=== PATIENT | female | born 1945 | race Caucasian/White ===

== ENCOUNTER 2016-02-21 16:53 | Inpatient (IN) | payer MEDICARE, OTHER ==
[~2016-02-21] VITALS: Ht 172.7 cm; Wt 74.4 kg
[2016-02-21 17:31] LABS: POTASSIUM ISTAT 5.6 mmol/L (3.5-5.0)
[2016-02-21 17:39] LABS: BASO # 0.2 x10^3/uL (0.0-0.2); BASO % 1 % (0-3); EOS % 3 % (0-3); HEMATOCRIT 25.9 % (36.0-47.0); HEMOGLOBIN 8.5 g/dL (12.0-15.5); LYMPH # 0.8 x10^3/uL (1.0-4.8); LYMPH % 6 % (24-48); MEAN CORPUSCULAR HEMOGLOBIN 30 pg (25-35); MEAN CORPUSCULAR HGB CONC 33 g/dL (31-37); MEAN CORPUSCULAR VOLUME 91 fL (79-100); MONO % 9 % (0-9); NEUT % 80 % (31-73); PLATELET COUNT 321 x10^3/uL (140-400); RED BLOOD COUNT 2.86 x10^6/uL (3.50-5.40); RED CELL DISTRIBUTION WIDTH 15.8 % (11.5-14.5); WHITE BLOOD COUNT 12.2 x10^3/uL (4.0-11.0)
[2016-02-21] MEDS ORDERED: INSULIN REGULAR 100 UNIT/ML 10ML VIAL. IV ONE (17:45)
[2016-02-21] MEDS ORDERED: DEXTROSE 50% 25 GM / 50ML DISP.SYRIN. IV ONE (17:45)
[2016-02-21] MEDS ORDERED: CALCIUM GLUCONATE 1,000 MG/10 ML VIAL IVP ONE (17:45)
[2016-02-21] MEDS ORDERED: SODIUM BICARB ADULT 8.4% 50 MEQ/50 ML DISP.SYRIN. IV ONE (17:45)
[2016-02-21 17:57] LABS: MAGNESIUM 2.6 mg/dL (1.8-2.4); PHOSPHORUS 5.5 mg/dL (2.6-4.7)
[2016-02-21 18:03] LABS: CALCIUM 9.1 mg/dL (8.5-10.1); CREATININE 3.4 mg/dL (0.6-1.0); GFR 13.3; POTASSIUM 4.4 mmol/L (3.5-5.1)
[2016-02-21 18:04] LABS: ALBUMIN 3.6 g/dL (3.4-5.0); ALBUMIN/GLOBULIN RATIO 1.1 (1.0-1.7); TOTAL BILIRUBIN 0.4 mg/dL (0.2-1.0)
--- NOTE | 2016-02-21 18:57 | RAD ---
PROCEDURE CT head without contrast. HISTORY Syncope and weakness. TECHNIQUE Noncontrast CT head was obtained. One or more of the following individualized dose reduction techniques were utilized for this exam: 1. Automated exposure control. 2. Adjustment of the mA and/or kV according to patient's size. 3. Use of iterative reconstruction technique. COMPARISON None provided. FINDINGS There is a small old right cerebellar infarct inferiorly. There is an old left basal ganglia infarct extending into the left frontal white matter. There is prominence of the ventricles and sulci. There is minimal probable small-vessel ischemic disease. There is no intracranial hemorrhage or extra-axial fluid collection. There is no mass effect or midline shift. There is no evidence of an acute infarct. There are vascular calcifications. There is hyperostosis frontalis. Left paranasal sinuses are opacified. Hyperdense material within the left maxillary sinus raises the possibility of inspissated secretions, atypical infection such as fungal sinusitis, or hemosinus. IMPRESSION 1. No acute intracranial findings. 2. 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 3. Brain parenchymal volume loss and minimal probable small-vessel ischemic disease. 4. Left paranasal sinus disease. Electronically signed by: Cory Pelaez MD (Feb 21, 2016 18:56:16)
[2016-02-21 19:04] LABS: INR 4.6 (0.8-1.1)
[2016-02-21] MEDS ORDERED: ALEN70TA5 PO (19:34)
[2016-02-21] MEDS ORDERED: SOTA160T PO (19:34)
[2016-02-21] MEDS ORDERED: LOSA1TAB17 PO (19:34)
[2016-02-21] MEDS ORDERED: DIGO125T PO (19:34)
[2016-02-21] MEDS ORDERED: INSU100V10 SQ (19:34)
[2016-02-21] MEDS ORDERED: OMEG1CAP16 PO (19:34)
[2016-02-21] MEDS ORDERED: FURO-68 PO (19:34)
[2016-02-21] MEDS ORDERED: ALLO300T PO (19:34)
[2016-02-21] MEDS ORDERED: MAGN400C PO (19:34)
[2016-02-21] MEDS ORDERED: ATOR40TA59 PO (19:34)
[2016-02-21] MEDS ORDERED: WARF5TAB PO (19:34)
[2016-02-21] MEDS ORDERED: ASPI-482 PO (19:34)
[2016-02-21 19:43] LABS: OBC FLU VALID
[2016-02-21 20:00] VITALS: BP 140/64
[2016-02-21 21:00] VITALS: BP 149/58
--- NOTE | 2016-02-21 21:25 | EKG ---
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
--- NOTE | 2016-02-21 21:26 | EKG ---
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
[2016-02-21] MEDS ORDERED: DEXTROSE 50% 25 GM / 50ML DISP.SYRIN. IV PRN (21:30)
[2016-02-21 22:00] VITALS: BP 148/57
[2016-02-21] MEDS ORDERED: SOTALOL 80 MG TABLET. PO SCH (22:00)
[2016-02-21 23:00] VITALS: BP 115/48
[2016-02-22] VITALS (26 sets, daily range): BP systolic 92–143; BP diastolic 43–69
[2016-02-22] MEDS ORDERED: ACETAMINOPHEN 325 MG TABLET. PO PRN
[2016-02-22] MEDS ORDERED: DEXTROSE 50% 25 GM / 50ML DISP.SYRIN. IV PRN ×2 (00:30→11:00)
--- NOTE | 2016-02-22 00:31 | ED.ADGEN ---
Past Medical History Past Medical History: CAD, CVA, Diabetes-Type II, Renal Disease, Other Additional Past Medical Histor: ULCER COLITIS, AORTIC VALVE PROLAPSE Past Surgical History: Cholecystectomy, Tonsillectomy, Other Additional Past Surgical Histo: RIGHT BREAST MASTECTOMY,COLON RESECTION,AORTIC VALVE REPLACEMENT Alcohol Use: Occasionally Drug Use: None Adult General Chief Complaint Chief Complaint: SYNCOPE HPI HPI Patient is a 70 year old woman, 3 of CAD, hypertension, CVA, type 2 diabetes mellitus, who presents to the emergency department via EMS with report of a syncopal episode and bradycardia. Patient is awake, alert and oriented upon arrival to the emergency department. Heart rate is in the 30s and 40s, sinus bradycardia on the monitor. Blood pressure is 130s over 70s, oxygen saturation is 97% on room air. Patient states that she was seated in a chair in her living room, when she experienced a syncopal episode. She states he's been feeling unwell for the past several days, suffering from "flulike symptoms". Coughing, occasional nausea. No chest pain or shortness of breath, no vomiting or diarrhea. Denies any weakness emesis or tingling, any injuries. Patient's witnessed the episode, and states that she slumped over in the chair, is unresponsive for several minutes, patient did have incontinence of urine, but no seizure type activity was reported. Patient is compliant with her medications, which include digoxin and solatol, she also takes Coumadin. She did not fall or strike her head or neck. Denies any similar symptoms previously. Her primary care provider is Dr. Milner, her manager exchange is Dr. Butler. Review of Systems Review of Systems Constitutional: Denies fever or chills. [] Generalized malaise. Eyes: Denies change in visual acuity. [] HENT: Denies nasal congestion or sore throat. [] Respiratory: Denies cough or shortness of breath. [] Cardiovascular: Denies chest pain or edema. [] GI: Denies abdominal pain, nausea, vomiting, bloody stools or diarrhea. [] : Denies dysuria. [] Musculoskeletal: Denies back pain or joint pain. [] Integument: Denies rash. [] Neurologic: Denies headache, focal weakness or sensory changes. Syncope. [] Endocrine: Denies polyuria or polydipsia. [] Lymphatic: Denies swollen glands. [] Psychiatric: Denies depression or anxiety. [] Physical Exam Physical Exam Constitutional: Well developed, well nourished, no acute distress, non-toxic appearance. [] HENT: Normocephalic, atraumatic, bilateral external ears normal, oropharynx moist, no oral exudates, nose normal. [] Eyes: PERRLA, EOMI, conjunctiva normal, no discharge. [] Neck: Normal range of motion, no tenderness, supple, no stridor. [] Cardiovascular:Heart rate regular rhythm, no murmur [] Lungs & Thorax: Bilateral breath sounds clear to auscultation [] Abdomen: Bowel sounds normal, soft, no tenderness, no masses, no pulsatile masses. [] Skin: Warm, dry, no erythema, no rash. [] Back: No tenderness, no CVA tenderness. [] Extremities: No tenderness, no cyanosis, no clubbing, ROM intact, no edema. [] Neurologic: Alert and oriented X 3, normal motor function, normal sensory function, no focal deficits noted. [] Psychologic: Affect normal, judgement normal, mood normal. [] Current Patient Data Vital Signs Vital Signs Date Time Temp Pulse Resp B/P Pulse Ox O2 Delivery O2 Flow Rate FiO2 02/21/16 16:53 97.7 44 12 125/59 93 Room Air 97.7 EKG EKG EC: Sinus bradycardia, heart rate 42 beats minute, QTC of 450, QRS of 112 , contour abnormalities noted in the anterior lateral leads, left axis deviation , no ST elevations or depressions. As interpreted by me. [] EC: Sinus bradycardia, heart rate of 44 bpm, left ventricular hypertrophy , with baseline artifact, QTC of 474, NM 194, QRS of 14, no ST elevations, no significant depressions identified. As interpreted by me. Radiology/Procedures Radiology/Procedures Chest x-ray: In view: Cardiomegaly noted, no significant infiltrates or effusions noted, sternotomy wires in place. No pneumothorax, no soft tissue abnormalities identified, as interpreted by me. [] Course & Med Decision Making Course & Med Decision Making Pertinent Labs and Imaging studies reviewed. (See chart for details) Patient with persistent bradycardia, however it is sinus in nature, and patient' s blood pressures remained in the 120s to the 140s over 70s and 80s, she is denying any symptoms at this time in the ED. I-STAT reveals a potassium of 5.6, creatinine of 3.5, creatinine is in line with the patient's baseline. Patient was given calcium gluconate 1 g, along with bicarbonate and insulin, glucose, with concern for possible hyperkalemia contributing to her bradycardia. There was no change in the patient's baseline rhythm, heart rate remains in the 30s to the low 50s. Troponin is normal, CT of the head does not reveal any evidence of acute abdomen abnormalities. Findings as above discussed with Dr. Butler, the patient's primary care provider. The patient denies any possible overdose of her medications, which is consistent with her continued stabilized blood pressure, her digoxin level is 1.3. He recommends continue to monitor the patient closely, will admit to the ICU keep the life pads on as replacement patient's arrival, patient will likely require placement of a pacemaker. Findings as above discussed with Dr. Milner, the patient's primary care provider , patient accepted to her service as a full admission to the ICU with plan as stated above. I did discuss this with patient, she is agreeable with this plan, is resting comfortably at this time, heart rate remains in the 40s to 50s at this point, blood pressure remained stable, patient transferred to the ICU without issue. Dragon Disclaimer Dragon Disclaimer This electronic medical record was generated, in whole or in part, using a voice recognition dictation system. Critical Care Time Critical care time was 20 minutes exclusive of procedures. Departure Impression: Primary Impression: Syncope Additional Impression: Symptomatic bradycardia Disposition: ADMITTED INPATIENT Admitting Physician: Dolores Milner Condition: IMPROVED Problem Qualifiers Primary Impression: Syncope Syncope type: unspecified Qualified Code: R55 - Syncope and collapse BING NELSON DO Feb 22, 2016 00:31
--- NOTE | 2016-02-22 00:41 | ACF ---
Admission Forms Criteria SYNCOPE Clinical Indications for Admission to Inpatient Care ( Place 'X' for any and all applicable criteria): Admission is indicated for syncope and ANY ONE of the following (1)(2)(3)(4)(5) (6)(7) : [ X]I. Inpatient admission required rather than observation care (Also use Syncope: Observation Care Criteria as appropriate) because of ANY ONE of the following: [ X]a) Hemodynamic instability that is severe or persistent [ ]b) Cardiac arrhythmias of immediate concern identified or strongly suspected (eg, needs electrophysiologic study) [ ]c) Acute coronary syndrome identified (Also use Myocardial Infarction or Angina Criteria form ) [ ]d) Structural cardiac disorder (eg, aortic stenosis) suspected as cause that requires immediate correction [ ]e) Respiratory symptoms (eg, dyspnea, tachypnea) that are severe or persistent [ ]f) Neurologic signs or symptoms that are severe or persistent ( eg, stroke, seizures, altered mental status) [ ]g) Severe electrolyte abnormalities requiring inpatient care [ ]h) Supplemental oxygen or respiratory treatment for over 24 hrs that are performable only in acute inpatient setting [ ]i) IV fluid to replace significant ongoing (eg, for over 24 hrs ) losses (>3 L/m2 per day) [ ]j) Continuous intravenous infusion of anticoagulation, platelet inhibitor, vasoactive, or antiarrhythmic medication(15)(16) [ ]k) Pulmonary artery catheter monitoring [ ]l) Temporary pacemaker placement(17) [ ]m) Emergent cardioversion(18) [ X]n) Other conditions, treatment or monitoring requiring inpatient admission [ ]II. Suspicion of imminently dangerous cause (eg, rare causes like pericardial tamponade, pulmonary embolism) [ ]III. Syncope causing severe injury requiring hospitalization Extended stay beyond goal length of stay may be needed for(28) [ ]a) Dangerous arrhythmia(15)(23)(27)(29) [ ]b) Myocardial ischemia [ ]c) Seizure disorder [ ]d) Syncope-related injuries The original [email or web address] content created by [employer] has been revised. The portions of the content which have been revised are identified through the use of italic text or in bold, and [employer] has neither reviewed nor approved the modified material. All other unmodified content is copyright [employer] [facility] [employer]. Please see references footnoted in the original [facility] edition 2016 Admission Criteria Met?: Yes LINDSAY BOWEN Feb 22, 2016 00:41
--- NOTE | 2016-02-22 07:17 | EKG ---
[facility] [address] [place] [address] Test Date: 2016-02-22 Test Time: 07:22:18 Pat Name: GASTON PATTERSON Department: Room: 110 1 Gender: F Damascener: DAVID : 1945 Requested By: BING NELSON Order Number: [id number] Reading MD: Angela Bojorquez Measurements Intervals [place] Rate: 51 P: SD: QRS: 28 QRSD: 114 T: 38 QT: 502 QTc: 465 Interpretive Statements PROBABLE SINUS RHYTHM QRS(T) CONTOUR ABNORMALITY CONSIDER ANTEROLATERAL MYOCARDIAL DAMAGE ABNORMAL ECG RI6.01 No previous ECG available for comparison Electronically Signed On 02-25-2016 8:40:09 SHIPYARD LABORER by Angela Bojorquez
[2016-02-22 07:42] LABS: BASO # 0.1 x10^3/uL (0.0-0.2); BASO % 1 % (0-3); EOS % 3 % (0-3); HEMATOCRIT 23.3 % (36.0-47.0); HEMOGLOBIN 7.6 g/dL (12.0-15.5); LYMPH # 0.7 x10^3/uL (1.0-4.8); LYMPH % 7 % (24-48); MEAN CORPUSCULAR HEMOGLOBIN 30 pg (25-35); MEAN CORPUSCULAR HGB CONC 33 g/dL (31-37); MEAN CORPUSCULAR VOLUME 93 fL (79-100); MONO % 11 % (0-9); NEUT % 78 % (31-73); PLATELET COUNT 272 x10^3/uL (140-400); RED BLOOD COUNT 2.51 x10^6/uL (3.50-5.40); RED CELL DISTRIBUTION WIDTH 16.1 % (11.5-14.5); WHITE BLOOD COUNT 10.2 x10^3/uL (4.0-11.0)
[2016-02-22 07:52] LABS: INR 4.2 (0.8-1.1); PROTHROMBIN TIME PATIENT 38.3 SEC (11.7-14.0)
[2016-02-22] MEDS ORDERED: INSULIN ASPART 300 UNITS/3 ML INSULN.PEN SQ SCH ×2 (08:00)
[2016-02-22 08:09] LABS: ALBUMIN 3.2 g/dL (3.4-5.0); ALBUMIN/GLOBULIN RATIO 1.1 (1.0-1.7); CALCIUM 9.1 mg/dL (8.5-10.1); CREATININE 3.2 mg/dL (0.6-1.0); GFR 14.2; MAGNESIUM 2.7 mg/dL (1.8-2.4); POTASSIUM 3.8 mmol/L (3.5-5.1); TOTAL BILIRUBIN 0.5 mg/dL (0.2-1.0); TOTAL PROTEIN 6.2 g/dL (6.4-8.2)
--- NOTE | 2016-02-22 08:40 | RAD ---
Indication syncopal episode. Protocol study. A single view of the chest was obtained. Note is made of a previous examination 10 years earlier. There is mild cardiac enlargement. Gross congestive heart failure is not seen. There is no consolidated pneumonia. Significant pleural fluid is not present. Postoperative changes are noted. IMPRESSION: Mild cardiac enlargement. No definite acute finding apparent in the chest
[2016-02-22] MEDS ORDERED: ASPIRIN ENTERIC COATED 81 MG TABLET.DR. PO SCH (09:00)
[2016-02-22] MEDS ORDERED: LOSARTAN POTASSIUM 50 MG TABLET. PO SCH (09:00)
[2016-02-22] MEDS ORDERED: HYDROCHLOROTHIAZIDE 25 MG TABLET PO SCH (09:00)
[2016-02-22] MEDS ORDERED: FUROSEMIDE 40 MG TABLET PO SCH (09:00)
[2016-02-22] MEDS: ALLOPURINOL 300 MG TABLET. PO SCH (09:59)
[2016-02-22] MEDS: OSELTAMIVIR 75 MG CAPSULE PO SCH (09:59)
--- NOTE | 2016-02-22 10:24 | PDOC1 ---
History and Physical Date of Admission Date of Admission DATE: 02/21/16 TIME: 17:12 Identification/Chief Complaint Chief Complaint Consult for syncopal episode, bradycardia Source Source: Chart review, Patient History of Present Illness History of Present Illness Patient is a very pleasant 70 year old female who presented after a syncopal episode. She was unresponsive for more than 5 minutes. She denies any chest pain at the time. Past Medical History Cardiovascular: CAD, HTN, Other (AV prolapse) CENTRAL NERVOUS SYSTEM: CVA GI: Inflam bowel disease (Ulcerative colitis) Renal/: Other (renal disease) Endocrine: Diabetes Past Surgical History Past Surgical History aortic valve replacement Past Surgical History: Cholecystectomy, Mastectomy (R breast), Tonsillectomy, Colon Resection Social History Smoke: No ALCOHOL: occassional Current Problem List Problem List Problems Medical Problems: (1) Symptomatic bradycardia Status: Acute (2) Syncope Status: Acute Problems: Current Medications Current Medications Current Medications Calcium Gluconate 1,000 mg 1X ONCE IVP Last administered on 02/21/16 18:08; Start 02/21/16 at 17:45; Stop 02/21/16 at 17:46; Status DC Sodium Bicarbonate 50 meq 1X ONCE IV Last administered on 02/21/16 17:52; Start 02/21/16 at 17:45; Stop 02/21/16 at 17:46; Status DC Dextrose 25 gm 1X ONCE IV Last administered on 02/21/16 18:02; Start 02/21/16 at 17:45; Stop 02/21/16 at 17:46; Status DC Insulin Human Regular (Novolin R Vial) 10 unit 1X ONCE IV Last administered on 02/21/16 18:22; Start 02/21/16 at 17:45; Stop 02/21/16 at 17:46; Status DC Oseltamivir Phosphate (Tamiflu) 75 mg DAILY PO Last administered on 02/22/16 09 :59; Start 02/22/16 at 09:00; Stop 02/26/16 at 09:00 Allopurinol (Zyloprim) 300 mg DAILY PO Last administered on 02/22/16 09:59; Start 02/22/16 at 09:00 Aspirin (Ecotrin) 81 mg DAILY PO Last administered on 02/22/16 09:59; Start 02/22/16 at 09:00 Atorvastatin Calcium (Lipitor) 40 mg QHS PO ; Start 02/22/16 at 21:00 Furosemide (Lasix) 40 mg DAILY PO ; Start 02/22/16 at 09:00 Losartan Potassium (Cozaar) 100 mg DAILY PO Last administered on 02/22/16t 10:02 ; Start 02/22/16 at 09:00 Sotalol HCl (Betapace) 160 mg BID PO ; Start 02/21/16 at 22:00 Insulin Aspart (Novolog) 0-5 UNITS TIDWMEALS SQ ; Start 02/22/16 at 08:00 Dextrose 12.5 gm PRN Q15MIN PRN IV SEE COMMENTS; Start 02/21/16 at 21:30 Hydrochlorothiazide (Hydrodiuril) 25 mg DAILY PO ; Start 02/22/16 at 09:00 Acetaminophen (Tylenol) 650 mg PRN Q4HRS PRN PO FEVER; Start 02/22/16 at 00:00; Stop 02/22/16 at 23:59 Insulin Aspart (Novolog) 0-5 UNITS TIDWMEALS SQ ; Start 02/22/16 at 08:00; Status UNV Dextrose 12.5 gm PRN Q15MIN PRN IV SEE COMMENTS; Start 02/22/16 at 00:30; Status UNV Active Scripts Active Reported Coumadin (Warfarin Sodium) 5 Mg Tablet 1 Tab PO DAILY Sotalol (Sotalol Hcl) 160 Mg Tablet 160 Mg PO BID Novolin R (Insulin Regular, Human) 100 Unit/1 Ml Vial 100 Unit IJ Magnesium (Magnesium Oxide) 400 Mg Capsule 1 Cap PO BID Losartan-Hctz 100-25 Mg Tab (Losartan/Hydrochlorothiazide) 1 Each Tablet 1 Tab PO DAILY Lasix (Furosemide) 40 Mg Tablet 1 Tab PO DAILY Fish Oil 1,000 Mg Softgel ([place]-3 Fatty Acids/Fish Oil) 1 Each Capsule 1 Each PO DAILY Digoxin 125 Mcg Tablet 1 Tab PO DAILY Aspir 81 (Aspirin) 81 Mg Tablet.dr 1 Tab PO DAILY Atorvastatin Calcium 40 Mg Tablet 1 Tab PO QHS Allopurinol 300 Mg Tablet 1 Tab PO DAILY Alendronate Sodium 70 Mg Tablet 1 Tab PO WEEKLY Allergies Allergies: Coded Allergies: No Known Drug Allergies (Unverified , 02/21/16) Vitals Vitals Vital Signs Date Time Temp Pulse Resp B/P Pulse Ox O2 Delivery O2 Flow Rate FiO2 02/22/16 10:02 55 120/61 02/22/16 06:00 18 99 Nasal Cannula 2.0 02/22/16 04:00 98.1 98.1 Labs Labs Laboratory Tests Test 02/21/16 17:21 02/21/16 17:25 02/21/16 17:26 02/21/16 18:26 White Blood Count 12.2x10^3/uL (4.0-11.0) Red Blood Count 2.86x10^6/uL (3.50-5.40) Hemoglobin 8.5g/dL (12.0-15.5) Hematocrit 25.9% (36.0-47.0) Mean Corpuscular Volume 91fL (79-100) Mean Corpuscular Hemoglobin 30pg (25-35) Mean Corpuscular Hemoglobin Concent 33g/dL (31-37) Red Cell Distribution Width 15.8% (11.5-14.5) Platelet Count 321x10^3/uL (140-400) Neutrophils (%) (Auto) 80% (31-73) Lymphocytes (%) (Auto) 6% (24-48) Monocytes (%) (Auto) 9% (0-9) Eosinophils (%) (Auto) 3% (0-3) Basophils (%) (Auto) 1% (0-3) Neutrophils # (Auto) 9.8x10^3uL (1.8-7.7) Lymphocytes # (Auto) 0.8x10^3/uL (1.0-4.8) Monocytes # (Auto) 1.1x10^3/uL (0.0-1.1) Eosinophils # (Auto) 0.4x10^3/uL (0.0-0.7) Basophils # (Auto) 0.2x10^3/uL (0.0-0.2) Sodium Level 136mmol/L (136-145) Potassium Level 4.4mmol/L (3.5-5.1) Chloride Level 99mmol/L (98-107) Carbon Dioxide Level 21mmol/L (21-32) Anion Gap 16 (6-14) 18mmol/L (6-14) Blood Urea Nitrogen 95mg/dL (7-20) Creatinine 3.4mg/dL (0.6-1.0) Estimated GFR (Cockcroft-Gault) 13.3 BUN/Creatinine Ratio 28 (6-20) Glucose Level 145mg/dL (70-99) 133mg/dL (70-99) Calcium Level 9.1mg/dL (8.5-10.1) Phosphorus Level 5.5mg/dL (2.6-4.7) Magnesium Level 2.6mg/dL (1.8-2.4) Total Bilirubin 0.4mg/dL (0.2-1.0) Aspartate Amino Transf (AST/SGOT) 27U/L (15-37) Alanine Aminotransferase (ALT/SGPT) 28U/L (14-59) Alkaline Phosphatase 48U/L (46-116) Bedside Troponin I 0.02ng/ml (<0.08) Troponin I Quantitative < 0.017ng/mL (0.000-0.055) HX-Pli-M-Type Natriuretic Peptide 2230pg/mL (0-124) Total Protein 7.0g/dL (6.4-8.2) Albumin 3.6g/dL (3.4-5.0) Albumin/Globulin Ratio 1.1 (1.0-1.7) Lipase 463U/L (73-393) Thyroid Stimulating Hormone (TSH) 3.160uIU/mL (0.358-3.74) Digoxin Level 1.3ng/mL (0.9-2.0) Digoxin Last Dose Date Unk Digoxin Last Dose Time Unk Bedside Hemoglobin 9.5g/dL (12-15) Bedside Hematocrit 28% (36-40) Bedside Sodium 133mmol/L (135-145) Bedside Potassium 5.6mmol/L (3.5-5.0) Bedside Chloride 100mmol/L (98-110) Bedside Total CO2 22mmol/L (23-32) Bedside Blood Urea Nitrogen 103mg/dL (8-26) Bedside Creatinine 3.5mg/dL (0.5-1.4) Bedside Ionized Calcium (Mary) 1.08mmol/L (1.13-1.32) Prothrombin Time 41.0SEC (11.7-14.0) Prothromb Time International Ratio 4.6 (0.8-1.1) Activated Partial Thromboplast Time 82SEC (24-38) Test 02/21/16 19:18 02/22/16 01:10 02/22/16 07:30 Influenza Type A Antigen Negative (NEGATIVE) Influenza Type B Antigen Positive (NEGATIVE) Troponin I Quantitative 0.025ng/mL (0.000-0.055) 0.030ng/mL (0.000-0.055) White Blood Count 10.2x10^3/uL (4.0-11.0) Red Blood Count 2.51x10^6/uL (3.50-5.40) Hemoglobin 7.6g/dL (12.0-15.5) Hematocrit 23.3% (36.0-47.0) Mean Corpuscular Volume 93fL (79-100) Mean Corpuscular Hemoglobin 30pg (25-35) Mean Corpuscular Hemoglobin Concent 33g/dL (31-37) Red Cell Distribution Width 16.1% (11.5-14.5) Platelet Count 272x10^3/uL (140-400) Neutrophils (%) (Auto) 78% (31-73) Lymphocytes (%) (Auto) 7% (24-48) Monocytes (%) (Auto) 11% (0-9) Eosinophils (%) (Auto) 3% (0-3) Basophils (%) (Auto) 1% (0-3) Neutrophils # (Auto) 7.9x10^3uL (1.8-7.7) Lymphocytes # (Auto) 0.7x10^3/uL (1.0-4.8) Monocytes # (Auto) 1.1x10^3/uL (0.0-1.1) Eosinophils # (Auto) 0.3x10^3/uL (0.0-0.7) Basophils # (Auto) 0.1x10^3/uL (0.0-0.2) Prothrombin Time 38.3SEC (11.7-14.0) Prothromb Time International Ratio 4.2 (0.8-1.1) Sodium Level 138mmol/L (136-145) Potassium Level 3.8mmol/L (3.5-5.1) Chloride Level 102mmol/L (98-107) Carbon Dioxide Level 24mmol/L (21-32) Anion Gap 12 (6-14) Blood Urea Nitrogen 85mg/dL (7-20) Creatinine 3.2mg/dL (0.6-1.0) Estimated GFR (Cockcroft-Gault) 14.2 BUN/Creatinine Ratio 27 (6-20) Glucose Level 120mg/dL (70-99) Calcium Level 9.1mg/dL (8.5-10.1) Magnesium Level 2.7mg/dL (1.8-2.4) Total Bilirubin 0.5mg/dL (0.2-1.0) Aspartate Amino Transf (AST/SGOT) 18U/L (15-37) Alanine Aminotransferase (ALT/SGPT) 22U/L (14-59) Alkaline Phosphatase 45U/L (46-116) Total Protein 6.2g/dL (6.4-8.2) Albumin 3.2g/dL (3.4-5.0) Albumin/Globulin Ratio 1.1 (1.0-1.7) Laboratory Tests Test 02/21/16 17:21 02/21/16 17:25 02/21/16 17:26 02/21/16 18:26 White Blood Count 12.2x10^3/uL (4.0-11.0) Red Blood Count 2.86x10^6/uL (3.50-5.40) Hemoglobin 8.5g/dL (12.0-15.5) Hematocrit 25.9% (36.0-47.0) Mean Corpuscular Volume 91fL (79-100) Mean Corpuscular Hemoglobin 30pg (25-35) Mean Corpuscular Hemoglobin Concent 33g/dL (31-37) Red Cell Distribution Width 15.8% (11.5-14.5) Platelet Count 321x10^3/uL (140-400) Neutrophils (%) (Auto) 80% (31-73) Lymphocytes (%) (Auto) 6% (24-48) Monocytes (%) (Auto) 9% (0-9) Eosinophils (%) (Auto) 3% (0-3) Basophils (%) (Auto) 1% (0-3) Neutrophils # (Auto) 9.8x10^3uL (1.8-7.7) Lymphocytes # (Auto) 0.8x10^3/uL (1.0-4.8) Monocytes # (Auto) 1.1x10^3/uL (0.0-1.1) Eosinophils # (Auto) 0.4x10^3/uL (0.0-0.7) Basophils # (Auto) 0.2x10^3/uL (0.0-0.2) Sodium Level 136mmol/L (136-145) Potassium Level 4.4mmol/L (3.5-5.1) Chloride Level 99mmol/L (98-107) Carbon Dioxide Level 21mmol/L (21-32) Anion Gap 16 (6-14) 18mmol/L (6-14) Blood Urea Nitrogen 95mg/dL (7-20) Creatinine 3.4mg/dL (0.6-1.0) Estimated GFR (Cockcroft-Gault) 13.3 BUN/Creatinine Ratio 28 (6-20) Glucose Level 145mg/dL (70-99) 133mg/dL (70-99) Calcium Level 9.1mg/dL (8.5-10.1) Phosphorus Level 5.5mg/dL (2.6-4.7) Magnesium Level 2.6mg/dL (1.8-2.4) Total Bilirubin 0.4mg/dL (0.2-1.0) Aspartate Amino Transf (AST/SGOT) 27U/L (15-37) Alanine Aminotransferase (ALT/SGPT) 28U/L (14-59) Alkaline Phosphatase 48U/L (46-116) Bedside Troponin I 0.02ng/ml (<0.08) Troponin I Quantitative < 0.017ng/mL (0.000-0.055) LH-Qzq-N-Type Natriuretic Peptide 2230pg/mL (0-124) Total Protein 7.0g/dL (6.4-8.2) Albumin 3.6g/dL (3.4-5.0) Albumin/Globulin Ratio 1.1 (1.0-1.7) Lipase 463U/L (73-393) Thyroid Stimulating Hormone (TSH) 3.160uIU/mL (0.358-3.74) Digoxin Level 1.3ng/mL (0.9-2.0) Digoxin Last Dose Date Unk Digoxin Last Dose Time Unk Bedside Hemoglobin 9.5g/dL (12-15) Bedside Hematocrit 28% (36-40) Bedside Sodium 133mmol/L (135-145) Bedside Potassium 5.6mmol/L (3.5-5.0) Bedside Chloride 100mmol/L (98-110) Bedside Total CO2 22mmol/L (23-32) Bedside Blood Urea Nitrogen 103mg/dL (8-26) Bedside Creatinine 3.5mg/dL (0.5-1.4) Bedside Ionized Calcium (Mary) 1.08mmol/L (1.13-1.32) Prothrombin Time 41.0SEC (11.7-14.0) Prothromb Time International Ratio 4.6 (0.8-1.1) Activated Partial Thromboplast Time 82SEC (24-38) Test 02/21/16 19:18 02/22/16 01:10 02/22/16 07:30 Influenza Type A Antigen Negative (NEGATIVE) Influenza Type B Antigen Positive (NEGATIVE) Troponin I Quantitative 0.025ng/mL (0.000-0.055) 0.030ng/mL (0.000-0.055) White Blood Count 10.2x10^3/uL (4.0-11.0) Red Blood Count 2.51x10^6/uL (3.50-5.40) Hemoglobin 7.6g/dL (12.0-15.5) Hematocrit 23.3% (36.0-47.0) Mean Corpuscular Volume 93fL (79-100) Mean Corpuscular Hemoglobin 30pg (25-35) Mean Corpuscular Hemoglobin Concent 33g/dL (31-37) Red Cell Distribution Width 16.1% (11.5-14.5) Platelet Count 272x10^3/uL (140-400) Neutrophils (%) (Auto) 78% (31-73) Lymphocytes (%) (Auto) 7% (24-48) Monocytes (%) (Auto) 11% (0-9) Eosinophils (%) (Auto) 3% (0-3) Basophils (%) (Auto) 1% (0-3) Neutrophils # (Auto) 7.9x10^3uL (1.8-7.7) Lymphocytes # (Auto) 0.7x10^3/uL (1.0-4.8) Monocytes # (Auto) 1.1x10^3/uL (0.0-1.1) Eosinophils # (Auto) 0.3x10^3/uL (0.0-0.7) Basophils # (Auto) 0.1x10^3/uL (0.0-0.2) Prothrombin Time 38.3SEC (11.7-14.0) Prothromb Time International Ratio 4.2 (0.8-1.1) Sodium Level 138mmol/L (136-145) Potassium Level 3.8mmol/L (3.5-5.1) Chloride Level 102mmol/L (98-107) Carbon Dioxide Level 24mmol/L (21-32) Anion Gap 12 (6-14) Blood Urea Nitrogen 85mg/dL (7-20) Creatinine 3.2mg/dL (0.6-1.0) Estimated GFR (Cockcroft-Gault) 14.2 BUN/Creatinine Ratio 27 (6-20) Glucose Level 120mg/dL (70-99) Calcium Level 9.1mg/dL (8.5-10.1) Magnesium Level 2.7mg/dL (1.8-2.4) Total Bilirubin 0.5mg/dL (0.2-1.0) Aspartate Amino Transf (AST/SGOT) 18U/L (15-37) Alanine Aminotransferase (ALT/SGPT) 22U/L (14-59) Alkaline Phosphatase 45U/L (46-116) Total Protein 6.2g/dL (6.4-8.2) Albumin 3.2g/dL (3.4-5.0) Albumin/Globulin Ratio 1.1 (1.0-1.7) VTE Prophylaxis Ordered VTE Prophylaxis Devices: No VTE Pharmacological Prophylaxi: Yes Assessment/Plan Assessment/Plan 1. Sinus bradycardia -Holding sotalol -Insert pacemaker 2. Acute kidney injury - 3. Influenza B positive -Continue Tamiflu ELIZA COON MD Feb 22, 2016 10:24
[2016-02-22] MEDS ORDERED: LOSA100T6 PO (11:40)
[2016-02-22] MEDS ORDERED: MAGNESIUM SULFATE 2GM 50 ML IV PRN (12:45)
--- NOTE | 2016-02-22 12:47 | PDOC2 ---
GI CONSULT Reason For Consult: Anemia HPI: HPI: 70 y/o female admitted to ICU following syncopal episode. She also is bradycardic and positive for influenza B. GI consult is requested for anemia. Labs include Hgb 7.6 (from 8.5), INR 4.2 (from 4.6), BUN 85, Cr 3.2, BNP >2200, lipase 463, and elevated potassium and magnesium. Note order for guaiac stools. PMH significant for aortic valve replacements on Warfarin ( currently held). She denies h/o anemia; no previous labs available for review. She denies hematemesis, hematochezia, or melena. She did have a significant nosebleed ("with clots") 1-2 weeks ago. She has very occasional reflux after overeating which is not concerning and untreated. She has constipation sometimes when she does not take magnesium (per Dr. Alcazar). She denies n/v, abdominal pain, diarrhea, change in appetite, weight loss, and NSAID use. Her chart lists a history of ulcerative colitis which she denies. She has had some type of bowel resection for reasons that are unclear. Per office records, EGD and colonoscopy performed by Dr. Haile in 2003 revealed H. pylori gastritis and hemorrhoids. She's not sure re: H. pylori treatment and does not believe she has had repeat endoscopies since that time. PMH: PMH: CVA, CAD, DM, CKD, osteoporosis, gout, sinusitis, seizure disorder, breast cancer s/p chemo and partial right mastectomy, aortic valve replacement x 2 on Warfarin, bowel resection (?SBO), cholecystectomy, tonsillectomy FH: Family History: No pertinent hx (denies GI cancers) Social History: Smoke: No ALCOHOL: occassional Drugs: None ROS: GEN: Denies fevers, chills, sweats HEENT: Denies blurred vision, sore throat CV: Denies chest pain RESP: +cough GI: Per HPI : Denies hematuria, dysuria ENDO: Denies weight changes NEURO: +syncope MSK: +leg swelling SKIN: Denies jaundice, pruritus VItals: Vitals: Vital Signs Date Time Temp Pulse Resp B/P Pulse Ox O2 Delivery O2 Flow Rate FiO2 02/22/16 10:02 55 120/61 02/22/16 06:00 18 99 Nasal Cannula 2.0 02/22/16 04:00 98.1 98.1 Labs: Labs: Laboratory Tests Test 02/21/16 17:21 02/21/16 17:25 02/21/16 17:26 02/21/16 18:26 White Blood Count 12.2x10^3/uL (4.0-11.0) Red Blood Count 2.86x10^6/uL (3.50-5.40) Hemoglobin 8.5g/dL (12.0-15.5) Hematocrit 25.9% (36.0-47.0) Mean Corpuscular Volume 91fL (79-100) Mean Corpuscular Hemoglobin 30pg (25-35) Mean Corpuscular Hemoglobin Concent 33g/dL (31-37) Red Cell Distribution Width 15.8% (11.5-14.5) Platelet Count 321x10^3/uL (140-400) Neutrophils (%) (Auto) 80% (31-73) Lymphocytes (%) (Auto) 6% (24-48) Monocytes (%) (Auto) 9% (0-9) Eosinophils (%) (Auto) 3% (0-3) Basophils (%) (Auto) 1% (0-3) Neutrophils # (Auto) 9.8x10^3uL (1.8-7.7) Lymphocytes # (Auto) 0.8x10^3/uL (1.0-4.8) Monocytes # (Auto) 1.1x10^3/uL (0.0-1.1) Eosinophils # (Auto) 0.4x10^3/uL (0.0-0.7) Basophils # (Auto) 0.2x10^3/uL (0.0-0.2) Sodium Level 136mmol/L (136-145) Potassium Level 4.4mmol/L (3.5-5.1) Chloride Level 99mmol/L (98-107) Carbon Dioxide Level 21mmol/L (21-32) Anion Gap 16 (6-14) 18mmol/L (6-14) Blood Urea Nitrogen 95mg/dL (7-20) Creatinine 3.4mg/dL (0.6-1.0) Estimated GFR (Cockcroft-Gault) 13.3 BUN/Creatinine Ratio 28 (6-20) Glucose Level 145mg/dL (70-99) 133mg/dL (70-99) Calcium Level 9.1mg/dL (8.5-10.1) Phosphorus Level 5.5mg/dL (2.6-4.7) Magnesium Level 2.6mg/dL (1.8-2.4) Total Bilirubin 0.4mg/dL (0.2-1.0) Aspartate Amino Transf (AST/SGOT) 27U/L (15-37) Alanine Aminotransferase (ALT/SGPT) 28U/L (14-59) Alkaline Phosphatase 48U/L (46-116) Bedside Troponin I 0.02ng/ml (<0.08) Troponin I Quantitative < 0.017ng/mL (0.000-0.055) VA-Sgs-S-Type Natriuretic Peptide 2230pg/mL (0-124) Total Protein 7.0g/dL (6.4-8.2) Albumin 3.6g/dL (3.4-5.0) Albumin/Globulin Ratio 1.1 (1.0-1.7) Lipase 463U/L (73-393) Thyroid Stimulating Hormone (TSH) 3.160uIU/mL (0.358-3.74) Digoxin Level 1.3ng/mL (0.9-2.0) Digoxin Last Dose Date Unk Digoxin Last Dose Time Unk Bedside Hemoglobin 9.5g/dL (12-15) Bedside Hematocrit 28% (36-40) Bedside Sodium 133mmol/L (135-145) Bedside Potassium 5.6mmol/L (3.5-5.0) Bedside Chloride 100mmol/L (98-110) Bedside Total CO2 22mmol/L (23-32) Bedside Blood Urea Nitrogen 103mg/dL (8-26) Bedside Creatinine 3.5mg/dL (0.5-1.4) Bedside Ionized Calcium (Mary) 1.08mmol/L (1.13-1.32) Prothrombin Time 41.0SEC (11.7-14.0) Prothromb Time International Ratio 4.6 (0.8-1.1) Activated Partial Thromboplast Time 82SEC (24-38) Test 02/21/16 19:18 02/22/16 01:10 02/22/16 07:30 Influenza Type A Antigen Negative (NEGATIVE) Influenza Type B Antigen Positive (NEGATIVE) Troponin I Quantitative 0.025ng/mL (0.000-0.055) 0.030ng/mL (0.000-0.055) White Blood Count 10.2x10^3/uL (4.0-11.0) Red Blood Count 2.51x10^6/uL (3.50-5.40) Hemoglobin 7.6g/dL (12.0-15.5) Hematocrit 23.3% (36.0-47.0) Mean Corpuscular Volume 93fL (79-100) Mean Corpuscular Hemoglobin 30pg (25-35) Mean Corpuscular Hemoglobin Concent 33g/dL (31-37) Red Cell Distribution Width 16.1% (11.5-14.5) Platelet Count 272x10^3/uL (140-400) Neutrophils (%) (Auto) 78% (31-73) Lymphocytes (%) (Auto) 7% (24-48) Monocytes (%) (Auto) 11% (0-9) Eosinophils (%) (Auto) 3% (0-3) Basophils (%) (Auto) 1% (0-3) Neutrophils # (Auto) 7.9x10^3uL (1.8-7.7) Lymphocytes # (Auto) 0.7x10^3/uL (1.0-4.8) Monocytes # (Auto) 1.1x10^3/uL (0.0-1.1) Eosinophils # (Auto) 0.3x10^3/uL (0.0-0.7) Basophils # (Auto) 0.1x10^3/uL (0.0-0.2) Prothrombin Time 38.3SEC (11.7-14.0) Prothromb Time International Ratio 4.2 (0.8-1.1) Sodium Level 138mmol/L (136-145) Potassium Level 3.8mmol/L (3.5-5.1) Chloride Level 102mmol/L (98-107) Carbon Dioxide Level 24mmol/L (21-32) Anion Gap 12 (6-14) Blood Urea Nitrogen 85mg/dL (7-20) Creatinine 3.2mg/dL (0.6-1.0) Estimated GFR (Cockcroft-Gault) 14.2 BUN/Creatinine Ratio 27 (6-20) Glucose Level 120mg/dL (70-99) Calcium Level 9.1mg/dL (8.5-10.1) Magnesium Level 2.7mg/dL (1.8-2.4) Total Bilirubin 0.5mg/dL (0.2-1.0) Aspartate Amino Transf (AST/SGOT) 18U/L (15-37) Alanine Aminotransferase (ALT/SGPT) 22U/L (14-59) Alkaline Phosphatase 45U/L (46-116) Total Protein 6.2g/dL (6.4-8.2) Albumin 3.2g/dL (3.4-5.0) Albumin/Globulin Ratio 1.1 (1.0-1.7) Allergies: Coded Allergies: No Known Drug Allergies (Unverified , 02/21/16) Medications: Current Medications Medications (Trade) Dose Ordered Sig/Semaj Route PRN Reason Start Time Stop Time Status Last Admin Dose Admin Calcium Gluconate 1,000 mg 1X ONCE IVP 02/21/16 17:45 02/21/16 17:46 DC 02/21/16 18:08 Sodium Bicarbonate 50 meq 1X ONCE IV 02/21/16 17:45 02/21/16 17:46 DC 02/21/16 17:52 Dextrose 25 gm 1X ONCE IV 02/21/16 17:45 02/21/16 17:46 DC 02/21/16 18:02 Insulin Human Regular (Novolin R Vial) 10 unit 1X ONCE IV 02/21/16 17:45 02/21/16 17:46 DC 02/21/16 18:22 Oseltamivir Phosphate (Tamiflu) 75 mg DAILY PO 02/22/16 09:00 02/26/16 09:00 02/22/16 09:59 Allopurinol (Zyloprim) 300 mg DAILY PO 02/22/16 09:00 02/22/16 09:59 Aspirin (Ecotrin) 81 mg DAILY PO 02/22/16 09:00 02/22/16 11:35 DC 02/22/16 09:59 Losartan Potassium (Cozaar) 100 mg DAILY PO 02/22/16 09:00 02/22/16 10:02 Imaging: Imaging: Head CT 1/5/17 IMPRESSION 1. No acute intracranial findings. 2. 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 3. Brain parenchymal volume loss and minimal probable small-vessel ischemic disease. 4. Left paranasal sinus disease. CXR 02/21/16 IMPRESSION: Mild cardiac enlargement. No definite acute finding apparent in the chest PE: GEN: NAD, sitting in chair, present HEENT: Atraumatic, PERRL LUNGS: CTAB +murm HEART: bradycardic ABD: NABS, S/ND/NT EXTREMITY: BLE edema SKIN: No rashes, no jaundice NEURO/PSYCH: A & O 3 A/P: A/P: Anemia -Hgb 7.6 (from 8.5), guaiac stools ordered, denies obvious GI bleeding, did have epistaxis H/o aortic valve replacement on Warfarin, coagulopathy CKD H/o H. pylori infection -EGD biopsies positive in 2003 CRC screen -last colonoscopy 2003 -chart lists h/o ulcerative colitis which I believe is incorrect Bradycardia -per cardiology Influenza B -on Tamiflu -- Will review w/ Dr. Nicole. Will start empiric PPI and check additional labs. AMINATA HORTON Feb 22, 2016 12:47
--- NOTE | 2016-02-22 13:01 | PDOC2 ---
CONSULT Date of Consult Date of Consult DATE: 02/22/16 TIME: 13:00 Reason for Consult Reason for Consult: CKD IV Referring Physician Referring Physician: Dr Butler Identification/Chief Complaint Chief Complaint syncope Problems: Source Source: Chart review, Patient History of Present Illness Reason for Visit: as dictated Past Medical History Cardiovascular: CAD, HTN, Other (AV prolapse) CENTRAL NERVOUS SYSTEM: CVA GI: Inflam bowel disease (Ulcerative colitis) Renal/: Other (renal disease) Endocrine: Diabetes Past Surgical History Past Surgical History: Cholecystectomy, Mastectomy (R breast), Tonsillectomy, Colon Resection Family History Family History: Other (-ve for catina kidney dz) Social History No ALCOHOL: occassional Drugs: None Current Problem List Problem List Problems Medical Problems: (1) Symptomatic bradycardia Status: Acute (2) Syncope Status: Acute Current Medications Current Medications Current Medications Calcium Gluconate 1,000 mg 1X ONCE IVP Last administered on 02/21/16 18:08; Start 02/21/16 at 17:45; Stop 02/21/16 at 17:46; Status DC Sodium Bicarbonate 50 meq 1X ONCE IV Last administered on 02/21/16 17:52; Start 02/21/16 at 17:45; Stop 02/21/16 at 17:46; Status DC Dextrose 25 gm 1X ONCE IV Last administered on 02/21/16 18:02; Start 02/21/16 at 17:45; Stop 02/21/16 at 17:46; Status DC Insulin Human Regular (Novolin R Vial) 10 unit 1X ONCE IV Last administered on 02/21/16 18:22; Start 02/21/16 at 17:45; Stop 02/21/16 at 17:46; Status DC Oseltamivir Phosphate (Tamiflu) 75 mg DAILY PO Last administered on 02/22/16 09 :59; Start 02/22/16 at 09:00; Stop 02/26/16 at 09:00 Allopurinol (Zyloprim) 300 mg DAILY PO Last administered on 02/22/16 09:59; Start 02/22/16 at 09:00 Aspirin (Ecotrin) 81 mg DAILY PO Last administered on 02/22/16 09:59; Start 02/22/16 at 09:00; Stop 02/22/16 at 11:35; Status DC Atorvastatin Calcium (Lipitor) 40 mg QHS PO ; Start 02/22/16 at 21:00; Stop at 21:00; Status DC Furosemide (Lasix) 40 mg DAILY PO ; Start 02/22/16 at 09:00; Stop 02/22/16 at 11: 35; Status DC Losartan Potassium (Cozaar) 100 mg DAILY PO Last administered on 02/22/16t 10:02 ; Start 02/22/16 at 09:00 Sotalol HCl (Betapace) 160 mg BID PO ; Start 02/21/16 at 22:00; Stop 02/22/16 at 11:35; Status DC Insulin Aspart (Novolog) 0-5 UNITS TIDWMEALS SQ ; Start 02/22/16 at 08:00; Stop 02/22/16 at 11:03; Status DC Dextrose 12.5 gm PRN Q15MIN PRN IV SEE COMMENTS; Start 02/21/16 at 21:30 Hydrochlorothiazide (Hydrodiuril) 25 mg DAILY PO ; Start 02/22/16 at 09:00; Stop 02/22/16 at 11:35; Status DC Acetaminophen (Tylenol) 650 mg PRN Q4HRS PRN PO FEVER; Start 02/22/16 at 00:00; Stop 02/22/16 at 23:59 Insulin Aspart (Novolog) 0-5 UNITS TIDWMEALS SQ ; Start 02/22/16 at 08:00; Status UNV Dextrose 12.5 gm PRN Q15MIN PRN IV SEE COMMENTS; Start 02/22/16 at 00:30; Status UNV Insulin Aspart (Novolog) 0-7 UNITS TIDWMEALS SQ ; Start 02/22/16 at 12:00 Dextrose 12.5 gm PRN Q15MIN PRN IV SEE COMMENTS; Start 02/22/16 at 11:00; Status UNV Pantoprazole Sodium 40 mg 40 mg DAILYAC PO ; Start 02/22/16 at 13:30 Sodium Chloride (Iv Sodium Chloride 0.45%) 1,000 ml @ 80 mls/hr [id number] IV ; Start 02/22/16 at 13:30 Active Scripts Active Reported Losartan Potassium 100 Mg Tablet 100 Mg PO DAILY Coumadin (Warfarin Sodium) 5 Mg Tablet 1 Tab PO DAILY Novolin R (Insulin Regular, Human) 100 Unit/1 Ml Vial 100 Unit IJ Magnesium (Magnesium Oxide) 400 Mg Capsule 1 Cap PO BID Fish Oil 1,000 Mg Softgel (Primghar-3 Fatty Acids/Fish Oil) 1 Each Capsule 1 Each PO DAILY Allopurinol 300 Mg Tablet 1 Tab PO DAILY Alendronate Sodium 70 Mg Tablet 1 Tab PO WEEKLY Allergies Allergies: Coded Allergies: No Known Drug Allergies (Unverified , 02/21/16) ROS Review of System GEN: no Fevers no Chills EYES: no Visual Complaints ENT: no EN Drainage no Hearing deficiets CVS: no Orthopnea no CP + Syncope RESP: no SOB no ABRAMS GI: no Nausea no Vomiting : no Dysuria no Urgency HEME: no easy bruising no Palp Ly Nodes NEURO no Focal Weakness no Sz + Syncope PSYCH: no Suicidal Ideation no Depression SKIN: no Rashes ENDO: no Polyuria or Polydipsia no Hot/Cold Intolerance MU SK: no Arthraigia n Myalgia Physical Exam Physical Exam General Appearance: Awake Alert Oriented x 3 In no Distress Eyes: VIsion Unchanged Conjunctiva Normal EN: No EN Drainage Mucous Memb. moist Neck: no JVD no JVP Supple no Thyromegaly CVS: S1 S2 Soft Murmur No Gallop No Rub no Edema Resp: no Rales no Rhonchi no Acc. Muscle use GI: BAS +ve NO Bruit Non Tender Non Distended : no CVA tenderness; no Suprapubic Tenderness SKIN: no Rashes Breast Exam deferred Mu.Sk: Adequate ROM no Muscle Atrophy Heme: Unable to palpate Obvious LAD no Splenomegaly NEURO: Good Strength and Tone Cranial Nerves II - XII grossly intact Psych: not Depressed no Active hallucination Vital Signs Vital Signs Date Time Temp Pulse Resp B/P Pulse Ox O2 Delivery O2 Flow Rate FiO2 02/22/16 10:02 55 120/61 02/22/16 06:00 18 99 Nasal Cannula 2.0 02/22/16 04:00 98.1 98.1 Assessment & Plan CKD IV/ V: Current FLuid and E-lyte status does not necessitate emergent need for Dialysis. Will re-evaluate for Dialysis in am Anemia: may need Epogen if Fe studies are OK. Transfuse as needed. - GI evaluating too ^K on ly on POC - was WNL on actual lab check. HTN: Current BP meds reviewed. See orders for changes. syncope - defer to Dr Butler - doubt renal etio per se Discussed Plan of Care and prognosis etc. at length with pt Labs Labs Laboratory Tests Test 02/21/16 17:21 02/21/16 17:25 02/21/16 17:26 02/21/16 18:26 White Blood Count 12.2x10^3/uL (4.0-11.0) Red Blood Count 2.86x10^6/uL (3.50-5.40) Hemoglobin 8.5g/dL (12.0-15.5) Hematocrit 25.9% (36.0-47.0) Mean Corpuscular Volume 91fL (79-100) Mean Corpuscular Hemoglobin 30pg (25-35) Mean Corpuscular Hemoglobin Concent 33g/dL (31-37) Red Cell Distribution Width 15.8% (11.5-14.5) Platelet Count 321x10^3/uL (140-400) Neutrophils (%) (Auto) 80% (31-73) Lymphocytes (%) (Auto) 6% (24-48) Monocytes (%) (Auto) 9% (0-9) Eosinophils (%) (Auto) 3% (0-3) Basophils (%) (Auto) 1% (0-3) Neutrophils # (Auto) 9.8x10^3uL (1.8-7.7) Lymphocytes # (Auto) 0.8x10^3/uL (1.0-4.8) Monocytes # (Auto) 1.1x10^3/uL (0.0-1.1) Eosinophils # (Auto) 0.4x10^3/uL (0.0-0.7) Basophils # (Auto) 0.2x10^3/uL (0.0-0.2) Sodium Level 136mmol/L (136-145) Potassium Level 4.4mmol/L (3.5-5.1) Chloride Level 99mmol/L (98-107) Carbon Dioxide Level 21mmol/L (21-32) Anion Gap 16 (6-14) 18mmol/L (6-14) Blood Urea Nitrogen 95mg/dL (7-20) Creatinine 3.4mg/dL (0.6-1.0) Estimated GFR (Cockcroft-Gault) 13.3 BUN/Creatinine Ratio 28 (6-20) Glucose Level 145mg/dL (70-99) 133mg/dL (70-99) Calcium Level 9.1mg/dL (8.5-10.1) Phosphorus Level 5.5mg/dL (2.6-4.7) Magnesium Level 2.6mg/dL (1.8-2.4) Total Bilirubin 0.4mg/dL (0.2-1.0) Aspartate Amino Transf (AST/SGOT) 27U/L (15-37) Alanine Aminotransferase (ALT/SGPT) 28U/L (14-59) Alkaline Phosphatase 48U/L (46-116) Bedside Troponin I 0.02ng/ml (<0.08) Troponin I Quantitative < 0.017ng/mL (0.000-0.055) JG-Vww-O-Type Natriuretic Peptide 2230pg/mL (0-124) Total Protein 7.0g/dL (6.4-8.2) Albumin 3.6g/dL (3.4-5.0) Albumin/Globulin Ratio 1.1 (1.0-1.7) Lipase 463U/L (73-393) Thyroid Stimulating Hormone (TSH) 3.160uIU/mL (0.358-3.74) Digoxin Level 1.3ng/mL (0.9-2.0) Digoxin Last Dose Date Unk Digoxin Last Dose Time Unk Bedside Hemoglobin 9.5g/dL (12-15) Bedside Hematocrit 28% (36-40) Bedside Sodium 133mmol/L (135-145) Bedside Potassium 5.6mmol/L (3.5-5.0) Bedside Chloride 100mmol/L (98-110) Bedside Total CO2 22mmol/L (23-32) Bedside Blood Urea Nitrogen 103mg/dL (8-26) Bedside Creatinine 3.5mg/dL (0.5-1.4) Bedside Ionized Calcium (Mary) 1.08mmol/L (1.13-1.32) Prothrombin Time 41.0SEC (11.7-14.0) Prothromb Time International Ratio 4.6 (0.8-1.1) Activated Partial Thromboplast Time 82SEC (24-38) Test 02/21/16 19:18 02/22/16 01:10 02/22/16 07:30 Influenza Type A Antigen Negative (NEGATIVE) Influenza Type B Antigen Positive (NEGATIVE) Troponin I Quantitative 0.025ng/mL (0.000-0.055) 0.030ng/mL (0.000-0.055) White Blood Count 10.2x10^3/uL (4.0-11.0) Red Blood Count 2.51x10^6/uL (3.50-5.40) Hemoglobin 7.6g/dL (12.0-15.5) Hematocrit 23.3% (36.0-47.0) Mean Corpuscular Volume 93fL (79-100) Mean Corpuscular Hemoglobin 30pg (25-35) Mean Corpuscular Hemoglobin Concent 33g/dL (31-37) Red Cell Distribution Width 16.1% (11.5-14.5) Platelet Count 272x10^3/uL (140-400) Neutrophils (%) (Auto) 78% (31-73) Lymphocytes (%) (Auto) 7% (24-48) Monocytes (%) (Auto) 11% (0-9) Eosinophils (%) (Auto) 3% (0-3) Basophils (%) (Auto) 1% (0-3) Neutrophils # (Auto) 7.9x10^3uL (1.8-7.7) Lymphocytes # (Auto) 0.7x10^3/uL (1.0-4.8) Monocytes # (Auto) 1.1x10^3/uL (0.0-1.1) Eosinophils # (Auto) 0.3x10^3/uL (0.0-0.7) Basophils # (Auto) 0.1x10^3/uL (0.0-0.2) Prothrombin Time 38.3SEC (11.7-14.0) Prothromb Time International Ratio 4.2 (0.8-1.1) Sodium Level 138mmol/L (136-145) Potassium Level 3.8mmol/L (3.5-5.1) Chloride Level 102mmol/L (98-107) Carbon Dioxide Level 24mmol/L (21-32) Anion Gap 12 (6-14) Blood Urea Nitrogen 85mg/dL (7-20) Creatinine 3.2mg/dL (0.6-1.0) Estimated GFR (Cockcroft-Gault) 14.2 BUN/Creatinine Ratio 27 (6-20) Glucose Level 120mg/dL (70-99) Calcium Level 9.1mg/dL (8.5-10.1) Magnesium Level 2.7mg/dL (1.8-2.4) Total Bilirubin 0.5mg/dL (0.2-1.0) Aspartate Amino Transf (AST/SGOT) 18U/L (15-37) Alanine Aminotransferase (ALT/SGPT) 22U/L (14-59) Alkaline Phosphatase 45U/L (46-116) Total Protein 6.2g/dL (6.4-8.2) Albumin 3.2g/dL (3.4-5.0) Albumin/Globulin Ratio 1.1 (1.0-1.7) Laboratory Tests Test 02/21/16 17:21 02/21/16 17:25 02/21/16 17:26 02/21/16 18:26 White Blood Count 12.2x10^3/uL (4.0-11.0) Red Blood Count 2.86x10^6/uL (3.50-5.40) Hemoglobin 8.5g/dL (12.0-15.5) Hematocrit 25.9% (36.0-47.0) Mean Corpuscular Volume 91fL (79-100) Mean Corpuscular Hemoglobin 30pg (25-35) Mean Corpuscular Hemoglobin Concent 33g/dL (31-37) Red Cell Distribution Width 15.8% (11.5-14.5) Platelet Count 321x10^3/uL (140-400) Neutrophils (%) (Auto) 80% (31-73) Lymphocytes (%) (Auto) 6% (24-48) Monocytes (%) (Auto) 9% (0-9) Eosinophils (%) (Auto) 3% (0-3) Basophils (%) (Auto) 1% (0-3) Neutrophils # (Auto) 9.8x10^3uL (1.8-7.7) Lymphocytes # (Auto) 0.8x10^3/uL (1.0-4.8) Monocytes # (Auto) 1.1x10^3/uL (0.0-1.1) Eosinophils # (Auto) 0.4x10^3/uL (0.0-0.7) Basophils # (Auto) 0.2x10^3/uL (0.0-0.2) Sodium Level 136mmol/L (136-145) Potassium Level 4.4mmol/L (3.5-5.1) Chloride Level 99mmol/L (98-107) Carbon Dioxide Level 21mmol/L (21-32) Anion Gap 16 (6-14) 18mmol/L (6-14) Blood Urea Nitrogen 95mg/dL (7-20) Creatinine 3.4mg/dL (0.6-1.0) Estimated GFR (Cockcroft-Gault) 13.3 BUN/Creatinine Ratio 28 (6-20) Glucose Level 145mg/dL (70-99) 133mg/dL (70-99) Calcium Level 9.1mg/dL (8.5-10.1) Phosphorus Level 5.5mg/dL (2.6-4.7) Magnesium Level 2.6mg/dL (1.8-2.4) Total Bilirubin 0.4mg/dL (0.2-1.0) Aspartate Amino Transf (AST/SGOT) 27U/L (15-37) Alanine Aminotransferase (ALT/SGPT) 28U/L (14-59) Alkaline Phosphatase 48U/L (46-116) Bedside Troponin I 0.02ng/ml (<0.08) Troponin I Quantitative < 0.017ng/mL (0.000-0.055) DR-Dnz-F-Type Natriuretic Peptide 2230pg/mL (0-124) Total Protein 7.0g/dL (6.4-8.2) Albumin 3.6g/dL (3.4-5.0) Albumin/Globulin Ratio 1.1 (1.0-1.7) Lipase 463U/L (73-393) Thyroid Stimulating Hormone (TSH) 3.160uIU/mL (0.358-3.74) Digoxin Level 1.3ng/mL (0.9-2.0) Digoxin Last Dose Date Unk Digoxin Last Dose Time Unk Bedside Hemoglobin 9.5g/dL (12-15) Bedside Hematocrit 28% (36-40) Bedside Sodium 133mmol/L (135-145) Bedside Potassium 5.6mmol/L (3.5-5.0) Bedside Chloride 100mmol/L (98-110) Bedside Total CO2 22mmol/L (23-32) Bedside Blood Urea Nitrogen 103mg/dL (8-26) Bedside Creatinine 3.5mg/dL (0.5-1.4) Bedside Ionized Calcium (Mary) 1.08mmol/L (1.13-1.32) Prothrombin Time 41.0SEC (11.7-14.0) Prothromb Time International Ratio 4.6 (0.8-1.1) Activated Partial Thromboplast Time 82SEC (24-38) Test 02/21/16 19:18 02/22/16 01:10 02/22/16 07:30 Influenza Type A Antigen Negative (NEGATIVE) Influenza Type B Antigen Positive (NEGATIVE) Troponin I Quantitative 0.025ng/mL (0.000-0.055) 0.030ng/mL (0.000-0.055) White Blood Count 10.2x10^3/uL (4.0-11.0) Red Blood Count 2.51x10^6/uL (3.50-5.40) Hemoglobin 7.6g/dL (12.0-15.5) Hematocrit 23.3% (36.0-47.0) Mean Corpuscular Volume 93fL (79-100) Mean Corpuscular Hemoglobin 30pg (25-35) Mean Corpuscular Hemoglobin Concent 33g/dL (31-37) Red Cell Distribution Width 16.1% (11.5-14.5) Platelet Count 272x10^3/uL (140-400) Neutrophils (%) (Auto) 78% (31-73) Lymphocytes (%) (Auto) 7% (24-48) Monocytes (%) (Auto) 11% (0-9) Eosinophils (%) (Auto) 3% (0-3) Basophils (%) (Auto) 1% (0-3) Neutrophils # (Auto) 7.9x10^3uL (1.8-7.7) Lymphocytes # (Auto) 0.7x10^3/uL (1.0-4.8) Monocytes # (Auto) 1.1x10^3/uL (0.0-1.1) Eosinophils # (Auto) 0.3x10^3/uL (0.0-0.7) Basophils # (Auto) 0.1x10^3/uL (0.0-0.2) Prothrombin Time 38.3SEC (11.7-14.0) Prothromb Time International Ratio 4.2 (0.8-1.1) Sodium Level 138mmol/L (136-145) Potassium Level 3.8mmol/L (3.5-5.1) Chloride Level 102mmol/L (98-107) Carbon Dioxide Level 24mmol/L (21-32) Anion Gap 12 (6-14) Blood Urea Nitrogen 85mg/dL (7-20) Creatinine 3.2mg/dL (0.6-1.0) Estimated GFR (Cockcroft-Gault) 14.2 BUN/Creatinine Ratio 27 (6-20) Glucose Level 120mg/dL (70-99) Calcium Level 9.1mg/dL (8.5-10.1) Magnesium Level 2.7mg/dL (1.8-2.4) Total Bilirubin 0.5mg/dL (0.2-1.0) Aspartate Amino Transf (AST/SGOT) 18U/L (15-37) Alanine Aminotransferase (ALT/SGPT) 22U/L (14-59) Alkaline Phosphatase 45U/L (46-116) Total Protein 6.2g/dL (6.4-8.2) Albumin 3.2g/dL (3.4-5.0) Albumin/Globulin Ratio 1.1 (1.0-1.7) MALA ESCOBAR MD Feb 22, 2016 13:01
[2016-02-22 13:14] LABS: % SAT IRON 11 % (15-34); IRON,SERUM 32 ug/dL (50-170)
[2016-02-22] MEDS: INSULIN ASPART 300 UNITS/3 ML INSULN.PEN SQ SCH ×2 (13:15→18:05)
--- NOTE | 2016-02-22 14:10 | PDOC2 ---
CONSULT Date of Consult Date of Consult DATE: 02/22/16 TIME: 14:10 Reason for Consult Reason for Consult: Syncopal episode, bradycardia Referring Physician Referring Physician: Dr. Dolores Milner Identification/Chief Complaint Chief Complaint Syncopal episode History of Present Illness Reason for Visit: Patient is a very pleasant 70 year old female who presented after a syncopal episode. She was unresponsive for more than 5 minutes. She denies any chest pain or dyspnea at the time. Did not fall. Admits to weakness in her legs at the time. She has been trying to increase her fluid intake while in the hospital. Past Medical History Cardiovascular: CAD, HTN, Other (AV prolapse) CENTRAL NERVOUS SYSTEM: CVA GI: Inflam bowel disease (Ulcerative colitis) Renal/: Other (renal disease) Endocrine: Diabetes Past Surgical History Past Surgical History: Cholecystectomy, Mastectomy (R breast), Tonsillectomy, Colon Resection Family History Family History: Other (-ve for knonw kidney dz) Social History No ALCOHOL: occassional Drugs: None Current Problem List Problem List Problems Medical Problems: (1) Symptomatic bradycardia Status: Acute (2) Syncope Status: Acute Current Medications Current Medications Current Medications Calcium Gluconate 1,000 mg 1X ONCE IVP Last administered on 02/21/16 18:08; Start 02/21/16 at 17:45; Stop 02/21/16 at 17:46; Status DC Sodium Bicarbonate 50 meq 1X ONCE IV Last administered on 02/21/16 17:52; Start 02/21/16 at 17:45; Stop 02/21/16 at 17:46; Status DC Dextrose 25 gm 1X ONCE IV Last administered on 02/21/16 18:02; Start 02/21/16 at 17:45; Stop 02/21/16 at 17:46; Status DC Insulin Human Regular (Novolin R Vial) 10 unit 1X ONCE IV Last administered on 02/21/16 18:22; Start 02/21/16 at 17:45; Stop 02/21/16 at 17:46; Status DC Oseltamivir Phosphate (Tamiflu) 75 mg DAILY PO Last administered on 02/22/16 09 :59; Start 02/22/16 at 09:00; Stop 02/26/16 at 09:00 Allopurinol (Zyloprim) 300 mg DAILY PO Last administered on 02/22/16 09:59; Start 02/22/16 at 09:00 Aspirin (Ecotrin) 81 mg DAILY PO Last administered on 02/22/16 09:59; Start 02/22/16 at 09:00; Stop 02/22/16 at 11:35; Status DC Atorvastatin Calcium (Lipitor) 40 mg QHS PO ; Start 02/22/16 at 21:00; Stop at 21:00; Status DC Furosemide (Lasix) 40 mg DAILY PO ; Start 02/22/16 at 09:00; Stop 02/22/16 at 11: 35; Status DC Losartan Potassium (Cozaar) 100 mg DAILY PO Last administered on 02/22/16 10:02 ; Start 02/22/16 at 09:00 Sotalol HCl (Betapace) 160 mg BID PO ; Start 02/21/16 at 22:00; Stop 02/22/16 at 11:35; Status DC Insulin Aspart (Novolog) 0-5 UNITS TIDWMEALS SQ ; Start 02/22/16 at 08:00; Stop 02/22/16 at 11:03; Status DC Dextrose 12.5 gm PRN Q15MIN PRN IV SEE COMMENTS; Start 02/21/16 at 21:30 Hydrochlorothiazide (Hydrodiuril) 25 mg DAILY PO ; Start 02/22/16 at 09:00; Stop 02/22/16 at 11:35; Status DC Acetaminophen (Tylenol) 650 mg PRN Q4HRS PRN PO FEVER; Start 02/22/16 at 00:00; Stop 02/22/16 at 23:59 Insulin Aspart (Novolog) 0-5 UNITS TIDWMEALS SQ ; Start 02/22/16 at 08:00; Status UNV Dextrose 12.5 gm PRN Q15MIN PRN IV SEE COMMENTS; Start 02/22/16 at 00:30; Status UNV Insulin Aspart (Novolog) 0-7 UNITS TIDWMEALS SQ Last administered on 02/22/16 13:15; Start 02/22/16 at 12:00 Dextrose 12.5 gm PRN Q15MIN PRN IV SEE COMMENTS; Start 02/22/16 at 11:00; Status UNV Pantoprazole Sodium 40 mg 40 mg DAILYAC PO ; Start 02/22/16 at 13:30 Sodium Chloride 1,000 ml @ 80 mls/hr [id number] IV ; Start 02/22/16 at 13:30 Magnesium Sulfate/ Dextrose (Magnesium Sulfate PREMIX 2GM) 50 ml @ 25 mls/hr PRN DAILY PRN IV for Mag < 1.7 on am labs; Start 02/22/16 at 12:45 Active Scripts Active Reported Losartan Potassium 100 Mg Tablet 100 Mg PO DAILY Coumadin (Warfarin Sodium) 5 Mg Tablet 1 Tab PO DAILY Novolin R (Insulin Regular, Human) 100 Unit/1 Ml Vial 100 Unit IJ Magnesium (Magnesium Oxide) 400 Mg Capsule 1 Cap PO BID Fish Oil 1,000 Mg Softgel ([place]-3 Fatty Acids/Fish Oil) 1 Each Capsule 1 Each PO DAILY Allopurinol 300 Mg Tablet 1 Tab PO DAILY Alendronate Sodium 70 Mg Tablet 1 Tab PO WEEKLY Allergies Allergies: Coded Allergies: No Known Drug Allergies (Unverified , 02/21/16) Physical Exam General: Alert, Oriented X3, No acute distress HEENT: Atraumatic Lungs: Clear to auscultation, Normal air movement Heart: Normal S1, Normal S2, Other (Bradycardic, rate of 50) Abdomen: Soft Extremities: No clubbing, No cyanosis, No edema, Normal pulses Skin: No rashes, No significant lesion Vitals VITALS Vital Signs Date Time Temp Pulse Resp B/P Pulse Ox O2 Delivery O2 Flow Rate FiO2 02/22/16 12:00 Nasal Cannula 2.0 02/22/16 10:02 55 120/61 02/22/16 06:00 18 99 02/22/16 04:00 98.1 98.1 Labs Labs Laboratory Tests Test 02/21/16 17:21 02/21/16 17:25 02/21/16 17:26 02/21/16 18:26 White Blood Count 12.2x10^3/uL (4.0-11.0) Red Blood Count 2.86x10^6/uL (3.50-5.40) Hemoglobin 8.5g/dL (12.0-15.5) Hematocrit 25.9% (36.0-47.0) Mean Corpuscular Volume 91fL (79-100) Mean Corpuscular Hemoglobin 30pg (25-35) Mean Corpuscular Hemoglobin Concent 33g/dL (31-37) Red Cell Distribution Width 15.8% (11.5-14.5) Platelet Count 321x10^3/uL (140-400) Neutrophils (%) (Auto) 80% (31-73) Lymphocytes (%) (Auto) 6% (24-48) Monocytes (%) (Auto) 9% (0-9) Eosinophils (%) (Auto) 3% (0-3) Basophils (%) (Auto) 1% (0-3) Neutrophils # (Auto) 9.8x10^3uL (1.8-7.7) Lymphocytes # (Auto) 0.8x10^3/uL (1.0-4.8) Monocytes # (Auto) 1.1x10^3/uL (0.0-1.1) Eosinophils # (Auto) 0.4x10^3/uL (0.0-0.7) Basophils # (Auto) 0.2x10^3/uL (0.0-0.2) Sodium Level 136mmol/L (136-145) Potassium Level 4.4mmol/L (3.5-5.1) Chloride Level 99mmol/L (98-107) Carbon Dioxide Level 21mmol/L (21-32) Anion Gap 16 (6-14) 18mmol/L (6-14) Blood Urea Nitrogen 95mg/dL (7-20) Creatinine 3.4mg/dL (0.6-1.0) Estimated GFR (Cockcroft-Gault) 13.3 BUN/Creatinine Ratio 28 (6-20) Glucose Level 145mg/dL (70-99) 133mg/dL (70-99) Calcium Level 9.1mg/dL (8.5-10.1) Phosphorus Level 5.5mg/dL (2.6-4.7) Magnesium Level 2.6mg/dL (1.8-2.4) Total Bilirubin 0.4mg/dL (0.2-1.0) Aspartate Amino Transf (AST/SGOT) 27U/L (15-37) Alanine Aminotransferase (ALT/SGPT) 28U/L (14-59) Alkaline Phosphatase 48U/L (46-116) Bedside Troponin I 0.02ng/ml (<0.08) Troponin I Quantitative < 0.017ng/mL (0.000-0.055) VE-Zet-U-Type Natriuretic Peptide 2230pg/mL (0-124) Total Protein 7.0g/dL (6.4-8.2) Albumin 3.6g/dL (3.4-5.0) Albumin/Globulin Ratio 1.1 (1.0-1.7) Lipase 463U/L (73-393) Thyroid Stimulating Hormone (TSH) 3.160uIU/mL (0.358-3.74) Digoxin Level 1.3ng/mL (0.9-2.0) Digoxin Last Dose Date Unk Digoxin Last Dose Time Unk Bedside Hemoglobin 9.5g/dL (12-15) Bedside Hematocrit 28% (36-40) Bedside Sodium 133mmol/L (135-145) Bedside Potassium 5.6mmol/L (3.5-5.0) Bedside Chloride 100mmol/L (98-110) Bedside Total CO2 22mmol/L (23-32) Bedside Blood Urea Nitrogen 103mg/dL (8-26) Bedside Creatinine 3.5mg/dL (0.5-1.4) Bedside Ionized Calcium (Mary) 1.08mmol/L (1.13-1.32) Prothrombin Time 41.0SEC (11.7-14.0) Prothromb Time International Ratio 4.6 (0.8-1.1) Activated Partial Thromboplast Time 82SEC (24-38) Test 02/21/16 19:18 02/22/16 01:10 02/22/16 07:30 02/22/16 13:11 Influenza Type A Antigen Negative (NEGATIVE) Influenza Type B Antigen Positive (NEGATIVE) Troponin I Quantitative 0.025ng/mL (0.000-0.055) 0.030ng/mL (0.000-0.055) White Blood Count 10.2x10^3/uL (4.0-11.0) Red Blood Count 2.51x10^6/uL (3.50-5.40) Hemoglobin 7.6g/dL (12.0-15.5) Hematocrit 23.3% (36.0-47.0) Mean Corpuscular Volume 93fL (79-100) Mean Corpuscular Hemoglobin 30pg (25-35) Mean Corpuscular Hemoglobin Concent 33g/dL (31-37) Red Cell Distribution Width 16.1% (11.5-14.5) Platelet Count 272x10^3/uL (140-400) Neutrophils (%) (Auto) 78% (31-73) Lymphocytes (%) (Auto) 7% (24-48) Monocytes (%) (Auto) 11% (0-9) Eosinophils (%) (Auto) 3% (0-3) Basophils (%) (Auto) 1% (0-3) Neutrophils # (Auto) 7.9x10^3uL (1.8-7.7) Lymphocytes # (Auto) 0.7x10^3/uL (1.0-4.8) Monocytes # (Auto) 1.1x10^3/uL (0.0-1.1) Eosinophils # (Auto) 0.3x10^3/uL (0.0-0.7) Basophils # (Auto) 0.1x10^3/uL (0.0-0.2) Reticulocyte Count (auto) 1.9% (0.5-2.5) Prothrombin Time 38.3SEC (11.7-14.0) Prothromb Time International Ratio 4.2 (0.8-1.1) Sodium Level 138mmol/L (136-145) Potassium Level 3.8mmol/L (3.5-5.1) Chloride Level 102mmol/L (98-107) Carbon Dioxide Level 24mmol/L (21-32) Anion Gap 12 (6-14) Blood Urea Nitrogen 85mg/dL (7-20) Creatinine 3.2mg/dL (0.6-1.0) Estimated GFR (Cockcroft-Gault) 14.2 BUN/Creatinine Ratio 27 (6-20) Glucose Level 120mg/dL (70-99) Calcium Level 9.1mg/dL (8.5-10.1) Magnesium Level 2.7mg/dL (1.8-2.4) Iron Level 32ug/dL (50-170) Total Iron Binding Capacity 279ug/dL (250-450) Iron Saturation 11% (15-34) Total Bilirubin 0.5mg/dL (0.2-1.0) Aspartate Amino Transf (AST/SGOT) 18U/L (15-37) Alanine Aminotransferase (ALT/SGPT) 22U/L (14-59) Alkaline Phosphatase 45U/L (46-116) Total Protein 6.2g/dL (6.4-8.2) Albumin 3.2g/dL (3.4-5.0) Albumin/Globulin Ratio 1.1 (1.0-1.7) Glucose (Fingerstick) 170mg/dL (70-99) Laboratory Tests Test 02/21/16 17:21 02/21/16 17:25 02/21/16 17:26 02/21/16 18:26 White Blood Count 12.2x10^3/uL (4.0-11.0) Red Blood Count 2.86x10^6/uL (3.50-5.40) Hemoglobin 8.5g/dL (12.0-15.5) Hematocrit 25.9% (36.0-47.0) Mean Corpuscular Volume 91fL (79-100) Mean Corpuscular Hemoglobin 30pg (25-35) Mean Corpuscular Hemoglobin Concent 33g/dL (31-37) Red Cell Distribution Width 15.8% (11.5-14.5) Platelet Count 321x10^3/uL (140-400) Neutrophils (%) (Auto) 80% (31-73) Lymphocytes (%) (Auto) 6% (24-48) Monocytes (%) (Auto) 9% (0-9) Eosinophils (%) (Auto) 3% (0-3) Basophils (%) (Auto) 1% (0-3) Neutrophils # (Auto) 9.8x10^3uL (1.8-7.7) Lymphocytes # (Auto) 0.8x10^3/uL (1.0-4.8) Monocytes # (Auto) 1.1x10^3/uL (0.0-1.1) Eosinophils # (Auto) 0.4x10^3/uL (0.0-0.7) Basophils # (Auto) 0.2x10^3/uL (0.0-0.2) Sodium Level 136mmol/L (136-145) Potassium Level 4.4mmol/L (3.5-5.1) Chloride Level 99mmol/L (98-107) Carbon Dioxide Level 21mmol/L (21-32) Anion Gap 16 (6-14) 18mmol/L (6-14) Blood Urea Nitrogen 95mg/dL (7-20) Creatinine 3.4mg/dL (0.6-1.0) Estimated GFR (Cockcroft-Gault) 13.3 BUN/Creatinine Ratio 28 (6-20) Glucose Level 145mg/dL (70-99) 133mg/dL (70-99) Calcium Level 9.1mg/dL (8.5-10.1) Phosphorus Level 5.5mg/dL (2.6-4.7) Magnesium Level 2.6mg/dL (1.8-2.4) Total Bilirubin 0.4mg/dL (0.2-1.0) Aspartate Amino Transf (AST/SGOT) 27U/L (15-37) Alanine Aminotransferase (ALT/SGPT) 28U/L (14-59) Alkaline Phosphatase 48U/L (46-116) Bedside Troponin I 0.02ng/ml (<0.08) Troponin I Quantitative < 0.017ng/mL (0.000-0.055) QQ-Yic-H-Type Natriuretic Peptide 2230pg/mL (0-124) Total Protein 7.0g/dL (6.4-8.2) Albumin 3.6g/dL (3.4-5.0) Albumin/Globulin Ratio 1.1 (1.0-1.7) Lipase 463U/L (73-393) Thyroid Stimulating Hormone (TSH) 3.160uIU/mL (0.358-3.74) Digoxin Level 1.3ng/mL (0.9-2.0) Digoxin Last Dose Date Unk Digoxin Last Dose Time Unk Bedside Hemoglobin 9.5g/dL (12-15) Bedside Hematocrit 28% (36-40) Bedside Sodium 133mmol/L (135-145) Bedside Potassium 5.6mmol/L (3.5-5.0) Bedside Chloride 100mmol/L (98-110) Bedside Total CO2 22mmol/L (23-32) Bedside Blood Urea Nitrogen 103mg/dL (8-26) Bedside Creatinine 3.5mg/dL (0.5-1.4) Bedside Ionized Calcium (Mary) 1.08mmol/L (1.13-1.32) Prothrombin Time 41.0SEC (11.7-14.0) Prothromb Time International Ratio 4.6 (0.8-1.1) Activated Partial Thromboplast Time 82SEC (24-38) Test 02/21/16 19:18 02/22/16 01:10 02/22/16 07:30 02/22/16 13:11 Influenza Type A Antigen Negative (NEGATIVE) Influenza Type B Antigen Positive (NEGATIVE) Troponin I Quantitative 0.025ng/mL (0.000-0.055) 0.030ng/mL (0.000-0.055) White Blood Count 10.2x10^3/uL (4.0-11.0) Red Blood Count 2.51x10^6/uL (3.50-5.40) Hemoglobin 7.6g/dL (12.0-15.5) Hematocrit 23.3% (36.0-47.0) Mean Corpuscular Volume 93fL (79-100) Mean Corpuscular Hemoglobin 30pg (25-35) Mean Corpuscular Hemoglobin Concent 33g/dL (31-37) Red Cell Distribution Width 16.1% (11.5-14.5) Platelet Count 272x10^3/uL (140-400) Neutrophils (%) (Auto) 78% (31-73) Lymphocytes (%) (Auto) 7% (24-48) Monocytes (%) (Auto) 11% (0-9) Eosinophils (%) (Auto) 3% (0-3) Basophils (%) (Auto) 1% (0-3) Neutrophils # (Auto) 7.9x10^3uL (1.8-7.7) Lymphocytes # (Auto) 0.7x10^3/uL (1.0-4.8) Monocytes # (Auto) 1.1x10^3/uL (0.0-1.1) Eosinophils # (Auto) 0.3x10^3/uL (0.0-0.7) Basophils # (Auto) 0.1x10^3/uL (0.0-0.2) Reticulocyte Count (auto) 1.9% (0.5-2.5) Prothrombin Time 38.3SEC (11.7-14.0) Prothromb Time International Ratio 4.2 (0.8-1.1) Sodium Level 138mmol/L (136-145) Potassium Level 3.8mmol/L (3.5-5.1) Chloride Level 102mmol/L (98-107) Carbon Dioxide Level 24mmol/L (21-32) Anion Gap 12 (6-14) Blood Urea Nitrogen 85mg/dL (7-20) Creatinine 3.2mg/dL (0.6-1.0) Estimated GFR (Cockcroft-Gault) 14.2 BUN/Creatinine Ratio 27 (6-20) Glucose Level 120mg/dL (70-99) Calcium Level 9.1mg/dL (8.5-10.1) Magnesium Level 2.7mg/dL (1.8-2.4) Iron Level 32ug/dL (50-170) Total Iron Binding Capacity 279ug/dL (250-450) Iron Saturation 11% (15-34) Total Bilirubin 0.5mg/dL (0.2-1.0) Aspartate Amino Transf (AST/SGOT) 18U/L (15-37) Alanine Aminotransferase (ALT/SGPT) 22U/L (14-59) Alkaline Phosphatase 45U/L (46-116) Total Protein 6.2g/dL (6.4-8.2) Albumin 3.2g/dL (3.4-5.0) Albumin/Globulin Ratio 1.1 (1.0-1.7) Glucose (Fingerstick) 170mg/dL (70-99) Assessment/Plan Assessment/Plan 1. Sinus bradycardia, syncope -d/c sotalol and digoxin -hold ASA -consider pacemaker if still bradycardic after JEFERSON resolves 2. s/p AV replacement -echo today -hold warfarin today as INR was 4.2 -INR in am 3. Acute on chronic kidney injury -start IVF: 1/2 NS @ 80cc/hr -continue allopurinol 300 -Nephrology consulted to evaluate need for dialysis 4. Influenza B positive -continue Tamiflu Dispo: transfer to CVICU Thank you for allowing me to participate in the care of this patient. ELIZA COON MD Feb 22, 2016 14:10
[2016-02-22] MEDS: PANTOPRAZOLE 40 MG TABLET. PO SCH (14:26)
[2016-02-22] MEDS: IV 1/2 NORMAL SALINE 1,000 ML IV SCH (14:27)
--- NOTE | 2016-02-22 14:55 | CARD ---
APPROVED REPORT EXAM: Two-dimensional and M-mode echocardiogram with Doppler and color Doppler. Other Information Quality : Good INDICATION Arrhythmia Mitral Valve Disease Syncope Congestive Heart Failure Surgery/Intervention Status/Post Mitral Valve Replacement: Mechanical 2D DIMENSIONS RVDd2.6 (2.9-3.5cm)Left Atrium(2D)4.2 (1.6-4.0cm) IVSd1.5 (0.7-1.1cm)Aortic Root(2D)3.0 (2.0-3.7cm) LVDd5.2 (3.9-5.9cm)LVOT Diameter2.1 (1.8-2.4cm) PWd1.2 (0.7-1.1cm)LVDs3.6 (2.5-4.0cm) FS (%) 25.0 %SV74.2 ml LVEF(%)50.0 (>50%) Aortic Valve AoV Peak Robert.244.6cm/sAoV VTI52.8cm AO Peak GR.23.9mmHgLVOT VTI 19.26cm AO Mean GR.12mmHgAVA (VTI)1.30cm2 AI P 1/2 [id number] Mitral Valve MV E Fbhtycjd598.9cm/sMV E Peak Gr.53mmHg MV DECEL [id number] E Mean Gr.13mmHg TDI Medial E' P. V3.99cm/sE/Medial E'51.4 Tricuspid Valve TR P. [id number]/sRAP [id number] TR Peak Gr.[id number] LEFT VENTRICLE The left ventricle is normal size. There is mild to moderate concentric left ventricular hypertrophy. The Ejection Fraction is 50%. RIGHT VENTRICLE The right ventricle is normal size. The right ventricular systolic function is normal. ATRIA The left atrium is mildly dilated. The right atrium size is normal. The interatrial septum is intact with no evidence for an atrial septal defect or patent foramen ovale as noted on 2-D or Doppler imagi ng. AORTIC VALVE The aortic valve is calcified and displays decreased opening. Doppler and Color Flow revealed mild to moderate aortic regurgitation. Calculated aortic valve area is 1.3 cm2 with maximum pressure gradien t of 24 mmHg and mean pressure gradient of 12 mmHg. Doppler and color-flow analysis revealed mild aor tic stenosis. MITRAL VALVE There is no mitral valve stenosis. Doppler and Color Flow revealed no mitral valve regurgitation note d. There is a bi-leaflet ([employer]) mechanical prosthesis of the mitral valve. Prosthetic mitral valv e appears well seated. TRICUSPID VALVE The tricuspid valve is normal in structure Doppler and Color Flow revealed mild to moderate tricuspid regurgitation. There is severe pulmonary hypertension. The PA pressure was estimated at 65 mmHg. The re is no tricuspid valve stenosis. PULMONIC VALVE The pulmonary valve is normal in structure Doppler and Color Flow revealed trace pulmonic valvular re gurgitation. There is no pulmonic valvular stenosis. GREAT VESSELS The aortic root is normal in size. The ascending aorta is normal in size. The IVC is dilated and anthony apses <50% with inspiration. PERICARDIAL EFFUSION There is no evidence of significant pericardial effusion. Critical Notification Critical Value: No <Conclusion> The Ejection Fraction is 50%. There is mild to moderate concentric left ventricular hypertrophy. The left atrium is mildly dilated. The right atrium size is normal. Calculated aortic valve area is 1.3 cm2 with maximum pressure gradient of 24 mmHg and mean pressure g radient of 12 mmHg. Doppler and color-flow analysis revealed mild aortic stenosis. Doppler and Color Flow revealed mild to moderate aortic regurgitation. There is a bi-leaflet ([employer]) mechanical prosthesis of the mitral valve. Prosthetic mitral valve appears well seated. Doppler and Color Flow revealed mild to moderate tricuspid regurgitation. There is severe pulmonary hypertension. The PA pressure was estimated at 65 mmHg. Doppler and Color Flow revealed trace pulmonic valvular regurgitation. There is no evidence of significant pericardial effusion.
[2016-02-22] MEDS ORDERED: SOTALOL 80 MG TABLET. PO ONE (15:00)
[2016-02-22] MEDS ORDERED: INSU300I SQ (16:23)
--- NOTE | 2016-02-22 17:53 | PDOC ---
OBJECTIVE Vital Signs Vital Signs Date Time Temp Pulse Resp B/P Pulse Ox O2 Delivery O2 Flow Rate FiO2 02/22/16 17:51 97.4 52 18 135/61 97.4 02/22/16 17:36 97.3 53 20 116/50 97.3 02/22/16 15:13 53 120/50 02/22/16 14:00 54 22 118/58 Room Air 02/22/16 13:00 56 20 136/69 Room Air 02/22/16 12:00 Nasal Cannula 2.0 02/22/16 12:00 98.1 52 20 119/64 Nasal Cannula 2.0 98.1 02/22/16 11:00 54 24 126/58 Nasal Cannula 2.0 02/22/16 10:02 55 120/61 02/22/16 10:00 54 22 120/61 Nasal Cannula 2.0 02/22/16 09:00 52 20 124/66 Nasal Cannula 2.0 02/22/16 08:00 97.9 52 20 113/53 Nasal Cannula 2.0 97.9 02/22/16 08:00 Nasal Cannula 2.0 02/22/16 07:00 52 15 105/49 Nasal Cannula 2.0 02/22/16 06:00 56 18 116/56 99 Nasal Cannula 2.0 02/22/16 05:00 53 13 92/43 98 Nasal Cannula 2.0 02/22/16 04:00 Nasal Cannula 2.0 02/22/16 04:00 98.1 54 16 111/62 96 Nasal Cannula 2.0 98.1 02/22/16 03:00 52 24 116/55 97 Nasal Cannula 2.0 02/22/16 02:00 54 18 114/47 97 Nasal Cannula 2.0 02/22/16 01:00 54 16 115/49 99 Nasal Cannula 2.0 02/22/16 00:00 97.8 54 13 102/56 99 Nasal Cannula 2.0 97.8 02/21/16 23:59 Nasal Cannula 2.0 02/21/16 23:00 54 20 115/48 98 Nasal Cannula 2.0 02/21/16 22:00 50 20 148/57 93 Room Air 02/21/16 22:00 54 128/60 02/21/16 21:00 52 20 149/58 90 Room Air 02/21/16 20:00 97.4 48 17 140/64 93 Room Air 97.4 02/21/16 20:00 Nasal Cannula 2.0 02/21/16 19:00 48 27 138/60 94 Nasal Cannula 2 02/21/16 18:30 46 25 129/56 92 Nasal Cannula 2 02/21/16 18:15 44 141/63 93 Nasal Cannula 2 02/21/16 18:00 44 21 138/59 93 Nasal Cannula 2 I & O Intake and Output 02/22/16 07:00 Intake Total 350 ml Balance 350 ml Intake Oral 350 ml # Voids 5 ASSESSMENT/PLAN Assessment/Plan [id number] H&P dictated Problems: COMMENT Lab Laboratory Tests Test 02/21/16 18:26 02/21/16 19:18 02/22/16 01:10 02/22/16 07:30 Prothrombin Time 41.0SEC (11.7-14.0) 38.3SEC (11.7-14.0) Prothromb Time International Ratio 4.6 (0.8-1.1) 4.2 (0.8-1.1) Activated Partial Thromboplast Time 82SEC (24-38) Influenza Type A Antigen Negative (NEGATIVE) Influenza Type B Antigen Positive (NEGATIVE) Troponin I Quantitative 0.025ng/mL (0.000-0.055) 0.030ng/mL (0.000-0.055) White Blood Count 10.2x10^3/uL (4.0-11.0) Red Blood Count 2.51x10^6/uL (3.50-5.40) Hemoglobin 7.6g/dL (12.0-15.5) Hematocrit 23.3% (36.0-47.0) Mean Corpuscular Volume 93fL (79-100) Mean Corpuscular Hemoglobin 30pg (25-35) Mean Corpuscular Hemoglobin Concent 33g/dL (31-37) Red Cell Distribution Width 16.1% (11.5-14.5) Platelet Count 272x10^3/uL (140-400) Neutrophils (%) (Auto) 78% (31-73) Lymphocytes (%) (Auto) 7% (24-48) Monocytes (%) (Auto) 11% (0-9) Eosinophils (%) (Auto) 3% (0-3) Basophils (%) (Auto) 1% (0-3) Neutrophils # (Auto) 7.9x10^3uL (1.8-7.7) Lymphocytes # (Auto) 0.7x10^3/uL (1.0-4.8) Monocytes # (Auto) 1.1x10^3/uL (0.0-1.1) Eosinophils # (Auto) 0.3x10^3/uL (0.0-0.7) Basophils # (Auto) 0.1x10^3/uL (0.0-0.2) Reticulocyte Count (auto) 1.9% (0.5-2.5) Sodium Level 138mmol/L (136-145) Potassium Level 3.8mmol/L (3.5-5.1) Chloride Level 102mmol/L (98-107) Carbon Dioxide Level 24mmol/L (21-32) Anion Gap 12 (6-14) Blood Urea Nitrogen 85mg/dL (7-20) Creatinine 3.2mg/dL (0.6-1.0) Estimated GFR (Cockcroft-Gault) 14.2 BUN/Creatinine Ratio 27 (6-20) Glucose Level 120mg/dL (70-99) Calcium Level 9.1mg/dL (8.5-10.1) Magnesium Level 2.7mg/dL (1.8-2.4) Iron Level 32ug/dL (50-170) Total Iron Binding Capacity 279ug/dL (250-450) Iron Saturation 11% (15-34) Ferritin 102ng/mL (8-252) Total Bilirubin 0.5mg/dL (0.2-1.0) Aspartate Amino Transf (AST/SGOT) 18U/L (15-37) Alanine Aminotransferase (ALT/SGPT) 22U/L (14-59) Alkaline Phosphatase 45U/L (46-116) Total Protein 6.2g/dL (6.4-8.2) Albumin 3.2g/dL (3.4-5.0) Albumin/Globulin Ratio 1.1 (1.0-1.7) Test 02/22/16 13:11 Glucose (Fingerstick) 170mg/dL (70-99) AJ JOHN MD Feb 22, 2016 17:53
--- NOTE | 2016-02-22 19:23 | PREOP HP ---
DATE OF SERVICE: 02/22/2016 HISTORY OF PRESENT ILLNESS: The patient is a 70-year-old lady who presented to the Emergency Room after having a syncopal episode at home, she was found by her while she slumped over on the chair and became partially nonresponsive. The ambulance was called, but she was found to be with a heart rate in the 30s. She apparently was given atropine and on her arrival to the Emergency Room, her heart rate was in the 50s, but she was alert and oriented, in no acute distress and feels normal. She stated that she had felt warm during the day and slightly tired and some cough, but she did not feel extremely ill in [place] and this happened later on. She denies chest pain, denies feeling shortness of breath, denies swelling in the lower extremities. She does report having dark tarry stool for the last 3 days, but she did not think much of it as she has been eating crab legs, which she normally does not eat and thought maybe it is caused because of that. She does report having some nosebleed a couple weeks ago. She does have symptoms of indigestion and reflux on and off. She does have some constipation on and off as well. She denies abdominal pain, diarrhea, or weight loss. PAST MEDICAL HISTORY: Significant for coronary artery disease, aortic valve replacement in 1983 and in 1993. She does have history of gastroesophageal reflux disease, history of colitis, ulcerative and history of bowel resection. She does have history of breast cancer and right mastectomy, musculoskeletal osteoarthritis and history of gout. She does have diabetes mellitus type 2 and on insulin. 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 She also has a history of cholecystectomy. She is on chronic anticoagulation due to the valve placement. FAMILY HISTORY: Positive for hyperlipidemia and hypertension. SOCIAL HISTORY: She does not smoke. She drinks alcohol occasionally. Does not use drugs. REVIEW OF SYSTEMS: CONSTITUTIONAL: Denies fever or chills. She does have general malaise. EYES: Denies changes in her vision. HEENT: Denies nasal congestion or sore throat. She does have mild cough, but no shortness of breath. CARDIOVASCULAR: Denies chest pain. GASTROINTESTINAL: Denies abdominal pain, nausea or vomiting. She does have dark stools the last 3 days. Denies diarrhea. GENITOURINARY: Denies dysuria. MUSCULOSKELETAL: Denies acute pain, but does have a chronic back pain and some arthralgias. DERMATOLOGY: Denies rash. NEUROLOGY: Denies headache or focal weakness. She did have an episode of syncope upon her admission as mentioned above. PHYSICAL EXAMINATION: GENERAL: She is well-developed, well-nourished, in no acute distress, cooperative. HEENT: Her tympanic membranes are clear. Her mucous membranes are slightly dry. Her eyes with normal conjunctivae and no discharge. NECK: Supple, with no JVD or bruits, no stridor. HEART: Mildly bradycardic, regular rate and rhythm. LUNGS: Fairly clear to auscultation. ABDOMEN: Soft, nontender, no organomegaly, no masses, no bruits, no ascites. EXTREMITIES: No edema, clubbing or cyanosis. NEUROLOGIC: No focal deficit. PSYCHOLOGICAL: Her affect is normal. Judgment is normal and her mood is normal. IMPRESSION: 1. Syncopal episode with significant bradycardia. The patient is admitted. We will hold her beta lyndsey, ask Cardiology to see her. She might need a pacemaker placement. 2. Anemia, acute. Her hemoglobin usually around 10. The hemoglobin in the Emergency Room was much lower, rule out peptic ulcer disease. She does have some dark stools lately. 3. History of aortic valve replacement. Her INR was prolonged at 4.2, we will hold her Coumadin and consult Cardiology as above. 4. Augrk-xo-lbdltok kidney disease. She is being hydrated very carefully and will continue to monitor. We will ask Renal to see her. 5. Influenza B positive, we will treat with Tamiflu. 6. History of hypertension. 7. Diabetes mellitus type 2. Continue insulin. 8. Previous history of breast cancer. 9. Osteoarthritis. 10. Gastroesophageal reflux disease. AJ JOHN MD DR: YOUNG/chelsea JOB#: [id number] / [id number]
[2016-02-22] MEDS: INSULIN DETEMIR 300 UNITS/3 ML INSULN.PEN. SQ SCH (20:49)
[2016-02-22] MEDS ORDERED: ATORVASTATIN CALCIUM 40 MG TABLET. PO SCH (21:00)
--- NOTE | 2016-02-22 22:21 | CONS ---
DATE OF CONSULTATION: PRIMARY PHYSICIAN: Dr. Milner. REASON FOR CONSULTATION: Chronic renal insufficiency. HISTORY OF PRESENT ILLNESS: The patient is a 70-year-old female followed by Dr. Alcazar for her CKD needs. She claims her creatinine runs in the mid 3's most of the time. She is known to have diabetic hypertensive nephrosclerosis by her reports, but is not very keen on elective initiation of dialysis per se. She presented to the ER with syncopal episode and bradycardia. Over the past several days she has not been feeling well, has had flu-like symptoms. No nausea, vomiting per se. No diarrhea that she is aware of. She apparently was noted to be slumped in her chair and was unresponsive for several minutes, was noted by her . There was some questionable incontinence of urine, but no seizure-like activity. She was noted to be bradycardic with heart rates in the 30s and 40s. She is noted to be on digoxin and sotalol. On presentation, her potassium was 4.4 by labs, however was 5.6 by point of care monitor. It is back down to 3.8 today. Phosphorus was noted to be elevated at 5.5 yesterday. Repeat labs are pending at this time. Creatinine is at 3.2 and stable. She is asymptomatic. For rest of the details see electronic records. MALA ESCOBAR MD DR: GUZMAN/chelsea JOB#: [id number] / [id number]
[2016-02-23] VITALS (21 sets, daily range): BP systolic 115–156; BP diastolic 51–70
[2016-02-23] MEDS: IV 1/2 NORMAL SALINE 1,000 ML IV SCH (03:39)
[2016-02-23 05:42] LABS: HEMATOCRIT 27.2 % (36.0-47.0); HEMOGLOBIN 8.9 g/dL (12.0-15.5); RED CELL DISTRIBUTION WIDTH 15.6 % (11.5-14.5); WHITE BLOOD COUNT 10.3 x10^3/uL (4.0-11.0)
[2016-02-23 05:53] LABS: INR 3.3 (0.8-1.1); PROTHROMBIN TIME PATIENT 31.8 SEC (11.7-14.0)
[2016-02-23 06:15] LABS: FOLIC ACID 19.1 ng/mL (>3.0)
[2016-02-23] MEDS: INSULIN ASPART 300 UNITS/3 ML INSULN.PEN SQ SCH ×3 (08:00→16:53)
[2016-02-23] MEDS: OMEGA-3 FATTY ACIDS/FISH OIL 1,000 MG CAPSULE. PO SCH (08:18)
[2016-02-23] MEDS: OSELTAMIVIR 75 MG CAPSULE PO SCH (08:19)
[2016-02-23] MEDS: PANTOPRAZOLE 40 MG TABLET. PO SCH (08:19)
[2016-02-23] MEDS: LOSARTAN POTASSIUM 50 MG TABLET. PO SCH (08:19)
[2016-02-23] MEDS: ALLOPURINOL 300 MG TABLET. PO SCH (08:20)
--- NOTE | 2016-02-23 09:02 | PDOC ---
G I PROGRESS NOTE Subjective No GI complaints. Physical Exam Abdomen soft, not distended nor tender. Review of Relevant I have reviewed the following items corinne (where applicable) has been applied. Labs Laboratory Tests Test 02/21/16 17:21 02/21/16 17:25 02/21/16 17:26 02/21/16 18:26 White Blood Count 12.2x10^3/uL (4.0-11.0) Red Blood Count 2.86x10^6/uL (3.50-5.40) Hemoglobin 8.5g/dL (12.0-15.5) Hematocrit 25.9% (36.0-47.0) Mean Corpuscular Volume 91fL (79-100) Mean Corpuscular Hemoglobin 30pg (25-35) Mean Corpuscular Hemoglobin Concent 33g/dL (31-37) Red Cell Distribution Width 15.8% (11.5-14.5) Platelet Count 321x10^3/uL (140-400) Neutrophils (%) (Auto) 80% (31-73) Lymphocytes (%) (Auto) 6% (24-48) Monocytes (%) (Auto) 9% (0-9) Eosinophils (%) (Auto) 3% (0-3) Basophils (%) (Auto) 1% (0-3) Neutrophils # (Auto) 9.8x10^3uL (1.8-7.7) Lymphocytes # (Auto) 0.8x10^3/uL (1.0-4.8) Monocytes # (Auto) 1.1x10^3/uL (0.0-1.1) Eosinophils # (Auto) 0.4x10^3/uL (0.0-0.7) Basophils # (Auto) 0.2x10^3/uL (0.0-0.2) Sodium Level 136mmol/L (136-145) Potassium Level 4.4mmol/L (3.5-5.1) Chloride Level 99mmol/L (98-107) Carbon Dioxide Level 21mmol/L (21-32) Anion Gap 16 (6-14) 18mmol/L (6-14) Blood Urea Nitrogen 95mg/dL (7-20) Creatinine 3.4mg/dL (0.6-1.0) Estimated GFR (Cockcroft-Gault) 13.3 BUN/Creatinine Ratio 28 (6-20) Glucose Level 145mg/dL (70-99) 133mg/dL (70-99) Calcium Level 9.1mg/dL (8.5-10.1) Phosphorus Level 5.5mg/dL (2.6-4.7) Magnesium Level 2.6mg/dL (1.8-2.4) Total Bilirubin 0.4mg/dL (0.2-1.0) Aspartate Amino Transf (AST/SGOT) 27U/L (15-37) Alanine Aminotransferase (ALT/SGPT) 28U/L (14-59) Alkaline Phosphatase 48U/L (46-116) Bedside Troponin I 0.02ng/ml (<0.08) Troponin I Quantitative < 0.017ng/mL (0.000-0.055) CQ-Rpg-Y-Type Natriuretic Peptide 2230pg/mL (0-124) Total Protein 7.0g/dL (6.4-8.2) Albumin 3.6g/dL (3.4-5.0) Albumin/Globulin Ratio 1.1 (1.0-1.7) Lipase 463U/L (73-393) Thyroid Stimulating Hormone (TSH) 3.160uIU/mL (0.358-3.74) Digoxin Level 1.3ng/mL (0.9-2.0) Digoxin Last Dose Date Unk Digoxin Last Dose Time Unk Bedside Hemoglobin 9.5g/dL (12-15) Bedside Hematocrit 28% (36-40) Bedside Sodium 133mmol/L (135-145) Bedside Potassium 5.6mmol/L (3.5-5.0) Bedside Chloride 100mmol/L (98-110) Bedside Total CO2 22mmol/L (23-32) Bedside Blood Urea Nitrogen 103mg/dL (8-26) Bedside Creatinine 3.5mg/dL (0.5-1.4) Bedside Ionized Calcium (Mary) 1.08mmol/L (1.13-1.32) Prothrombin Time 41.0SEC (11.7-14.0) Prothromb Time International Ratio 4.6 (0.8-1.1) Activated Partial Thromboplast Time 82SEC (24-38) Test 02/21/16 19:18 02/21/16 19:30 02/22/16 01:10 02/22/16 07:30 Influenza Type A Antigen Negative (NEGATIVE) Influenza Type B Antigen Positive (NEGATIVE) Nasal Screen MRSA (PCR) Negative (Negative) Troponin I Quantitative 0.025ng/mL (0.000-0.055) 0.030ng/mL (0.000-0.055) White Blood Count 10.2x10^3/uL (4.0-11.0) Red Blood Count 2.51x10^6/uL (3.50-5.40) Hemoglobin 7.6g/dL (12.0-15.5) Hematocrit 23.3% (36.0-47.0) Mean Corpuscular Volume 93fL (79-100) Mean Corpuscular Hemoglobin 30pg (25-35) Mean Corpuscular Hemoglobin Concent 33g/dL (31-37) Red Cell Distribution Width 16.1% (11.5-14.5) Platelet Count 272x10^3/uL (140-400) Neutrophils (%) (Auto) 78% (31-73) Lymphocytes (%) (Auto) 7% (24-48) Monocytes (%) (Auto) 11% (0-9) Eosinophils (%) (Auto) 3% (0-3) Basophils (%) (Auto) 1% (0-3) Neutrophils # (Auto) 7.9x10^3uL (1.8-7.7) Lymphocytes # (Auto) 0.7x10^3/uL (1.0-4.8) Monocytes # (Auto) 1.1x10^3/uL (0.0-1.1) Eosinophils # (Auto) 0.3x10^3/uL (0.0-0.7) Basophils # (Auto) 0.1x10^3/uL (0.0-0.2) Reticulocyte Count (auto) 1.9% (0.5-2.5) Prothrombin Time 38.3SEC (11.7-14.0) Prothromb Time International Ratio 4.2 (0.8-1.1) Sodium Level 138mmol/L (136-145) Potassium Level 3.8mmol/L (3.5-5.1) Chloride Level 102mmol/L (98-107) Carbon Dioxide Level 24mmol/L (21-32) Anion Gap 12 (6-14) Blood Urea Nitrogen 85mg/dL (7-20) Creatinine 3.2mg/dL (0.6-1.0) Estimated GFR (Cockcroft-Gault) 14.2 BUN/Creatinine Ratio 27 (6-20) Glucose Level 120mg/dL (70-99) Calcium Level 9.1mg/dL (8.5-10.1) Magnesium Level 2.7mg/dL (1.8-2.4) Iron Level 32ug/dL (50-170) Total Iron Binding Capacity 279ug/dL (250-450) Iron Saturation 11% (15-34) Ferritin 102ng/mL (8-252) Total Bilirubin 0.5mg/dL (0.2-1.0) Aspartate Amino Transf (AST/SGOT) 18U/L (15-37) Alanine Aminotransferase (ALT/SGPT) 22U/L (14-59) Alkaline Phosphatase 45U/L (46-116) Total Protein 6.2g/dL (6.4-8.2) Albumin 3.2g/dL (3.4-5.0) Albumin/Globulin Ratio 1.1 (1.0-1.7) Vitamin B12 Level 567pg/mL (211-946) Folic Acid (LAB) 19.1ng/mL (>3.0) Test 02/22/16 13:11 02/22/16 18:00 02/22/16 20:47 02/23/16 04:00 Glucose (Fingerstick) 170mg/dL (70-99) 160mg/dL (70-99) 184mg/dL (70-99) White Blood Count 10.3x10^3/uL (4.0-11.0) Red Blood Count 3.00x10^6/uL (3.50-5.40) Hemoglobin 8.9g/dL (12.0-15.5) Hematocrit 27.2% (36.0-47.0) Mean Corpuscular Volume 91fL (79-100) Mean Corpuscular Hemoglobin 30pg (25-35) Mean Corpuscular Hemoglobin Concent 33g/dL (31-37) Red Cell Distribution Width 15.6% (11.5-14.5) Platelet Count 264x10^3/uL (140-400) Prothrombin Time 31.8SEC (11.7-14.0) Prothromb Time International Ratio 3.3 (0.8-1.1) Sodium Level 134mmol/L (136-145) Potassium Level 3.5mmol/L (3.5-5.1) Chloride Level 100mmol/L (98-107) Carbon Dioxide Level 24mmol/L (21-32) Anion Gap 10 (6-14) Blood Urea Nitrogen 78mg/dL (7-20) Creatinine 3.0mg/dL (0.6-1.0) Estimated GFR (Cockcroft-Gault) 15.3 Glucose Level 118mg/dL (70-99) Calcium Level 8.6mg/dL (8.5-10.1) Magnesium Level 2.5mg/dL (1.8-2.4) Laboratory Tests Test 02/22/16 13:11 02/22/16 18:00 02/22/16 20:47 02/23/16 04:00 Glucose (Fingerstick) 170mg/dL (70-99) 160mg/dL (70-99) 184mg/dL (70-99) White Blood Count 10.3x10^3/uL (4.0-11.0) Red Blood Count 3.00x10^6/uL (3.50-5.40) Hemoglobin 8.9g/dL (12.0-15.5) Hematocrit 27.2% (36.0-47.0) Mean Corpuscular Volume 91fL (79-100) Mean Corpuscular Hemoglobin 30pg (25-35) Mean Corpuscular Hemoglobin Concent 33g/dL (31-37) Red Cell Distribution Width 15.6% (11.5-14.5) Platelet Count 264x10^3/uL (140-400) Prothrombin Time 31.8SEC (11.7-14.0) Prothromb Time International Ratio 3.3 (0.8-1.1) Sodium Level 134mmol/L (136-145) Potassium Level 3.5mmol/L (3.5-5.1) Chloride Level 100mmol/L (98-107) Carbon Dioxide Level 24mmol/L (21-32) Anion Gap 10 (6-14) Blood Urea Nitrogen 78mg/dL (7-20) Creatinine 3.0mg/dL (0.6-1.0) Estimated GFR (Cockcroft-Gault) 15.3 Glucose Level 118mg/dL (70-99) Calcium Level 8.6mg/dL (8.5-10.1) Magnesium Level 2.5mg/dL (1.8-2.4) Iron studies c/w iron deficiency. Medications Current Medications Calcium Gluconate 1,000 mg 1X ONCE IVP Last administered on 02/21/16 18:08; Start 02/21/16 at 17:45; Stop 02/21/16 at 17:46; Status DC Sodium Bicarbonate 50 meq 1X ONCE IV Last administered on 02/21/16 17:52; Start 02/21/16 at 17:45; Stop 02/21/16 at 17:46; Status DC Dextrose 25 gm 1X ONCE IV Last administered on 02/21/16 18:02; Start 02/21/16 at 17:45; Stop 02/21/16 at 17:46; Status DC Insulin Human Regular (Novolin R Vial) 10 unit 1X ONCE IV Last administered on 02/21/16 18:22; Start 02/21/16 at 17:45; Stop 02/21/16 at 17:46; Status DC Oseltamivir Phosphate (Tamiflu) 75 mg DAILY PO Last administered on 02/23/16 08 :19; Start 02/22/16 at 09:00; Stop 02/26/16 at 09:00 Allopurinol (Zyloprim) 300 mg DAILY PO Last administered on 02/23/16 08:20; Start 02/22/16 at 09:00 Aspirin (Ecotrin) 81 mg DAILY PO Last administered on 02/22/16 09:59; Start 02/22/16 at 09:00; Stop 02/22/16 at 11:35; Status DC Atorvastatin Calcium (Lipitor) 40 mg QHS PO ; Start 02/22/16 at 21:00; Stop at 21:00; Status DC Furosemide (Lasix) 40 mg DAILY PO ; Start 02/22/16 at 09:00; Stop 02/22/16 at 11: 35; Status DC Losartan Potassium (Cozaar) 100 mg DAILY PO Last administered on 02/22/16 10:02 ; Start 02/22/16 at 09:00; Stop 02/22/16 at 18:33; Status DC Sotalol HCl (Betapace) 160 mg BID PO ; Start 02/21/16 at 22:00; Stop 02/22/16 at 11:35; Status DC Insulin Aspart (Novolog) 0-5 UNITS TIDWMEALS SQ ; Start 02/22/16 at 08:00; Stop 02/22/16 at 11:03; Status DC Dextrose 12.5 gm PRN Q15MIN PRN IV SEE COMMENTS; Start 02/21/16 at 21:30 Hydrochlorothiazide (Hydrodiuril) 25 mg DAILY PO ; Start 02/22/16 at 09:00; Stop 02/22/16 at 11:35; Status DC Acetaminophen (Tylenol) 650 mg PRN Q4HRS PRN PO FEVER; Start 02/22/16 at 00:00; Stop 02/22/16 at 23:59; Status DC Insulin Aspart (Novolog) 0-5 UNITS TIDWMEALS SQ ; Start 02/22/16 at 08:00; Status UNV Dextrose 12.5 gm PRN Q15MIN PRN IV SEE COMMENTS; Start 02/22/16 at 00:30; Status UNV Insulin Aspart (Novolog) 0-7 UNITS TIDWMEALS SQ Last administered on 02/22/16 18:05; Start 02/22/16 at 12:00 Dextrose 12.5 gm PRN Q15MIN PRN IV SEE COMMENTS; Start 02/22/16 at 11:00; Status UNV Pantoprazole Sodium 40 mg 40 mg DAILYAC PO Last administered on 02/23/16 08:19 ; Start 02/22/16 at 13:30 Sodium Chloride 1,000 ml @ 80 mls/hr [id number] IV Last administered on 02/23/16 03:39; Start 02/22/16 at 13:30 Magnesium Sulfate/ Dextrose (Magnesium Sulfate PREMIX 2GM) 50 ml @ 25 mls/hr PRN DAILY PRN IV for Mag < 1.7 on am labs; Start 02/22/16 at 12:45 Sotalol HCl (Betapace) 40 mg 1X ONCE PO Last administered on 02/22/16 15:13; Start 02/22/16 at 15:00; Stop 02/22/16 at 15:01; Status DC Losartan Potassium (Cozaar) 100 mg DAILY PO Last administered on 02/23/16 08:19 ; Start 02/23/16 at 09:00 Fish Oil (Fish Oil) 1,000 mg DAILY PO Last administered on 02/23/16 08:18; Start 02/23/16 at 09:00 Insulin Detemir (Levemir) 25 units QHS SQ Last administered on 02/22/16 20:49; Start 02/22/16 at 21:00 Active Scripts Active Reported Tg Hortaostdain (Insulin Glargine,Hum.rec.anlog) 300 Unit/1 Ml Insuln.pen 25 Unit SQ QHS Losartan Potassium 100 Mg Tablet 100 Mg PO DAILY Coumadin (Warfarin Sodium) 5 Mg Tablet 1 Tab PO DAILY Novolin R (Insulin Regular, Human) 100 Unit/1 Ml Vial 10 Unit SQ BIDAC Magnesium (Magnesium Oxide) 400 Mg Capsule 1 Cap PO BID Fish Oil 1,000 Mg Softgel (Okay-3 Fatty Acids/Fish Oil) 1 Each Capsule 1 Each PO DAILY Allopurinol 300 Mg Tablet 1 Tab PO DAILY Alendronate Sodium 70 Mg Tablet 1 Tab PO WEEKLY Vitals/I & O Vital Sign - Last 24 Hours 02/22/16 02/22/16 02/22/16 02/22/16 09:00 10:00 10:02 11:00 Pulse 52 54 55 54 Resp 20 22 24 B/P 124/66 120/61 120/61 126/58 Pulse Ox 98 98 99 O2 Delivery Nasal Cannula Nasal Cannula Nasal Cannula O2 Flow Rate 2.0 2.0 2.0 02/22/16 02/22/16 02/22/16 02/22/16 12:00 12:00 13:00 14:00 Temp 98.1 98.1 Pulse 52 56 54 Resp 20 20 22 B/P 119/64 136/69 118/58 Pulse Ox 99 98 O2 Delivery Nasal Cannula Nasal Cannula Room Air Room Air O2 Flow Rate 2.0 2.0 98.0 02/22/16 02/22/16 02/22/16 02/22/16 15:00 15:13 16:00 16:00 Temp 97.3 97.3 Pulse 54 53 56 Resp 28 28 B/P 120/50 120/50 125/52 Pulse Ox 98 98 O2 Delivery Room Air Room Air Nasal Cannula O2 Flow Rate 2.0 02/22/16 02/22/16 02/22/16 02/22/16 17:00 17:36 17:51 18:00 Temp 97.3 97.4 97.3 97.4 Pulse 46 53 52 54 Resp 24 20 18 26 B/P 113/60 116/50 135/61 135/61 Pulse Ox 94 O2 Delivery Room Air Room Air 02/22/16 02/22/16 02/22/16 02/22/16 19:00 19:00 19:55 20:00 Temp 97.3 97.4 97.3 97.4 Pulse 54 54 54 Resp 20 22 26 B/P 124/57 124/57 140/63 Pulse Ox 99 94 O2 Delivery Room Air Room Air Room Air 02/22/16 02/22/16 02/22/16 02/22/16 21:00 22:00 23:00 23:59 Pulse 54 53 54 Resp 30 21 14 B/P 139/58 143/63 131/58 Pulse Ox 96 91 98 O2 Delivery Room Air Room Air Nasal Cannula Nasal Cannula O2 Flow Rate 2.0 2.0 02/23/16 02/23/16 02/23/16 02/23/16 00:00 01:00 02:00 03:00 Temp 97.4 97.4 Pulse 53 53 57 53 Resp 27 14 24 16 B/P 133/58 118/51 117/56 123/65 Pulse Ox 95 97 97 97 O2 Delivery Nasal Cannula Nasal Cannula Nasal Cannula Nasal Cannula O2 Flow Rate 2.0 2.0 2.0 2.0 02/23/16 02/23/16 02/23/16 02/23/16 04:00 04:00 05:00 06:00 Temp 97.4 97.4 Pulse 56 53 54 Resp 17 15 19 B/P 134/56 115/54 127/59 Pulse Ox 92 96 96 O2 Delivery Nasal Cannula Nasal Cannula Nasal Cannula Nasal Cannula O2 Flow Rate 2.0 2.0 2.0 2.0 02/23/16 02/23/16 08:19 08:47 Pulse 55 B/P 136/60 O2 Delivery Room Air Intake and Output 02/22/16 02/22/16 02/23/16 15:00 23:00 07:00 Intake Total 700 ml 1550 ml 1114 ml Output Total 550 ml 1150 ml 1150 ml Balance 150 ml 400 ml -36 ml Problem List Problems Medical Problems: (1) Symptomatic bradycardia Status: Acute (2) Syncope Status: Acute Assessment MARILYN; this would imply chronic occult blood loss. Plan of Care: Continue current Tx, Mgmt Plan of Care Note Once cardiac issues addressed, could consider repeating scopes; would be OK to defer to outpatient setting. BRODY BURNETT MD Feb 23, 2016 09:02
[2016-02-23 09:20] LABS: ALBUMIN 3.1 g/dL (3.4-5.0); CALCIUM 8.8 mg/dL (8.5-10.1); GFR 15.3; PHOSPHORUS 4.2 mg/dL (2.6-4.7); POTASSIUM 3.5 mmol/L (3.5-5.1)
--- NOTE | 2016-02-23 13:30 | PDOC ---
SUBJECTIVE Subjective feels better, some ABRAMS moving in room, HR in 50's OBJECTIVE Vital Signs Vital Signs Date Time Temp Pulse Resp B/P Pulse Ox O2 Delivery O2 Flow Rate FiO2 02/23/16 12:00 97.4 56 24 136/62 95 Room Air 97.4 02/23/16 11:00 56 16 141/62 94 Room Air 02/23/16 10:00 57 23 141/67 96 Room Air 02/23/16 09:00 56 26 140/59 98 Room Air 02/23/16 08:47 Room Air 02/23/16 08:19 55 136/60 02/23/16 08:00 97.4 54 22 136/60 97 Room Air 97.4 02/23/16 07:00 54 20 128/59 95 Room Air 02/23/16 06:00 54 19 127/59 96 Nasal Cannula 2.0 02/23/16 05:00 53 15 115/54 96 Nasal Cannula 2.0 02/23/16 04:00 Nasal Cannula 2.0 02/23/16 04:00 97.4 56 17 134/56 92 Nasal Cannula 2.0 97.4 02/23/16 03:00 53 16 123/65 97 Nasal Cannula 2.0 02/23/16 02:00 57 24 117/56 97 Nasal Cannula 2.0 02/23/16 01:00 53 14 118/51 97 Nasal Cannula 2.0 02/23/16 00:00 97.4 53 27 133/58 95 Nasal Cannula 2.0 97.4 02/22/16 23:59 Nasal Cannula 2.0 02/22/16 23:00 54 14 131/58 98 Nasal Cannula 2.0 02/22/16 22:00 53 21 143/63 91 Room Air 02/22/16 21:00 54 30 139/58 96 Room Air 02/22/16 20:00 97.4 54 26 140/63 94 Room Air 97.4 02/22/16 19:55 Room Air 02/22/16 19:00 54 22 124/57 99 Room Air 02/22/16 19:00 97.3 54 20 124/57 97.3 02/22/16 18:00 54 26 135/61 Room Air 02/22/16 17:51 97.4 52 18 135/61 97.4 02/22/16 17:36 97.3 53 20 116/50 97.3 02/22/16 17:00 46 24 113/60 94 Room Air 02/22/16 16:00 Nasal Cannula 2.0 02/22/16 16:00 97.3 56 28 125/52 98 Room Air 97.3 02/22/16 15:13 53 120/50 02/22/16 15:00 54 28 120/50 98 Room Air 02/22/16 14:00 54 22 118/58 98 Room Air I & O Intake and Output 02/23/16 07:00 Intake Total 3364 ml Output Total 2850 ml Balance 514 ml Intake Oral 1700 ml IV Total 1014 ml Blood Product 350 ml Blood Product IV Normal Saline Flush 300 ml Output Urine Total 2850 ml PHYSICAL EXAM Physical Exam lungs clear heart RR mild kamryn abd soft no pain ext no edema ASSESSMENT/PLAN Assessment/Plan 1. Syncopal episode with significant bradycardia. now in 50's continue to monitor 2. Anemia, acute seem to be due to chronic blood loss agree with plan for EGD when C.V stable 3. History of aortic valve replacement. resume coumadin soon 4. Oibbx-vo-pcczoil kidney disease. will stop IVF now due to ABRAMS 5. Influenza B positive, continue Tamiflu. 6. History of hypertension. 7. Diabetes mellitus type 2. Continue insulin. 8. Previous history of breast cancer. 9. Osteoarthritis. 10. Gastroesophageal reflux disease. Problems: COMMENT Lab Laboratory Tests Test 02/22/16 18:00 02/22/16 20:47 02/23/16 04:00 02/23/16 11:48 Glucose (Fingerstick) 160mg/dL (70-99) 184mg/dL (70-99) 177mg/dL (70-99) White Blood Count 10.3x10^3/uL (4.0-11.0) Red Blood Count 3.00x10^6/uL (3.50-5.40) Hemoglobin 8.9g/dL (12.0-15.5) Hematocrit 27.2% (36.0-47.0) Mean Corpuscular Volume 91fL (79-100) Mean Corpuscular Hemoglobin 30pg (25-35) Mean Corpuscular Hemoglobin Concent 33g/dL (31-37) Red Cell Distribution Width 15.6% (11.5-14.5) Platelet Count 264x10^3/uL (140-400) Prothrombin Time 31.8SEC (11.7-14.0) Prothromb Time International Ratio 3.3 (0.8-1.1) Sodium Level 134mmol/L (136-145) Potassium Level 3.5mmol/L (3.5-5.1) Chloride Level 100mmol/L (98-107) Carbon Dioxide Level 24mmol/L (21-32) Anion Gap 10 (6-14) Blood Urea Nitrogen 78mg/dL (7-20) Creatinine 3.0mg/dL (0.6-1.0) Estimated GFR (Cockcroft-Gault) 15.3 Glucose Level 118mg/dL (70-99) Calcium Level 8.8mg/dL (8.5-10.1) Phosphorus Level 4.2mg/dL (2.6-4.7) Magnesium Level 2.5mg/dL (1.8-2.4) Albumin 3.1g/dL (3.4-5.0) AJ JOHN MD Feb 23, 2016 13:30
[2016-02-23] MEDS ORDERED: ZOLPIDEM 5 MG TABLET. PO PRN (14:00)
--- NOTE | 2016-02-23 14:06 | PDOC ---
PROGRESS NOTES Subjective Subjective SEEN IN FOLLOW UP OF CKD4 DUE TO DM. HERE WITH INFLUENZA Objective Objective Vital Signs Date Time Temp Pulse Resp B/P Pulse Ox O2 Delivery O2 Flow Rate FiO2 02/23/16 12:00 Room Air 02/23/16 12:00 97.4 56 24 136/62 95 97.4 02/23/16 06:00 2.0 Intake and Output 02/23/16 07:00 Intake Total 3364 ml Output Total 2850 ml Balance 514 ml Intake Oral 1700 ml IV Total 1014 ml Blood Product 350 ml Blood Product IV Normal Saline Flush 300 ml Output Urine Total 2850 ml Physical Exam Abdomen: Normal bowel sounds, Soft, No tenderness, No hepatosplenomegaly, No masses Heart: Regular rate, Normal S1, Normal S2, No murmurs, Gallops Extremities: No clubbing, No cyanosis, No edema, Normal pulses, No tenderness/ swelling General: Alert, Oriented X3, Cooperative, No acute distress Lungs: Clear to auscultation, Normal air movement Psych/Mental Status: Mental status NL, Mood NL Diagnosis RENAL FAILURE: Chronic (CKD stage IV) Assessment Assessment Problems Medical Problems: (1) Symptomatic bradycardia Status: Acute (2) Syncope Status: Acute Plan Plan of Care CONT SUPPORTIVE CARE OF INFLUENZA. RENAL FUNCTION STABLE Comment Review of Relevant I have reviewed the following items corinne (where applicable) has been applied. Labs Laboratory Tests Test 02/21/16 17:21 02/21/16 17:25 02/21/16 17:26 02/21/16 18:26 White Blood Count 12.2x10^3/uL (4.0-11.0) Red Blood Count 2.86x10^6/uL (3.50-5.40) Hemoglobin 8.5g/dL (12.0-15.5) Hematocrit 25.9% (36.0-47.0) Mean Corpuscular Volume 91fL (79-100) Mean Corpuscular Hemoglobin 30pg (25-35) Mean Corpuscular Hemoglobin Concent 33g/dL (31-37) Red Cell Distribution Width 15.8% (11.5-14.5) Platelet Count 321x10^3/uL (140-400) Neutrophils (%) (Auto) 80% (31-73) Lymphocytes (%) (Auto) 6% (24-48) Monocytes (%) (Auto) 9% (0-9) Eosinophils (%) (Auto) 3% (0-3) Basophils (%) (Auto) 1% (0-3) Neutrophils # (Auto) 9.8x10^3uL (1.8-7.7) Lymphocytes # (Auto) 0.8x10^3/uL (1.0-4.8) Monocytes # (Auto) 1.1x10^3/uL (0.0-1.1) Eosinophils # (Auto) 0.4x10^3/uL (0.0-0.7) Basophils # (Auto) 0.2x10^3/uL (0.0-0.2) Sodium Level 136mmol/L (136-145) Potassium Level 4.4mmol/L (3.5-5.1) Chloride Level 99mmol/L (98-107) Carbon Dioxide Level 21mmol/L (21-32) Anion Gap 16 (6-14) 18mmol/L (6-14) Blood Urea Nitrogen 95mg/dL (7-20) Creatinine 3.4mg/dL (0.6-1.0) Estimated GFR (Cockcroft-Gault) 13.3 BUN/Creatinine Ratio 28 (6-20) Glucose Level 145mg/dL (70-99) 133mg/dL (70-99) Calcium Level 9.1mg/dL (8.5-10.1) Phosphorus Level 5.5mg/dL (2.6-4.7) Magnesium Level 2.6mg/dL (1.8-2.4) Total Bilirubin 0.4mg/dL (0.2-1.0) Aspartate Amino Transf (AST/SGOT) 27U/L (15-37) Alanine Aminotransferase (ALT/SGPT) 28U/L (14-59) Alkaline Phosphatase 48U/L (46-116) Bedside Troponin I 0.02ng/ml (<0.08) Troponin I Quantitative < 0.017ng/mL (0.000-0.055) YN-Hai-I-Type Natriuretic Peptide 2230pg/mL (0-124) Total Protein 7.0g/dL (6.4-8.2) Albumin 3.6g/dL (3.4-5.0) Albumin/Globulin Ratio 1.1 (1.0-1.7) Lipase 463U/L (73-393) Thyroid Stimulating Hormone (TSH) 3.160uIU/mL (0.358-3.74) Digoxin Level 1.3ng/mL (0.9-2.0) Digoxin Last Dose Date Unk Digoxin Last Dose Time Unk Bedside Hemoglobin 9.5g/dL (12-15) Bedside Hematocrit 28% (36-40) Bedside Sodium 133mmol/L (135-145) Bedside Potassium 5.6mmol/L (3.5-5.0) Bedside Chloride 100mmol/L (98-110) Bedside Total CO2 22mmol/L (23-32) Bedside Blood Urea Nitrogen 103mg/dL (8-26) Bedside Creatinine 3.5mg/dL (0.5-1.4) Bedside Ionized Calcium (Mary) 1.08mmol/L (1.13-1.32) Prothrombin Time 41.0SEC (11.7-14.0) Prothromb Time International Ratio 4.6 (0.8-1.1) Activated Partial Thromboplast Time 82SEC (24-38) Test 02/21/16 19:18 02/21/16 19:30 02/22/16 01:10 02/22/16 07:30 Influenza Type A Antigen Negative (NEGATIVE) Influenza Type B Antigen Positive (NEGATIVE) Nasal Screen MRSA (PCR) Negative (Negative) Troponin I Quantitative 0.025ng/mL (0.000-0.055) 0.030ng/mL (0.000-0.055) White Blood Count 10.2x10^3/uL (4.0-11.0) Red Blood Count 2.51x10^6/uL (3.50-5.40) Hemoglobin 7.6g/dL (12.0-15.5) Hematocrit 23.3% (36.0-47.0) Mean Corpuscular Volume 93fL (79-100) Mean Corpuscular Hemoglobin 30pg (25-35) Mean Corpuscular Hemoglobin Concent 33g/dL (31-37) Red Cell Distribution Width 16.1% (11.5-14.5) Platelet Count 272x10^3/uL (140-400) Neutrophils (%) (Auto) 78% (31-73) Lymphocytes (%) (Auto) 7% (24-48) Monocytes (%) (Auto) 11% (0-9) Eosinophils (%) (Auto) 3% (0-3) Basophils (%) (Auto) 1% (0-3) Neutrophils # (Auto) 7.9x10^3uL (1.8-7.7) Lymphocytes # (Auto) 0.7x10^3/uL (1.0-4.8) Monocytes # (Auto) 1.1x10^3/uL (0.0-1.1) Eosinophils # (Auto) 0.3x10^3/uL (0.0-0.7) Basophils # (Auto) 0.1x10^3/uL (0.0-0.2) Reticulocyte Count (auto) 1.9% (0.5-2.5) Prothrombin Time 38.3SEC (11.7-14.0) Prothromb Time International Ratio 4.2 (0.8-1.1) Sodium Level 138mmol/L (136-145) Potassium Level 3.8mmol/L (3.5-5.1) Chloride Level 102mmol/L (98-107) Carbon Dioxide Level 24mmol/L (21-32) Anion Gap 12 (6-14) Blood Urea Nitrogen 85mg/dL (7-20) Creatinine 3.2mg/dL (0.6-1.0) Estimated GFR (Cockcroft-Gault) 14.2 BUN/Creatinine Ratio 27 (6-20) Glucose Level 120mg/dL (70-99) Calcium Level 9.1mg/dL (8.5-10.1) Magnesium Level 2.7mg/dL (1.8-2.4) Iron Level 32ug/dL (50-170) Total Iron Binding Capacity 279ug/dL (250-450) Iron Saturation 11% (15-34) Ferritin 102ng/mL (8-252) Total Bilirubin 0.5mg/dL (0.2-1.0) Aspartate Amino Transf (AST/SGOT) 18U/L (15-37) Alanine Aminotransferase (ALT/SGPT) 22U/L (14-59) Alkaline Phosphatase 45U/L (46-116) Total Protein 6.2g/dL (6.4-8.2) Albumin 3.2g/dL (3.4-5.0) Albumin/Globulin Ratio 1.1 (1.0-1.7) Vitamin B12 Level 567pg/mL (211-946) Folic Acid (LAB) 19.1ng/mL (>3.0) Test 02/22/16 13:11 02/22/16 18:00 02/22/16 20:47 02/23/16 04:00 Glucose (Fingerstick) 170mg/dL (70-99) 160mg/dL (70-99) 184mg/dL (70-99) White Blood Count 10.3x10^3/uL (4.0-11.0) Red Blood Count 3.00x10^6/uL (3.50-5.40) Hemoglobin 8.9g/dL (12.0-15.5) Hematocrit 27.2% (36.0-47.0) Mean Corpuscular Volume 91fL (79-100) Mean Corpuscular Hemoglobin 30pg (25-35) Mean Corpuscular Hemoglobin Concent 33g/dL (31-37) Red Cell Distribution Width 15.6% (11.5-14.5) Platelet Count 264x10^3/uL (140-400) Prothrombin Time 31.8SEC (11.7-14.0) Prothromb Time International Ratio 3.3 (0.8-1.1) Sodium Level 134mmol/L (136-145) Potassium Level 3.5mmol/L (3.5-5.1) Chloride Level 100mmol/L (98-107) Carbon Dioxide Level 24mmol/L (21-32) Anion Gap 10 (6-14) Blood Urea Nitrogen 78mg/dL (7-20) Creatinine 3.0mg/dL (0.6-1.0) Estimated GFR (Cockcroft-Gault) 15.3 Glucose Level 118mg/dL (70-99) Calcium Level 8.8mg/dL (8.5-10.1) Phosphorus Level 4.2mg/dL (2.6-4.7) Magnesium Level 2.5mg/dL (1.8-2.4) Albumin 3.1g/dL (3.4-5.0) Test 02/23/16 11:48 Glucose (Fingerstick) 177mg/dL (70-99) Laboratory Tests Test 02/22/16 18:00 02/22/16 20:47 02/23/16 04:00 02/23/16 11:48 Glucose (Fingerstick) 160mg/dL (70-99) 184mg/dL (70-99) 177mg/dL (70-99) White Blood Count 10.3x10^3/uL (4.0-11.0) Red Blood Count 3.00x10^6/uL (3.50-5.40) Hemoglobin 8.9g/dL (12.0-15.5) Hematocrit 27.2% (36.0-47.0) Mean Corpuscular Volume 91fL (79-100) Mean Corpuscular Hemoglobin 30pg (25-35) Mean Corpuscular Hemoglobin Concent 33g/dL (31-37) Red Cell Distribution Width 15.6% (11.5-14.5) Platelet Count 264x10^3/uL (140-400) Prothrombin Time 31.8SEC (11.7-14.0) Prothromb Time International Ratio 3.3 (0.8-1.1) Sodium Level 134mmol/L (136-145) Potassium Level 3.5mmol/L (3.5-5.1) Chloride Level 100mmol/L (98-107) Carbon Dioxide Level 24mmol/L (21-32) Anion Gap 10 (6-14) Blood Urea Nitrogen 78mg/dL (7-20) Creatinine 3.0mg/dL (0.6-1.0) Estimated GFR (Cockcroft-Gault) 15.3 Glucose Level 118mg/dL (70-99) Calcium Level 8.8mg/dL (8.5-10.1) Phosphorus Level 4.2mg/dL (2.6-4.7) Magnesium Level 2.5mg/dL (1.8-2.4) Albumin 3.1g/dL (3.4-5.0) Medications Current Medications Calcium Gluconate 1,000 mg 1X ONCE IVP Last administered on 02/21/16t 18:08; Start 02/21/16 at 17:45; Stop 02/21/16 at 17:46; Status DC Sodium Bicarbonate 50 meq 1X ONCE IV Last administered on 02/21/16 17:52; Start 02/21/16 at 17:45; Stop 02/21/16 at 17:46; Status DC Dextrose 25 gm 1X ONCE IV Last administered on 02/21/16 18:02; Start 02/21/16 at 17:45; Stop 02/21/16 at 17:46; Status DC Insulin Human Regular (Novolin R Vial) 10 unit 1X ONCE IV Last administered on 02/21/16 18:22; Start 02/21/16 at 17:45; Stop 02/21/16 at 17:46; Status DC Oseltamivir Phosphate (Tamiflu) 75 mg DAILY PO Last administered on 02/23/16 08 :19; Start 02/22/16 at 09:00; Stop 02/26/16 at 09:00 Allopurinol (Zyloprim) 300 mg DAILY PO Last administered on 02/23/16 08:20; Start 02/22/16 at 09:00 Aspirin (Ecotrin) 81 mg DAILY PO Last administered on 02/22/16 09:59; Start 02/22/16 at 09:00; Stop 02/22/16 at 11:35; Status DC Atorvastatin Calcium (Lipitor) 40 mg QHS PO ; Start 02/22/16 at 21:00; Stop at 21:00; Status DC Furosemide (Lasix) 40 mg DAILY PO ; Start 02/22/16 at 09:00; Stop 02/22/16 at 11: 35; Status DC Losartan Potassium (Cozaar) 100 mg DAILY PO Last administered on 02/22/16 10:02 ; Start 02/22/16 at 09:00; Stop 02/22/16 at 18:33; Status DC Sotalol HCl (Betapace) 160 mg BID PO ; Start 02/21/16 at 22:00; Stop 02/22/16 at 11:35; Status DC Insulin Aspart (Novolog) 0-5 UNITS TIDWMEALS SQ ; Start 02/22/16 at 08:00; Stop 02/22/16 at 11:03; Status DC Dextrose 12.5 gm PRN Q15MIN PRN IV SEE COMMENTS; Start 02/21/16 at 21:30 Hydrochlorothiazide (Hydrodiuril) 25 mg DAILY PO ; Start 02/22/16 at 09:00; Stop 02/22/16 at 11:35; Status DC Acetaminophen (Tylenol) 650 mg PRN Q4HRS PRN PO FEVER; Start 02/22/16 at 00:00; Stop 02/22/16 at 23:59; Status DC Insulin Aspart (Novolog) 0-5 UNITS TIDWMEALS SQ ; Start 02/22/16 at 08:00; Status UNV Dextrose 12.5 gm PRN Q15MIN PRN IV SEE COMMENTS; Start 02/22/16 at 00:30; Status UNV Insulin Aspart (Novolog) 0-7 UNITS TIDWMEALS SQ Last administered on 02/23/16 11:51; Start 02/22/16 at 12:00 Dextrose 12.5 gm PRN Q15MIN PRN IV SEE COMMENTS; Start 02/22/16 at 11:00; Status UNV Pantoprazole Sodium 40 mg 40 mg DAILYAC PO Last administered on 02/23/16 08:19 ; Start 02/22/16 at 13:30 Sodium Chloride 1,000 ml @ 80 mls/hr [id number] IV Last administered on 02/23/16 03:39; Start 02/22/16 at 13:30; Stop 02/23/16 at 13:35; Status DC Magnesium Sulfate/ Dextrose (Magnesium Sulfate PREMIX 2GM) 50 ml @ 25 mls/hr PRN DAILY PRN IV for Mag < 1.7 on am labs; Start 02/22/16 at 12:45 Sotalol HCl (Betapace) 40 mg 1X ONCE PO Last administered on 02/22/16 15:13; Start 02/22/16 at 15:00; Stop 02/22/16 at 15:01; Status DC Losartan Potassium (Cozaar) 100 mg DAILY PO Last administered on 02/23/16 08:19 ; Start 02/23/16 at 09:00 Fish Oil (Fish Oil) 1,000 mg DAILY PO Last administered on 02/23/16 08:18; Start 02/23/16 at 09:00 Insulin Detemir (Levemir) 25 units QHS SQ Last administered on 02/22/16 20:49; Start 02/22/16 at 21:00 Zolpidem Tartrate (Ambien) 5 mg PRN QHS PRN PO INSOMNIA, MAY REPEAT IN 1HR; Start 02/23/16 at 14:00 Promethazine HCl/ Codeine (Phenergan With Codeine) 5 ml PRN Q6HRS PRN PO COUGH ; Start 02/23/16 at 14:00 Active Scripts Active Reported Tg Hortaostar (Insulin Glargine,Hum.rec.anlog) 300 Unit/1 Ml Insuln.pen 25 Unit SQ QHS Losartan Potassium 100 Mg Tablet 100 Mg PO DAILY Coumadin (Warfarin Sodium) 5 Mg Tablet 1 Tab PO DAILY Novolin R (Insulin Regular, Human) 100 Unit/1 Ml Vial 10 Unit SQ BIDAC Magnesium (Magnesium Oxide) 400 Mg Capsule 1 Cap PO BID Fish Oil 1,000 Mg Softgel ([place]-3 Fatty Acids/Fish Oil) 1 Each Capsule 1 Each PO DAILY Allopurinol 300 Mg Tablet 1 Tab PO DAILY Alendronate Sodium 70 Mg Tablet 1 Tab PO WEEKLY Vitals/I & O Vital Sign - Last 24 Hours 02/22/16 02/22/16 02/22/16 02/22/16 15:00 15:13 16:00 16:00 Temp 97.3 97.3 Pulse 54 53 56 Resp 28 28 B/P 120/50 120/50 125/52 Pulse Ox 98 98 O2 Delivery Room Air Room Air Nasal Cannula O2 Flow Rate 2.0 02/22/16 02/22/16 02/22/16 02/22/16 17:00 17:36 17:51 18:00 Temp 97.3 97.4 97.3 97.4 Pulse 46 53 52 54 Resp 24 20 18 26 B/P 113/60 116/50 135/61 135/61 Pulse Ox 94 O2 Delivery Room Air Room Air 02/22/16 02/22/16 02/22/16 02/22/16 19:00 19:00 19:55 20:00 Temp 97.3 97.4 97.3 97.4 Pulse 54 54 54 Resp 20 22 26 B/P 124/57 124/57 140/63 Pulse Ox 99 94 O2 Delivery Room Air Room Air Room Air 02/22/16 02/22/16 02/22/16 02/22/16 21:00 22:00 23:00 23:59 Pulse 54 53 54 Resp 30 21 14 B/P 139/58 143/63 131/58 Pulse Ox 96 91 98 O2 Delivery Room Air Room Air Nasal Cannula Nasal Cannula O2 Flow Rate 2.0 2.0 02/23/16 02/23/16 02/23/16 02/23/16 00:00 01:00 02:00 03:00 Temp 97.4 97.4 Pulse 53 53 57 53 Resp 27 14 24 16 B/P 133/58 118/51 117/56 123/65 Pulse Ox 95 97 97 97 O2 Delivery Nasal Cannula Nasal Cannula Nasal Cannula Nasal Cannula O2 Flow Rate 2.0 2.0 2.0 2.0 02/23/16 02/23/16 02/23/16 02/23/16 04:00 04:00 05:00 06:00 Temp 97.4 97.4 Pulse 56 53 54 Resp 17 15 19 B/P 134/56 115/54 127/59 Pulse Ox 92 96 96 O2 Delivery Nasal Cannula Nasal Cannula Nasal Cannula Nasal Cannula O2 Flow Rate 2.0 2.0 2.0 2.0 02/23/16 02/23/16 02/23/16 02/23/16 07:00 08:00 08:19 08:47 Temp 97.4 97.4 Pulse 54 54 55 Resp 20 22 B/P 128/59 136/60 136/60 Pulse Ox 95 97 O2 Delivery Room Air Room Air Room Air 02/23/16 02/23/16 02/23/16 02/23/16 09:00 10:00 11:00 12:00 Temp 97.4 97.4 Pulse 56 57 56 56 Resp 26 23 16 24 B/P 140/59 141/67 141/62 136/62 Pulse Ox 98 96 94 95 O2 Delivery Room Air Room Air Room Air Room Air 02/23/16 12:00 O2 Delivery Room Air Intake and Output 02/22/16 02/22/16 02/23/16 15:00 23:00 07:00 Intake Total 700 ml 1550 ml 1114 ml Output Total 550 ml 1150 ml 1150 ml Balance 150 ml 400 ml -36 ml BRODY DUPREE MD Feb 23, 2016 14:06
--- NOTE | 2016-02-23 16:04 | PDOC ---
PROGRESS NOTES Subjective Subjective Patient feels very weak and fatigued. Has a cough. No palpitations, no episode of syncope since admission. She continues to be in sinus bradycardia with a rate in the 40s and 50s. Objective Objective Vital Signs Date Time Temp Pulse Resp B/P Pulse Ox O2 Delivery O2 Flow Rate FiO2 02/23/16 14:00 60 25 148/67 93 Room Air 02/23/16 12:00 97.4 97.4 02/23/16 06:00 2.0 Intake and Output 02/23/16 07:00 Intake Total 3364 ml Output Total 2850 ml Balance 514 ml Intake Oral 1700 ml IV Total 1014 ml Blood Product 350 ml Blood Product IV Normal Saline Flush 300 ml Output Urine Total 2850 ml Physical Exam Physical Exam No significant changes in cardiac exam Assessment Assessment Would continue to monitor the patient. Hold the warfarin until tomorrow. The patient's problems may be secondary to the renal situation. Due to the renal failure we are going to resume the sotalol but on the give it as a 40 mg a day, not twice a day but using a lower dose and every 24 hours. Problems Medical Problems: (1) Symptomatic bradycardia Status: Acute (2) Syncope Status: Acute Comment Review of Relevant I have reviewed the following items corinne (where applicable) has been applied. Labs Laboratory Tests Test 02/21/16 17:21 02/21/16 17:25 02/21/16 17:26 02/21/16 18:26 White Blood Count 12.2x10^3/uL (4.0-11.0) Red Blood Count 2.86x10^6/uL (3.50-5.40) Hemoglobin 8.5g/dL (12.0-15.5) Hematocrit 25.9% (36.0-47.0) Mean Corpuscular Volume 91fL (79-100) Mean Corpuscular Hemoglobin 30pg (25-35) Mean Corpuscular Hemoglobin Concent 33g/dL (31-37) Red Cell Distribution Width 15.8% (11.5-14.5) Platelet Count 321x10^3/uL (140-400) Neutrophils (%) (Auto) 80% (31-73) Lymphocytes (%) (Auto) 6% (24-48) Monocytes (%) (Auto) 9% (0-9) Eosinophils (%) (Auto) 3% (0-3) Basophils (%) (Auto) 1% (0-3) Neutrophils # (Auto) 9.8x10^3uL (1.8-7.7) Lymphocytes # (Auto) 0.8x10^3/uL (1.0-4.8) Monocytes # (Auto) 1.1x10^3/uL (0.0-1.1) Eosinophils # (Auto) 0.4x10^3/uL (0.0-0.7) Basophils # (Auto) 0.2x10^3/uL (0.0-0.2) Sodium Level 136mmol/L (136-145) Potassium Level 4.4mmol/L (3.5-5.1) Chloride Level 99mmol/L (98-107) Carbon Dioxide Level 21mmol/L (21-32) Anion Gap 16 (6-14) 18mmol/L (6-14) Blood Urea Nitrogen 95mg/dL (7-20) Creatinine 3.4mg/dL (0.6-1.0) Estimated GFR (Cockcroft-Gault) 13.3 BUN/Creatinine Ratio 28 (6-20) Glucose Level 145mg/dL (70-99) 133mg/dL (70-99) Calcium Level 9.1mg/dL (8.5-10.1) Phosphorus Level 5.5mg/dL (2.6-4.7) Magnesium Level 2.6mg/dL (1.8-2.4) Total Bilirubin 0.4mg/dL (0.2-1.0) Aspartate Amino Transf (AST/SGOT) 27U/L (15-37) Alanine Aminotransferase (ALT/SGPT) 28U/L (14-59) Alkaline Phosphatase 48U/L (46-116) Bedside Troponin I 0.02ng/ml (<0.08) Troponin I Quantitative < 0.017ng/mL (0.000-0.055) HS-Aeg-K-Type Natriuretic Peptide 2230pg/mL (0-124) Total Protein 7.0g/dL (6.4-8.2) Albumin 3.6g/dL (3.4-5.0) Albumin/Globulin Ratio 1.1 (1.0-1.7) Lipase 463U/L (73-393) Thyroid Stimulating Hormone (TSH) 3.160uIU/mL (0.358-3.74) Digoxin Level 1.3ng/mL (0.9-2.0) Digoxin Last Dose Date Unk Digoxin Last Dose Time Unk Bedside Hemoglobin 9.5g/dL (12-15) Bedside Hematocrit 28% (36-40) Bedside Sodium 133mmol/L (135-145) Bedside Potassium 5.6mmol/L (3.5-5.0) Bedside Chloride 100mmol/L (98-110) Bedside Total CO2 22mmol/L (23-32) Bedside Blood Urea Nitrogen 103mg/dL (8-26) Bedside Creatinine 3.5mg/dL (0.5-1.4) Bedside Ionized Calcium (Mary) 1.08mmol/L (1.13-1.32) Prothrombin Time 41.0SEC (11.7-14.0) Prothromb Time International Ratio 4.6 (0.8-1.1) Activated Partial Thromboplast Time 82SEC (24-38) Test 02/21/16 19:18 02/21/16 19:30 02/22/16 01:10 02/22/16 07:30 Influenza Type A Antigen Negative (NEGATIVE) Influenza Type B Antigen Positive (NEGATIVE) Nasal Screen MRSA (PCR) Negative (Negative) Troponin I Quantitative 0.025ng/mL (0.000-0.055) 0.030ng/mL (0.000-0.055) White Blood Count 10.2x10^3/uL (4.0-11.0) Red Blood Count 2.51x10^6/uL (3.50-5.40) Hemoglobin 7.6g/dL (12.0-15.5) Hematocrit 23.3% (36.0-47.0) Mean Corpuscular Volume 93fL (79-100) Mean Corpuscular Hemoglobin 30pg (25-35) Mean Corpuscular Hemoglobin Concent 33g/dL (31-37) Red Cell Distribution Width 16.1% (11.5-14.5) Platelet Count 272x10^3/uL (140-400) Neutrophils (%) (Auto) 78% (31-73) Lymphocytes (%) (Auto) 7% (24-48) Monocytes (%) (Auto) 11% (0-9) Eosinophils (%) (Auto) 3% (0-3) Basophils (%) (Auto) 1% (0-3) Neutrophils # (Auto) 7.9x10^3uL (1.8-7.7) Lymphocytes # (Auto) 0.7x10^3/uL (1.0-4.8) Monocytes # (Auto) 1.1x10^3/uL (0.0-1.1) Eosinophils # (Auto) 0.3x10^3/uL (0.0-0.7) Basophils # (Auto) 0.1x10^3/uL (0.0-0.2) Reticulocyte Count (auto) 1.9% (0.5-2.5) Prothrombin Time 38.3SEC (11.7-14.0) Prothromb Time International Ratio 4.2 (0.8-1.1) Sodium Level 138mmol/L (136-145) Potassium Level 3.8mmol/L (3.5-5.1) Chloride Level 102mmol/L (98-107) Carbon Dioxide Level 24mmol/L (21-32) Anion Gap 12 (6-14) Blood Urea Nitrogen 85mg/dL (7-20) Creatinine 3.2mg/dL (0.6-1.0) Estimated GFR (Cockcroft-Gault) 14.2 BUN/Creatinine Ratio 27 (6-20) Glucose Level 120mg/dL (70-99) Calcium Level 9.1mg/dL (8.5-10.1) Magnesium Level 2.7mg/dL (1.8-2.4) Iron Level 32ug/dL (50-170) Total Iron Binding Capacity 279ug/dL (250-450) Iron Saturation 11% (15-34) Ferritin 102ng/mL (8-252) Total Bilirubin 0.5mg/dL (0.2-1.0) Aspartate Amino Transf (AST/SGOT) 18U/L (15-37) Alanine Aminotransferase (ALT/SGPT) 22U/L (14-59) Alkaline Phosphatase 45U/L (46-116) Total Protein 6.2g/dL (6.4-8.2) Albumin 3.2g/dL (3.4-5.0) Albumin/Globulin Ratio 1.1 (1.0-1.7) Vitamin B12 Level 567pg/mL (211-946) Folic Acid (LAB) 19.1ng/mL (>3.0) Test 02/22/16 13:11 02/22/16 18:00 02/22/16 20:47 02/23/16 04:00 Glucose (Fingerstick) 170mg/dL (70-99) 160mg/dL (70-99) 184mg/dL (70-99) White Blood Count 10.3x10^3/uL (4.0-11.0) Red Blood Count 3.00x10^6/uL (3.50-5.40) Hemoglobin 8.9g/dL (12.0-15.5) Hematocrit 27.2% (36.0-47.0) Mean Corpuscular Volume 91fL (79-100) Mean Corpuscular Hemoglobin 30pg (25-35) Mean Corpuscular Hemoglobin Concent 33g/dL (31-37) Red Cell Distribution Width 15.6% (11.5-14.5) Platelet Count 264x10^3/uL (140-400) Prothrombin Time 31.8SEC (11.7-14.0) Prothromb Time International Ratio 3.3 (0.8-1.1) Sodium Level 134mmol/L (136-145) Potassium Level 3.5mmol/L (3.5-5.1) Chloride Level 100mmol/L (98-107) Carbon Dioxide Level 24mmol/L (21-32) Anion Gap 10 (6-14) Blood Urea Nitrogen 78mg/dL (7-20) Creatinine 3.0mg/dL (0.6-1.0) Estimated GFR (Cockcroft-Gault) 15.3 Glucose Level 118mg/dL (70-99) Calcium Level 8.8mg/dL (8.5-10.1) Phosphorus Level 4.2mg/dL (2.6-4.7) Magnesium Level 2.5mg/dL (1.8-2.4) Albumin 3.1g/dL (3.4-5.0) Test 02/23/16 11:48 Glucose (Fingerstick) 177mg/dL (70-99) Laboratory Tests Test 02/22/16 18:00 02/22/16 20:47 02/23/16 04:00 02/23/16 11:48 Glucose (Fingerstick) 160mg/dL (70-99) 184mg/dL (70-99) 177mg/dL (70-99) White Blood Count 10.3x10^3/uL (4.0-11.0) Red Blood Count 3.00x10^6/uL (3.50-5.40) Hemoglobin 8.9g/dL (12.0-15.5) Hematocrit 27.2% (36.0-47.0) Mean Corpuscular Volume 91fL (79-100) Mean Corpuscular Hemoglobin 30pg (25-35) Mean Corpuscular Hemoglobin Concent 33g/dL (31-37) Red Cell Distribution Width 15.6% (11.5-14.5) Platelet Count 264x10^3/uL (140-400) Prothrombin Time 31.8SEC (11.7-14.0) Prothromb Time International Ratio 3.3 (0.8-1.1) Sodium Level 134mmol/L (136-145) Potassium Level 3.5mmol/L (3.5-5.1) Chloride Level 100mmol/L (98-107) Carbon Dioxide Level 24mmol/L (21-32) Anion Gap 10 (6-14) Blood Urea Nitrogen 78mg/dL (7-20) Creatinine 3.0mg/dL (0.6-1.0) Estimated GFR (Cockcroft-Gault) 15.3 Glucose Level 118mg/dL (70-99) Calcium Level 8.8mg/dL (8.5-10.1) Phosphorus Level 4.2mg/dL (2.6-4.7) Magnesium Level 2.5mg/dL (1.8-2.4) Albumin 3.1g/dL (3.4-5.0) Medications Current Medications Calcium Gluconate 1,000 mg 1X ONCE IVP Last administered on 02/21/16 18:08; Start 02/21/16 at 17:45; Stop 02/21/16 at 17:46; Status DC Sodium Bicarbonate 50 meq 1X ONCE IV Last administered on 02/21/16 17:52; Start 02/21/16 at 17:45; Stop 02/21/16 at 17:46; Status DC Dextrose 25 gm 1X ONCE IV Last administered on 02/21/16 18:02; Start 02/21/16 at 17:45; Stop 02/21/16 at 17:46; Status DC Insulin Human Regular (Novolin R Vial) 10 unit 1X ONCE IV Last administered on 02/21/16 18:22; Start 02/21/16 at 17:45; Stop 02/21/16 at 17:46; Status DC Oseltamivir Phosphate (Tamiflu) 75 mg DAILY PO Last administered on 02/23/16 08 :19; Start 02/22/16 at 09:00; Stop 02/26/16 at 09:00 Allopurinol (Zyloprim) 300 mg DAILY PO Last administered on 02/23/16 08:20; Start 02/22/16 at 09:00 Aspirin (Ecotrin) 81 mg DAILY PO Last administered on 02/22/16 09:59; Start 02/22/16 at 09:00; Stop 02/22/16 at 11:35; Status DC Atorvastatin Calcium (Lipitor) 40 mg QHS PO ; Start 02/22/16 at 21:00; Stop at 21:00; Status DC Furosemide (Lasix) 40 mg DAILY PO ; Start 02/22/16 at 09:00; Stop 02/22/16 at 11: 35; Status DC Losartan Potassium (Cozaar) 100 mg DAILY PO Last administered on 02/22/16 10:02 ; Start 02/22/16 at 09:00; Stop 02/22/16 at 18:33; Status DC Sotalol HCl (Betapace) 160 mg BID PO ; Start 02/21/16 at 22:00; Stop 02/22/16 at 11:35; Status DC Insulin Aspart (Novolog) 0-5 UNITS TIDWMEALS SQ ; Start 02/22/16 at 08:00; Stop 02/22/16 at 11:03; Status DC Dextrose 12.5 gm PRN Q15MIN PRN IV SEE COMMENTS; Start 02/21/16 at 21:30 Hydrochlorothiazide (Hydrodiuril) 25 mg DAILY PO ; Start 02/22/16 at 09:00; Stop 02/22/16 at 11:35; Status DC Acetaminophen (Tylenol) 650 mg PRN Q4HRS PRN PO FEVER; Start 02/22/16 at 00:00; Stop 02/22/16 at 23:59; Status DC Insulin Aspart (Novolog) 0-5 UNITS TIDWMEALS SQ ; Start 02/22/16 at 08:00; Status UNV Dextrose 12.5 gm PRN Q15MIN PRN IV SEE COMMENTS; Start 02/22/16 at 00:30; Status UNV Insulin Aspart (Novolog) 0-7 UNITS TIDWMEALS SQ Last administered on 02/23/16 11:51; Start 02/22/16 at 12:00 Dextrose 12.5 gm PRN Q15MIN PRN IV SEE COMMENTS; Start 02/22/16 at 11:00; Status UNV Pantoprazole Sodium 40 mg 40 mg DAILYAC PO Last administered on 02/23/16 08:19 ; Start 02/22/16 at 13:30 Sodium Chloride 1,000 ml @ 80 mls/hr [id number] IV Last administered on 02/23/16 03:39; Start 02/22/16 at 13:30; Stop 02/23/16 at 13:35; Status DC Magnesium Sulfate/ Dextrose (Magnesium Sulfate PREMIX 2GM) 50 ml @ 25 mls/hr PRN DAILY PRN IV for Mag < 1.7 on am labs; Start 02/22/16 at 12:45 Sotalol HCl (Betapace) 40 mg 1X ONCE PO Last administered on 02/22/16 15:13; Start 02/22/16 at 15:00; Stop 02/22/16 at 15:01; Status DC Losartan Potassium (Cozaar) 100 mg DAILY PO Last administered on 02/23/16 08:19 ; Start 02/23/16 at 09:00 Fish Oil (Fish Oil) 1,000 mg DAILY PO Last administered on 02/23/16 08:18; Start 02/23/16 at 09:00 Insulin Detemir (Levemir) 25 units QHS SQ Last administered on 02/22/16 20:49; Start 02/22/16 at 21:00 Zolpidem Tartrate (Ambien) 5 mg PRN QHS PRN PO INSOMNIA, MAY REPEAT IN 1HR; Start 02/23/16 at 14:00 Promethazine HCl/ Codeine (Phenergan With Codeine) 5 ml PRN Q6HRS PRN PO COUGH ; Start 02/23/16 at 14:00 Sotalol HCl (Betapace) 40 mg DAILY PO ; Start 02/24/16 at 09:00 Active Scripts Active Reported Tg Hortaostar (Insulin Glargine,Hum.rec.anlog) 300 Unit/1 Ml Insuln.pen 25 Unit SQ QHS Losartan Potassium 100 Mg Tablet 100 Mg PO DAILY Coumadin (Warfarin Sodium) 5 Mg Tablet 1 Tab PO DAILY Novolin R (Insulin Regular, Human) 100 Unit/1 Ml Vial 10 Unit SQ BIDAC Magnesium (Magnesium Oxide) 400 Mg Capsule 1 Cap PO BID Fish Oil 1,000 Mg Softgel ([place]-3 Fatty Acids/Fish Oil) 1 Each Capsule 1 Each PO DAILY Allopurinol 300 Mg Tablet 1 Tab PO DAILY Alendronate Sodium 70 Mg Tablet 1 Tab PO WEEKLY Vitals/I & O Vital Sign - Last 24 Hours 02/22/16 02/22/16 02/22/16 02/22/16 17:00 17:36 17:51 18:00 Temp 97.3 97.4 97.3 97.4 Pulse 46 53 52 54 Resp 24 20 18 26 B/P 113/60 116/50 135/61 135/61 Pulse Ox 94 O2 Delivery Room Air Room Air 02/22/16 02/22/16 02/22/16 02/22/16 19:00 19:00 19:55 20:00 Temp 97.3 97.4 97.3 97.4 Pulse 54 54 54 Resp 20 22 26 B/P 124/57 124/57 140/63 Pulse Ox 99 94 O2 Delivery Room Air Room Air Room Air 02/22/16 02/22/16 02/22/16 02/22/16 21:00 22:00 23:00 23:59 Pulse 54 53 54 Resp 30 21 14 B/P 139/58 143/63 131/58 Pulse Ox 96 91 98 O2 Delivery Room Air Room Air Nasal Cannula Nasal Cannula O2 Flow Rate 2.0 2.0 02/23/16 02/23/16 02/23/16 02/23/16 00:00 01:00 02:00 03:00 Temp 97.4 97.4 Pulse 53 53 57 53 Resp 27 14 24 16 B/P 133/58 118/51 117/56 123/65 Pulse Ox 95 97 97 97 O2 Delivery Nasal Cannula Nasal Cannula Nasal Cannula Nasal Cannula O2 Flow Rate 2.0 2.0 2.0 2.0 02/23/16 02/23/16 02/23/16 02/23/16 04:00 04:00 05:00 06:00 Temp 97.4 97.4 Pulse 56 53 54 Resp 17 15 19 B/P 134/56 115/54 127/59 Pulse Ox 92 96 96 O2 Delivery Nasal Cannula Nasal Cannula Nasal Cannula Nasal Cannula O2 Flow Rate 2.0 2.0 2.0 2.0 02/23/16 02/23/16 02/23/16 02/23/16 07:00 08:00 08:19 08:47 Temp 97.4 97.4 Pulse 54 54 55 Resp 20 22 B/P 128/59 136/60 136/60 Pulse Ox 95 97 O2 Delivery Room Air Room Air Room Air 02/23/16 02/23/16 02/23/16 02/23/16 09:00 10:00 11:00 12:00 Temp 97.4 97.4 Pulse 56 57 56 56 Resp 26 23 16 24 B/P 140/59 141/67 141/62 136/62 Pulse Ox 98 96 94 95 O2 Delivery Room Air Room Air Room Air Room Air 02/23/16 02/23/16 02/23/16 12:00 13:00 14:00 Pulse 58 60 Resp 26 25 B/P 151/70 148/67 Pulse Ox 93 93 O2 Delivery Room Air Room Air Room Air Intake and Output 02/22/16 02/22/16 02/23/16 15:00 23:00 07:00 Intake Total 700 ml 1550 ml 1114 ml Output Total 550 ml 1150 ml 1150 ml Balance 150 ml 400 ml -36 ml ELIZA COON MD Feb 23, 2016 16:04
[2016-02-23] MEDS: INSULIN DETEMIR 300 UNITS/3 ML INSULN.PEN. SQ SCH (21:12)
[2016-02-23] MEDS: PROMETH/CODEINE 6.25/10MG 5 ML SYRUP. PO PRN (22:21)
[2016-02-24 03:00] VITALS: BP 160/66
[2016-02-24 06:42] LABS: HEMATOCRIT 27.8 % (36.0-47.0); HEMOGLOBIN 9.3 g/dL (12.0-15.5); RED BLOOD COUNT 3.13 x10^6/uL (3.50-5.40); RED CELL DISTRIBUTION WIDTH 16.1 % (11.5-14.5); WHITE BLOOD COUNT 12.7 x10^3/uL (4.0-11.0)
[2016-02-24 06:54] LABS: INR 2.3 (0.8-1.1); PROTHROMBIN TIME PATIENT 24.3 SEC (11.7-14.0)
[2016-02-24 07:00] VITALS: BP 153/60
[2016-02-24 07:03] LABS: ALBUMIN 3.1 g/dL (3.4-5.0); CALCIUM 9.5 mg/dL (8.5-10.1); CREATININE 2.5 mg/dL (0.6-1.0); GFR 18.9; MAGNESIUM 2.5 mg/dL (1.8-2.4); PHOSPHORUS 3.9 mg/dL (2.6-4.7); POTASSIUM 3.7 mmol/L (3.5-5.1)
[2016-02-24] MEDS: INSULIN ASPART 300 UNITS/3 ML INSULN.PEN SQ SCH ×3 (08:00→17:00)
[2016-02-24] MEDS: OSELTAMIVIR 75 MG CAPSULE PO SCH (09:00)
--- NOTE | 2016-02-24 09:32 | PDOC ---
G I PROGRESS NOTE Subjective No GI complaints. Ate well yesterday. Physical Exam Lungs clear. RRR Abdomen soft, not distended nor tender. Review of Relevant I have reviewed the following items corinne (where applicable) has been applied. Labs Laboratory Tests Test 02/22/16 13:11 02/22/16 18:00 02/22/16 20:47 02/23/16 04:00 Glucose (Fingerstick) 170mg/dL (70-99) 160mg/dL (70-99) 184mg/dL (70-99) White Blood Count 10.3x10^3/uL (4.0-11.0) Red Blood Count 3.00x10^6/uL (3.50-5.40) Hemoglobin 8.9g/dL (12.0-15.5) Hematocrit 27.2% (36.0-47.0) Mean Corpuscular Volume 91fL (79-100) Mean Corpuscular Hemoglobin 30pg (25-35) Mean Corpuscular Hemoglobin Concent 33g/dL (31-37) Red Cell Distribution Width 15.6% (11.5-14.5) Platelet Count 264x10^3/uL (140-400) Prothrombin Time 31.8SEC (11.7-14.0) Prothromb Time International Ratio 3.3 (0.8-1.1) Sodium Level 134mmol/L (136-145) Potassium Level 3.5mmol/L (3.5-5.1) Chloride Level 100mmol/L (98-107) Carbon Dioxide Level 24mmol/L (21-32) Anion Gap 10 (6-14) Blood Urea Nitrogen 78mg/dL (7-20) Creatinine 3.0mg/dL (0.6-1.0) Estimated GFR (Cockcroft-Gault) 15.3 Glucose Level 118mg/dL (70-99) Calcium Level 8.8mg/dL (8.5-10.1) Phosphorus Level 4.2mg/dL (2.6-4.7) Magnesium Level 2.5mg/dL (1.8-2.4) Albumin 3.1g/dL (3.4-5.0) Test 02/23/16 11:48 02/23/16 16:49 02/23/16 20:52 02/24/16 05:00 Glucose (Fingerstick) 177mg/dL (70-99) 148mg/dL (70-99) 151mg/dL (70-99) White Blood Count 12.7x10^3/uL (4.0-11.0) Red Blood Count 3.13x10^6/uL (3.50-5.40) Hemoglobin 9.3g/dL (12.0-15.5) Hematocrit 27.8% (36.0-47.0) Mean Corpuscular Volume 89fL (79-100) Mean Corpuscular Hemoglobin 30pg (25-35) Mean Corpuscular Hemoglobin Concent 33g/dL (31-37) Red Cell Distribution Width 16.1% (11.5-14.5) Platelet Count 279x10^3/uL (140-400) Prothrombin Time 24.3SEC (11.7-14.0) Prothromb Time International Ratio 2.3 (0.8-1.1) Sodium Level 137mmol/L (136-145) Potassium Level 3.7mmol/L (3.5-5.1) Chloride Level 101mmol/L (98-107) Carbon Dioxide Level 25mmol/L (21-32) Anion Gap 11 (6-14) Blood Urea Nitrogen 63mg/dL (7-20) Creatinine 2.5mg/dL (0.6-1.0) Estimated GFR (Cockcroft-Gault) 18.9 Glucose Level 98mg/dL (70-99) Calcium Level 9.5mg/dL (8.5-10.1) Phosphorus Level 3.9mg/dL (2.6-4.7) Magnesium Level 2.5mg/dL (1.8-2.4) Albumin 3.1g/dL (3.4-5.0) Test 02/24/16 08:08 Glucose (Fingerstick) 97mg/dL (70-99) Laboratory Tests Test 02/23/16 11:48 02/23/16 16:49 02/23/16 20:52 02/24/16 05:00 Glucose (Fingerstick) 177mg/dL (70-99) 148mg/dL (70-99) 151mg/dL (70-99) White Blood Count 12.7x10^3/uL (4.0-11.0) Red Blood Count 3.13x10^6/uL (3.50-5.40) Hemoglobin 9.3g/dL (12.0-15.5) Hematocrit 27.8% (36.0-47.0) Mean Corpuscular Volume 89fL (79-100) Mean Corpuscular Hemoglobin 30pg (25-35) Mean Corpuscular Hemoglobin Concent 33g/dL (31-37) Red Cell Distribution Width 16.1% (11.5-14.5) Platelet Count 279x10^3/uL (140-400) Prothrombin Time 24.3SEC (11.7-14.0) Prothromb Time International Ratio 2.3 (0.8-1.1) Sodium Level 137mmol/L (136-145) Potassium Level 3.7mmol/L (3.5-5.1) Chloride Level 101mmol/L (98-107) Carbon Dioxide Level 25mmol/L (21-32) Anion Gap 11 (6-14) Blood Urea Nitrogen 63mg/dL (7-20) Creatinine 2.5mg/dL (0.6-1.0) Estimated GFR (Cockcroft-Gault) 18.9 Glucose Level 98mg/dL (70-99) Calcium Level 9.5mg/dL (8.5-10.1) Phosphorus Level 3.9mg/dL (2.6-4.7) Magnesium Level 2.5mg/dL (1.8-2.4) Albumin 3.1g/dL (3.4-5.0) Test 02/24/16 08:08 Glucose (Fingerstick) 97mg/dL (70-99) Medications Current Medications Calcium Gluconate 1,000 mg 1X ONCE IVP Last administered on 02/21/16 18:08; Start 02/21/16 at 17:45; Stop 02/21/16 at 17:46; Status DC Sodium Bicarbonate 50 meq 1X ONCE IV Last administered on 02/21/16 17:52; Start 02/21/16 at 17:45; Stop 02/21/16 at 17:46; Status DC Dextrose 25 gm 1X ONCE IV Last administered on 02/21/16 18:02; Start 02/21/16 at 17:45; Stop 02/21/16 at 17:46; Status DC Insulin Human Regular (Novolin R Vial) 10 unit 1X ONCE IV Last administered on 02/21/16 18:22; Start 02/21/16 at 17:45; Stop 02/21/16 at 17:46; Status DC Oseltamivir Phosphate (Tamiflu) 75 mg DAILY PO Last administered on 02/23/16 08 :19; Start 02/22/16 at 09:00; Stop 02/26/16 at 09:00 Allopurinol (Zyloprim) 300 mg DAILY PO Last administered on 02/23/16 08:20; Start 02/22/16 at 09:00 Aspirin (Ecotrin) 81 mg DAILY PO Last administered on 02/22/16 09:59; Start 02/22/16 at 09:00; Stop 02/22/16 at 11:35; Status DC Atorvastatin Calcium (Lipitor) 40 mg QHS PO ; Start 02/22/16 at 21:00; Stop at 21:00; Status DC Furosemide (Lasix) 40 mg DAILY PO ; Start 02/22/16 at 09:00; Stop 02/22/16 at 11: 35; Status DC Losartan Potassium (Cozaar) 100 mg DAILY PO Last administered on 02/22/16 10:02 ; Start 02/22/16 at 09:00; Stop 02/22/16 at 18:33; Status DC Sotalol HCl (Betapace) 160 mg BID PO ; Start 02/21/16 at 22:00; Stop 02/22/16 at 11:35; Status DC Insulin Aspart (Novolog) 0-5 UNITS TIDWMEALS SQ ; Start 02/22/16 at 08:00; Stop 02/22/16 at 11:03; Status DC Dextrose 12.5 gm PRN Q15MIN PRN IV SEE COMMENTS; Start 02/21/16 at 21:30 Hydrochlorothiazide (Hydrodiuril) 25 mg DAILY PO ; Start 02/22/16 at 09:00; Stop 02/22/16 at 11:35; Status DC Acetaminophen (Tylenol) 650 mg PRN Q4HRS PRN PO FEVER; Start 02/22/16 at 00:00; Stop 02/22/16 at 23:59; Status DC Insulin Aspart (Novolog) 0-5 UNITS TIDWMEALS SQ ; Start 02/22/16 at 08:00; Status UNV Dextrose 12.5 gm PRN Q15MIN PRN IV SEE COMMENTS; Start 02/22/16 at 00:30; Status UNV Insulin Aspart (Novolog) 0-7 UNITS TIDWMEALS SQ Last administered on 02/23/16 11:51; Start 02/22/16 at 12:00 Dextrose 12.5 gm PRN Q15MIN PRN IV SEE COMMENTS; Start 02/22/16 at 11:00; Status UNV Pantoprazole Sodium 40 mg 40 mg DAILYAC PO Last administered on 02/23/16 08:19 ; Start 02/22/16 at 13:30 Sodium Chloride 1,000 ml @ 80 mls/hr [id number] IV Last administered on 02/23/16 03:39; Start 02/22/16 at 13:30; Stop 02/23/16 at 13:35; Status DC Magnesium Sulfate/ Dextrose (Magnesium Sulfate PREMIX 2GM) 50 ml @ 25 mls/hr PRN DAILY PRN IV for Mag < 1.7 on am labs; Start 02/22/16 at 12:45 Sotalol HCl (Betapace) 40 mg 1X ONCE PO Last administered on 02/22/16 15:13; Start 02/22/16 at 15:00; Stop 02/22/16 at 15:01; Status DC Losartan Potassium (Cozaar) 100 mg DAILY PO Last administered on 02/23/16 08:19 ; Start 02/23/16 at 09:00 Fish Oil (Fish Oil) 1,000 mg DAILY PO Last administered on 02/23/16 08:18; Start 02/23/16 at 09:00 Insulin Detemir (Levemir) 25 units QHS SQ Last administered on 02/23/16 21:12; Start 02/22/16 at 21:00 Zolpidem Tartrate (Ambien) 5 mg PRN QHS PRN PO INSOMNIA, MAY REPEAT IN 1HR Last administered on 02/23/16 21:30; Start 02/23/16 at 14:00 Promethazine HCl/ Codeine (Phenergan With Codeine) 5 ml PRN Q6HRS PRN PO COUGH Last administered on 1/7/17at 22:21; Start 02/23/16 at 14:00 Sotalol HCl (Betapace) 40 mg DAILY PO ; Start 02/24/16 at 09:00 Active Scripts Active Reported Tg Hortamiya (Insulin Glargine,Hum.rec.anlog) 300 Unit/1 Ml Insuln.pen 25 Unit SQ QHS Losartan Potassium 100 Mg Tablet 100 Mg PO DAILY Coumadin (Warfarin Sodium) 5 Mg Tablet 1 Tab PO DAILY Novolin R (Insulin Regular, Human) 100 Unit/1 Ml Vial 10 Unit SQ BIDAC Magnesium (Magnesium Oxide) 400 Mg Capsule 1 Cap PO BID Fish Oil 1,000 Mg Softgel (Karthaus-3 Fatty Acids/Fish Oil) 1 Each Capsule 1 Each PO DAILY Allopurinol 300 Mg Tablet 1 Tab PO DAILY Alendronate Sodium 70 Mg Tablet 1 Tab PO WEEKLY Vitals/I & O Vital Sign - Last 24 Hours 02/23/16 02/23/16 02/23/16 02/23/16 10:00 11:00 12:00 12:00 Temp 97.4 97.4 Pulse 57 56 56 Resp 23 16 24 B/P 141/67 141/62 136/62 Pulse Ox 96 94 95 O2 Delivery Room Air Room Air Room Air Room Air 02/23/16 02/23/16 02/23/16 02/23/16 13:00 14:00 15:00 16:00 Pulse 58 60 59 Resp 26 25 24 B/P 151/70 148/67 147/67 Pulse Ox 93 93 93 O2 Delivery Room Air Room Air Room Air Room Air 02/23/16 02/23/16 02/23/16 02/23/16 16:00 17:01 18:00 20:00 Temp 97.3 97.4 97.3 97.4 Pulse 58 64 61 61 Resp 23 26 25 18 B/P 152/65 156/64 145/67 Pulse Ox 92 93 93 96 O2 Delivery Room Air Room Air Room Air Room Air 02/23/16 02/23/16 02/23/16 02/24/16 20:38 20:45 23:00 03:00 Temp 97.8 97.7 98.0 97.8 97.7 98.0 Pulse 62 64 70 Resp 22 24 22 B/P 148/68 136/64 160/66 Pulse Ox 94 94 90 O2 Delivery Room Air Room Air Room Air Room Air 02/24/16 07:00 Pulse 68 Resp 24 B/P 153/60 Pulse Ox 91 O2 Delivery Nasal Cannula O2 Flow Rate 2.0 Intake and Output 02/23/16 02/23/16 02/24/16 15:00 23:00 07:00 Intake Total 720 ml 150 ml 100 ml Output Total 1350 ml 300 ml 1050 ml Balance -630 ml -150 ml -950 ml Problem List Problems Medical Problems: (1) Symptomatic bradycardia Status: Acute (2) Syncope Status: Acute Assessment MARILYN Cardiac issues seems to be improving. Plan of Care: Continue current Tx, Mgmt Plan of Care Note Endoscopic evaluation of MARILYN at some point; outpatient w/u OK. BRODY BURNETT MD Feb 24, 2016 09:32
[2016-02-24] MEDS: LOSARTAN POTASSIUM 50 MG TABLET. PO SCH (10:21)
[2016-02-24] MEDS: PANTOPRAZOLE 40 MG TABLET. PO SCH (10:21)
[2016-02-24] MEDS: ALLOPURINOL 300 MG TABLET. PO SCH (10:22)
[2016-02-24] MEDS: SOTALOL 80 MG TABLET. PO SCH (10:22)
[2016-02-24] MEDS: OMEGA-3 FATTY ACIDS/FISH OIL 1,000 MG CAPSULE. PO SCH (10:22)
[2016-02-24 11:00] VITALS: BP 158/69
--- NOTE | 2016-02-24 13:43 | PDOC ---
SUBJECTIVE Subjective c/o SOB, otherwise feeling ok OBJECTIVE Vital Signs Vital Signs Date Time Temp Pulse Resp B/P Pulse Ox O2 Delivery O2 Flow Rate FiO2 02/24/16 11:00 97.7 66 16 158/69 90 Nasal Cannula 3.5 97.7 02/24/16 10:22 68 153/60 02/24/16 10:21 68 153/60 02/24/16 07:00 68 24 153/60 91 Nasal Cannula 2.0 02/24/16 03:00 98.0 70 22 160/66 90 Room Air 98.0 02/23/16 23:00 97.7 64 24 136/64 94 Room Air 97.7 02/23/16 20:45 Room Air 02/23/16 20:38 97.8 62 22 148/68 94 Room Air 97.8 02/23/16 20:00 97.4 61 18 145/67 96 Room Air 97.4 02/23/16 18:00 61 25 93 Room Air 02/23/16 17:01 64 26 156/64 93 Room Air 02/23/16 16:00 97.3 58 23 152/65 92 Room Air 97.3 02/23/16 16:00 Room Air 02/23/16 15:00 59 24 147/67 93 Room Air 02/23/16 14:00 60 25 148/67 93 Room Air I & O Intake and Output 02/24/16 07:00 Intake Total 970 ml Output Total 2700 ml Balance -1730 ml Intake Oral 970 ml Output Urine Total 2700 ml PHYSICAL EXAM Physical Exam lungs with few basilar rales heart RRR rate better abd soft ext no edema ASSESSMENT/PLAN Assessment/Plan 1. Syncopal episode with significant bradycardia. agree with decrease Sotalol dose , HR better 2. Anemia, acute seem to be due to chronic blood loss agree with plan for EGD / colono when C.V stable 3. History of aortic valve replacement. resume coumadin 4. Cdqpm-qp-xqfdila kidney disease. 5. Influenza B positive, continue Tamiflu. 6. History of hypertension. 7. Diabetes mellitus type 2. Continue insulin. 8. Previous history of breast cancer. 9. Osteoarthritis. 10. Gastroesophageal reflux disease. seems to be fluid overloaded after transfusion will give Lasix and check CXR , continue to monitor Problems: COMMENT Lab Laboratory Tests Test 02/23/16 16:49 02/23/16 20:52 02/24/16 05:00 02/24/16 08:08 Glucose (Fingerstick) 148mg/dL (70-99) 151mg/dL (70-99) 97mg/dL (70-99) White Blood Count 12.7x10^3/uL (4.0-11.0) Red Blood Count 3.13x10^6/uL (3.50-5.40) Hemoglobin 9.3g/dL (12.0-15.5) Hematocrit 27.8% (36.0-47.0) Mean Corpuscular Volume 89fL (79-100) Mean Corpuscular Hemoglobin 30pg (25-35) Mean Corpuscular Hemoglobin Concent 33g/dL (31-37) Red Cell Distribution Width 16.1% (11.5-14.5) Platelet Count 279x10^3/uL (140-400) Prothrombin Time 24.3SEC (11.7-14.0) Prothromb Time International Ratio 2.3 (0.8-1.1) Sodium Level 137mmol/L (136-145) Potassium Level 3.7mmol/L (3.5-5.1) Chloride Level 101mmol/L (98-107) Carbon Dioxide Level 25mmol/L (21-32) Anion Gap 11 (6-14) Blood Urea Nitrogen 63mg/dL (7-20) Creatinine 2.5mg/dL (0.6-1.0) Estimated GFR (Cockcroft-Gault) 18.9 Glucose Level 98mg/dL (70-99) Calcium Level 9.5mg/dL (8.5-10.1) Phosphorus Level 3.9mg/dL (2.6-4.7) Magnesium Level 2.5mg/dL (1.8-2.4) Albumin 3.1g/dL (3.4-5.0) Test 02/24/16 11:40 Glucose (Fingerstick) 166mg/dL (70-99) AJ JOHN MD Feb 24, 2016 13:43
[2016-02-24] MEDS ORDERED: FUROSEMIDE 40 MG/4 ML VIAL IVP ONE (13:45)
--- NOTE | 2016-02-24 14:36 | RAD ---
PA and lateral chest. History: Short of breath PA and lateral views were taken of the chest. There are small to moderate bilateral pleural effusions. Heart is upper normal in size with evidence of prior bypass. There bilateral infiltrates mostly in the lung bases. There is mild vascular congestion. Impression: 1. Mild vascular congestion with bilateral effusions. 2. Infiltrates noted in the lung bases.
[2016-02-24 15:00] VITALS: BP 156/69
[2016-02-24] MEDS ORDERED: WARFARIN 5 MG TABLET. PO SCH (16:00)
--- NOTE | 2016-02-24 16:26 | PDOC ---
PROGRESS NOTES Subjective Subjective Patient is feeling a little better today. Less dyspnea. No further episodes of syncope. She has not had a bowel movement. Objective Objective Vital Signs Date Time Temp Pulse Resp B/P Pulse Ox O2 Delivery O2 Flow Rate FiO2 02/24/16 11:00 97.7 66 16 158/69 90 Nasal Cannula 3.5 97.7 Intake and Output 02/24/16 07:00 Intake Total 970 ml Output Total 2700 ml Balance -1730 ml Intake Oral 970 ml Output Urine Total 2700 ml Physical Exam Physical Exam No significant changes in cardiac exam Assessment Assessment At this time from a cardiac standpoint the patient appears to be doing better. I would like to resume the warfarin since the INR is coming down into the twos but I also have the concern of where she may have been bleeding and would like to go ahead and get her scoped at this time before she goes home so that I would only give her 2.5 mg warfarin today and hopefully have them get her EGD and colonoscopy done soon. In addition to this the patient needs PT and OT because she is getting weaker just laying there. Problems Medical Problems: (1) Symptomatic bradycardia Status: Acute (2) Syncope Status: Acute Comment Review of Relevant I have reviewed the following items corinne (where applicable) has been applied. Labs Laboratory Tests Test 02/22/16 18:00 02/22/16 20:47 02/23/16 04:00 02/23/16 11:48 Glucose (Fingerstick) 160mg/dL (70-99) 184mg/dL (70-99) 177mg/dL (70-99) White Blood Count 10.3x10^3/uL (4.0-11.0) Red Blood Count 3.00x10^6/uL (3.50-5.40) Hemoglobin 8.9g/dL (12.0-15.5) Hematocrit 27.2% (36.0-47.0) Mean Corpuscular Volume 91fL (79-100) Mean Corpuscular Hemoglobin 30pg (25-35) Mean Corpuscular Hemoglobin Concent 33g/dL (31-37) Red Cell Distribution Width 15.6% (11.5-14.5) Platelet Count 264x10^3/uL (140-400) Prothrombin Time 31.8SEC (11.7-14.0) Prothromb Time International Ratio 3.3 (0.8-1.1) Sodium Level 134mmol/L (136-145) Potassium Level 3.5mmol/L (3.5-5.1) Chloride Level 100mmol/L (98-107) Carbon Dioxide Level 24mmol/L (21-32) Anion Gap 10 (6-14) Blood Urea Nitrogen 78mg/dL (7-20) Creatinine 3.0mg/dL (0.6-1.0) Estimated GFR (Cockcroft-Gault) 15.3 Glucose Level 118mg/dL (70-99) Calcium Level 8.8mg/dL (8.5-10.1) Phosphorus Level 4.2mg/dL (2.6-4.7) Magnesium Level 2.5mg/dL (1.8-2.4) Albumin 3.1g/dL (3.4-5.0) Test 02/23/16 16:49 02/23/16 20:52 02/24/16 05:00 02/24/16 08:08 Glucose (Fingerstick) 148mg/dL (70-99) 151mg/dL (70-99) 97mg/dL (70-99) White Blood Count 12.7x10^3/uL (4.0-11.0) Red Blood Count 3.13x10^6/uL (3.50-5.40) Hemoglobin 9.3g/dL (12.0-15.5) Hematocrit 27.8% (36.0-47.0) Mean Corpuscular Volume 89fL (79-100) Mean Corpuscular Hemoglobin 30pg (25-35) Mean Corpuscular Hemoglobin Concent 33g/dL (31-37) Red Cell Distribution Width 16.1% (11.5-14.5) Platelet Count 279x10^3/uL (140-400) Prothrombin Time 24.3SEC (11.7-14.0) Prothromb Time International Ratio 2.3 (0.8-1.1) Sodium Level 137mmol/L (136-145) Potassium Level 3.7mmol/L (3.5-5.1) Chloride Level 101mmol/L (98-107) Carbon Dioxide Level 25mmol/L (21-32) Anion Gap 11 (6-14) Blood Urea Nitrogen 63mg/dL (7-20) Creatinine 2.5mg/dL (0.6-1.0) Estimated GFR (Cockcroft-Gault) 18.9 Glucose Level 98mg/dL (70-99) Calcium Level 9.5mg/dL (8.5-10.1) Phosphorus Level 3.9mg/dL (2.6-4.7) Magnesium Level 2.5mg/dL (1.8-2.4) Albumin 3.1g/dL (3.4-5.0) Test 02/24/16 11:40 Glucose (Fingerstick) 166mg/dL (70-99) Laboratory Tests Test 02/23/16 16:49 02/23/16 20:52 02/24/16 05:00 02/24/16 08:08 Glucose (Fingerstick) 148mg/dL (70-99) 151mg/dL (70-99) 97mg/dL (70-99) White Blood Count 12.7x10^3/uL (4.0-11.0) Red Blood Count 3.13x10^6/uL (3.50-5.40) Hemoglobin 9.3g/dL (12.0-15.5) Hematocrit 27.8% (36.0-47.0) Mean Corpuscular Volume 89fL (79-100) Mean Corpuscular Hemoglobin 30pg (25-35) Mean Corpuscular Hemoglobin Concent 33g/dL (31-37) Red Cell Distribution Width 16.1% (11.5-14.5) Platelet Count 279x10^3/uL (140-400) Prothrombin Time 24.3SEC (11.7-14.0) Prothromb Time International Ratio 2.3 (0.8-1.1) Sodium Level 137mmol/L (136-145) Potassium Level 3.7mmol/L (3.5-5.1) Chloride Level 101mmol/L (98-107) Carbon Dioxide Level 25mmol/L (21-32) Anion Gap 11 (6-14) Blood Urea Nitrogen 63mg/dL (7-20) Creatinine 2.5mg/dL (0.6-1.0) Estimated GFR (Cockcroft-Gault) 18.9 Glucose Level 98mg/dL (70-99) Calcium Level 9.5mg/dL (8.5-10.1) Phosphorus Level 3.9mg/dL (2.6-4.7) Magnesium Level 2.5mg/dL (1.8-2.4) Albumin 3.1g/dL (3.4-5.0) Test 02/24/16 11:40 Glucose (Fingerstick) 166mg/dL (70-99) Medications Current Medications Calcium Gluconate 1,000 mg 1X ONCE IVP Last administered on 02/21/16 18:08; Start 02/21/16 at 17:45; Stop 02/21/16 at 17:46; Status DC Sodium Bicarbonate 50 meq 1X ONCE IV Last administered on 02/21/16 17:52; Start 02/21/16 at 17:45; Stop 02/21/16 at 17:46; Status DC Dextrose 25 gm 1X ONCE IV Last administered on 02/21/16 18:02; Start 02/21/16 at 17:45; Stop 02/21/16 at 17:46; Status DC Insulin Human Regular (Novolin R Vial) 10 unit 1X ONCE IV Last administered on 02/21/16 18:22; Start 02/21/16 at 17:45; Stop 02/21/16 at 17:46; Status DC Oseltamivir Phosphate (Tamiflu) 75 mg DAILY PO Last administered on 02/24/16 09 :00; Start 02/22/16 at 09:00; Stop 02/26/16 at 09:00 Allopurinol (Zyloprim) 300 mg DAILY PO Last administered on 02/24/16 10:22; Start 02/22/16 at 09:00 Aspirin (Ecotrin) 81 mg DAILY PO Last administered on 02/22/16 09:59; Start 02/22/16 at 09:00; Stop 02/22/16 at 11:35; Status DC Atorvastatin Calcium (Lipitor) 40 mg QHS PO ; Start 02/22/16 at 21:00; Stop at 21:00; Status DC Furosemide (Lasix) 40 mg DAILY PO ; Start 02/22/16 at 09:00; Stop 02/22/16 at 11: 35; Status DC Losartan Potassium (Cozaar) 100 mg DAILY PO Last administered on 02/22/16 10:02 ; Start 02/22/16 at 09:00; Stop 02/22/16 at 18:33; Status DC Sotalol HCl (Betapace) 160 mg BID PO ; Start 02/21/16 at 22:00; Stop 02/22/16 at 11:35; Status DC Insulin Aspart (Novolog) 0-5 UNITS TIDWMEALS SQ ; Start 02/22/16 at 08:00; Stop 02/22/16 at 11:03; Status DC Dextrose 12.5 gm PRN Q15MIN PRN IV SEE COMMENTS; Start 02/21/16 at 21:30 Hydrochlorothiazide (Hydrodiuril) 25 mg DAILY PO ; Start 02/22/16 at 09:00; Stop 02/22/16 at 11:35; Status DC Acetaminophen (Tylenol) 650 mg PRN Q4HRS PRN PO FEVER; Start 02/22/16 at 00:00; Stop 02/22/16 at 23:59; Status DC Insulin Aspart (Novolog) 0-5 UNITS TIDWMEALS SQ ; Start 02/22/16 at 08:00; Status UNV Dextrose 12.5 gm PRN Q15MIN PRN IV SEE COMMENTS; Start 02/22/16 at 00:30; Status UNV Insulin Aspart (Novolog) 0-7 UNITS TIDWMEALS SQ Last administered on 02/23/16 11:51; Start 02/22/16 at 12:00 Dextrose 12.5 gm PRN Q15MIN PRN IV SEE COMMENTS; Start 02/22/16 at 11:00; Status UNV Pantoprazole Sodium 40 mg 40 mg DAILYAC PO Last administered on 02/24/16 10:21 ; Start 02/22/16 at 13:30 Sodium Chloride 1,000 ml @ 80 mls/hr [id number] IV Last administered on 02/23/16 03:39; Start 02/22/16 at 13:30; Stop 02/23/16 at 13:35; Status DC Magnesium Sulfate/ Dextrose (Magnesium Sulfate PREMIX 2GM) 50 ml @ 25 mls/hr PRN DAILY PRN IV for Mag < 1.7 on am labs; Start 02/22/16 at 12:45 Sotalol HCl (Betapace) 40 mg 1X ONCE PO Last administered on 02/22/16 15:13; Start 02/22/16 at 15:00; Stop 02/22/16 at 15:01; Status DC Losartan Potassium (Cozaar) 100 mg DAILY PO Last administered on 02/24/16 10:21 ; Start 02/23/16 at 09:00 Fish Oil (Fish Oil) 1,000 mg DAILY PO Last administered on 02/24/16 10:22; Start 02/23/16 at 09:00 Insulin Detemir (Levemir) 25 units QHS SQ Last administered on 02/23/16 21:12; Start 02/22/16 at 21:00 Zolpidem Tartrate (Ambien) 5 mg PRN QHS PRN PO INSOMNIA, MAY REPEAT IN 1HR Last administered on 02/23/16 21:30; Start 02/23/16 at 14:00 Promethazine HCl/ Codeine (Phenergan With Codeine) 5 ml PRN Q6HRS PRN PO COUGH Last administered on 02/23/16 22:21; Start 02/23/16 at 14:00 Sotalol HCl (Betapace) 40 mg DAILY PO Last administered on 02/24/16 10:22; Start 02/24/16 at 09:00 Furosemide (Lasix) 40 mg 1X ONCE IVP ; Start 02/24/16 at 13:45; Stop 02/24/16 at 13:46; Status DC Warfarin Sodium (Coumadin) 5 mg DAILY16 PO ; Start 02/24/16 at 16:00 Warfarin Sodium (Coumadin Per Physician) 1 each PRN DAILY PRN MC SEE COMMENTS; Start 02/24/16 at 13:45 Active Scripts Active Reported Tg Hortaostar (Insulin Glargine,Hum.rec.anlog) 300 Unit/1 Ml Insuln.pen 25 Unit SQ QHS Losartan Potassium 100 Mg Tablet 100 Mg PO DAILY Coumadin (Warfarin Sodium) 5 Mg Tablet 1 Tab PO DAILY Novolin R (Insulin Regular, Human) 100 Unit/1 Ml Vial 10 Unit SQ BIDAC Magnesium (Magnesium Oxide) 400 Mg Capsule 1 Cap PO BID Fish Oil 1,000 Mg Softgel ([place]-3 Fatty Acids/Fish Oil) 1 Each Capsule 1 Each PO DAILY Allopurinol 300 Mg Tablet 1 Tab PO DAILY Alendronate Sodium 70 Mg Tablet 1 Tab PO WEEKLY Vitals/I & O Vital Sign - Last 24 Hours 02/23/16 02/23/16 02/23/16 02/23/16 17:01 18:00 20:00 20:38 Temp 97.4 97.8 97.4 97.8 Pulse 64 61 61 62 Resp 26 25 18 22 B/P 156/64 145/67 148/68 Pulse Ox 93 93 96 94 O2 Delivery Room Air Room Air Room Air Room Air 02/23/16 02/23/16 02/24/16 02/24/16 20:45 23:00 03:00 07:00 Temp 97.7 98.0 97.7 98.0 Pulse 64 70 68 Resp 24 22 24 B/P 136/64 160/66 153/60 Pulse Ox 94 90 91 O2 Delivery Room Air Room Air Room Air Nasal Cannula O2 Flow Rate 2.0 02/24/16 02/24/16 02/24/16 02/24/16 08:00 10:21 10:22 11:00 Temp 97.7 97.7 Pulse 68 68 66 Resp 16 B/P 153/60 153/60 158/69 Pulse Ox 90 O2 Delivery Nasal Cannula Nasal Cannula O2 Flow Rate 3.0 3.5 Intake and Output 02/23/16 02/23/16 02/24/16 15:00 23:00 07:00 Intake Total 720 ml 150 ml 100 ml Output Total 1350 ml 300 ml 1050 ml Balance -630 ml -150 ml -950 ml ELIZA COON MD Feb 24, 2016 16:25
[2016-02-24] MEDS ORDERED: WARFARIN 2.5 MG TABLET. PO ONE (17:00)
[2016-02-24 19:30] VITALS: BP 164/65
[2016-02-24] MEDS: INSULIN DETEMIR 300 UNITS/3 ML INSULN.PEN. SQ SCH (21:12)
[2016-02-24 23:40] VITALS: BP 136/55
[2016-02-25 03:20] VITALS: BP 160/68
[2016-02-25 04:53] LABS: HEMATOCRIT 26.9 % (36.0-47.0); HEMOGLOBIN 8.7 g/dL (12.0-15.5); RED BLOOD COUNT 2.98 x10^6/uL (3.50-5.40); RED CELL DISTRIBUTION WIDTH 16.4 % (11.5-14.5); WHITE BLOOD COUNT 13.5 x10^3/uL (4.0-11.0)
[2016-02-25 05:00] LABS: INR 2.2 (0.8-1.1); PROTHROMBIN TIME PATIENT 23.4 SEC (11.7-14.0)
[2016-02-25 05:24] LABS: ALBUMIN 2.9 g/dL (3.4-5.0); CALCIUM 9.6 mg/dL (8.5-10.1); CREATININE 2.4 mg/dL (0.6-1.0); GFR 19.8; PHOSPHORUS 3.5 mg/dL (2.6-4.7); POTASSIUM 3.4 mmol/L (3.5-5.1)
[2016-02-25 07:15] VITALS: BP 142/61
[2016-02-25] MEDS: INSULIN ASPART 300 UNITS/3 ML INSULN.PEN SQ SCH ×3 (08:00→17:00)
[2016-02-25] MEDS: PANTOPRAZOLE 40 MG TABLET. PO SCH (08:34)
[2016-02-25] MEDS: ALLOPURINOL 300 MG TABLET. PO SCH (08:35)
[2016-02-25] MEDS: OMEGA-3 FATTY ACIDS/FISH OIL 1,000 MG CAPSULE. PO SCH (08:36)
[2016-02-25] MEDS: LOSARTAN POTASSIUM 50 MG TABLET. PO SCH (08:36)
[2016-02-25] MEDS: SOTALOL 80 MG TABLET. PO SCH (08:36)
[2016-02-25] MEDS: OSELTAMIVIR 75 MG CAPSULE PO SCH (08:36)
[2016-02-25 10:24] VITALS: BP 141/64
--- NOTE | 2016-02-25 10:50 | PDOC ---
Renal-Progress Notes Subjective Notes Notes FEELS BETTER AFTER BM History of Present Illness Hx of present illness STABLE Vitals Vitals Vital Signs Date Time Temp Pulse Resp B/P Pulse Ox O2 Delivery O2 Flow Rate FiO2 02/25/16 10:24 97.3 66 19 141/64 96 Nasal Cannula 3.0 97.3 Weight Weight [ ] I.O. Intake and Output Intake and Output 02/25/16 07:00 Intake Total 400 ml Output Total 750 ml Balance -350 ml Intake Oral 400 ml Output Urine Total 750 ml # Voids 4 Labs Labs Laboratory Tests Test 02/24/16 11:40 02/24/16 17:20 02/24/16 20:22 02/25/16 04:35 Glucose (Fingerstick) 166mg/dL (70-99) 181mg/dL (70-99) 192mg/dL (70-99) White Blood Count 13.5x10^3/uL (4.0-11.0) Red Blood Count 2.98x10^6/uL (3.50-5.40) Hemoglobin 8.7g/dL (12.0-15.5) Hematocrit 26.9% (36.0-47.0) Mean Corpuscular Volume 90fL (79-100) Mean Corpuscular Hemoglobin 29pg (25-35) Mean Corpuscular Hemoglobin Concent 33g/dL (31-37) Red Cell Distribution Width 16.4% (11.5-14.5) Platelet Count 274x10^3/uL (140-400) Prothrombin Time 23.4SEC (11.7-14.0) Prothromb Time International Ratio 2.2 (0.8-1.1) Sodium Level 137mmol/L (136-145) Potassium Level 3.4mmol/L (3.5-5.1) Chloride Level 101mmol/L (98-107) Carbon Dioxide Level 26mmol/L (21-32) Anion Gap 10 (6-14) Blood Urea Nitrogen 57mg/dL (7-20) Creatinine 2.4mg/dL (0.6-1.0) Estimated GFR (Cockcroft-Gault) 19.8 Glucose Level 118mg/dL (70-99) Calcium Level 9.6mg/dL (8.5-10.1) Phosphorus Level 3.5mg/dL (2.6-4.7) Magnesium Level 2.0mg/dL (1.8-2.4) Albumin 2.9g/dL (3.4-5.0) Test 02/25/16 07:17 Glucose (Fingerstick) 100mg/dL (70-99) Review of Systems Constitutional: yes: alert, oriented Pulmonary: Yes no symptom reported Gastrointestional: Yes: constipation Musculoskeletal: Yes: muscle stiffness Skin: Yes no symptom reported Physical Exam General Appearance: no apparent distress Skin: warm Respiratory: bilateral CTA Heart: S1S2, RRR Abdomen: soft, bowel sounds present Genitourinary: bladder flat Extremities: pulses present, atrophy Neurology: alert Assessment Assessment IMP CKD STAGE 4 - STABLE AND CR AT BASELINE MILD HYPOKALEMIA BRADYCARDIA-BETTER PLAN CONT WITH SUPPORTIVE CARE ENC PO INTAKE K SHOULD IMPROVE WITH PO INTAKE LABS IN AM CHELLE ISSA MD Feb 25, 2016 10:50
--- NOTE | 2016-02-25 13:53 | PDOC ---
PROGRESS NOTES Subjective Subjective No further episodes of syncope or bradycardia. Had a BM without gross blood. Objective Objective Vital Signs Date Time Temp Pulse Resp B/P Pulse Ox O2 Delivery O2 Flow Rate FiO2 02/25/16 10:24 97.3 66 19 141/64 96 Nasal Cannula 3.0 97.3 Intake and Output 02/25/16 07:00 Intake Total 400 ml Output Total 750 ml Balance -350 ml Intake Oral 400 ml Output Urine Total 750 ml # Voids 4 Physical Exam Physical Exam No changes in cardiac exam. Assessment Assessment Problems Medical Problems: (1) Symptomatic bradycardia Status: Acute (2) Syncope Status: Acute Plan Plan of Care Recommended ambulating to monitor for further episodes of syncope and bradycardia. Will give 2.5mg Warfarin today. I would prefer she has an EGD and colonoscopy while inpatient to identify the source of bleed and also to be able to address the anticoagulation on this patient with a mechanical valve. Comment Review of Relevant I have reviewed the following items corinne (where applicable) has been applied. Labs Laboratory Tests Test 02/23/16 16:49 02/23/16 20:52 02/24/16 05:00 02/24/16 08:08 Glucose (Fingerstick) 148mg/dL (70-99) 151mg/dL (70-99) 97mg/dL (70-99) White Blood Count 12.7x10^3/uL (4.0-11.0) Red Blood Count 3.13x10^6/uL (3.50-5.40) Hemoglobin 9.3g/dL (12.0-15.5) Hematocrit 27.8% (36.0-47.0) Mean Corpuscular Volume 89fL (79-100) Mean Corpuscular Hemoglobin 30pg (25-35) Mean Corpuscular Hemoglobin Concent 33g/dL (31-37) Red Cell Distribution Width 16.1% (11.5-14.5) Platelet Count 279x10^3/uL (140-400) Prothrombin Time 24.3SEC (11.7-14.0) Prothromb Time International Ratio 2.3 (0.8-1.1) Sodium Level 137mmol/L (136-145) Potassium Level 3.7mmol/L (3.5-5.1) Chloride Level 101mmol/L (98-107) Carbon Dioxide Level 25mmol/L (21-32) Anion Gap 11 (6-14) Blood Urea Nitrogen 63mg/dL (7-20) Creatinine 2.5mg/dL (0.6-1.0) Estimated GFR (Cockcroft-Gault) 18.9 Glucose Level 98mg/dL (70-99) Calcium Level 9.5mg/dL (8.5-10.1) Phosphorus Level 3.9mg/dL (2.6-4.7) Magnesium Level 2.5mg/dL (1.8-2.4) Albumin 3.1g/dL (3.4-5.0) Test 02/24/16 11:40 02/24/16 17:20 02/24/16 20:22 02/25/16 04:35 Glucose (Fingerstick) 166mg/dL (70-99) 181mg/dL (70-99) 192mg/dL (70-99) White Blood Count 13.5x10^3/uL (4.0-11.0) Red Blood Count 2.98x10^6/uL (3.50-5.40) Hemoglobin 8.7g/dL (12.0-15.5) Hematocrit 26.9% (36.0-47.0) Mean Corpuscular Volume 90fL (79-100) Mean Corpuscular Hemoglobin 29pg (25-35) Mean Corpuscular Hemoglobin Concent 33g/dL (31-37) Red Cell Distribution Width 16.4% (11.5-14.5) Platelet Count 274x10^3/uL (140-400) Prothrombin Time 23.4SEC (11.7-14.0) Prothromb Time International Ratio 2.2 (0.8-1.1) Sodium Level 137mmol/L (136-145) Potassium Level 3.4mmol/L (3.5-5.1) Chloride Level 101mmol/L (98-107) Carbon Dioxide Level 26mmol/L (21-32) Anion Gap 10 (6-14) Blood Urea Nitrogen 57mg/dL (7-20) Creatinine 2.4mg/dL (0.6-1.0) Estimated GFR (Cockcroft-Gault) 19.8 Glucose Level 118mg/dL (70-99) Calcium Level 9.6mg/dL (8.5-10.1) Phosphorus Level 3.5mg/dL (2.6-4.7) Magnesium Level 2.0mg/dL (1.8-2.4) Albumin 2.9g/dL (3.4-5.0) Test 02/25/16 07:17 02/25/16 12:18 Glucose (Fingerstick) 100mg/dL (70-99) 158mg/dL (70-99) Laboratory Tests Test 02/24/16 17:20 02/24/16 20:22 02/25/16 04:35 02/25/16 07:17 Glucose (Fingerstick) 181mg/dL (70-99) 192mg/dL (70-99) 100mg/dL (70-99) White Blood Count 13.5x10^3/uL (4.0-11.0) Red Blood Count 2.98x10^6/uL (3.50-5.40) Hemoglobin 8.7g/dL (12.0-15.5) Hematocrit 26.9% (36.0-47.0) Mean Corpuscular Volume 90fL (79-100) Mean Corpuscular Hemoglobin 29pg (25-35) Mean Corpuscular Hemoglobin Concent 33g/dL (31-37) Red Cell Distribution Width 16.4% (11.5-14.5) Platelet Count 274x10^3/uL (140-400) Prothrombin Time 23.4SEC (11.7-14.0) Prothromb Time International Ratio 2.2 (0.8-1.1) Sodium Level 137mmol/L (136-145) Potassium Level 3.4mmol/L (3.5-5.1) Chloride Level 101mmol/L (98-107) Carbon Dioxide Level 26mmol/L (21-32) Anion Gap 10 (6-14) Blood Urea Nitrogen 57mg/dL (7-20) Creatinine 2.4mg/dL (0.6-1.0) Estimated GFR (Cockcroft-Gault) 19.8 Glucose Level 118mg/dL (70-99) Calcium Level 9.6mg/dL (8.5-10.1) Phosphorus Level 3.5mg/dL (2.6-4.7) Magnesium Level 2.0mg/dL (1.8-2.4) Albumin 2.9g/dL (3.4-5.0) Test 02/25/16 12:18 Glucose (Fingerstick) 158mg/dL (70-99) Medications Current Medications Calcium Gluconate 1,000 mg 1X ONCE IVP Last administered on 02/21/16 18:08; Start 02/21/16 at 17:45; Stop 02/21/16 at 17:46; Status DC Sodium Bicarbonate 50 meq 1X ONCE IV Last administered on 02/21/16 17:52; Start 02/21/16 at 17:45; Stop 02/21/16 at 17:46; Status DC Dextrose 25 gm 1X ONCE IV Last administered on 02/21/16 18:02; Start 02/21/16 at 17:45; Stop 02/21/16 at 17:46; Status DC Insulin Human Regular (Novolin R Vial) 10 unit 1X ONCE IV Last administered on 02/21/16 18:22; Start 02/21/16 at 17:45; Stop 02/21/16 at 17:46; Status DC Oseltamivir Phosphate (Tamiflu) 75 mg DAILY PO Last administered on 02/25/16 08 :36; Start 02/22/16 at 09:00; Stop 02/26/16 at 09:00 Allopurinol (Zyloprim) 300 mg DAILY PO Last administered on 02/25/16 08:35; Start 02/22/16 at 09:00 Aspirin (Ecotrin) 81 mg DAILY PO Last administered on 02/22/16 09:59; Start 02/22/16 at 09:00; Stop 02/22/16 at 11:35; Status DC Atorvastatin Calcium (Lipitor) 40 mg QHS PO ; Start 02/22/16 at 21:00; Stop at 21:00; Status DC Furosemide (Lasix) 40 mg DAILY PO ; Start 02/22/16 at 09:00; Stop 02/22/16 at 11: 35; Status DC Losartan Potassium (Cozaar) 100 mg DAILY PO Last administered on 02/22/16 10:02 ; Start 02/22/16 at 09:00; Stop 02/22/16 at 18:33; Status DC Sotalol HCl (Betapace) 160 mg BID PO ; Start 02/21/16 at 22:00; Stop 02/22/16 at 11:35; Status DC Insulin Aspart (Novolog) 0-5 UNITS TIDWMEALS SQ ; Start 02/22/16 at 08:00; Stop 02/22/16 at 11:03; Status DC Dextrose 12.5 gm PRN Q15MIN PRN IV SEE COMMENTS; Start 02/21/16 at 21:30 Hydrochlorothiazide (Hydrodiuril) 25 mg DAILY PO ; Start 02/22/16 at 09:00; Stop 02/22/16 at 11:35; Status DC Acetaminophen (Tylenol) 650 mg PRN Q4HRS PRN PO FEVER; Start 02/22/16 at 00:00; Stop 02/22/16 at 23:59; Status DC Insulin Aspart (Novolog) 0-5 UNITS TIDWMEALS SQ ; Start 02/22/16 at 08:00; Status UNV Dextrose 12.5 gm PRN Q15MIN PRN IV SEE COMMENTS; Start 02/22/16 at 00:30; Status UNV Insulin Aspart (Novolog) 0-7 UNITS TIDWMEALS SQ Last administered on 02/25/16 12:27; Start 02/22/16 at 12:00 Dextrose 12.5 gm PRN Q15MIN PRN IV SEE COMMENTS; Start 02/22/16 at 11:00; Status UNV Pantoprazole Sodium 40 mg 40 mg DAILYAC PO Last administered on 02/25/16 08:34 ; Start 02/22/16 at 13:30 Sodium Chloride 1,000 ml @ 80 mls/hr [id number] IV Last administered on 02/23/16 03:39; Start 02/22/16 at 13:30; Stop 02/23/16 at 13:35; Status DC Magnesium Sulfate/ Dextrose (Magnesium Sulfate PREMIX 2GM) 50 ml @ 25 mls/hr PRN DAILY PRN IV for Mag < 1.7 on am labs; Start 02/22/16 at 12:45 Sotalol HCl (Betapace) 40 mg 1X ONCE PO Last administered on 02/22/16 15:13; Start 02/22/16 at 15:00; Stop 02/22/16 at 15:01; Status DC Losartan Potassium (Cozaar) 100 mg DAILY PO Last administered on 02/25/16 08:36 ; Start 02/23/16 at 09:00 Fish Oil (Fish Oil) 1,000 mg DAILY PO Last administered on 02/25/16 08:36; Start 02/23/16 at 09:00 Insulin Detemir (Levemir) 25 units QHS SQ Last administered on 02/24/16 21:12; Start 02/22/16 at 21:00 Zolpidem Tartrate (Ambien) 5 mg PRN QHS PRN PO INSOMNIA, MAY REPEAT IN 1HR Last administered on 02/23/16 21:30; Start 02/23/16 at 14:00 Promethazine HCl/ Codeine (Phenergan With Codeine) 5 ml PRN Q6HRS PRN PO COUGH Last administered on 02/23/16 22:21; Start 02/23/16 at 14:00 Sotalol HCl (Betapace) 40 mg DAILY PO Last administered on 02/25/16 08:36; Start 02/24/16 at 09:00 Furosemide (Lasix) 40 mg 1X ONCE IVP Last administered on 02/24/16 17:57; Start 02/24/16 at 13:45; Stop 02/24/16 at 13:46; Status DC Warfarin Sodium (Coumadin) 5 mg DAILY16 PO ; Start 02/24/16 at 16:00 Warfarin Sodium (Coumadin Per Physician) 1 each PRN DAILY PRN MC SEE COMMENTS; Start 02/24/16 at 13:45 Warfarin Sodium (Coumadin) 2.5 mg 1X ONCE PO Last administered on 02/24/16 17: 58; Start 02/24/16 at 17:00; Stop 02/24/16 at 17:01; Status DC Active Scripts Active Reported Tg Solostar (Insulin Glargine,Hum.rec.anlog) 300 Unit/1 Ml Insuln.pen 25 Unit SQ QHS Losartan Potassium 100 Mg Tablet 100 Mg PO DAILY Coumadin (Warfarin Sodium) 5 Mg Tablet 1 Tab PO DAILY Novolin R (Insulin Regular, Human) 100 Unit/1 Ml Vial 10 Unit SQ BIDAC Magnesium (Magnesium Oxide) 400 Mg Capsule 1 Cap PO BID Fish Oil 1,000 Mg Softgel ([place]-3 Fatty Acids/Fish Oil) 1 Each Capsule 1 Each PO DAILY Allopurinol 300 Mg Tablet 1 Tab PO DAILY Alendronate Sodium 70 Mg Tablet 1 Tab PO WEEKLY Vitals/I & O Vital Sign - Last 24 Hours 02/24/16 02/24/16 02/24/16 02/24/16 15:00 19:30 20:00 23:40 Temp 97.9 97.6 99.2 97.9 97.6 99.2 Pulse 66 69 69 Resp 20 18 B/P 156/69 164/65 136/55 Pulse Ox 92 91 93 O2 Delivery Nasal Cannula Room Air Nasal Cannula Nasal Cannula O2 Flow Rate 3.0 3.0 3.0 02/25/16 02/25/16 02/25/16 02/25/16 03:20 07:15 08:00 08:36 Temp 98.0 97.9 98.0 97.9 Pulse 75 66 66 Resp 18 B/P 160/68 142/61 142/61 Pulse Ox 87 95 O2 Delivery Nasal Cannula Nasal Cannula Nasal Cannula O2 Flow Rate 3.0 3.0 3.0 02/25/16 02/25/16 08:36 10:24 Temp 97.3 97.3 Pulse 66 66 Resp 19 B/P 142/61 141/64 Pulse Ox 96 O2 Delivery Nasal Cannula O2 Flow Rate 3.0 Intake and Output 02/24/16 02/24/16 02/25/16 15:00 23:00 07:00 Intake Total 400 ml Output Total 750 ml Balance -350 ml ELIZA COON MD Feb 25, 2016 13:53
--- NOTE | 2016-02-25 15:00 | PDOC ---
G I PROGRESS NOTE Subjective Awoke from nap. No GI complaints. Objective Dr. Butler indicates better to do 'scopes as inpatient due to cardiac issues , valve, anticoags. Physical Exam Lungs clear. RRR Abdomen soft, not tender nor distended. Review of Relevant I have reviewed the following items corinne (where applicable) has been applied. Labs Laboratory Tests Test 02/23/16 16:49 02/23/16 20:52 02/24/16 05:00 02/24/16 08:08 Glucose (Fingerstick) 148mg/dL (70-99) 151mg/dL (70-99) 97mg/dL (70-99) White Blood Count 12.7x10^3/uL (4.0-11.0) Red Blood Count 3.13x10^6/uL (3.50-5.40) Hemoglobin 9.3g/dL (12.0-15.5) Hematocrit 27.8% (36.0-47.0) Mean Corpuscular Volume 89fL (79-100) Mean Corpuscular Hemoglobin 30pg (25-35) Mean Corpuscular Hemoglobin Concent 33g/dL (31-37) Red Cell Distribution Width 16.1% (11.5-14.5) Platelet Count 279x10^3/uL (140-400) Prothrombin Time 24.3SEC (11.7-14.0) Prothromb Time International Ratio 2.3 (0.8-1.1) Sodium Level 137mmol/L (136-145) Potassium Level 3.7mmol/L (3.5-5.1) Chloride Level 101mmol/L (98-107) Carbon Dioxide Level 25mmol/L (21-32) Anion Gap 11 (6-14) Blood Urea Nitrogen 63mg/dL (7-20) Creatinine 2.5mg/dL (0.6-1.0) Estimated GFR (Cockcroft-Gault) 18.9 Glucose Level 98mg/dL (70-99) Calcium Level 9.5mg/dL (8.5-10.1) Phosphorus Level 3.9mg/dL (2.6-4.7) Magnesium Level 2.5mg/dL (1.8-2.4) Albumin 3.1g/dL (3.4-5.0) Test 02/24/16 11:40 02/24/16 17:20 02/24/16 20:22 02/25/16 04:35 Glucose (Fingerstick) 166mg/dL (70-99) 181mg/dL (70-99) 192mg/dL (70-99) White Blood Count 13.5x10^3/uL (4.0-11.0) Red Blood Count 2.98x10^6/uL (3.50-5.40) Hemoglobin 8.7g/dL (12.0-15.5) Hematocrit 26.9% (36.0-47.0) Mean Corpuscular Volume 90fL (79-100) Mean Corpuscular Hemoglobin 29pg (25-35) Mean Corpuscular Hemoglobin Concent 33g/dL (31-37) Red Cell Distribution Width 16.4% (11.5-14.5) Platelet Count 274x10^3/uL (140-400) Prothrombin Time 23.4SEC (11.7-14.0) Prothromb Time International Ratio 2.2 (0.8-1.1) Sodium Level 137mmol/L (136-145) Potassium Level 3.4mmol/L (3.5-5.1) Chloride Level 101mmol/L (98-107) Carbon Dioxide Level 26mmol/L (21-32) Anion Gap 10 (6-14) Blood Urea Nitrogen 57mg/dL (7-20) Creatinine 2.4mg/dL (0.6-1.0) Estimated GFR (Cockcroft-Gault) 19.8 Glucose Level 118mg/dL (70-99) Calcium Level 9.6mg/dL (8.5-10.1) Phosphorus Level 3.5mg/dL (2.6-4.7) Magnesium Level 2.0mg/dL (1.8-2.4) Albumin 2.9g/dL (3.4-5.0) Test 02/25/16 07:17 02/25/16 12:18 Glucose (Fingerstick) 100mg/dL (70-99) 158mg/dL (70-99) Laboratory Tests Test 02/24/16 17:20 02/24/16 20:22 02/25/16 04:35 02/25/16 07:17 Glucose (Fingerstick) 181mg/dL (70-99) 192mg/dL (70-99) 100mg/dL (70-99) White Blood Count 13.5x10^3/uL (4.0-11.0) Red Blood Count 2.98x10^6/uL (3.50-5.40) Hemoglobin 8.7g/dL (12.0-15.5) Hematocrit 26.9% (36.0-47.0) Mean Corpuscular Volume 90fL (79-100) Mean Corpuscular Hemoglobin 29pg (25-35) Mean Corpuscular Hemoglobin Concent 33g/dL (31-37) Red Cell Distribution Width 16.4% (11.5-14.5) Platelet Count 274x10^3/uL (140-400) Prothrombin Time 23.4SEC (11.7-14.0) Prothromb Time International Ratio 2.2 (0.8-1.1) Sodium Level 137mmol/L (136-145) Potassium Level 3.4mmol/L (3.5-5.1) Chloride Level 101mmol/L (98-107) Carbon Dioxide Level 26mmol/L (21-32) Anion Gap 10 (6-14) Blood Urea Nitrogen 57mg/dL (7-20) Creatinine 2.4mg/dL (0.6-1.0) Estimated GFR (Cockcroft-Gault) 19.8 Glucose Level 118mg/dL (70-99) Calcium Level 9.6mg/dL (8.5-10.1) Phosphorus Level 3.5mg/dL (2.6-4.7) Magnesium Level 2.0mg/dL (1.8-2.4) Albumin 2.9g/dL (3.4-5.0) Test 02/25/16 12:18 Glucose (Fingerstick) 158mg/dL (70-99) Medications Current Medications Calcium Gluconate 1,000 mg 1X ONCE IVP Last administered on 02/21/16 18:08; Start 02/21/16 at 17:45; Stop 02/21/16 at 17:46; Status DC Sodium Bicarbonate 50 meq 1X ONCE IV Last administered on 02/21/16 17:52; Start 02/21/16 at 17:45; Stop 02/21/16 at 17:46; Status DC Dextrose 25 gm 1X ONCE IV Last administered on 02/21/16 18:02; Start 02/21/16 at 17:45; Stop 02/21/16 at 17:46; Status DC Insulin Human Regular (Novolin R Vial) 10 unit 1X ONCE IV Last administered on 02/21/16 18:22; Start 02/21/16 at 17:45; Stop 02/21/16 at 17:46; Status DC Oseltamivir Phosphate (Tamiflu) 75 mg DAILY PO Last administered on 02/25/16 08 :36; Start 02/22/16 at 09:00; Stop 02/26/16 at 09:00 Allopurinol (Zyloprim) 300 mg DAILY PO Last administered on 02/25/16 08:35; Start 02/22/16 at 09:00 Aspirin (Ecotrin) 81 mg DAILY PO Last administered on 02/22/16 09:59; Start 02/22/16 at 09:00; Stop 02/22/16 at 11:35; Status DC Atorvastatin Calcium (Lipitor) 40 mg QHS PO ; Start 02/22/16 at 21:00; Stop at 21:00; Status DC Furosemide (Lasix) 40 mg DAILY PO ; Start 02/22/16 at 09:00; Stop 02/22/16 at 11: 35; Status DC Losartan Potassium (Cozaar) 100 mg DAILY PO Last administered on 02/22/16 10:02 ; Start 02/22/16 at 09:00; Stop 02/22/16 at 18:33; Status DC Sotalol HCl (Betapace) 160 mg BID PO ; Start 02/21/16 at 22:00; Stop 02/22/16 at 11:35; Status DC Insulin Aspart (Novolog) 0-5 UNITS TIDWMEALS SQ ; Start 02/22/16 at 08:00; Stop 02/22/16 at 11:03; Status DC Dextrose 12.5 gm PRN Q15MIN PRN IV SEE COMMENTS; Start 02/21/16 at 21:30 Hydrochlorothiazide (Hydrodiuril) 25 mg DAILY PO ; Start 02/22/16 at 09:00; Stop 02/22/16 at 11:35; Status DC Acetaminophen (Tylenol) 650 mg PRN Q4HRS PRN PO FEVER; Start 02/22/16 at 00:00; Stop 02/22/16 at 23:59; Status DC Insulin Aspart (Novolog) 0-5 UNITS TIDWMEALS SQ ; Start 02/22/16 at 08:00; Status UNV Dextrose 12.5 gm PRN Q15MIN PRN IV SEE COMMENTS; Start 02/22/16 at 00:30; Status UNV Insulin Aspart (Novolog) 0-7 UNITS TIDWMEALS SQ Last administered on 02/25/16 12:27; Start 02/22/16 at 12:00 Dextrose 12.5 gm PRN Q15MIN PRN IV SEE COMMENTS; Start 02/22/16 at 11:00; Status UNV Pantoprazole Sodium 40 mg 40 mg DAILYAC PO Last administered on 02/25/16 08:34 ; Start 02/22/16 at 13:30 Sodium Chloride 1,000 ml @ 80 mls/hr [id number] IV Last administered on 02/23/16 03:39; Start 02/22/16 at 13:30; Stop 02/23/16 at 13:35; Status DC Magnesium Sulfate/ Dextrose (Magnesium Sulfate PREMIX 2GM) 50 ml @ 25 mls/hr PRN DAILY PRN IV for Mag < 1.7 on am labs; Start 02/22/16 at 12:45 Sotalol HCl (Betapace) 40 mg 1X ONCE PO Last administered on 02/22/16 15:13; Start 02/22/16 at 15:00; Stop 02/22/16 at 15:01; Status DC Losartan Potassium (Cozaar) 100 mg DAILY PO Last administered on 02/25/16 08:36 ; Start 02/23/16 at 09:00 Fish Oil (Fish Oil) 1,000 mg DAILY PO Last administered on 02/25/16 08:36; Start 02/23/16 at 09:00 Insulin Detemir (Levemir) 25 units QHS SQ Last administered on 02/24/16 21:12; Start 02/22/16 at 21:00 Zolpidem Tartrate (Ambien) 5 mg PRN QHS PRN PO INSOMNIA, MAY REPEAT IN 1HR Last administered on 02/23/16 21:30; Start 02/23/16 at 14:00 Promethazine HCl/ Codeine (Phenergan With Codeine) 5 ml PRN Q6HRS PRN PO COUGH Last administered on 02/23/16 22:21; Start 02/23/16 at 14:00 Sotalol HCl (Betapace) 40 mg DAILY PO Last administered on 02/25/16 08:36; Start 02/24/16 at 09:00 Furosemide (Lasix) 40 mg 1X ONCE IVP Last administered on 02/24/16 17:57; Start 02/24/16 at 13:45; Stop 02/24/16 at 13:46; Status DC Warfarin Sodium (Coumadin) 5 mg DAILY16 PO ; Start 02/24/16 at 16:00 Warfarin Sodium (Coumadin Per Physician) 1 each PRN DAILY PRN MC SEE COMMENTS; Start 02/24/16 at 13:45 Warfarin Sodium (Coumadin) 2.5 mg 1X ONCE PO Last administered on 02/24/16 17: 58; Start 02/24/16 at 17:00; Stop 02/24/16 at 17:01; Status DC Active Scripts Active Reported Tg Hortaostar (Insulin Glargine,Hum.rec.anlog) 300 Unit/1 Ml Insuln.pen 25 Unit SQ QHS Losartan Potassium 100 Mg Tablet 100 Mg PO DAILY Coumadin (Warfarin Sodium) 5 Mg Tablet 1 Tab PO DAILY Novolin R (Insulin Regular, Human) 100 Unit/1 Ml Vial 10 Unit SQ BIDAC Magnesium (Magnesium Oxide) 400 Mg Capsule 1 Cap PO BID Fish Oil 1,000 Mg Softgel ([place]-3 Fatty Acids/Fish Oil) 1 Each Capsule 1 Each PO DAILY Allopurinol 300 Mg Tablet 1 Tab PO DAILY Alendronate Sodium 70 Mg Tablet 1 Tab PO WEEKLY Vitals/I & O Vital Sign - Last 24 Hours 02/24/16 02/24/16 02/24/16 02/24/16 15:00 19:30 20:00 23:40 Temp 97.9 97.6 99.2 97.9 97.6 99.2 Pulse 66 69 69 Resp 20 20 18 B/P 156/69 164/65 136/55 Pulse Ox 92 91 93 O2 Delivery Nasal Cannula Room Air Nasal Cannula Nasal Cannula O2 Flow Rate 3.0 3.0 3.0 02/25/16 02/25/16 02/25/16 1/9/17 03:20 07:15 08:00 08:36 Temp 98.0 97.9 98.0 97.9 Pulse 75 66 66 Resp 20 18 B/P 160/68 142/61 142/61 Pulse Ox 87 95 O2 Delivery Nasal Cannula Nasal Cannula Nasal Cannula O2 Flow Rate 3.0 3.0 3.0 02/25/16 02/25/16 08:36 10:24 Temp 97.3 97.3 Pulse 66 66 Resp 19 B/P 142/61 141/64 Pulse Ox 96 O2 Delivery Nasal Cannula O2 Flow Rate 3.0 Intake and Output 02/24/16 02/24/16 02/25/16 15:00 23:00 07:00 Intake Total 400 ml Output Total 750 ml Balance -350 ml Problem List Problems Medical Problems: (1) Symptomatic bradycardia Status: Acute (2) Syncope Status: Acute Assessment MARILYN Multiple cardiac issues Plan of Care: Continue current Tx, Mgmt Plan of Care Note Will schedule procedures for afternoon after prep Thursday. Will d/c warfarin; defer management of Lovenox "bridge" to you. BRODY BURNETT MD Feb 25, 2016 15:00
[2016-02-25 15:02] VITALS: BP 150/64
--- NOTE | 2016-02-25 16:14 | PDOC ---
SUBJECTIVE Subjective she is ambulating in floor feels better , less SOB OBJECTIVE Objective good urine out put Vital Signs Vital Signs Date Time Temp Pulse Resp B/P Pulse Ox O2 Delivery O2 Flow Rate FiO2 02/25/16 15:02 97.9 67 18 150/64 92 Nasal Cannula 97.9 02/25/16 10:24 97.3 66 19 141/64 96 Nasal Cannula 3.0 97.3 02/25/16 08:36 66 142/61 02/25/16 08:36 66 142/61 02/25/16 08:00 Nasal Cannula 3.0 02/25/16 07:15 97.9 66 18 142/61 95 Nasal Cannula 3.0 97.9 02/25/16 03:20 98.0 75 20 160/68 87 Nasal Cannula 3.0 98.0 02/24/16 23:40 99.2 69 18 136/55 93 Nasal Cannula 3.0 99.2 02/24/16 20:00 Nasal Cannula 3.0 02/24/16 19:30 97.6 69 20 164/65 91 Room Air 3.0 97.6 I & O Intake and Output 02/25/16 07:00 Intake Total 400 ml Output Total 750 ml Balance -350 ml Intake Oral 400 ml Output Urine Total 750 ml # Voids 4 PHYSICAL EXAM Physical Exam lungs sound clearer heart RRR abd soft ASSESSMENT/PLAN Assessment/Plan 1. Syncopal episode with significant bradycardia. agree with decrease Sotalol dose , HR better 2. Anemia, acute seem to be due to chronic blood loss agree with plan for EGD / colono plans for 3. History of aortic valve replacement. resume coumadin lower dose 4. [id number] kidney disease. improved 5. Influenza B positive, continue Tamiflu. 6. History of hypertension. 7. Diabetes mellitus type 2. Continue insulin. 8. Previous history of breast cancer. 9. Osteoarthritis. 10. Gastroesophageal reflux disease. 11- acute on chronic CHF on CXR improved after extra dose lasix IV yesterday. continue to monitor monitor HB plans for colono/ EGD Problems: COMMENT Lab Laboratory Tests Test 02/24/16 17:20 02/24/16 20:22 02/25/16 04:35 02/25/16 07:17 Glucose (Fingerstick) 181mg/dL (70-99) 192mg/dL (70-99) 100mg/dL (70-99) White Blood Count 13.5x10^3/uL (4.0-11.0) Red Blood Count 2.98x10^6/uL (3.50-5.40) Hemoglobin 8.7g/dL (12.0-15.5) Hematocrit 26.9% (36.0-47.0) Mean Corpuscular Volume 90fL (79-100) Mean Corpuscular Hemoglobin 29pg (25-35) Mean Corpuscular Hemoglobin Concent 33g/dL (31-37) Red Cell Distribution Width 16.4% (11.5-14.5) Platelet Count 274x10^3/uL (140-400) Prothrombin Time 23.4SEC (11.7-14.0) Prothromb Time International Ratio 2.2 (0.8-1.1) Sodium Level 137mmol/L (136-145) Potassium Level 3.4mmol/L (3.5-5.1) Chloride Level 101mmol/L (98-107) Carbon Dioxide Level 26mmol/L (21-32) Anion Gap 10 (6-14) Blood Urea Nitrogen 57mg/dL (7-20) Creatinine 2.4mg/dL (0.6-1.0) Estimated GFR (Cockcroft-Gault) 19.8 Glucose Level 118mg/dL (70-99) Calcium Level 9.6mg/dL (8.5-10.1) Phosphorus Level 3.5mg/dL (2.6-4.7) Magnesium Level 2.0mg/dL (1.8-2.4) Albumin 2.9g/dL (3.4-5.0) Test 02/25/16 12:18 Glucose (Fingerstick) 158mg/dL (70-99) AJ JOHN MD Feb 25, 2016 16:14
[2016-02-25 19:35] VITALS: BP 144/60
[2016-02-25] MEDS: INSULIN DETEMIR 300 UNITS/3 ML INSULN.PEN. SQ SCH (21:04)
[2016-02-25 22:40] VITALS: BP 169/69
[2016-02-26 03:25] VITALS: BP 144/96
[2016-02-26 04:47] LABS: HEMATOCRIT 26.4 % (36.0-47.0); HEMOGLOBIN 8.7 g/dL (12.0-15.5); INR 1.8 (0.8-1.1); PROTHROMBIN TIME PATIENT 19.6 SEC (11.7-14.0); RED BLOOD COUNT 2.88 x10^6/uL (3.50-5.40); RED CELL DISTRIBUTION WIDTH 16.2 % (11.5-14.5); WHITE BLOOD COUNT 8.7 x10^3/uL (4.0-11.0)
[2016-02-26 04:57] LABS: CALCIUM 9.1 mg/dL (8.5-10.1); CREATININE 2.3 mg/dL (0.6-1.0); GFR 20.8; POTASSIUM 3.6 mmol/L (3.5-5.1)
[2016-02-26 05:54] LABS: ALBUMIN 2.7 g/dL (3.4-5.0); CALCIUM 9.4 mg/dL (8.5-10.1); POTASSIUM 3.6 mmol/L (3.5-5.1)
[2016-02-26 06:00] LABS: CREATININE 2.4 mg/dL (0.6-1.0); GFR 19.8
[2016-02-26 07:25] VITALS: BP 156/72
[2016-02-26] MEDS: INSULIN ASPART 300 UNITS/3 ML INSULN.PEN SQ SCH ×3 (07:36→17:00)
[2016-02-26] MEDS: ALLOPURINOL 300 MG TABLET. PO SCH (08:39)
[2016-02-26] MEDS: OSELTAMIVIR 75 MG CAPSULE PO SCH (08:39)
[2016-02-26] MEDS: PANTOPRAZOLE 40 MG TABLET. PO SCH (08:39)
[2016-02-26] MEDS: OMEGA-3 FATTY ACIDS/FISH OIL 1,000 MG CAPSULE. PO SCH (08:39)
[2016-02-26] MEDS: SOTALOL 80 MG TABLET. PO SCH (08:39)
[2016-02-26] MEDS: LOSARTAN POTASSIUM 50 MG TABLET. PO SCH (08:40)
--- NOTE | 2016-02-26 09:06 | PDOC ---
SUBJECTIVE Subjective She is feeling much better and has been now walking on the floor, her shortness of breath has improved OBJECTIVE Objective Blood pressure slightly elevated otherwise her vital stable Vital Signs Vital Signs Date Time Temp Pulse Resp B/P Pulse Ox O2 Delivery O2 Flow Rate FiO2 02/26/16 08:40 68 156/72 02/26/16 08:39 68 156/72 02/26/16 07:37 Nasal Cannula 2.0 02/26/16 07:25 97.8 68 21 156/72 95 Nasal Cannula 97.8 02/26/16 03:25 98.0 69 20 144/96 92 Nasal Cannula 2.0 98.0 02/25/16 22:40 98.1 76 20 169/69 92 Nasal Cannula 2.0 98.1 02/25/16 20:00 Nasal Cannula 3.0 02/25/16 19:35 97.4 68 18 144/60 96 Nasal Cannula 2.0 97.4 02/25/16 15:02 97.9 67 18 150/64 92 Nasal Cannula 97.9 02/25/16 10:24 97.3 66 19 141/64 96 Nasal Cannula 3.0 97.3 I & O Intake and Output 02/26/16 07:00 Intake Total 1940 ml Output Total 2250 ml Balance -310 ml Intake Oral 1940 ml Output Urine Total 2250 ml # Voids 1 # Bowel Movements 1 PHYSICAL EXAM Physical Exam Not much change in her exam ASSESSMENT/PLAN Assessment/Plan 1. Syncopal episode with significant bradycardia. agree with decrease Sotalol dose , HR better does not seem to need to have the pacemaker at present time 2. Anemia, acute seem to be due to chronic blood loss agree with plan for EGD / colono plans for 3. History of aortic valve replacement. Coumadin is on hold off in anticipation of her procedure might need bridging 4. Ulyse-cu-nimboum kidney disease. improved 5. Influenza B positive, continue Tamiflu. 6. History of hypertension. 7. Diabetes mellitus type 2. Continue insulin. 8. Previous history of breast cancer. 9. Osteoarthritis. 10. Gastroesophageal reflux disease. 11- acute on chronic CHF on CXR improved monitor HB plans for colono/ EGD Problems: COMMENT Lab Laboratory Tests Test 02/25/16 12:18 02/25/16 17:24 02/25/16 20:50 02/26/16 03:55 Glucose (Fingerstick) 158mg/dL (70-99) 116mg/dL (70-99) 149mg/dL (70-99) White Blood Count 8.7x10^3/uL (4.0-11.0) Red Blood Count 2.88x10^6/uL (3.50-5.40) Hemoglobin 8.7g/dL (12.0-15.5) Hematocrit 26.4% (36.0-47.0) Mean Corpuscular Volume 92fL (79-100) Mean Corpuscular Hemoglobin 30pg (25-35) Mean Corpuscular Hemoglobin Concent 33g/dL (31-37) Red Cell Distribution Width 16.2% (11.5-14.5) Platelet Count 247x10^3/uL (140-400) Prothrombin Time 19.6SEC (11.7-14.0) Prothromb Time International Ratio 1.8 (0.8-1.1) Sodium Level 141mmol/L (136-145) Potassium Level 3.6mmol/L (3.5-5.1) Chloride Level 104mmol/L (98-107) Carbon Dioxide Level 25mmol/L (21-32) Anion Gap 12 (6-14) Blood Urea Nitrogen 60mg/dL (7-20) Creatinine 2.3mg/dL (0.6-1.0) Estimated GFR (Cockcroft-Gault) 20.8 Glucose Level 101mg/dL (70-99) Calcium Level 9.1mg/dL (8.5-10.1) Phosphorus Level 4.0mg/dL (2.6-4.7) Magnesium Level 2.1mg/dL (1.8-2.4) Albumin 2.7g/dL (3.4-5.0) Test 02/26/16 07:27 Glucose (Fingerstick) 87mg/dL (70-99) AJ JOHN MD Feb 26, 2016 09:06
--- NOTE | 2016-02-26 09:16 | PDOC ---
Subjective: Subjective: No GI complaints. BM yesterday. No bleeding. Objective: Vital Signs: Vital Signs Date Time Temp Pulse Resp B/P Pulse Ox O2 Delivery O2 Flow Rate FiO2 02/26/16 08:40 68 156/72 02/26/16 07:37 Nasal Cannula 2.0 02/26/16 07:25 97.8 21 95 97.8 Labs: Laboratory Tests Test 02/25/16 12:18 02/25/16 17:24 02/25/16 20:50 02/26/16 03:55 Glucose (Fingerstick) 158mg/dL 116mg/dL 149mg/dL White Blood Count 8.7x10^3/uL Red Blood Count 2.88x10^6/uL Hemoglobin 8.7g/dL Hematocrit 26.4% Mean Corpuscular Volume 92fL Mean Corpuscular Hemoglobin 30pg Mean Corpuscular Hemoglobin Concent 33g/dL Red Cell Distribution Width 16.2% Platelet Count 247x10^3/uL Prothrombin Time 19.6SEC Prothromb Time International Ratio 1.8 Sodium Level 141mmol/L Potassium Level 3.6mmol/L Chloride Level 104mmol/L Carbon Dioxide Level 25mmol/L Anion Gap 12 Blood Urea Nitrogen 60mg/dL Creatinine 2.3mg/dL Estimated GFR (Cockcroft-Gault) 20.8 Glucose Level 101mg/dL Calcium Level 9.1mg/dL Phosphorus Level 4.0mg/dL Magnesium Level 2.1mg/dL Albumin 2.7g/dL Test 02/26/16 07:27 Glucose (Fingerstick) 87mg/dL PE: GEN: NAD, up to chair LUNGS: CTAB, nasal cannula HEART:+murm ABD: NABS, S/ND/NT NEURO/PSYCH: A & O 3 A/P: MARILYN -no obvious bleeding, Hgb stable -last EGD and colonoscopy in 2003 (biopsies + for H. pylori) H/o aortic valve replacement on Warfarin - held 02/26/16 -INR 1.8 Bradycardia - improved CKD - stable Influenza B -had Tamiflu -- Planning for EGD and colonoscopy (off Warfarin) on 02/28/16. AMINATA HORTON Feb 26, 2016 09:15
[2016-02-26 10:13] VITALS: BP 140/63
--- NOTE | 2016-02-26 11:01 | PDOC ---
PROGRESS NOTES Subjective Subjective No further episodes of syncope. Patient feels better today. Objective Objective Vital Signs Date Time Temp Pulse Resp B/P Pulse Ox O2 Delivery O2 Flow Rate FiO2 02/26/16 10:13 97.2 67 19 140/63 95 Nasal Cannula 97.2 02/26/16 07:37 2.0 Intake and Output 02/26/16 07:00 Intake Total 1940 ml Output Total 2250 ml Balance -310 ml Intake Oral 1940 ml Output Urine Total 2250 ml # Voids 1 # Bowel Movements 1 Physical Exam Physical Exam No significant changes in cardiac exam. Assessment Assessment Problems Medical Problems: (1) Symptomatic bradycardia Status: Acute (2) Syncope Status: Acute Plan Plan of Care Stable from a cardiac standpoint. Agree with current plan of EGD/colonoscopy on 02/28/16. I will hold the warfarin today and tomorrow and start the patient on Lovenox to bridge her until the time of the scoping Comment Review of Relevant I have reviewed the following items corinne (where applicable) has been applied. Labs Laboratory Tests Test 02/24/16 11:40 02/24/16 17:20 02/24/16 20:22 02/25/16 04:35 Glucose (Fingerstick) 166mg/dL (70-99) 181mg/dL (70-99) 192mg/dL (70-99) White Blood Count 13.5x10^3/uL (4.0-11.0) Red Blood Count 2.98x10^6/uL (3.50-5.40) Hemoglobin 8.7g/dL (12.0-15.5) Hematocrit 26.9% (36.0-47.0) Mean Corpuscular Volume 90fL (79-100) Mean Corpuscular Hemoglobin 29pg (25-35) Mean Corpuscular Hemoglobin Concent 33g/dL (31-37) Red Cell Distribution Width 16.4% (11.5-14.5) Platelet Count 274x10^3/uL (140-400) Prothrombin Time 23.4SEC (11.7-14.0) Prothromb Time International Ratio 2.2 (0.8-1.1) Sodium Level 137mmol/L (136-145) Potassium Level 3.4mmol/L (3.5-5.1) Chloride Level 101mmol/L (98-107) Carbon Dioxide Level 26mmol/L (21-32) Anion Gap 10 (6-14) Blood Urea Nitrogen 57mg/dL (7-20) Creatinine 2.4mg/dL (0.6-1.0) Estimated GFR (Cockcroft-Gault) 19.8 Glucose Level 118mg/dL (70-99) Calcium Level 9.6mg/dL (8.5-10.1) Phosphorus Level 3.5mg/dL (2.6-4.7) Magnesium Level 2.0mg/dL (1.8-2.4) Albumin 2.9g/dL (3.4-5.0) Test 02/25/16 07:17 02/25/16 12:18 02/25/16 17:24 02/25/16 20:50 Glucose (Fingerstick) 100mg/dL (70-99) 158mg/dL (70-99) 116mg/dL (70-99) 149mg/dL (70-99) Test 02/26/16 03:55 02/26/16 07:27 White Blood Count 8.7x10^3/uL (4.0-11.0) Red Blood Count 2.88x10^6/uL (3.50-5.40) Hemoglobin 8.7g/dL (12.0-15.5) Hematocrit 26.4% (36.0-47.0) Mean Corpuscular Volume 92fL (79-100) Mean Corpuscular Hemoglobin 30pg (25-35) Mean Corpuscular Hemoglobin Concent 33g/dL (31-37) Red Cell Distribution Width 16.2% (11.5-14.5) Platelet Count 247x10^3/uL (140-400) Prothrombin Time 19.6SEC (11.7-14.0) Prothromb Time International Ratio 1.8 (0.8-1.1) Sodium Level 141mmol/L (136-145) Potassium Level 3.6mmol/L (3.5-5.1) Chloride Level 104mmol/L (98-107) Carbon Dioxide Level 25mmol/L (21-32) Anion Gap 12 (6-14) Blood Urea Nitrogen 60mg/dL (7-20) Creatinine 2.3mg/dL (0.6-1.0) Estimated GFR (Cockcroft-Gault) 20.8 Glucose Level 101mg/dL (70-99) Calcium Level 9.1mg/dL (8.5-10.1) Phosphorus Level 4.0mg/dL (2.6-4.7) Magnesium Level 2.1mg/dL (1.8-2.4) Albumin 2.7g/dL (3.4-5.0) Glucose (Fingerstick) 87mg/dL (70-99) Laboratory Tests Test 02/25/16 12:18 02/25/16 17:24 02/25/16 20:50 02/26/16 03:55 Glucose (Fingerstick) 158mg/dL (70-99) 116mg/dL (70-99) 149mg/dL (70-99) White Blood Count 8.7x10^3/uL (4.0-11.0) Red Blood Count 2.88x10^6/uL (3.50-5.40) Hemoglobin 8.7g/dL (12.0-15.5) Hematocrit 26.4% (36.0-47.0) Mean Corpuscular Volume 92fL (79-100) Mean Corpuscular Hemoglobin 30pg (25-35) Mean Corpuscular Hemoglobin Concent 33g/dL (31-37) Red Cell Distribution Width 16.2% (11.5-14.5) Platelet Count 247x10^3/uL (140-400) Prothrombin Time 19.6SEC (11.7-14.0) Prothromb Time International Ratio 1.8 (0.8-1.1) Sodium Level 141mmol/L (136-145) Potassium Level 3.6mmol/L (3.5-5.1) Chloride Level 104mmol/L (98-107) Carbon Dioxide Level 25mmol/L (21-32) Anion Gap 12 (6-14) Blood Urea Nitrogen 60mg/dL (7-20) Creatinine 2.3mg/dL (0.6-1.0) Estimated GFR (Cockcroft-Gault) 20.8 Glucose Level 101mg/dL (70-99) Calcium Level 9.1mg/dL (8.5-10.1) Phosphorus Level 4.0mg/dL (2.6-4.7) Magnesium Level 2.1mg/dL (1.8-2.4) Albumin 2.7g/dL (3.4-5.0) Test 02/26/16 07:27 Glucose (Fingerstick) 87mg/dL (70-99) Medications Current Medications Calcium Gluconate 1,000 mg 1X ONCE IVP Last administered on 02/21/16 18:08; Start 02/21/16 at 17:45; Stop 02/21/16 at 17:46; Status DC Sodium Bicarbonate 50 meq 1X ONCE IV Last administered on 02/21/16 17:52; Start 02/21/16 at 17:45; Stop 02/21/16 at 17:46; Status DC Dextrose 25 gm 1X ONCE IV Last administered on 02/21/16 18:02; Start 02/21/16 at 17:45; Stop 02/21/16 at 17:46; Status DC Insulin Human Regular (Novolin R Vial) 10 unit 1X ONCE IV Last administered on 02/21/16 18:22; Start 02/21/16 at 17:45; Stop 02/21/16 at 17:46; Status DC Oseltamivir Phosphate (Tamiflu) 75 mg DAILY PO Last administered on 02/26/16 08:39; Start 02/22/16 at 09:00; Stop 02/26/16 at 09:00; Status DC Allopurinol (Zyloprim) 300 mg DAILY PO Last administered on 02/26/16 08:39; Start 02/22/16 at 09:00 Aspirin (Ecotrin) 81 mg DAILY PO Last administered on 02/22/16 09:59; Start 02/22/16 at 09:00; Stop 02/22/16 at 11:35; Status DC Atorvastatin Calcium (Lipitor) 40 mg QHS PO ; Start 02/22/16 at 21:00; Stop at 21:00; Status DC Furosemide (Lasix) 40 mg DAILY PO ; Start 02/22/16 at 09:00; Stop 02/22/16 at 11: 35; Status DC Losartan Potassium (Cozaar) 100 mg DAILY PO Last administered on 02/22/16 10:02 ; Start 02/22/16 at 09:00; Stop 02/22/16 at 18:33; Status DC Sotalol HCl (Betapace) 160 mg BID PO ; Start 02/21/16 at 22:00; Stop 02/22/16 at 11:35; Status DC Insulin Aspart (Novolog) 0-5 UNITS TIDWMEALS SQ ; Start 02/22/16 at 08:00; Stop 02/22/16 at 11:03; Status DC Dextrose 12.5 gm PRN Q15MIN PRN IV SEE COMMENTS; Start 02/21/16 at 21:30 Hydrochlorothiazide (Hydrodiuril) 25 mg DAILY PO ; Start 02/22/16 at 09:00; Stop 02/22/16 at 11:35; Status DC Acetaminophen (Tylenol) 650 mg PRN Q4HRS PRN PO FEVER; Start 02/22/16 at 00:00; Stop 02/22/16 at 23:59; Status DC Insulin Aspart (Novolog) 0-5 UNITS TIDWMEALS SQ ; Start 02/22/16 at 08:00; Status UNV Dextrose 12.5 gm PRN Q15MIN PRN IV SEE COMMENTS; Start 02/22/16 at 00:30; Status UNV Insulin Aspart (Novolog) 0-7 UNITS TIDWMEALS SQ Last administered on 02/25/16 12:27; Start 02/22/16 at 12:00 Dextrose 12.5 gm PRN Q15MIN PRN IV SEE COMMENTS; Start 02/22/16 at 11:00; Status UNV Pantoprazole Sodium 40 mg 40 mg DAILYAC PO Last administered on 02/26/16 08:39 ; Start 02/22/16 at 13:30 Sodium Chloride 1,000 ml @ 80 mls/hr [id number] IV Last administered on 02/23/16 03:39; Start 02/22/16 at 13:30; Stop 02/23/16 at 13:35; Status DC Magnesium Sulfate/ Dextrose (Magnesium Sulfate PREMIX 2GM) 50 ml @ 25 mls/hr PRN DAILY PRN IV for Mag < 1.7 on am labs; Start 02/22/16 at 12:45 Sotalol HCl (Betapace) 40 mg 1X ONCE PO Last administered on 02/22/16 15:13; Start 02/22/16 at 15:00; Stop 02/22/16 at 15:01; Status DC Losartan Potassium (Cozaar) 100 mg DAILY PO Last administered on 02/26/16 08: 40; Start 02/23/16 at 09:00 Fish Oil (Fish Oil) 1,000 mg DAILY PO Last administered on 02/26/16 08:39; Start 02/23/16 at 09:00 Insulin Detemir (Levemir) 25 units QHS SQ Last administered on 02/25/16 21:04; Start 02/22/16 at 21:00 Zolpidem Tartrate (Ambien) 5 mg PRN QHS PRN PO INSOMNIA, MAY REPEAT IN 1HR Last administered on 02/23/16 21:30; Start 02/23/16 at 14:00 Promethazine HCl/ Codeine (Phenergan With Codeine) 5 ml PRN Q6HRS PRN PO COUGH Last administered on 02/23/16 22:21; Start 02/23/16 at 14:00 Sotalol HCl (Betapace) 40 mg DAILY PO Last administered on 02/26/16 08:39; Start 02/24/16 at 09:00 Furosemide (Lasix) 40 mg 1X ONCE IVP Last administered on 02/24/16 17:57; Start 02/24/16 at 13:45; Stop 02/24/16 at 13:46; Status DC Warfarin Sodium (Coumadin) 5 mg DAILY16 PO ; Start 02/24/16 at 16:00; Stop at 15:09; Status DC Warfarin Sodium (Coumadin Per Physician) 1 each PRN DAILY PRN MC SEE COMMENTS; Start 02/24/16 at 13:45; Stop 02/25/16 at 15:09; Status DC Warfarin Sodium (Coumadin) 2.5 mg 1X ONCE PO Last administered on 02/24/16 17: 58; Start 02/24/16 at 17:00; Stop 02/24/16 at 17:01; Status DC Active Scripts Active Reported Tg Hortaostar (Insulin Glargine,Hum.rec.anlog) 300 Unit/1 Ml Insuln.pen 25 Unit SQ QHS Losartan Potassium 100 Mg Tablet 100 Mg PO DAILY Coumadin (Warfarin Sodium) 5 Mg Tablet 1 Tab PO DAILY Novolin R (Insulin Regular, Human) 100 Unit/1 Ml Vial 10 Unit SQ BIDAC Magnesium (Magnesium Oxide) 400 Mg Capsule 1 Cap PO BID Fish Oil 1,000 Mg Softgel (Eckert-3 Fatty Acids/Fish Oil) 1 Each Capsule 1 Each PO DAILY Allopurinol 300 Mg Tablet 1 Tab PO DAILY Alendronate Sodium 70 Mg Tablet 1 Tab PO WEEKLY Vitals/I & O Vital Sign - Last 24 Hours 02/25/16 02/25/16 02/25/16 02/25/16 15:02 19:35 20:00 22:40 Temp 97.9 97.4 98.1 97.9 97.4 98.1 Pulse 67 68 76 Resp 18 18 20 B/P 150/64 144/60 169/69 Pulse Ox 92 96 92 O2 Delivery Nasal Cannula Nasal Cannula Nasal Cannula Nasal Cannula O2 Flow Rate 2.0 3.0 2.0 02/26/16 02/26/16 02/26/16 02/26/16 03:25 07:25 07:37 08:39 Temp 98.0 97.8 98.0 97.8 Pulse 69 68 68 Resp 20 21 B/P 144/96 156/72 156/72 Pulse Ox 92 95 O2 Delivery Nasal Cannula Nasal Cannula Nasal Cannula O2 Flow Rate 2.0 2.0 02/26/16 02/26/16 08:40 10:13 Temp 97.2 97.2 Pulse 68 67 Resp 19 B/P 156/72 140/63 Pulse Ox 95 O2 Delivery Nasal Cannula Intake and Output 02/25/16 02/25/16 02/26/16 15:00 23:00 07:00 Intake Total 360 ml 1000 ml 580 ml Output Total 750 ml 600 ml 900 ml Balance -390 ml 400 ml -320 ml ELIZA COON MD Feb 26, 2016 11:01
--- NOTE | 2016-02-26 11:10 | PDOC ---
Renal-Progress Notes Subjective Notes Notes NONE History of Present Illness Hx of present illness STABLE Vitals Vitals Vital Signs Date Time Temp Pulse Resp B/P Pulse Ox O2 Delivery O2 Flow Rate FiO2 02/26/16 10:13 97.2 67 19 140/63 95 Nasal Cannula 97.2 02/26/16 07:37 2.0 Weight Weight [ ] I.O. Intake and Output Intake and Output 02/26/16 07:00 Intake Total 1940 ml Output Total 2250 ml Balance -310 ml Intake Oral 1940 ml Output Urine Total 2250 ml # Voids 1 # Bowel Movements 1 Labs Labs Laboratory Tests Test 02/25/16 12:18 02/25/16 17:24 02/25/16 20:50 02/26/16 03:55 Glucose (Fingerstick) 158mg/dL (70-99) 116mg/dL (70-99) 149mg/dL (70-99) White Blood Count 8.7x10^3/uL (4.0-11.0) Red Blood Count 2.88x10^6/uL (3.50-5.40) Hemoglobin 8.7g/dL (12.0-15.5) Hematocrit 26.4% (36.0-47.0) Mean Corpuscular Volume 92fL (79-100) Mean Corpuscular Hemoglobin 30pg (25-35) Mean Corpuscular Hemoglobin Concent 33g/dL (31-37) Red Cell Distribution Width 16.2% (11.5-14.5) Platelet Count 247x10^3/uL (140-400) Prothrombin Time 19.6SEC (11.7-14.0) Prothromb Time International Ratio 1.8 (0.8-1.1) Sodium Level 141mmol/L (136-145) Potassium Level 3.6mmol/L (3.5-5.1) Chloride Level 104mmol/L (98-107) Carbon Dioxide Level 25mmol/L (21-32) Anion Gap 12 (6-14) Blood Urea Nitrogen 60mg/dL (7-20) Creatinine 2.3mg/dL (0.6-1.0) Estimated GFR (Cockcroft-Gault) 20.8 Glucose Level 101mg/dL (70-99) Calcium Level 9.1mg/dL (8.5-10.1) Phosphorus Level 4.0mg/dL (2.6-4.7) Magnesium Level 2.1mg/dL (1.8-2.4) Albumin 2.7g/dL (3.4-5.0) Test 02/26/16 07:27 Glucose (Fingerstick) 87mg/dL (70-99) Review of Systems Constitutional: yes: alert, oriented Pulmonary: Yes no symptom reported Gastrointestional: Yes: constipation Musculoskeletal: Yes: muscle stiffness Skin: Yes no symptom reported Physical Exam General Appearance: no apparent distress Skin: warm Respiratory: bilateral CTA Heart: S1S2, RRR Abdomen: soft, bowel sounds present Genitourinary: bladder flat Extremities: pulses present, atrophy Neurology: alert Assessment Assessment IMP CKD STAGE 4 - STABLE AND CR AT BASELINE-ABOUT 2.3 MILD HYPOKALEMIA-RESOLVED BRADYCARDIA-BETTER PLAN CONT WITH SUPPORTIVE CARE ENC PO INTAKE WILL FOLLOW NEEDED CHELLE ISSA MD Feb 26, 2016 11:10
[2016-02-26] MEDS: ACYCLOVIR 5% TOPICAL OINT 5GM TUBE. TP SCH ×3 (14:00→21:53)
[2016-02-26 14:36] VITALS: BP 142/55
[2016-02-26 19:40] VITALS: BP 142/64
[2016-02-26] MEDS: ENOXAPARIN ** NOTE DOSE ** SYRINGE SQ SCH (21:00)
[2016-02-26] MEDS: INSULIN DETEMIR 300 UNITS/3 ML INSULN.PEN. SQ SCH (21:06)
[2016-02-26 23:31] VITALS: BP 144/74
[2016-02-27 03:30] VITALS: BP 113/65
[2016-02-27] MEDS: ACYCLOVIR 5% TOPICAL OINT 5GM TUBE. TP SCH ×5 (06:00→21:28)
[2016-02-27 07:31] VITALS: BP 134/65
[2016-02-27] MEDS: INSULIN ASPART 300 UNITS/3 ML INSULN.PEN SQ SCH ×3 (07:58→17:35)
[2016-02-27] MEDS ORDERED: MAGNESIUM CITRATE 296 ML SOLUTION. PO ONE (08:45)
[2016-02-27] MEDS: PANTOPRAZOLE 40 MG TABLET. PO SCH (09:17)
[2016-02-27] MEDS: SOTALOL 80 MG TABLET. PO SCH ×2 (09:17→21:27)
[2016-02-27] MEDS: LOSARTAN POTASSIUM 50 MG TABLET. PO SCH (09:18)
[2016-02-27] MEDS: ALLOPURINOL 300 MG TABLET. PO SCH (09:18)
[2016-02-27] MEDS: OMEGA-3 FATTY ACIDS/FISH OIL 1,000 MG CAPSULE. PO SCH (09:18)
[2016-02-27 09:31] LABS: CALCIUM 9.9 mg/dL (8.5-10.1); CREATININE 2.4 mg/dL (0.6-1.0); GFR 19.8; MAGNESIUM 1.9 mg/dL (1.8-2.4); POTASSIUM 3.8 mmol/L (3.5-5.1)
[2016-02-27 09:35] LABS: ALBUMIN 3.1 g/dL (3.4-5.0); CALCIUM 9.4 mg/dL (8.5-10.1); CREATININE 2.5 mg/dL (0.6-1.0); GFR 18.9; PHOSPHORUS 4.2 mg/dL (2.6-4.7)
--- NOTE | 2016-02-27 10:06 | PDOC ---
G I PROGRESS NOTE Subjective Seen ambulating in vu. No GI complaints. Objective Prep in progress. Physical Exam No PE. Review of Relevant I have reviewed the following items corinne (where applicable) has been applied. Labs Laboratory Tests Test 02/25/16 12:18 02/25/16 17:24 02/25/16 20:50 02/26/16 03:55 Glucose (Fingerstick) 158mg/dL (70-99) 116mg/dL (70-99) 149mg/dL (70-99) White Blood Count 8.7x10^3/uL (4.0-11.0) Red Blood Count 2.88x10^6/uL (3.50-5.40) Hemoglobin 8.7g/dL (12.0-15.5) Hematocrit 26.4% (36.0-47.0) Mean Corpuscular Volume 92fL (79-100) Mean Corpuscular Hemoglobin 30pg (25-35) Mean Corpuscular Hemoglobin Concent 33g/dL (31-37) Red Cell Distribution Width 16.2% (11.5-14.5) Platelet Count 247x10^3/uL (140-400) Prothrombin Time 19.6SEC (11.7-14.0) Prothromb Time International Ratio 1.8 (0.8-1.1) Sodium Level 141mmol/L (136-145) Potassium Level 3.6mmol/L (3.5-5.1) Chloride Level 104mmol/L (98-107) Carbon Dioxide Level 25mmol/L (21-32) Anion Gap 12 (6-14) Blood Urea Nitrogen 60mg/dL (7-20) Creatinine 2.3mg/dL (0.6-1.0) Estimated GFR (Cockcroft-Gault) 20.8 Glucose Level 101mg/dL (70-99) Calcium Level 9.1mg/dL (8.5-10.1) Phosphorus Level 4.0mg/dL (2.6-4.7) Magnesium Level 2.1mg/dL (1.8-2.4) Albumin 2.7g/dL (3.4-5.0) Test 02/26/16 07:27 02/26/16 13:03 02/26/16 17:21 02/26/16 20:47 Glucose (Fingerstick) 87mg/dL (70-99) 161mg/dL (70-99) 104mg/dL (70-99) 172mg/dL (70-99) Test 02/27/16 07:33 02/27/16 08:44 Glucose (Fingerstick) 74mg/dL (70-99) Sodium Level 140mmol/L (136-145) Potassium Level 3.8mmol/L (3.5-5.1) Chloride Level 105mmol/L (98-107) Carbon Dioxide Level 24mmol/L (21-32) Anion Gap 11 (6-14) Blood Urea Nitrogen 56mg/dL (7-20) Creatinine 2.4mg/dL (0.6-1.0) Estimated GFR (Cockcroft-Gault) 19.8 Glucose Level 79mg/dL (70-99) Calcium Level 9.9mg/dL (8.5-10.1) Phosphorus Level 4.2mg/dL (2.6-4.7) Magnesium Level 1.9mg/dL (1.8-2.4) Albumin 3.1g/dL (3.4-5.0) Laboratory Tests Test 02/26/16 13:03 02/26/16 17:21 02/26/16 20:47 02/27/16 07:33 Glucose (Fingerstick) 161mg/dL (70-99) 104mg/dL (70-99) 172mg/dL (70-99) 74mg/dL (70-99) Test 02/27/16 08:44 Sodium Level 140mmol/L (136-145) Potassium Level 3.8mmol/L (3.5-5.1) Chloride Level 105mmol/L (98-107) Carbon Dioxide Level 24mmol/L (21-32) Anion Gap 11 (6-14) Blood Urea Nitrogen 56mg/dL (7-20) Creatinine 2.4mg/dL (0.6-1.0) Estimated GFR (Cockcroft-Gault) 19.8 Glucose Level 79mg/dL (70-99) Calcium Level 9.9mg/dL (8.5-10.1) Phosphorus Level 4.2mg/dL (2.6-4.7) Magnesium Level 1.9mg/dL (1.8-2.4) Albumin 3.1g/dL (3.4-5.0) Medications Current Medications Calcium Gluconate 1,000 mg 1X ONCE IVP Last administered on 02/21/16 18:08; Start 02/21/16 at 17:45; Stop 02/21/16 at 17:46; Status DC Sodium Bicarbonate 50 meq 1X ONCE IV Last administered on 02/21/16 17:52; Start 02/21/16 at 17:45; Stop 02/21/16 at 17:46; Status DC Dextrose 25 gm 1X ONCE IV Last administered on 02/21/16 18:02; Start 02/21/16 at 17:45; Stop 02/21/16 at 17:46; Status DC Insulin Human Regular (Novolin R Vial) 10 unit 1X ONCE IV Last administered on 02/21/16 18:22; Start 02/21/16 at 17:45; Stop 02/21/16 at 17:46; Status DC Oseltamivir Phosphate (Tamiflu) 75 mg DAILY PO Last administered on 02/26/16 08:39; Start 02/22/16 at 09:00; Stop 02/26/16 at 09:00; Status DC Allopurinol (Zyloprim) 300 mg DAILY PO Last administered on 02/27/16 09:18; Start 02/22/16 at 09:00 Aspirin (Ecotrin) 81 mg DAILY PO Last administered on 02/22/16 09:59; Start 02/22/16 at 09:00; Stop 02/22/16 at 11:35; Status DC Atorvastatin Calcium (Lipitor) 40 mg QHS PO ; Start 02/22/16 at 21:00; Stop at 21:00; Status DC Furosemide (Lasix) 40 mg DAILY PO ; Start 02/22/16 at 09:00; Stop 02/22/16 at 11: 35; Status DC Losartan Potassium (Cozaar) 100 mg DAILY PO Last administered on 02/22/16 10:02 ; Start 02/22/16 at 09:00; Stop 02/22/16 at 18:33; Status DC Sotalol HCl (Betapace) 160 mg BID PO ; Start 02/21/16 at 22:00; Stop 02/22/16 at 11:35; Status DC Insulin Aspart (Novolog) 0-5 UNITS TIDWMEALS SQ ; Start 02/22/16 at 08:00; Stop 02/22/16 at 11:03; Status DC Dextrose 12.5 gm PRN Q15MIN PRN IV SEE COMMENTS; Start 02/21/16 at 21:30 Hydrochlorothiazide (Hydrodiuril) 25 mg DAILY PO ; Start 02/22/16 at 09:00; Stop 02/22/16 at 11:35; Status DC Acetaminophen (Tylenol) 650 mg PRN Q4HRS PRN PO FEVER; Start 02/22/16 at 00:00; Stop 02/22/16 at 23:59; Status DC Insulin Aspart (Novolog) 0-5 UNITS TIDWMEALS SQ ; Start 02/22/16 at 08:00; Status UNV Dextrose 12.5 gm PRN Q15MIN PRN IV SEE COMMENTS; Start 02/22/16 at 00:30; Status UNV Insulin Aspart (Novolog) 0-7 UNITS TIDWMEALS SQ Last administered on 02/26/16 12:00; Start 02/22/16 at 12:00 Dextrose 12.5 gm PRN Q15MIN PRN IV SEE COMMENTS; Start 02/22/16 at 11:00; Status UNV Pantoprazole Sodium 40 mg 40 mg DAILYAC PO Last administered on 02/27/16 09:17 ; Start 02/22/16 at 13:30 Sodium Chloride 1,000 ml @ 80 mls/hr [id number] IV Last administered on 02/23/16 03:39; Start 02/22/16 at 13:30; Stop 02/23/16 at 13:35; Status DC Magnesium Sulfate/ Dextrose (Magnesium Sulfate PREMIX 2GM) 50 ml @ 25 mls/hr PRN DAILY PRN IV for Mag < 1.7 on am labs; Start 02/22/16 at 12:45 Sotalol HCl (Betapace) 40 mg 1X ONCE PO Last administered on 02/22/16 15:13; Start 02/22/16 at 15:00; Stop 02/22/16 at 15:01; Status DC Losartan Potassium (Cozaar) 100 mg DAILY PO Last administered on 02/27/16 09: 18; Start 02/23/16 at 09:00 Fish Oil (Fish Oil) 1,000 mg DAILY PO Last administered on 02/27/16 09:18; Start 02/23/16 at 09:00 Insulin Detemir (Levemir) 25 units QHS SQ Last administered on 02/26/16 21:06 ; Start 02/22/16 at 21:00 Zolpidem Tartrate (Ambien) 5 mg PRN QHS PRN PO INSOMNIA, MAY REPEAT IN 1HR Last administered on 02/23/16 21:30; Start 02/23/16 at 14:00 Promethazine HCl/ Codeine (Phenergan With Codeine) 5 ml PRN Q6HRS PRN PO COUGH Last administered on 02/23/16 22:21; Start 02/23/16 at 14:00 Sotalol HCl (Betapace) 40 mg DAILY PO Last administered on 02/27/16 09:17; Start 02/24/16 at 09:00 Furosemide (Lasix) 40 mg 1X ONCE IVP Last administered on 02/24/16 17:57; Start 02/24/16 at 13:45; Stop 02/24/16 at 13:46; Status DC Warfarin Sodium (Coumadin) 5 mg DAILY16 PO ; Start 02/24/16 at 16:00; Stop at 15:09; Status DC Warfarin Sodium (Coumadin Per Physician) 1 each PRN DAILY PRN MC SEE COMMENTS; Start 02/24/16 at 13:45; Stop 02/25/16 at 15:09; Status DC Warfarin Sodium (Coumadin) 2.5 mg 1X ONCE PO Last administered on 02/24/16 17: 58; Start 02/24/16 at 17:00; Stop 02/24/16 at 17:01; Status DC Acyclovir (Zovirax) 1 denton 5XDAY TP Last administered on 02/27/16 09:20; Start 02/26/16 at 14:00 Enoxaparin Sodium (Lovenox 80mg Syringe) 80 mg Q24H SQ Last administered on 21:00; Start 02/26/16 at 19:00 Magnesium Citrate (Citroma) 296 ml 1X ONCE PO Last administered on 02/27/16 09:16; Start 02/27/16 at 08:45; Stop 02/27/16 at 08:57; Status DC Metoclopramide HCl (Reglan) 10 mg 1X ONCE PO ; Start 02/27/16 at 14:30; Stop at 14:31 Metoclopramide HCl (Reglan) 10 mg 1X ONCE PO ; Start 02/27/16 at 17:00; Stop at 17:01 Polyethylene Glycol (miraLAX Powder BULK BOTTLE) 238 gm 1X ONCE PO ; Start 01/02 at 15:00; Stop 02/27/16 at 15:01 Bisacodyl (Dulcolax Tab) 10 mg PRN DAILY PRN PO CONSTIPATION; Start 02/27/16 at 15:30 Active Scripts Active Reported Tg Hortaostar (Insulin Glargine,Hum.rec.anlog) 300 Unit/1 Ml Insuln.pen 25 Unit SQ QHS Losartan Potassium 100 Mg Tablet 100 Mg PO DAILY Coumadin (Warfarin Sodium) 5 Mg Tablet 1 Tab PO DAILY Novolin R (Insulin Regular, Human) 100 Unit/1 Ml Vial 10 Unit SQ BIDAC Magnesium (Magnesium Oxide) 400 Mg Capsule 1 Cap PO BID Fish Oil 1,000 Mg Softgel ([place]-3 Fatty Acids/Fish Oil) 1 Each Capsule 1 Each PO DAILY Allopurinol 300 Mg Tablet 1 Tab PO DAILY Alendronate Sodium 70 Mg Tablet 1 Tab PO WEEKLY Vitals/I & O Vital Sign - Last 24 Hours 02/26/16 02/26/16 02/26/16 02/26/16 10:13 14:36 19:40 19:48 Temp 97.2 97.4 97.7 97.2 97.4 97.7 Pulse 67 68 77 Resp 19 19 16 B/P 140/63 142/55 142/64 Pulse Ox 95 96 98 O2 Delivery Nasal Cannula Nasal Cannula Room Air Nasal Cannula O2 Flow Rate 3.0 3.0 02/26/16 02/27/16 02/27/16 02/27/16 23:31 03:30 07:31 07:37 Temp 97.8 98.0 98.0 97.8 98.0 98.0 Pulse 88 73 63 Resp 16 18 19 B/P 144/74 113/65 134/65 Pulse Ox 97 97 95 O2 Delivery Room Air Room Air Nasal Cannula Nasal Cannula O2 Flow Rate 3.0 2.0 02/27/16 02/27/16 09:17 09:18 Pulse 63 63 B/P 134/65 134/65 Intake and Output 02/26/16 02/26/16 02/27/16 15:00 23:00 07:00 Intake Total 180 ml 120 ml 300 ml Output Total 1400 ml 700 ml Balance -1220 ml 120 ml -400 ml Problem List Problems Medical Problems: (1) Symptomatic bradycardia Status: Acute (2) Syncope Status: Acute Assessment MARILYN Plan of Care: Continue current Tx, Mgmt Plan of Care Note Prep today/'scopes tomorrow. BRODY BURNETT MD Feb 27, 2016 10:06
--- NOTE | 2016-02-27 10:09 | PDOC ---
Renal-Progress Notes Subjective Notes Notes NONE, FEELING WELL History of Present Illness Hx of present illness STABLE Vitals Vitals Vital Signs Date Time Temp Pulse Resp B/P Pulse Ox O2 Delivery O2 Flow Rate FiO2 02/27/16 09:18 63 134/65 02/27/16 07:37 Nasal Cannula 2.0 02/27/16 07:31 98.0 19 95 98.0 Weight Weight [ ] I.O. Intake and Output Intake and Output 02/27/16 07:00 Intake Total 600 ml Output Total 2100 ml Balance -1500 ml Intake Oral 600 ml Output Urine Total 2100 ml Labs Labs Laboratory Tests Test 02/26/16 13:03 02/26/16 17:21 02/26/16 20:47 02/27/16 07:33 Glucose (Fingerstick) 161mg/dL (70-99) 104mg/dL (70-99) 172mg/dL (70-99) 74mg/dL (70-99) Test 02/27/16 08:44 Sodium Level 140mmol/L (136-145) Potassium Level 3.8mmol/L (3.5-5.1) Chloride Level 105mmol/L (98-107) Carbon Dioxide Level 24mmol/L (21-32) Anion Gap 11 (6-14) Blood Urea Nitrogen 56mg/dL (7-20) Creatinine 2.4mg/dL (0.6-1.0) Estimated GFR (Cockcroft-Gault) 19.8 Glucose Level 79mg/dL (70-99) Calcium Level 9.9mg/dL (8.5-10.1) Phosphorus Level 4.2mg/dL (2.6-4.7) Magnesium Level 1.9mg/dL (1.8-2.4) Albumin 3.1g/dL (3.4-5.0) Review of Systems Constitutional: yes: alert, oriented Pulmonary: Yes no symptom reported Gastrointestional: Yes: constipation Musculoskeletal: Yes: muscle stiffness Skin: Yes no symptom reported Physical Exam General Appearance: no apparent distress Skin: warm Respiratory: bilateral CTA Heart: S1S2, RRR Abdomen: soft, bowel sounds present Genitourinary: bladder flat Extremities: pulses present, atrophy Neurology: alert Assessment Assessment IMP CKD STAGE 4 - STABLE AND CR AT BASELINE-ABOUT 2.3 MILD HYPOKALEMIA-RESOLVED BRADYCARDIA-BETTER ANEMIA PLAN CONT WITH SUPPORTIVE CARE ENC PO INTAKE GI ENDOSCOPY PENDING WILL FOLLOW NEEDED CHELLE ISSA MD Feb 27, 2016 10:09
--- NOTE | 2016-02-27 10:26 | PDOC ---
SUBJECTIVE Subjective She is feeling better we'll be starting her prepp today for a colonoscopy OBJECTIVE Vital Signs Vital Signs Date Time Temp Pulse Resp B/P Pulse Ox O2 Delivery O2 Flow Rate FiO2 02/27/16 09:18 63 134/65 02/27/16 09:17 63 134/65 02/27/16 07:37 Nasal Cannula 2.0 02/27/16 07:31 98.0 63 19 134/65 95 Nasal Cannula 3.0 98.0 02/27/16 03:30 98.0 73 18 113/65 97 Room Air 98.0 02/26/16 23:31 97.8 88 16 144/74 97 Room Air 97.8 02/26/16 19:48 Nasal Cannula 3.0 02/26/16 19:40 97.7 77 16 142/64 98 Room Air 97.7 02/26/16 14:36 97.4 68 19 142/55 96 Nasal Cannula 3.0 97.4 I & O Intake and Output 02/27/16 07:00 Intake Total 600 ml Output Total 2100 ml Balance -1500 ml Intake Oral 600 ml Output Urine Total 2100 ml PHYSICAL EXAM Physical Exam No further change and her exam ASSESSMENT/PLAN Assessment/Plan 1. Syncopal episode with significant bradycardia which has resolved, subtotal increase to twice a day today 2. Anemia, acute seem to be due to chronic blood loss agree with plan for EGD / colono plans for tomorrow 3. History of aortic valve replacement. Coumadin is on hold off in anticipation of her procedure will be bridged with Lovenox as per Dr. Serrano 4. Axhsg-yp-civdhhl kidney disease. improved 5. Influenza B positive, improved. 6. History of hypertension. 7. Diabetes mellitus type 2. Continue insulin. 8. Previous history of breast cancer. 9. Osteoarthritis. 10. Gastroesophageal reflux disease. 11- acute on chronic CHF on CXR improved for colono/ EGD Problems: COMMENT Lab Laboratory Tests Test 02/26/16 13:03 02/26/16 17:21 02/26/16 20:47 02/27/16 07:33 Glucose (Fingerstick) 161mg/dL (70-99) 104mg/dL (70-99) 172mg/dL (70-99) 74mg/dL (70-99) Test 02/27/16 08:44 Sodium Level 140mmol/L (136-145) Potassium Level 3.8mmol/L (3.5-5.1) Chloride Level 105mmol/L (98-107) Carbon Dioxide Level 24mmol/L (21-32) Anion Gap 11 (6-14) Blood Urea Nitrogen 56mg/dL (7-20) Creatinine 2.4mg/dL (0.6-1.0) Estimated GFR (Cockcroft-Gault) 19.8 Glucose Level 79mg/dL (70-99) Calcium Level 9.9mg/dL (8.5-10.1) Phosphorus Level 4.2mg/dL (2.6-4.7) Magnesium Level 1.9mg/dL (1.8-2.4) Albumin 3.1g/dL (3.4-5.0) AJ JOHN MD Feb 27, 2016 10:26
[2016-02-27 10:48] VITALS: BP 148/71
--- NOTE | 2016-02-27 10:49 | PDOC ---
PROGRESS NOTES Subjective Subjective No episodes of syncope. Had one episode of Afib yesterday. Now in NSR. Patient feels better today. Objective Objective Vital Signs Date Time Temp Pulse Resp B/P Pulse Ox O2 Delivery O2 Flow Rate FiO2 02/27/16 09:18 63 134/65 02/27/16 07:37 Nasal Cannula 2.0 02/27/16 07:31 98.0 19 95 98.0 Intake and Output 02/27/16 07:00 Intake Total 600 ml Output Total 2100 ml Balance -1500 ml Intake Oral 600 ml Output Urine Total 2100 ml Physical Exam Physical Exam No significant changes in cardiac exam. Assessment Assessment Problems Medical Problems: (1) Symptomatic bradycardia Status: Acute (2) Syncope Status: Acute Plan Plan of Care Increase sotalol to 40mg twice daily. Agree with current plan of EGD/ colonoscopy on 02/28/16. I will hold today's warfarin and start the patient on Lovenox to bridge her until the time of the scoping. Comment Review of Relevant I have reviewed the following items corinne (where applicable) has been applied. Labs Laboratory Tests Test 02/25/16 12:18 02/25/16 17:24 02/25/16 20:50 02/26/16 03:55 Glucose (Fingerstick) 158mg/dL (70-99) 116mg/dL (70-99) 149mg/dL (70-99) White Blood Count 8.7x10^3/uL (4.0-11.0) Red Blood Count 2.88x10^6/uL (3.50-5.40) Hemoglobin 8.7g/dL (12.0-15.5) Hematocrit 26.4% (36.0-47.0) Mean Corpuscular Volume 92fL (79-100) Mean Corpuscular Hemoglobin 30pg (25-35) Mean Corpuscular Hemoglobin Concent 33g/dL (31-37) Red Cell Distribution Width 16.2% (11.5-14.5) Platelet Count 247x10^3/uL (140-400) Prothrombin Time 19.6SEC (11.7-14.0) Prothromb Time International Ratio 1.8 (0.8-1.1) Sodium Level 141mmol/L (136-145) Potassium Level 3.6mmol/L (3.5-5.1) Chloride Level 104mmol/L (98-107) Carbon Dioxide Level 25mmol/L (21-32) Anion Gap 12 (6-14) Blood Urea Nitrogen 60mg/dL (7-20) Creatinine 2.3mg/dL (0.6-1.0) Estimated GFR (Cockcroft-Gault) 20.8 Glucose Level 101mg/dL (70-99) Calcium Level 9.1mg/dL (8.5-10.1) Phosphorus Level 4.0mg/dL (2.6-4.7) Magnesium Level 2.1mg/dL (1.8-2.4) Albumin 2.7g/dL (3.4-5.0) Test 02/26/16 07:27 02/26/16 13:03 02/26/16 17:21 02/26/16 20:47 Glucose (Fingerstick) 87mg/dL (70-99) 161mg/dL (70-99) 104mg/dL (70-99) 172mg/dL (70-99) Test 02/27/16 07:33 02/27/16 08:44 Glucose (Fingerstick) 74mg/dL (70-99) Sodium Level 140mmol/L (136-145) Potassium Level 3.8mmol/L (3.5-5.1) Chloride Level 105mmol/L (98-107) Carbon Dioxide Level 24mmol/L (21-32) Anion Gap 11 (6-14) Blood Urea Nitrogen 56mg/dL (7-20) Creatinine 2.4mg/dL (0.6-1.0) Estimated GFR (Cockcroft-Gault) 19.8 Glucose Level 79mg/dL (70-99) Calcium Level 9.9mg/dL (8.5-10.1) Phosphorus Level 4.2mg/dL (2.6-4.7) Magnesium Level 1.9mg/dL (1.8-2.4) Albumin 3.1g/dL (3.4-5.0) Laboratory Tests Test 02/26/16 13:03 02/26/16 17:21 02/26/16 20:47 02/27/16 07:33 Glucose (Fingerstick) 161mg/dL (70-99) 104mg/dL (70-99) 172mg/dL (70-99) 74mg/dL (70-99) Test 02/27/16 08:44 Sodium Level 140mmol/L (136-145) Potassium Level 3.8mmol/L (3.5-5.1) Chloride Level 105mmol/L (98-107) Carbon Dioxide Level 24mmol/L (21-32) Anion Gap 11 (6-14) Blood Urea Nitrogen 56mg/dL (7-20) Creatinine 2.4mg/dL (0.6-1.0) Estimated GFR (Cockcroft-Gault) 19.8 Glucose Level 79mg/dL (70-99) Calcium Level 9.9mg/dL (8.5-10.1) Phosphorus Level 4.2mg/dL (2.6-4.7) Magnesium Level 1.9mg/dL (1.8-2.4) Albumin 3.1g/dL (3.4-5.0) Medications Current Medications Calcium Gluconate 1,000 mg 1X ONCE IVP Last administered on 02/21/16 18:08; Start 02/21/16 at 17:45; Stop 02/21/16 at 17:46; Status DC Sodium Bicarbonate 50 meq 1X ONCE IV Last administered on 02/21/16 17:52; Start 02/21/16 at 17:45; Stop 02/21/16 at 17:46; Status DC Dextrose 25 gm 1X ONCE IV Last administered on 02/21/16 18:02; Start 02/21/16 at 17:45; Stop 02/21/16 at 17:46; Status DC Insulin Human Regular (Novolin R Vial) 10 unit 1X ONCE IV Last administered on 02/21/16 18:22; Start 02/21/16 at 17:45; Stop 02/21/16 at 17:46; Status DC Oseltamivir Phosphate (Tamiflu) 75 mg DAILY PO Last administered on 02/26/16 08:39; Start 02/22/16 at 09:00; Stop 02/26/16 at 09:00; Status DC Allopurinol (Zyloprim) 300 mg DAILY PO Last administered on 02/27/16 09:18; Start 02/22/16 at 09:00 Aspirin (Ecotrin) 81 mg DAILY PO Last administered on 02/22/16 09:59; Start 02/22/16 at 09:00; Stop 02/22/16 at 11:35; Status DC Atorvastatin Calcium (Lipitor) 40 mg QHS PO ; Start 02/22/16 at 21:00; Stop at 21:00; Status DC Furosemide (Lasix) 40 mg DAILY PO ; Start 02/22/16 at 09:00; Stop 02/22/16 at 11: 35; Status DC Losartan Potassium (Cozaar) 100 mg DAILY PO Last administered on 02/22/16 10:02 ; Start 02/22/16 at 09:00; Stop 02/22/16 at 18:33; Status DC Sotalol HCl (Betapace) 160 mg BID PO ; Start 02/21/16 at 22:00; Stop 02/22/16 at 11:35; Status DC Insulin Aspart (Novolog) 0-5 UNITS TIDWMEALS SQ ; Start 02/22/16 at 08:00; Stop 02/22/16 at 11:03; Status DC Dextrose 12.5 gm PRN Q15MIN PRN IV SEE COMMENTS; Start 02/21/16 at 21:30 Hydrochlorothiazide (Hydrodiuril) 25 mg DAILY PO ; Start 02/22/16 at 09:00; Stop 02/22/16 at 11:35; Status DC Acetaminophen (Tylenol) 650 mg PRN Q4HRS PRN PO FEVER; Start 02/22/16 at 00:00; Stop 02/22/16 at 23:59; Status DC Insulin Aspart (Novolog) 0-5 UNITS TIDWMEALS SQ ; Start 02/22/16 at 08:00; Status UNV Dextrose 12.5 gm PRN Q15MIN PRN IV SEE COMMENTS; Start 02/22/16 at 00:30; Status UNV Insulin Aspart (Novolog) 0-7 UNITS TIDWMEALS SQ Last administered on 02/26/16 12:00; Start 02/22/16 at 12:00 Dextrose 12.5 gm PRN Q15MIN PRN IV SEE COMMENTS; Start 02/22/16 at 11:00; Status UNV Pantoprazole Sodium 40 mg 40 mg DAILYAC PO Last administered on 02/27/16 09:17 ; Start 02/22/16 at 13:30 Sodium Chloride 1,000 ml @ 80 mls/hr [id number] IV Last administered on 02/23/16 03:39; Start 02/22/16 at 13:30; Stop 02/23/16 at 13:35; Status DC Magnesium Sulfate/ Dextrose (Magnesium Sulfate PREMIX 2GM) 50 ml @ 25 mls/hr PRN DAILY PRN IV for Mag < 1.7 on am labs; Start 02/22/16 at 12:45 Sotalol HCl (Betapace) 40 mg 1X ONCE PO Last administered on 02/22/16 15:13; Start 02/22/16 at 15:00; Stop 02/22/16 at 15:01; Status DC Losartan Potassium (Cozaar) 100 mg DAILY PO Last administered on 02/27/16 09: 18; Start 02/23/16 at 09:00 Fish Oil (Fish Oil) 1,000 mg DAILY PO Last administered on 02/27/16 09:18; Start 02/23/16 at 09:00 Insulin Detemir (Levemir) 25 units QHS SQ Last administered on 02/26/16 21:06 ; Start 02/22/16 at 21:00 Zolpidem Tartrate (Ambien) 5 mg PRN QHS PRN PO INSOMNIA, MAY REPEAT IN 1HR Last administered on 02/23/16 21:30; Start 02/23/16 at 14:00 Promethazine HCl/ Codeine (Phenergan With Codeine) 5 ml PRN Q6HRS PRN PO COUGH Last administered on 02/23/16 22:21; Start 02/23/16 at 14:00 Sotalol HCl (Betapace) 40 mg DAILY PO Last administered on 02/27/16 09:17; Start 02/24/16 at 09:00 Furosemide (Lasix) 40 mg 1X ONCE IVP Last administered on 02/24/16 17:57; Start 02/24/16 at 13:45; Stop 02/24/16 at 13:46; Status DC Warfarin Sodium (Coumadin) 5 mg DAILY16 PO ; Start 02/24/16 at 16:00; Stop at 15:09; Status DC Warfarin Sodium (Coumadin Per Physician) 1 each PRN DAILY PRN MC SEE COMMENTS; Start 02/24/16 at 13:45; Stop 02/25/16 at 15:09; Status DC Warfarin Sodium (Coumadin) 2.5 mg 1X ONCE PO Last administered on 02/24/16 17: 58; Start 02/24/16 at 17:00; Stop 02/24/16 at 17:01; Status DC Acyclovir (Zovirax) 1 denton 5XDAY TP Last administered on 02/27/16 09:20; Start 02/26/16 at 14:00 Enoxaparin Sodium (Lovenox 80mg Syringe) 80 mg Q24H SQ Last administered on 21:00; Start 02/26/16 at 19:00 Magnesium Citrate (Citroma) 296 ml 1X ONCE PO Last administered on 02/27/16 09:16; Start 02/27/16 at 08:45; Stop 02/27/16 at 08:57; Status DC Metoclopramide HCl (Reglan) 10 mg 1X ONCE PO ; Start 02/27/16 at 14:30; Stop at 14:31 Metoclopramide HCl (Reglan) 10 mg 1X ONCE PO ; Start 02/27/16 at 17:00; Stop at 17:01 Polyethylene Glycol (miraLAX Powder BULK BOTTLE) 238 gm 1X ONCE PO ; Start 01/02 at 15:00; Stop 02/27/16 at 15:01 Bisacodyl (Dulcolax Tab) 10 mg PRN DAILY PRN PO CONSTIPATION; Start 02/27/16 at 15:30 Active Scripts Active Reported Tg Watts (Insulin Glargine,Hum.rec.anlog) 300 Unit/1 Ml Insuln.pen 25 Unit SQ QHS Losartan Potassium 100 Mg Tablet 100 Mg PO DAILY Coumadin (Warfarin Sodium) 5 Mg Tablet 1 Tab PO DAILY Novolin R (Insulin Regular, Human) 100 Unit/1 Ml Vial 10 Unit SQ BIDAC Magnesium (Magnesium Oxide) 400 Mg Capsule 1 Cap PO BID Fish Oil 1,000 Mg Softgel ([place]-3 Fatty Acids/Fish Oil) 1 Each Capsule 1 Each PO DAILY Allopurinol 300 Mg Tablet 1 Tab PO DAILY Alendronate Sodium 70 Mg Tablet 1 Tab PO WEEKLY Vitals/I & O Vital Sign - Last 24 Hours 02/26/16 02/26/16 02/26/1617 14:36 19:40 19:48 23:31 Temp 97.4 97.7 97.8 97.4 97.7 97.8 Pulse 68 77 88 Resp 19 16 16 B/P 142/55 142/64 144/74 Pulse Ox 96 98 97 O2 Delivery Nasal Cannula Room Air Nasal Cannula Room Air O2 Flow Rate 3.0 3.0 02/27/16 02/27/16 02/27/16 02/27/16 03:30 07:31 07:37 09:17 Temp 98.0 98.0 98.0 98.0 Pulse 73 63 63 Resp 19 B/P 113/65 134/65 134/65 Pulse Ox 97 95 O2 Delivery Room Air Nasal Cannula Nasal Cannula O2 Flow Rate 3.0 2.0 02/27/16 09:18 Pulse 63 B/P 134/65 Intake and Output 02/26/16 02/26/16 02/27/16 15:00 23:00 07:00 Intake Total 180 ml 120 ml 300 ml Output Total 1400 ml 700 ml Balance -1220 ml 120 ml -400 ml ELIZA COON MD Feb 27, 2016 10:49
[2016-02-27] MEDS ORDERED: METOCLOPRAMIDE 10 MG TABLET PO ONE ×2 (14:30→17:00)
[2016-02-27 14:42] VITALS: BP 144/71
[2016-02-27] MEDS ORDERED: POLYETHYLENE GLYCOL 3350 238 GM POWDER PO ONE (15:00)
[2016-02-27] MEDS ORDERED: BISACODYL 5 MG TABLET.DR. PO PRN (15:30)
[2016-02-27] MEDS ORDERED: BISACODYL 5 MG TABLET.DR. PO ONE (15:30)
[2016-02-27] MEDS ORDERED: IV RINGERS,LACTATED 1000ML 1,000 ML IV SCH (16:52)
[2016-02-27 19:05] VITALS: BP 149/89
[2016-02-27] MEDS: ENOXAPARIN ** NOTE DOSE ** SYRINGE SQ SCH (21:27)
[2016-02-27] MEDS: INSULIN DETEMIR 300 UNITS/3 ML INSULN.PEN. SQ SCH (21:29)
[2016-02-27] MEDS: PROMETH/CODEINE 6.25/10MG 5 ML SYRUP. PO PRN (21:35)
[2016-02-27 23:10] VITALS: BP 155/72
[2016-02-28 05:02] LABS: HEMATOCRIT 26.7 % (36.0-47.0); HEMOGLOBIN 8.6 g/dL (12.0-15.5); RED BLOOD COUNT 2.94 x10^6/uL (3.50-5.40); RED CELL DISTRIBUTION WIDTH 15.6 % (11.5-14.5); WHITE BLOOD COUNT 8.6 x10^3/uL (4.0-11.0)
[2016-02-28 05:11] LABS: INR 1.5 (0.8-1.1); PROTHROMBIN TIME PATIENT 17.3 SEC (11.7-14.0)
[2016-02-28 05:36] LABS: ALBUMIN 2.7 g/dL (3.4-5.0); CALCIUM 9.7 mg/dL (8.5-10.1); GFR 24.5; PHOSPHORUS 4.2 mg/dL (2.6-4.7); POTASSIUM 3.7 mmol/L (3.5-5.1)
[2016-02-28] MEDS: ACYCLOVIR 5% TOPICAL OINT 5GM TUBE. TP SCH ×5 (06:00→21:50)
[2016-02-28] MEDS: ALLOPURINOL 300 MG TABLET. PO SCH (07:45)
[2016-02-28] MEDS: OMEGA-3 FATTY ACIDS/FISH OIL 1,000 MG CAPSULE. PO SCH (07:45)
[2016-02-28] MEDS: PANTOPRAZOLE 40 MG TABLET. PO SCH (07:46)
[2016-02-28] MEDS: LOSARTAN POTASSIUM 50 MG TABLET. PO SCH (07:46)
[2016-02-28] MEDS: INSULIN ASPART 300 UNITS/3 ML INSULN.PEN SQ SCH ×3 (07:46→17:00)
[2016-02-28] MEDS: SOTALOL 80 MG TABLET. PO SCH ×2 (07:46→21:50)
[2016-02-28 07:56] VITALS: BP 140/74
--- NOTE | 2016-02-28 09:26 | PDOC ---
SUBJECTIVE Subjective Patient is a stable she had her prep for colonoscopy and EGD OBJECTIVE Objective Vital signs stable Vital Signs Vital Signs Date Time Temp Pulse Resp B/P Pulse Ox O2 Delivery O2 Flow Rate FiO2 02/28/16 08:00 Nasal Cannula 3.0 02/28/16 07:56 97.6 69 19 140/74 96 Room Air 97.6 02/28/16 07:46 85 155/72 02/28/16 07:46 85 155/72 02/27/16 23:10 97.8 85 18 155/72 97 Room Air 97.8 02/27/16 21:27 91 149/89 02/27/16 21:20 Nasal Cannula 3.0 02/27/16 19:05 97.6 91 18 149/89 96 Room Air 97.6 02/27/16 14:42 97.2 65 20 144/71 Room Air 97.2 02/27/16 10:48 97.6 66 18 148/71 Room Air 97.6 I & O Intake and Output 02/28/16 07:00 Intake Total 2173 ml Output Total 2950 ml Balance -777 ml Intake Oral 2173 ml Output Urine Total 2950 ml # Bowel Movements 1 PHYSICAL EXAM Physical Exam Lungs clear\ Heart regular rate and rhythm Abdomen soft and nontender Extremities no edema ASSESSMENT/PLAN Assessment/Plan 1. Syncopal episode with significant bradycardia which has resolved, sotalol increase to twice a day yesterday 2. Anemia, acute seem to be due to chronic blood loss agree with plan for EGD / colono today 3. History of aortic valve replacement. She is being bridged on Lovenox and will resume warfarin today 4. Cugut-ks-ffjvboi kidney disease. improved 5. Influenza B positive, improved. 6. History of hypertension. 7. Diabetes mellitus type 2. Continue insulin. 8. Previous history of breast cancer. 9. Osteoarthritis. 10. Gastroesophageal reflux disease. 11- acute on chronic CHF on CXR improved Problems: COMMENT Lab Laboratory Tests Test 02/27/16 12:35 02/27/16 17:07 02/27/16 20:38 02/28/16 04:35 Glucose (Fingerstick) 140mg/dL (70-99) 217mg/dL (70-99) 140mg/dL (70-99) White Blood Count 8.6x10^3/uL (4.0-11.0) Red Blood Count 2.94x10^6/uL (3.50-5.40) Hemoglobin 8.6g/dL (12.0-15.5) Hematocrit 26.7% (36.0-47.0) Mean Corpuscular Volume 91fL (79-100) Mean Corpuscular Hemoglobin 29pg (25-35) Mean Corpuscular Hemoglobin Concent 32g/dL (31-37) Red Cell Distribution Width 15.6% (11.5-14.5) Platelet Count 274x10^3/uL (140-400) Prothrombin Time 17.3SEC (11.7-14.0) Prothromb Time International Ratio 1.5 (0.8-1.1) Sodium Level 144mmol/L (136-145) Potassium Level 3.7mmol/L (3.5-5.1) Chloride Level 108mmol/L (98-107) Carbon Dioxide Level 25mmol/L (21-32) Anion Gap 11 (6-14) Blood Urea Nitrogen 44mg/dL (7-20) Creatinine 2.0mg/dL (0.6-1.0) Estimated GFR (Cockcroft-Gault) 24.5 Glucose Level 76mg/dL (70-99) Calcium Level 9.7mg/dL (8.5-10.1) Phosphorus Level 4.2mg/dL (2.6-4.7) Albumin 2.7g/dL (3.4-5.0) Test 02/28/16 07:39 Glucose (Fingerstick) 77mg/dL (70-99) AJ JOHN MD Feb 28, 2016 09:26
--- NOTE | 2016-02-28 11:20 | PDOC ---
Renal-Progress Notes Subjective Notes Notes NONE History of Present Illness Hx of present illness STABLE Vitals Vitals Vital Signs Date Time Temp Pulse Resp B/P Pulse Ox O2 Delivery O2 Flow Rate FiO2 02/28/16 08:00 Nasal Cannula 3.0 02/28/16 07:56 97.6 69 19 140/74 96 97.6 Weight Weight [ ] I.O. Intake and Output Intake and Output 02/28/16 07:00 Intake Total 2173 ml Output Total 2950 ml Balance -777 ml Intake Oral 2173 ml Output Urine Total 2950 ml # Bowel Movements 1 Labs Labs Laboratory Tests Test 02/27/16 12:35 02/27/16 17:07 02/27/16 20:38 02/28/16 04:35 Glucose (Fingerstick) 140mg/dL (70-99) 217mg/dL (70-99) 140mg/dL (70-99) White Blood Count 8.6x10^3/uL (4.0-11.0) Red Blood Count 2.94x10^6/uL (3.50-5.40) Hemoglobin 8.6g/dL (12.0-15.5) Hematocrit 26.7% (36.0-47.0) Mean Corpuscular Volume 91fL (79-100) Mean Corpuscular Hemoglobin 29pg (25-35) Mean Corpuscular Hemoglobin Concent 32g/dL (31-37) Red Cell Distribution Width 15.6% (11.5-14.5) Platelet Count 274x10^3/uL (140-400) Prothrombin Time 17.3SEC (11.7-14.0) Prothromb Time International Ratio 1.5 (0.8-1.1) Sodium Level 144mmol/L (136-145) Potassium Level 3.7mmol/L (3.5-5.1) Chloride Level 108mmol/L (98-107) Carbon Dioxide Level 25mmol/L (21-32) Anion Gap 11 (6-14) Blood Urea Nitrogen 44mg/dL (7-20) Creatinine 2.0mg/dL (0.6-1.0) Estimated GFR (Cockcroft-Gault) 24.5 Glucose Level 76mg/dL (70-99) Calcium Level 9.7mg/dL (8.5-10.1) Phosphorus Level 4.2mg/dL (2.6-4.7) Albumin 2.7g/dL (3.4-5.0) Test 02/28/16 07:39 Glucose (Fingerstick) 77mg/dL (70-99) Review of Systems Constitutional: yes: alert, oriented Pulmonary: Yes no symptom reported Gastrointestional: Yes: constipation Musculoskeletal: Yes: muscle stiffness Skin: Yes no symptom reported Physical Exam General Appearance: no apparent distress Skin: warm Respiratory: bilateral CTA Heart: S1S2, RRR Abdomen: soft, bowel sounds present Genitourinary: bladder flat Extremities: pulses present, atrophy Neurology: alert Assessment Assessment IMP CKD STAGE 4 - STABLE AND CR AT BASELINE-ABOUT 2.0 MILD HYPOKALEMIA-RESOLVED BRADYCARDIA-BETTER ANEMIA PLAN CONT WITH SUPPORTIVE CARE GI ENDOSCOPY TODAY WILL FOLLOW NEEDED UPDATED CHELLE LAW MD Feb 28, 2016 11:20
[2016-02-28 11:52] VITALS: BP 159/61
--- NOTE | 2016-02-28 12:38 | PDOC ---
PROGRESS NOTES Subjective Subjective Pt A&Ox3, cooperative with bedside. States that she feels well. Denies any acute complaints. Denies chest pain. Endorses SOB with activity, but states she feels that it is improving. Objective Objective Vital Signs Date Time Temp Pulse Resp B/P Pulse Ox O2 Delivery O2 Flow Rate FiO2 02/28/16 11:52 97.6 67 20 159/61 100 Nasal Cannula 3.0 97.6 Intake and Output 02/28/16 07:00 Intake Total 2173 ml Output Total 2950 ml Balance -777 ml Intake Oral 2173 ml Output Urine Total 2950 ml # Bowel Movements 1 Physical Exam Abdomen: Normal bowel sounds, Soft, No tenderness, No hepatosplenomegaly, No masses Heart: Regular rate, Normal S1, Normal S2, No murmurs, Gallops General: Alert, Oriented X3, Cooperative, No acute distress Lungs: Clear to auscultation, Normal air movement Neck: Supple, No JVD, No thyromegaly Assessment Assessment Problems Medical Problems: (1) Symptomatic bradycardia Status: Acute (2) Syncope Status: Acute Plan Plan of Care Continue with current treatment plan Comment Review of Relevant I have reviewed the following items corinne (where applicable) has been applied. Labs Laboratory Tests Test 02/26/16 13:03 02/26/16 17:21 02/26/16 20:47 02/27/16 07:33 Glucose (Fingerstick) 161mg/dL (70-99) 104mg/dL (70-99) 172mg/dL (70-99) 74mg/dL (70-99) Test 02/27/16 08:44 02/27/16 12:35 02/27/16 17:07 02/27/16 20:38 Sodium Level 140mmol/L (136-145) Potassium Level 3.8mmol/L (3.5-5.1) Chloride Level 105mmol/L (98-107) Carbon Dioxide Level 24mmol/L (21-32) Anion Gap 11 (6-14) Blood Urea Nitrogen 56mg/dL (7-20) Creatinine 2.4mg/dL (0.6-1.0) Estimated GFR (Cockcroft-Gault) 19.8 Glucose Level 79mg/dL (70-99) Calcium Level 9.9mg/dL (8.5-10.1) Phosphorus Level 4.2mg/dL (2.6-4.7) Magnesium Level 1.9mg/dL (1.8-2.4) Albumin 3.1g/dL (3.4-5.0) Glucose (Fingerstick) 140mg/dL (70-99) 217mg/dL (70-99) 140mg/dL (70-99) Test 02/28/16 04:35 02/28/16 07:39 02/28/16 11:31 White Blood Count 8.6x10^3/uL (4.0-11.0) Red Blood Count 2.94x10^6/uL (3.50-5.40) Hemoglobin 8.6g/dL (12.0-15.5) Hematocrit 26.7% (36.0-47.0) Mean Corpuscular Volume 91fL (79-100) Mean Corpuscular Hemoglobin 29pg (25-35) Mean Corpuscular Hemoglobin Concent 32g/dL (31-37) Red Cell Distribution Width 15.6% (11.5-14.5) Platelet Count 274x10^3/uL (140-400) Prothrombin Time 17.3SEC (11.7-14.0) Prothromb Time International Ratio 1.5 (0.8-1.1) Sodium Level 144mmol/L (136-145) Potassium Level 3.7mmol/L (3.5-5.1) Chloride Level 108mmol/L (98-107) Carbon Dioxide Level 25mmol/L (21-32) Anion Gap 11 (6-14) Blood Urea Nitrogen 44mg/dL (7-20) Creatinine 2.0mg/dL (0.6-1.0) Estimated GFR (Cockcroft-Gault) 24.5 Glucose Level 76mg/dL (70-99) Calcium Level 9.7mg/dL (8.5-10.1) Phosphorus Level 4.2mg/dL (2.6-4.7) Albumin 2.7g/dL (3.4-5.0) Glucose (Fingerstick) 77mg/dL (70-99) 125mg/dL (70-99) Laboratory Tests Test 02/27/16 17:07 02/27/16 20:38 02/28/16 04:35 02/28/16 07:39 Glucose (Fingerstick) 217mg/dL (70-99) 140mg/dL (70-99) 77mg/dL (70-99) White Blood Count 8.6x10^3/uL (4.0-11.0) Red Blood Count 2.94x10^6/uL (3.50-5.40) Hemoglobin 8.6g/dL (12.0-15.5) Hematocrit 26.7% (36.0-47.0) Mean Corpuscular Volume 91fL (79-100) Mean Corpuscular Hemoglobin 29pg (25-35) Mean Corpuscular Hemoglobin Concent 32g/dL (31-37) Red Cell Distribution Width 15.6% (11.5-14.5) Platelet Count 274x10^3/uL (140-400) Prothrombin Time 17.3SEC (11.7-14.0) Prothromb Time International Ratio 1.5 (0.8-1.1) Sodium Level 144mmol/L (136-145) Potassium Level 3.7mmol/L (3.5-5.1) Chloride Level 108mmol/L (98-107) Carbon Dioxide Level 25mmol/L (21-32) Anion Gap 11 (6-14) Blood Urea Nitrogen 44mg/dL (7-20) Creatinine 2.0mg/dL (0.6-1.0) Estimated GFR (Cockcroft-Gault) 24.5 Glucose Level 76mg/dL (70-99) Calcium Level 9.7mg/dL (8.5-10.1) Phosphorus Level 4.2mg/dL (2.6-4.7) Albumin 2.7g/dL (3.4-5.0) Test 02/28/16 11:31 Glucose (Fingerstick) 125mg/dL (70-99) Medications Current Medications Calcium Gluconate 1,000 mg 1X ONCE IVP Last administered on 02/21/16 18:08; Start 02/21/16 at 17:45; Stop 02/21/16 at 17:46; Status DC Sodium Bicarbonate 50 meq 1X ONCE IV Last administered on 02/21/16 17:52; Start 02/21/16 at 17:45; Stop 02/21/16 at 17:46; Status DC Dextrose 25 gm 1X ONCE IV Last administered on 02/21/16 18:02; Start 02/21/16 at 17:45; Stop 02/21/16 at 17:46; Status DC Insulin Human Regular (Novolin R Vial) 10 unit 1X ONCE IV Last administered on 02/21/16 18:22; Start 02/21/16 at 17:45; Stop 02/21/16 at 17:46; Status DC Oseltamivir Phosphate (Tamiflu) 75 mg DAILY PO Last administered on 02/26/16 08:39; Start 02/22/16 at 09:00; Stop 02/26/16 at 09:00; Status DC Allopurinol (Zyloprim) 300 mg DAILY PO Last administered on 02/28/16 07:45; Start 02/22/16 at 09:00 Aspirin (Ecotrin) 81 mg DAILY PO Last administered on 02/22/16 09:59; Start 02/22/16 at 09:00; Stop 02/22/16 at 11:35; Status DC Atorvastatin Calcium (Lipitor) 40 mg QHS PO ; Start 02/22/16 at 21:00; Stop at 21:00; Status DC Furosemide (Lasix) 40 mg DAILY PO ; Start 02/22/16 at 09:00; Stop 02/22/16 at 11: 35; Status DC Losartan Potassium (Cozaar) 100 mg DAILY PO Last administered on 02/22/16 10:02 ; Start 02/22/16 at 09:00; Stop 02/22/16 at 18:33; Status DC Sotalol HCl (Betapace) 160 mg BID PO ; Start 02/21/16 at 22:00; Stop 02/22/16 at 11:35; Status DC Insulin Aspart (Novolog) 0-5 UNITS TIDWMEALS SQ ; Start 02/22/16 at 08:00; Stop 02/22/16 at 11:03; Status DC Dextrose 12.5 gm PRN Q15MIN PRN IV SEE COMMENTS; Start 02/21/16 at 21:30 Hydrochlorothiazide (Hydrodiuril) 25 mg DAILY PO ; Start 02/22/16 at 09:00; Stop 02/22/16 at 11:35; Status DC Acetaminophen (Tylenol) 650 mg PRN Q4HRS PRN PO FEVER; Start 02/22/16 at 00:00; Stop 02/22/16 at 23:59; Status DC Insulin Aspart (Novolog) 0-5 UNITS TIDWMEALS SQ ; Start 02/22/16 at 08:00; Status UNV Dextrose 12.5 gm PRN Q15MIN PRN IV SEE COMMENTS; Start 02/22/16 at 00:30; Status UNV Insulin Aspart (Novolog) 0-7 UNITS TIDWMEALS SQ Last administered on 02/27/16 17:35; Start 02/22/16 at 12:00 Dextrose 12.5 gm PRN Q15MIN PRN IV SEE COMMENTS; Start 02/22/16 at 11:00; Status UNV Pantoprazole Sodium 40 mg 40 mg DAILYAC PO Last administered on 02/28/16 07:46 ; Start 02/22/16 at 13:30 Sodium Chloride 1,000 ml @ 80 mls/hr [id number] IV Last administered on 02/23/16 03:39; Start 02/22/16 at 13:30; Stop 02/23/16 at 13:35; Status DC Magnesium Sulfate/ Dextrose (Magnesium Sulfate PREMIX 2GM) 50 ml @ 25 mls/hr PRN DAILY PRN IV for Mag < 1.7 on am labs; Start 02/22/16 at 12:45 Sotalol HCl (Betapace) 40 mg 1X ONCE PO Last administered on 02/22/16 15:13; Start 02/22/16 at 15:00; Stop 02/22/16 at 15:01; Status DC Losartan Potassium (Cozaar) 100 mg DAILY PO Last administered on 02/28/16 07: 46; Start 02/23/16 at 09:00 Fish Oil (Fish Oil) 1,000 mg DAILY PO Last administered on 02/28/16 07:45; Start 02/23/16 at 09:00 Insulin Detemir (Levemir) 25 units QHS SQ Last administered on 02/27/16 21:29 ; Start 02/22/16 at 21:00 Zolpidem Tartrate (Ambien) 5 mg PRN QHS PRN PO INSOMNIA, MAY REPEAT IN 1HR Last administered on 02/23/16 21:30; Start 02/23/16 at 14:00 Promethazine HCl/ Codeine (Phenergan With Codeine) 5 ml PRN Q6HRS PRN PO COUGH Last administered on 02/27/16 21:35; Start 02/23/16 at 14:00 Sotalol HCl (Betapace) 40 mg DAILY PO Last administered on 02/27/16 09:17; Start 02/24/16 at 09:00; Stop 02/27/16 at 11:57; Status DC Furosemide (Lasix) 40 mg 1X ONCE IVP Last administered on 02/24/16 17:57; Start 02/24/16 at 13:45; Stop 02/24/16 at 13:46; Status DC Warfarin Sodium (Coumadin) 5 mg DAILY16 PO ; Start 02/24/16 at 16:00; Stop at 15:09; Status DC Warfarin Sodium (Coumadin Per Physician) 1 each PRN DAILY PRN MC SEE COMMENTS; Start 02/24/16 at 13:45; Stop 02/25/16 at 15:09; Status DC Warfarin Sodium (Coumadin) 2.5 mg 1X ONCE PO Last administered on 02/24/16 17: 58; Start 02/24/16 at 17:00; Stop 02/24/16 at 17:01; Status DC Acyclovir (Zovirax) 1 [place]on 5XDAY TP Last administered on 02/28/16 07:47; Start 02/26/16 at 14:00 Enoxaparin Sodium (Lovenox 80mg Syringe) 80 mg Q24H SQ Last administered on 21:27; Start 02/26/16 at 19:00 Magnesium Citrate (Citroma) 296 ml 1X ONCE PO Last administered on 02/27/16 09:16; Start 02/27/16 at 08:45; Stop 02/27/16 at 08:57; Status DC Metoclopramide HCl (Reglan) 10 mg 1X ONCE PO Last administered on 02/27/16 15 :00; Start 02/27/16 at 14:30; Stop 02/27/16 at 14:31; Status DC Metoclopramide HCl (Reglan) 10 mg 1X ONCE PO Last administered on 02/27/16 17 :31; Start 02/27/16 at 17:00; Stop 02/27/16 at 17:01; Status DC Polyethylene Glycol (miraLAX Powder BULK BOTTLE) 238 gm 1X ONCE PO Last administered on 02/27/16t 15:01; Start 02/27/16 at 15:00; Stop 02/27/16 at 15:01 ; Status DC Bisacodyl (Dulcolax Tab) 10 mg PRN DAILY PRN PO CONSTIPATION; Start 02/27/16 at 15:30; Stop 02/27/16 at 15:30; Status DC Sotalol HCl (Betapace) 40 mg BID PO Last administered on 02/28/16t 07:46; Start 02/27/16 at 21:00 Bisacodyl 10 mg 10 mg 1X ONCE PO Last administered on 02/27/16t 15:41; Start 02/27/16 at 15:30; Stop 02/27/16 at 15:31; Status DC Lactated Ringer's (Iv Lactated Ringers) 1,000 ml @ 50 mls/hr Q20H IV ; Start at 16:52; Stop 02/28/16 at 04:51; Status DC Active Scripts Active Reported Tg Hortaostar (Insulin Glargine,Hum.rec.anlog) 300 Unit/1 Ml Insuln.pen 25 Unit SQ QHS Losartan Potassium 100 Mg Tablet 100 Mg PO DAILY Coumadin (Warfarin Sodium) 5 Mg Tablet 1 Tab PO DAILY Novolin R (Insulin Regular, Human) 100 Unit/1 Ml Vial 10 Unit SQ BIDAC Magnesium (Magnesium Oxide) 400 Mg Capsule 1 Cap PO BID Fish Oil 1,000 Mg Softgel ([place]-3 Fatty Acids/Fish Oil) 1 Each Capsule 1 Each PO DAILY Allopurinol 300 Mg Tablet 1 Tab PO DAILY Alendronate Sodium 70 Mg Tablet 1 Tab PO WEEKLY Vitals/I & O Vital Sign - Last 24 Hours 02/27/16 02/27/16 02/27/16 02/27/16 14:42 19:05 21:20 21:27 Temp 97.2 97.6 97.2 97.6 Pulse 65 91 91 Resp 20 18 B/P 144/71 149/89 149/89 Pulse Ox 96 O2 Delivery Room Air Room Air Nasal Cannula O2 Flow Rate 3.0 02/27/16 02/28/16 02/28/16 02/28/16 23:10 07:46 07:46 07:56 Temp 97.8 97.6 97.8 97.6 Pulse 85 85 85 69 Resp 18 19 B/P 155/72 155/72 155/72 140/74 Pulse Ox 97 96 O2 Delivery Room Air Room Air 02/28/16 02/28/16 08:00 11:52 Temp 97.6 97.6 Pulse 67 Resp 20 B/P 159/61 Pulse Ox 100 O2 Delivery Nasal Cannula Nasal Cannula O2 Flow Rate 3.0 3.0 Intake and Output 02/27/16 02/27/16 02/28/16 15:00 23:00 07:00 Intake Total 300 ml 1773 ml 100 ml Output Total 1300 ml 550 ml 1100 ml Balance -1000 ml 1223 ml -1000 ml ELIZA COON MD Feb 28, 2016 12:38
[2016-02-28] MEDS ORDERED: LIDOCAINE 2% PF Vial for OR 5 ML VIAL. ONE (14:44)
[2016-02-28] MEDS ORDERED: PROPOFOL 40 ML IV ONE (14:44)
--- NOTE | 2016-02-28 15:37 | PDOC4 ---
PROCEDURE Procedure Colonoscopy/EGD Indication: MARILYN Meds: per anesthesia Findings: E-Less than grade I at 40cm. G-Normal. Did not biopsy as known H.pylori positive. D-Normal to 3rd portion; biopsies x 2 from second portion. Tae. well. GERMAIN: normal Colonoscope advanced to ileocolonic anastomosis; cecum not present. TI entered and normal. Remainder of exam normal including retroflex. Tae. well. IMP: Mild reflux esophagitis, asymptomatic. S/p cecal/rigjht colon resection with ileocolonic anastomosis. REC: Await biopsies. po iron, chronically, at least bid-tid. OK to re-start anti-coags. Home at your discretion. thanks. BRODY BURNETT MD Feb 28, 2016 15:37
[2016-02-28] MEDS ORDERED: WARFARIN 10 MG TABLET. PO ONE (17:00)
[2016-02-28 20:12] VITALS: BP 166/90
[2016-02-28] MEDS: ENOXAPARIN ** NOTE DOSE ** SYRINGE SQ SCH (21:49)
[2016-02-28] MEDS: INSULIN DETEMIR 300 UNITS/3 ML INSULN.PEN. SQ SCH (21:55)
[2016-02-28 23:51] VITALS: BP 135/63
[2016-02-29 05:34] LABS: ALBUMIN 3.1 g/dL (3.4-5.0); CALCIUM 9.7 mg/dL (8.5-10.1); CREATININE 1.9 mg/dL (0.6-1.0); PHOSPHORUS 3.4 mg/dL (2.6-4.7); POTASSIUM 3.8 mmol/L (3.5-5.1)
[2016-02-29 05:52] LABS: INR 1.5 (0.8-1.1); PROTHROMBIN TIME PATIENT 17.6 SEC (11.7-14.0)
[2016-02-29] MEDS: ACYCLOVIR 5% TOPICAL OINT 5GM TUBE. TP SCH ×2 (06:08→08:25)
[2016-02-29 07:46] VITALS: BP 159/78
[2016-02-29] MEDS: INSULIN ASPART 300 UNITS/3 ML INSULN.PEN SQ SCH (08:00)
[2016-02-29] MEDS: OMEGA-3 FATTY ACIDS/FISH OIL 1,000 MG CAPSULE. PO SCH (08:20)
[2016-02-29] MEDS: ALLOPURINOL 300 MG TABLET. PO SCH (08:21)
[2016-02-29] MEDS: SOTALOL 80 MG TABLET. PO SCH (08:21)
[2016-02-29 08:22] VITALS: BP 159/78
[2016-02-29] MEDS: PANTOPRAZOLE 40 MG TABLET. PO SCH (08:22)
[2016-02-29] MEDS: LOSARTAN POTASSIUM 50 MG TABLET. PO SCH (08:22)
[2016-02-29] MEDS: ENOXAPARIN ** NOTE DOSE ** SYRINGE SQ SCH (08:23)
--- NOTE | 2016-02-29 08:44 | PDOC ---
Subjective: Subjective: Per pt - ready to DC. has questions about iron. Objective: Vital Signs: Vital Signs Date Time Temp Pulse Resp B/P Pulse Ox O2 Delivery O2 Flow Rate FiO2 02/29/16 08:22 77 159/78 02/29/16 07:46 97.7 18 98 Room Air 97.7 02/29/16 07:30 2.0 Labs: Laboratory Tests Test 02/28/16 11:31 02/28/16 17:07 02/28/16 20:10 02/29/16 04:00 Glucose (Fingerstick) 125mg/dL 121mg/dL 217mg/dL Prothrombin Time 17.6SEC Prothromb Time International Ratio 1.5 Test 02/29/16 04:20 02/29/16 07:50 Sodium Level 144mmol/L Potassium Level 3.8mmol/L Chloride Level 107mmol/L Carbon Dioxide Level 23mmol/L Anion Gap 14 Blood Urea Nitrogen 35mg/dL Creatinine 1.9mg/dL Estimated GFR (Cockcroft-Gault) 26.0 Glucose Level 91mg/dL Calcium Level 9.7mg/dL Phosphorus Level 3.4mg/dL Albumin 3.1g/dL Glucose (Fingerstick) 88mg/dL Imaging: EGD/colonoscopy 02/28/16: E-Less than grade I at 40cm. G-Normal. Did not biopsy as known H.pylori positive. D-Normal to 3rd portion; biopsies x 2 from second portion. Colon: ileocolonic anastomosis; cecum not present, TI normal, remainder of exam normal. PE: GEN: NAD, up to chair LUNGS: CTAB HEART: RRR ABD: S/ND/NT NEURO/PSYCH: A & O 3 OTHER: , RN present A/P: MARILYN -no obvious bleeding, Hgb stable, EGD and colonoscopy yesterday as above -h/o AVR, back on Warfarin after scopes -- DC seems likely today - okay w/ GI. Discussed iron BID-TID, also stool softeners/Miralax if needed. Follow-up re: path. AMINATA HORTON Feb 29, 2016 08:44
[2016-02-29] MEDS ORDERED: FERROUS SULFATE ORAL 300 MG/5 ML SOLUTION. PO SCH (09:00)
--- NOTE | 2016-02-29 10:09 | PDOC ---
SUBJECTIVE Subjective She is stable and feeling very good has not had any further bradycardia and no syncope no dizziness OBJECTIVE Objective Vital signs stable blood pressure slightly elevated due to not taking losartan this will be restarted on her discharge Vital Signs Vital Signs Date Time Temp Pulse Resp B/P Pulse Ox O2 Delivery O2 Flow Rate FiO2 02/29/16 08:22 77 159/78 02/29/16 08:21 77 159/78 02/29/16 07:46 97.7 77 18 159/78 98 Room Air 97.7 02/29/16 07:30 Room Air 2.0 02/29/16 03:41 Room Air 02/28/16 23:51 97.7 78 16 135/63 92 Room Air 97.7 02/28/16 21:50 92 166/90 02/28/16 20:12 97.5 92 18 166/90 95 Room Air 97.5 02/28/16 19:59 Room Air 02/28/16 19:00 Room Air 02/28/16 15:40 74 20 163/70 98 2 02/28/16 15:25 98.4 75 20 154/77 95 Nasal Cannula 2 98.4 02/28/16 14:16 99.1 94 20 95 99.1 02/28/16 11:52 97.6 67 20 159/61 100 Nasal Cannula 3.0 97.6 I & O Intake and Output 02/29/16 07:00 Intake Total 990 ml Output Total 800 ml Balance 190 ml Intake Oral 590 ml IV Total 400 ml Output Urine Total 800 ml # Voids 3 PHYSICAL EXAM Physical Exam Physical exam has not changed ASSESSMENT/PLAN Assessment/Plan 1. Syncopal episode with significant bradycardia which has resolved, sotalol increase to twice a day yesterday 2. Anemia, acute seem to be due to chronic blood loss agree with plan for EGD / colono yesterday results noted 3. History of aortic valve replacement. She is being bridged on Lovenox and will resume warfarin today 4. Fmcyx-sz-oodxjxs kidney disease. improved 5. Influenza B positive, improved. 6. History of hypertension. 7. Diabetes mellitus type 2. Continue insulin. 8. Previous history of breast cancer. 9. Osteoarthritis. 10. Gastroesophageal reflux disease. 11- acute on chronic CHF on CXR improved Discharge home today and she is back on the Lovenox and Coumadin but her INR is subtherapeutic we will arrange for Lovenox at home for bridging until her INR becomes therapeutic she will continue Coumadin 5 mg daily, also due to her blood pressure being high losartan was resumed, he had rewritten all her prescriptions since she has changed her insurance and might need a new prescription, she is to take iron supplement Problems: COMMENT Lab Laboratory Tests Test 02/28/16 11:31 02/28/16 17:07 02/28/16 20:10 02/29/16 04:00 Glucose (Fingerstick) 125mg/dL (70-99) 121mg/dL (70-99) 217mg/dL (70-99) Prothrombin Time 17.6SEC (11.7-14.0) Prothromb Time International Ratio 1.5 (0.8-1.1) Test 02/29/16 04:20 02/29/16 07:50 Sodium Level 144mmol/L (136-145) Potassium Level 3.8mmol/L (3.5-5.1) Chloride Level 107mmol/L (98-107) Carbon Dioxide Level 23mmol/L (21-32) Anion Gap 14 (6-14) Blood Urea Nitrogen 35mg/dL (7-20) Creatinine 1.9mg/dL (0.6-1.0) Estimated GFR (Cockcroft-Gault) 26.0 Glucose Level 91mg/dL (70-99) Calcium Level 9.7mg/dL (8.5-10.1) Phosphorus Level 3.4mg/dL (2.6-4.7) Albumin 3.1g/dL (3.4-5.0) Glucose (Fingerstick) 88mg/dL (70-99) AJ JOHN MD Feb 29, 2016 10:09
--- NOTE | 2016-02-29 10:09 | PDOC3 ---
Discharge Summary* Date of Admission: Feb 21, 2016 Date of Discharge: Feb 29, 2016 Admitting Diagnosis Problems Medical Problems: (1) Symptomatic bradycardia Status: Acute (2) Syncope Status: Acute Final Diagnosis 1. Syncopal episode with significant bradycardia which has resolved, sotalol increase to twice a day yesterday 2. Anemia, acute seem to be due to chronic blood loss EGD/Colono done yesterday 3. History of aortic valve replacement. She is being bridged on Lovenox and will resume warfarin today 4. Gzuzj-rh-iajednv kidney disease. improved 5. Influenza B positive, improved. 6. History of hypertension. 7. Diabetes mellitus type 2. Continue insulin. 8. Previous history of breast cancer. 9. Osteoarthritis. 10. Gastroesophageal reflux disease. 11- acute on chronic CHF on CXR improved Problems Medical Problems: (1) Symptomatic bradycardia Status: Acute (2) Syncope Status: Acute CONSULTS GI Dr. Corey Chicas Dtr. Rodriguos Procedures CT head CXR EGD Colonoscopy Blood transfusion Brief Hospital Course Ms. Burgos is a 70 old [sex] who presented with syncopal episode upon her arrival to the emergency room she was very bradycardic she also was in the mild congestive heart failure with severe which had gotten worse later on during hospital stay and required IV Lasix dose, she was also found to have influenza B and was started on treatment her hemoglobin dropped significantly after her admission and GI were consulted she is on Coumadin chronically due to prostatic valve and she is due for EGD and colonoscopy anyway after she was transfused it was felt prudent to rule out active bleeding since she is on anticoagulation chronically she also needs to be bridged for her colonoscopy and EGD due to the risk of clotting and arrangements were done for that and she had an EGD and colonoscopy in the hospital she was started on iron and is doing better she will be discharged home on Lovenox and Coumadin until her INR is therapeutic Lovenox will be stopped and she was discharged in improved condition Disposition/Orders: D/C to Home w/ HH CONDITION AT DISCHARGE: Improved Diet: Cardiac, Consistent Carbohydrate Scheduled Alendronate Sodium (Alendronate Sodium) 1 TAB PO WEEKLY Allopurinol (Allopurinol) 1 TAB PO DAILY Enoxaparin Sodium (Enoxaparin Sodium) 80 MG SQ Q24H Ferrous Sulfate (Ferrous Sulfate) 300 MG PO BIDWMEALS Insulin Glargine,Hum.rec.anlog (Tg [place]) 25 UNIT SQ QHS Insulin Regular, Human (Novolin R) 10 UNIT SQ BIDAC Losartan Potassium (Losartan Potassium) 100 MG PO DAILY Magnesium Oxide (Magnesium) 1 CAP PO BID [place]-3 Fatty Acids/Fish Oil (Fish Oil 1,000 Mg Softgel) 1 EACH PO DAILY Sotalol Hcl (Sotalol) 40 MG PO BID Warfarin Sodium (Coumadin) 1 TAB PO DAILY Discontinued Medications Aspirin (Aspir 81) 1 TAB PO DAILY (Reported) Atorvastatin Calcium (Atorvastatin Calcium) 1 TAB PO QHS (Reported) Digoxin (Digoxin) 1 TAB PO DAILY (Reported) Furosemide (Lasix) 1 TAB PO DAILY (Reported) Losartan/Hydrochlorothiazide (Losartan-Hctz 100-25 Mg Tab) 1 TAB PO DAILY ( Reported) Sotalol Hcl (Sotalol) 160 MG PO BID (Reported) FOLLOW UP APPOINTMENT: office 1 week Time Spent Total time spent with patient [] minutes for coordination of care, counseling, and education. AJ JOHN MD Feb 29, 2016 10:09
[2016-02-29] MEDS ORDERED: OMEG1CAP16 PO (10:17)
[2016-02-29] MEDS ORDERED: ALEN70TA5 PO (10:17)
[2016-02-29] MEDS ORDERED: INSU300I SQ (10:17)
[2016-02-29] MEDS ORDERED: SOTA80TA PO (10:17)
[2016-02-29] MEDS ORDERED: MAGN400C PO (10:17)
[2016-02-29] MEDS ORDERED: WARF5TAB PO (10:17)
[2016-02-29] MEDS ORDERED: ALLO300T PO (10:17)
[2016-02-29] MEDS ORDERED: INSU100V10 SQ (10:17)
[2016-02-29] MEDS ORDERED: FERR300L PO (10:17)
[2016-02-29] MEDS ORDERED: ENOX80DI3 SQ (10:17)
[2016-02-29] MEDS ORDERED: LOSA100T6 PO (10:17)
--- NOTE | 2016-02-29 10:52 | PDOC ---
Renal-Progress Notes Subjective Notes Notes FEELS WELL History of Present Illness Hx of present illness BETTER Vitals Vitals Vital Signs Date Time Temp Pulse Resp B/P Pulse Ox O2 Delivery O2 Flow Rate FiO2 02/29/16 08:22 77 159/78 02/29/16 07:46 97.7 18 98 Room Air 97.7 02/29/16 07:30 2.0 Weight Weight [ ] I.O. Intake and Output Intake and Output 02/29/16 07:00 Intake Total 990 ml Output Total 800 ml Balance 190 ml Intake Oral 590 ml IV Total 400 ml Output Urine Total 800 ml # Voids 3 Labs Labs Laboratory Tests Test 02/28/16 11:31 02/28/16 17:07 02/28/16 20:10 02/29/16 04:00 Glucose (Fingerstick) 125mg/dL (70-99) 121mg/dL (70-99) 217mg/dL (70-99) Prothrombin Time 17.6SEC (11.7-14.0) Prothromb Time International Ratio 1.5 (0.8-1.1) Test 02/29/16 04:20 02/29/16 07:50 Sodium Level 144mmol/L (136-145) Potassium Level 3.8mmol/L (3.5-5.1) Chloride Level 107mmol/L (98-107) Carbon Dioxide Level 23mmol/L (21-32) Anion Gap 14 (6-14) Blood Urea Nitrogen 35mg/dL (7-20) Creatinine 1.9mg/dL (0.6-1.0) Estimated GFR (Cockcroft-Gault) 26.0 Glucose Level 91mg/dL (70-99) Calcium Level 9.7mg/dL (8.5-10.1) Phosphorus Level 3.4mg/dL (2.6-4.7) Albumin 3.1g/dL (3.4-5.0) Glucose (Fingerstick) 88mg/dL (70-99) Review of Systems Constitutional: yes: alert, oriented Pulmonary: Yes no symptom reported Gastrointestional: Yes: constipation Musculoskeletal: Yes: muscle stiffness Skin: Yes no symptom reported Physical Exam General Appearance: no apparent distress Skin: warm Respiratory: bilateral CTA Heart: S1S2, RRR Abdomen: soft, bowel sounds present Genitourinary: bladder flat Extremities: pulses present, atrophy Neurology: alert Assessment Assessment IMP CKD STAGE 4 - STABLE AND CR AT BASELINE-1.9 TODAY MILD HYPOKALEMIA-RESOLVED BRADYCARDIA-RESOLVED ANEMIA PLAN CONT WITH SUPPORTIVE CARE WILL FOLLOW IN OFFICE UPDATED CHELLE ISSA MD Feb 29, 2016 10:52
--- NOTE | 2016-03-03 15:53 | PATHOLOGY ---
PATHOLOGY REPORT * * * * * * * * FINAL DIAGNOSIS: Duodenal biopsy: - No significant pathologic abnormalities. COMMENT: Sections of the duodenal biopsy reveal segments of focally tangentially oriented duodenal and small intestine mucosa. Where best oriented, the mucosal villi appear normal. There are no sprue-like changes or significant inflammatory changes. (JPM:; d/t: 03/03/16) REPORT ELECTRONICALLY SIGNED BY: Abhi Christianson M.D. DATE/TIME: 03/03/2016 15:31 * * * * * * * * GROSS PATHOLOGY: Received in formalin labeled "Martha Patterson and duodenal bx," are 2 segments of coleman soft tissue measuring 0.8 x 0.2 x 0.2 cm in aggregate dimensions and measuring 0.3 and 0.5 cm in maximum dimension. The specimen is submitted entirely in cassette A1. (TTL; 02/29/2016) INITIAL CPT CODE(S): A; 53437 Professional services performed by [facility] [place] [address] Technical services performed by [facility] at [address] [place] [address]. SPECIMEN(S) RECEIVED: A.Duodenal biopsy CLINICAL HISTORY: Syncope, bradycardia PATIENT: MARTHA PATTERSON /AGE: 2 1945 (Age: 70) PATIENT #: [id number] ALT CASE #: SPECIMEN COLLECTION DATE: 02/28/2016 SPECIMEN RECEIVED DATE: 02/29/2016 [facility] - [address] [place] [address] - PHONE: [phone] * * * END OF REPORT * * *
== END 2016-02-29 12:00 | disposition home or self-care (01) | DRG 682 ==
LOC: ER 16:53 → 1 WEST ICU 17:12 → 2 NORTH 02-23 20:36
PROVIDERS: ADMIT Internal Medicine; ATTEND Internal Medicine
PROC: 30233N1 Transfusion of Nonautologous Red Blood Cells into Peripheral Vein, Percutaneous Approach (ICD-10-PCS; principal; 2016-02-22)
PROC: 0DB98ZX Excision of Duodenum, Via Natural or Artificial Opening Endoscopic, Diagnostic (ICD-10-PCS; 2016-02-28 15:00)
DX: N17.9 Acute kidney failure, unspecified (principal); I50.43 Acute on chronic combined systolic (congestive) and diastolic (congestive) heart failure; J96.00 Acute respiratory failure, unspecified whether with hypoxia or hypercapnia; I13.0 Hypertensive heart and chronic kidney disease with heart failure and stage 1 through stage 4 chronic kidney disease, or unspecified chronic kidney disease; D50.0 Iron deficiency anemia secondary to blood loss (chronic); E11.22 Type 2 diabetes mellitus with diabetic chronic kidney disease; E87.6 Hypokalemia; G40.909 Epilepsy, unspecified, not intractable, without status epilepticus; I25.10 Atherosclerotic heart disease of native coronary artery without angina pectoris; I48.91 Unspecified atrial fibrillation; J10.1 Influenza due to other identified influenza virus with other respiratory manifestations; J31.0 Chronic rhinitis; K21.0 Gastro-esophageal reflux disease with esophagitis; M10.9 Gout, unspecified; M19.90 Unspecified osteoarthritis, unspecified site; M81.0 Age-related osteoporosis without current pathological fracture; N18.4 Chronic kidney disease, stage 4 (severe); R32 Unspecified urinary incontinence; Z79.01 Long term (current) use of anticoagulants; Z82.49 Family history of ischemic heart disease and other diseases of the circulatory system; Z85.3 Personal history of malignant neoplasm of breast; Z86.73 Personal history of transient ischemic attack (TIA), and cerebral infarction without residual deficits; Z90.11 Acquired absence of right breast and nipple; Z90.49 Acquired absence of other specified parts of digestive tract; Z92.21 Personal history of antineoplastic chemotherapy; Z95.2 Presence of prosthetic heart valve; R00.1 Bradycardia, unspecified
CPT/HCPCS: 36415; 70450; 71010; 71020; 80047; 80048; 80053; 80069; 80162; 82607; 82728; 82746; 82947; 83540; 83550; 83690; 83735; 83880; 84100; 84443; 84484; 85027; 85045; 85610; 85730; 86850; 86900; 86901; 86920; 87641; 87804; 88305; 93005; 93306; 96374; 96375; J0610; J1650; J1815; J1940; J2704; J7042; J8597; P9016; 99285-25

== ENCOUNTER 2016-12-04 18:47 | Emergency (ER) | payer BC ==
[~2016-12-04] VITALS: Ht 175.3 cm; Wt 70.3 kg
[~2016-12-04 18:47] MED LIST: ALEN70TA5 PO; ALLO300T PO; ASPI-482 PO; ATOR40TA59 PO; DIGO125T PO; ENOX80DI3 SQ; FERR300L PO; FURO-68 PO; INSU100V11 SQ; INSU300I SQ; LOSA100T6 PO; LOSA1TAB22 PO; MAGN400C PO; OMEG1CAP27 PO; SOTA160T PO; SOTA80TA48 PO; WARF-78 PO
--- NOTE | 2016-12-04 19:55 | PHYS DOC ---
Past Medical History Past Medical History: CAD, CVA, Diabetes-Type II, Renal Disease, Other Additional Past Medical Histor: ULCER COLITIS, AORTIC VALVE PROLAPSE, insomnia Past Surgical History: Cholecystectomy, Tonsillectomy, Other Additional Past Surgical Histo: RIGHT BREAST MASTECTOMY,COLON RESECTION,AORTIC VALVE REPLACEMENT Alcohol Use: Occasionally Drug Use: None Adult General Chief Complaint Chief Complaint: URINARY RETENTION HPI HPI SHe is a pleasant 71-year-old female with history of chronic atrophy ablation on multiple medications, hyperlipidemia, hypertension, insulin-dependent diabetes, gout who presents with acute urinary retention that began 4 days ago. Patient's last true urinary output was 4 days ago. She admits she's had a slight dribbling intermittently ever since. She was seen last week and had an addition of trazodone, promethazine, and cetirizine for problems sleeping and intermittent nausea. Since that time she's had decreased urinary output. Patient denies any abdominal pain, nausea, vomiting, diarrhea, swelling her lower legs, fevers chills or other symptoms. Review of Systems Review of Systems Constitutional: Denies fever or chills [] Eyes: Denies change in visual acuity, redness, or eye pain [] HENT: Denies nasal congestion or sore throat [] Respiratory: Denies cough or shortness of breath [] Cardiovascular: No additional information not addressed in HPI [] GI: Denies abdominal pain, nausea, vomiting, bloody stools or diarrhea [] : Denies dysuria or hematuria only complaint is decreased urinary output. Musculoskeletal: Denies back pain or joint pain [] Integument: Denies rash or skin lesions [] Neurologic: Denies headache, focal weakness or sensory changes [] Endocrine: Denies polyuria or polydipsia [] Allergies Allergies Allergies Coded Allergies Type Severity Reaction Last Updated Verified No Known Drug Allergies 02/28/16 No Physical Exam Physical Exam Constitutional: Well developed, well nourished, no acute distress, non-toxic appearance. [] HENT: Normocephalic, atraumatic, bilateral external ears normal, oropharynx moist, no oral exudates, nose normal. [] Eyes: PERRLA, EOMI, conjunctiva normal, no discharge. [] Neck: Normal range of motion, no tenderness, supple, no stridor. [] Cardiovascular: Irregular irregular rhythm no gallops or rubs there is a murmur 2/6 systolic ejection murmur Lungs & Thorax: Bilateral breath sounds clear to auscultation [] Abdomen: Bowel sounds normal, soft, no tenderness, no masses, no pulsatile masses. [] Skin: Warm, dry, no erythema, no rash. [] Back:no CVA tenderness. [] Extremities: No tenderness, no cyanosis, no clubbing, ROM intact, no edema. [] Neurologic: Alert and oriented X 3, normal motor function, normal sensory function, no focal deficits noted. [] Psychologic: Affect normal, judgement normal, mood normal. [] Current Patient Data Vital Signs Vital Signs Date Time Temp Pulse Resp B/P (MAP) Pulse Ox O2 Delivery O2 Flow Rate FiO2 12/04/16 19:30 97.5 81 20 161/69 (99) 97 Room Air 97.5 Lab Values Laboratory Tests Test 12/04/16 20:15 Urine Collection Type Unknown Urine Color Yellow Urine Clarity Clear Urine pH 5.5 Urine Specific [place] <=1.005 Urine Protein 100 mg/dL (NEG-TRACE) Urine Glucose (UA) Negative mg/dL (NEG) Urine Ketones (Stick) Negative mg/dL (NEG) Urine Blood Small (NEG) Urine Nitrite Negative (NEG) Urine Bilirubin Negative (NEG) Urine Urobilinogen Dipstick 0.2 mg/dL (0.2 mg/dL) Urine Leukocyte Esterase Negative (NEG) Urine RBC Occ /HPF (0-2) Urine WBC 0 /HPF (0-4) Urine Bacteria 0 /HPF (0-FEW) Urine Hyaline Casts Occasional /HPF Urine Mucus Mod /LPF Sodium Level 122 mmol/L (136-145) L Potassium Level 3.3 mmol/L (3.5-5.1) L Chloride Level 85 mmol/L (98-107) L Carbon Dioxide Level 28 mmol/L (21-32) Anion Gap 9 (6-14) Blood Urea Nitrogen 57 mg/dL (7-20) H Creatinine 2.8 mg/dL (0.6-1.0) H Estimated GFR (Cockcroft-Gault) 16.6 BUN/Creatinine Ratio 20 (6-20) Glucose Level 111 mg/dL (70-99) H Calcium Level 9.5 mg/dL (8.5-10.1) Total Bilirubin 0.4 mg/dL (0.2-1.0) Aspartate Amino Transferase (AST) 27 U/L (15-37) Alanine Aminotransferase (ALT) 19 U/L (14-59) Alkaline Phosphatase 58 U/L (46-116) Total Protein 7.6 g/dL (6.4-8.2) Albumin 3.7 g/dL (3.4-5.0) Albumin/Globulin Ratio 0.9 (1.0-1.7) L Laboratory Tests 12/04/16 20:15 EKG EKG [] Radiology/Procedures Radiology/Procedures [] Course & Med Decision Making Course & Med Decision Making Pertinent Labs and Imaging studies reviewed. (See chart for details) Patient arrives in our emergency department complaining of urinary retention and admits that she's had 3 medications recently added to her medical regiment to include trazodone, promethazine and cetirizine all of which can cause acute urinary retention is a soft abdomen on initial presentation but I'll need to ensure that she has normal kidney function I will place a Guillaume in her to measure output as well as tested for signs of infection. [] Impression urinalysis is clear for signs of infection, patient's kidney function demonstrate a creatinine of 2.8 which is chronic for patient. It is likely based on the additional medications provided to this patient she is having acute urinary retention secondary to his medications. Although she is taking his medications symptomatically reasons I would advise her not to take them and follow-up with her primary care doctor tomorrow. Given her acute urinary retention I will advise her to continue to use the Guillaume catheter placed on antibiotics for prophylactic treatment to ensure that no infection is occurring because of the Ugillaume placement. Disposition: PCP follow-up tomorrow for suspected acute urinary retention secondary to medication-induced side effects. Dragon Disclaimer Dragon Disclaimer This electronic medical record was generated, in whole or in part, using a voice recognition dictation system. Departure Departure Impression: Primary Impression: Acute urinary retention Additional Impressions: Medication side effect Chronic renal disease Disposition: HOME, SELF-CARE Condition: IMPROVED Referrals: AJ JOHN MD (PCP) Patient Instructions: Guillaume Catheter Care, Adult, Urinary Retention, Acute, Female Additional Instructions: DC her PCP tomorrow to discuss the side effects of medications they placed you on to include trazodone, cetirizine and promethazine. All of these medications and cause her acute problem of urinary retention. He'll chronic renal insufficiency and so the decreased urinary appendectomy may be associated with that as well. Please return for any new or increasing symptoms. Follow up: In addition patient is asked to followup with their primary doctor, within a week for followup examination and to address patient's ongoing medical conditions. . Patient is advised that in the Emergency Department primary complaints are addressed and only in light of known signs and symptoms. Patient should return immediately to the emergency department if new signs and symptoms develop or patient's condition worsens in any way. At time of discharge patient was in stable condition and had verbalized understanding of the discharge instructions. Although there is no obvious evidence of appendicitis or intra-abdominal catastrophe at this time requiring surgical intervention or immediate medical management you could still develop these issues in the future. I would ask that you return immediately for any increasing symptoms question concerns. Problem Qualifiers DARRELL WONG MD Dec 04, 2016 19:55
[2016-12-04 20:28] LABS: BILIRUBIN,URINE NEGATIVE (NEG); GLUCOSE,URINE NEGATIVE (NEG); NITRITE,URINE NEGATIVE (NEG); PH,URINE 5.5; PROTEIN,URINE 100 mg/dL (NEG-TRACE); UROBILINOGEN,URINE 0.2 mg/dL (0.2 mg/dL)
[2016-12-04 20:35] LABS: BACTERIA,URINE 0 /HPF (0-FEW); RBC,URINE OCC /HPF (0-2); WBC,URINE 0 /HPF (0-4)
[2016-12-04 20:38] LABS: CALCIUM 9.5 mg/dL (8.5-10.1); CREATININE 2.8 mg/dL (0.6-1.0); GFR 16.6; POTASSIUM 3.3 mmol/L (3.5-5.1)
[2016-12-04 20:44] LABS: ALBUMIN 3.7 g/dL (3.4-5.0); ALBUMIN/GLOBULIN RATIO 0.9 (1.0-1.7); TOTAL BILIRUBIN 0.4 mg/dL (0.2-1.0); TOTAL PROTEIN 7.6 g/dL (6.4-8.2)
[2016-12-04 21:30] VITALS: BP 166/77
== END 2016-12-04 21:32 | disposition home or self-care (01) ==
LOC: ER 18:47
DX: R33.9 Retention of urine, unspecified (principal); N18.9 Chronic kidney disease, unspecified; I12.9 Hypertensive chronic kidney disease with stage 1 through stage 4 chronic kidney disease, or unspecified chronic kidney disease; E11.22 Type 2 diabetes mellitus with diabetic chronic kidney disease; Z90.49 Acquired absence of other specified parts of digestive tract; E78.5 Hyperlipidemia, unspecified; M10.9 Gout, unspecified; I25.10 Atherosclerotic heart disease of native coronary artery without angina pectoris; Z86.73 Personal history of transient ischemic attack (TIA), and cerebral infarction without residual deficits; Z79.4 Long term (current) use of insulin
CPT/HCPCS: 36415; 51702; 80053; 81001; 99284-25

== ENCOUNTER 2017-01-05 18:11 | Inpatient (IN) | payer BC ==
[~2017-01-05] VITALS: Ht 175.3 cm; Wt 65.8 kg
[~2017-01-05 18:11] MED LIST changes: +AMLO5TAB2 PO; +ASPI-630 PO; +ATOR80TA72 PO; +PANT40TA5 PO; +POTA10TA5 PO; +ZOLP5TAB PO
[2017-01-05 18:57] LABS: BASO # 0.1 x10^3/uL (0.0-0.2); BASO % 1 % (0-3); EOS % 2 % (0-3); HEMATOCRIT 35.9 % (36.0-47.0); HEMOGLOBIN 11.8 g/dL (12.0-15.5); LYMPH # 0.7 x10^3/uL (1.0-4.8); LYMPH % 7 % (24-48); MEAN CORPUSCULAR HEMOGLOBIN 30 pg (25-35); MEAN CORPUSCULAR HGB CONC 33 g/dL (31-37); MEAN CORPUSCULAR VOLUME 91 fL (79-100); MONO % 8 % (0-9); NEUT % 82 % (31-73); PLATELET COUNT 422 x10^3/uL (140-400); RED BLOOD COUNT 3.97 x10^6/uL (3.50-5.40); RED CELL DISTRIBUTION WIDTH 14.6 % (11.5-14.5); WHITE BLOOD COUNT 9.7 x10^3/uL (4.0-11.0)
[2017-01-05 19:08] LABS: CALCIUM 11.1 mg/dL (8.5-10.1); CREATININE 2.7 mg/dL (0.6-1.0); GFR 17.3; POTASSIUM 3.9 mmol/L (3.5-5.1)
--- NOTE | 2017-01-05 19:09 | PHYS DOC ---
Past Medical History Past Medical History: CAD, CVA, Diabetes-Type II, Renal Disease, Other Additional Past Medical Histor: ULCER COLITIS, AORTIC VALVE PROLAPSE, insomnia Past Surgical History: Cholecystectomy, Tonsillectomy, Other Additional Past Surgical Histo: RIGHT BREAST MASTECTOMY,COLON RESECTION,AORTIC VALVE REPLACEMENT Alcohol Use: None Drug Use: None Adult General Chief Complaint Chief Complaint: ALTERED MENTAL STATUS HPI HPI Patient is a 71 year old FEMALE who presents with altered mentation that has since improved. At 4:30pm today the pt had acute onset of confusion, expressive dysphagia, pt was confused by reading numbers, her speech was confused and not making sense. This was witnessed by her and continued for 3+ hours until pt arrived to the ER. Denied any focal weakness or difficulty walking , denies any headache or blurry vision. Family still noticed some mild confusion just prior to my arrival. Pt does not recall the incidence today but now her only difficulty is stating the current year, stating "1796....no wait, that's not right". She answers all other questions appropriately. Distant h/o CVA, take coumadin, known h/o A fib per PCP, pt was unsure. PCP is Dr. John Review of Systems Review of Systems Constitutional: Denies fever or chills [] Eyes: Denies change in visual acuity, redness, or eye pain [] HENT: Denies nasal congestion or sore throat [] Respiratory: Denies cough or shortness of breath [] Cardiovascular: denies chest pain GI: Denies abdominal pain, nausea, vomiting, bloody stools or diarrhea [] : Denies dysuria or hematuria [] Musculoskeletal: Denies back pain or joint pain [] Integument: Denies rash or skin lesions [] Neurologic: per hpi Allergies Allergies Allergies Coded Allergies Type Severity Reaction Last Updated Verified No Known Drug Allergies 02/28/16 No Physical Exam Physical Exam Constitutional: Well developed, well nourished, no acute distress, non-toxic appearance. [] HENT: Normocephalic, atraumatic, bilateral external ears normal, oropharynx moist, no oral exudates, nose normal. [] Eyes: PERRLA, EOMI, conjunctiva normal, no discharge. [] Neck: Normal range of motion, no tenderness, supple, no stridor. [] Cardiovascular:Heart rate regular with regular rhythm, no murmur [] Lungs & Thorax: Bilateral breath sounds clear to auscultation, no wheeze, crackles or rhonchi Abdomen: Bowel sounds normal, soft, no tenderness, no masses, no pulsatile masses. [] Skin: Warm, dry, no erythema, no rash. [] Back: No tenderness, no CVA tenderness. [] Extremities: No tenderness, no cyanosis, no clubbing, ROM intact, no edema. [] Neurologic: Alert and oriented X 3, normal motor function, normal sensory function, no focal deficits noted. CN II-XII intact, bilateral hand nurse case management 5/5, normal finger to nose, 5/5 hip flexors bilaterally Psychologic: Affect normal, judgement normal, mood normal. [] Current Patient Data Vital Signs Vital Signs Date Time Temp Pulse Resp B/P (MAP) Pulse Ox O2 Delivery O2 Flow Rate FiO2 01/05/17 20:00 70 20 98 01/05/17 18:45 97.4 177/72 (107) Room Air 98.0 97.4 Lab Values Laboratory Tests Test 01/05/17 18:39 01/05/17 18:58 White Blood Count 9.7 x10^3/uL (4.0-11.0) Red Blood Count 3.97 x10^6/uL (3.50-5.40) Hemoglobin 11.8 g/dL (12.0-15.5) L Hematocrit 35.9 % (36.0-47.0) L Mean Corpuscular Volume 91 fL (79-100) Mean Corpuscular Hemoglobin 30 pg (25-35) Mean Corpuscular Hemoglobin Concent 33 g/dL (31-37) Red Cell Distribution Width 14.6 % (11.5-14.5) H Platelet Count 422 x10^3/uL (140-400) H Neutrophils (%) (Auto) 82 % (31-73) H Lymphocytes (%) (Auto) 7 % (24-48) L Monocytes (%) (Auto) 8 % (0-9) Eosinophils (%) (Auto) 2 % (0-3) Basophils (%) (Auto) 1 % (0-3) Neutrophils # (Auto) 8.0 x10^3uL (1.8-7.7) H Lymphocytes # (Auto) 0.7 x10^3/uL (1.0-4.8) L Monocytes # (Auto) 0.7 x10^3/uL (0.0-1.1) Eosinophils # (Auto) 0.2 x10^3/uL (0.0-0.7) Basophils # (Auto) 0.1 x10^3/uL (0.0-0.2) Sodium Level 131 mmol/L (136-145) L Potassium Level 3.9 mmol/L (3.5-5.1) Chloride Level 95 mmol/L (98-107) L Carbon Dioxide Level 26 mmol/L (21-32) Anion Gap 10 (6-14) Blood Urea Nitrogen 42 mg/dL (7-20) H Creatinine 2.7 mg/dL (0.6-1.0) H Estimated GFR (Cockcroft-Gault) 17.3 BUN/Creatinine Ratio 16 (6-20) Glucose Level 155 mg/dL (70-99) H Calcium Level 11.1 mg/dL (8.5-10.1) H Total Bilirubin 0.5 mg/dL (0.2-1.0) Aspartate Amino Transferase (AST) 24 U/L (15-37) Alanine Aminotransferase (ALT) 22 U/L (14-59) Alkaline Phosphatase 58 U/L (46-116) Troponin I Quantitative 0.029 ng/mL (0.000-0.055) Total Protein 8.6 g/dL (6.4-8.2) H Albumin 4.0 g/dL (3.4-5.0) Albumin/Globulin Ratio 0.9 (1.0-1.7) L Prothrombin Time 26.5 SEC (11.7-14.0) H Prothrombin Time INR 2.6 (0.8-1.1) H Laboratory Tests 01/05/17 18:39 Laboratory Tests 01/05/17 18:39 EKG EKG 67 beats per minute, A. fib, normal axis, normal intervals, ST depression in 1, 2, aVF, V5 and V6 with T-wave inversions in V5 and V6, aVF, 2, compared with previous EKG performed on the fourth of this month and there is no acute change appreciated interpreted by me Radiology/Procedures Radiology/Procedures CT Head: Impression: No acute intracranial abnormality is seen.[] Course & Med Decision Making Course & Med Decision Making Pertinent Labs and Imaging studies reviewed. (See chart for details) CT head negative and pt's symptoms have resolved after CT, NIH now 0, therefore NOT a tPA candidate. Aspirin po given, contacted Dr. John for admission. Dragon Disclaimer Dragon Disclaimer This electronic medical record was generated, in whole or in part, using a voice recognition dictation system. Departure Departure Impression: Primary Impression: CVA (cerebral vascular accident) Disposition: 09 ADMITTED INPATIENT Admitting Physician: Aj John Condition: GUARDED Referrals: AJ JOHN MD (PCP) MALENA RAMIREZ MD Jan 05, 2017 19:09
[2017-01-05 19:15] LABS: ALBUMIN/GLOBULIN RATIO 0.9 (1.0-1.7); TOTAL BILIRUBIN 0.5 mg/dL (0.2-1.0); TOTAL PROTEIN 8.6 g/dL (6.4-8.2)
--- NOTE | 2017-01-05 19:50 | RAD ---
CT scan of the head without contrast 01/05/2017 Clinical History: Expressive aphasia which has improved. Previous CVA. Technique: Unenhanced, contiguous, 5 mm axial sections were obtained through the head. Findings: Comparison study is dated 02/21/2016. There is generalized parenchymal atrophy. Areas of decreased attenuation are seen within the periventricular and subcortical white matter of both cerebral hemispheres consistent with areas of small vessel ischemic disease. An old area of lacunar infarction is seen involving the left basal ganglia region, extending superiorly. This measures 2 cm in size. It is unchanged. No acute parenchymal abnormality is seen. No extra-axial fluid collection is noted. No skull fracture is seen. Near complete opacification of the left maxillary sinus due to mucosal thickening and/or fluid is seen. Moderate to severe mucosal thickening is seen involving the left ethmoid air cells and the left frontal sinus. Impression: No acute intracranial abnormality is seen. Electronically signed by: Osmani Yang MD (01/05/2017 7:47 PM) [facility]
[2017-01-05 19:51] LABS: INR 2.6 (0.8-1.1); PROTHROMBIN TIME PATIENT 26.5 SEC (11.7-14.0)
[2017-01-05] MEDS ORDERED: ASPIRIN 325 MG TABLET PO ONE (20:15)
[2017-01-05 21:00] VITALS: BP 168/81
[2017-01-05] MEDS ORDERED: SOTA80TA48 PO (22:07)
[2017-01-05] MEDS ORDERED: DIGO125T PO (22:07)
[2017-01-05 22:08] LABS: BILIRUBIN,URINE NEGATIVE (NEG); GLUCOSE,URINE NEGATIVE (NEG); NITRITE,URINE NEGATIVE (NEG); PROTEIN,URINE 100 mg/dL (NEG-TRACE); UROBILINOGEN,URINE 0.2 mg/dL (0.2 mg/dL)
[2017-01-05] MEDS ORDERED: ZOLPIDEM 5 MG TABLET. PO PRN (22:15)
[2017-01-05 22:17] LABS: BACTERIA,URINE 0 /HPF (0-FEW); RBC,URINE OCC /HPF (0-2); SQUAMOUS EPITHELIAL CELL,UR FEW /LPF
[2017-01-05] MEDS: SOTALOL 80 MG TABLET. PO SCH (22:39)
[2017-01-05] MEDS ORDERED: INSULIN DETEMIR 300 UNITS/3 ML INSULN.PEN. SQ SCH (23:00)
[2017-01-05 23:23] VITALS: BP 136/51
[2017-01-06 03:52] VITALS: BP 124/45
--- NOTE | 2017-01-06 06:23 | EKG ---
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
[2017-01-06 07:22] VITALS: BP 133/58
[2017-01-06] MEDS: INSULIN ASPART 300 UNITS/3 ML INSULN.PEN SQ SCH ×3 (07:30→16:30)
[2017-01-06] MEDS: FERROUS SULFATE ORAL 300 MG/5 ML SOLUTION. PO SCH ×2 (08:50→17:10)
[2017-01-06] MEDS: PANTOPRAZOLE 40 MG TABLET.DR. PO SCH ×2 (08:51→16:30)
[2017-01-06] MEDS: DIGOXIN 125 MCG TABLET. PO SCH ×2 (08:52→08:54)
[2017-01-06] MEDS: SOTALOL 80 MG TABLET. PO SCH (08:54)
[2017-01-06] MEDS ORDERED: OMEGA-3 FATTY ACIDS/FISH OIL 1,000 MG CAPSULE. PO SCH (09:00)
[2017-01-06] MEDS ORDERED: SOTALOL 80 MG TABLET. PO SCH (09:00)
[2017-01-06] MEDS ORDERED: FUROSEMIDE 40 MG TABLET. PO SCH (09:00)
[2017-01-06] MEDS ORDERED: ALLOPURINOL 300 MG TABLET. PO SCH (09:00)
[2017-01-06] MEDS ORDERED: amLODIPine BESYLATE 5 MG TABLET PO SCH (09:00)
[2017-01-06] MEDS ORDERED: POTASSIUM CHLORIDE 10 MEQ TABLET.ER. PO SCH (09:00)
[2017-01-06] MEDS ORDERED: ALLOPURINOL 100 MG TABLET. PO SCH (09:00)
[2017-01-06] MEDS ORDERED: MAGNESIUM OXIDE 400 MG TABLET PO SCH (09:00)
[2017-01-06] MEDS ORDERED: ASPIRIN CHEWABLE 81 MG TABLET. PO SCH (09:00)
[2017-01-06] MEDS ORDERED: LOSARTAN POTASSIUM 50 MG TABLET. PO SCH (09:00)
--- NOTE | 2017-01-06 09:46 | PDOC1 ---
History and Physical Date of Admission Date of Admission 01/05/17 Identification/Chief Complaint Chief Complaint TIA-like symptoms Problems: Source Source: Chart review, Patient History of Present Illness History of Present Illness Patient is a 71 year old FEMALE who presents with altered mentation that has since improved. At 4:30pm yesterday the pt had acute onset of confusion, expressive dysphagia, pt was not treating the numbers correctly while helping her with his bills, her speech was confused and not making sense, she also was not finding the words to say which she wanted to say. This was witnessed by her and continued for 3+ hours until pt arrived to the ER. Denied any focal weakness or difficulty walking , denies any headache or blurry vision. Family still noticed some mild confusion just prior to my arrival. Pt does not recall the incidence she answers all questions appropriately even though she was still slightly confused answering the year in the emergency room when she was interviewing with the ER doctor, Distant h/o CVA, takes coumadin for prosthetic valve replacement, her INR was therapeutic in the emergency room Past Medical History Cardiovascular: CAD, HTN, Aortic stenosis, Other Pulmonary: COPD CENTRAL NERVOUS SYSTEM: CVA GI: Inflam bowel disease Heme/Onc: Anemia NOS, Cancer Psych: Anxiety Infectious disease: No pertinent hx Renal/: Chronic renal insuff, Other Endocrine: Diabetes Past Surgical History Past Surgical History: Cholecystectomy, Mastectomy, Tonsillectomy, Colon Resection, Other Family History Family History: Diabetes, Hypertension, Other Social History Smoke: No ALCOHOL: none Drugs: None Current Problem List Problem List Problems Medical Problems: (1) CVA (cerebral vascular accident) Status: Acute Current Medications Current Medications Current Medications Medications (Trade) Dose Ordered Sig/Semaj Start Time Stop Time Status Last Admin Dose Admin Allopurinol (Zyloprim) 200 mg DAILY 01/06/17 09:00 01/06/17 08:50 200 MG Amlodipine Besylate (Norvasc) 5 mg DAILY 01/06/17 09:00 01/06/17 08:51 5 MG Aspirin (Sara Aspirin) 325 mg 1X ONCE 01/05/17 20:15 01/05/17 20:16 DC 01/05/17 20:15 325 MG Aspirin (Children'S Aspirin) 81 mg DAILY 01/06/17 09:00 01/06/17 08:51 81 MG Atorvastatin Calcium (Lipitor) 40 mg HS 01/06/17 21:00 Digoxin (Lanoxin) 125 mcg DAILY 01/06/17 09:00 Ferrous Sulfate 300 mg BIDWMEALS 01/06/17 08:00 01/06/17 08:50 300 MG Fish Oil (Fish Oil) 1,000 mg DAILY 01/06/17 09:00 01/06/17 08:51 1,000 MG Furosemide (Lasix) 40 mg DAILY 01/06/17 09:00 01/06/17 08:53 40 MG Insulin Aspart (NovoLOG) 14 units BIDAC 01/06/17 07:30 Insulin Detemir (Levemir) 25 units QHS 01/05/17 23:00 01/05/17 23:28 25 UNITS Losartan Potassium (Cozaar) 100 mg DAILY 01/06/17 09:00 01/06/17 08:53 100 MG Magnesium Oxide (Magnesium Oxide) 400 mg BID 01/06/17 09:00 01/06/17 08:51 400 MG Pantoprazole Sodium (Protonix) 40 mg BIDAC 01/06/17 07:30 01/06/17 08:51 40 MG Potassium Chloride (Klor-Con) 10 meq DAILY 01/06/17 09:00 01/06/17 08:50 10 MEQ Sotalol HCl (Betapace) 40 mg BID 01/05/17 22:30 01/05/17 22:39 40 MG Warfarin Sodium (Coumadin Per Physician) 1 each PRN DAILY PRN 01/06/17 16:00 Warfarin Sodium (Coumadin) 5 mg DAILY16 01/06/17 16:00 Zolpidem Tartrate (Ambien) 5 mg PRN QHS PRN 01/05/17 22:15 01/05/17 22:38 5 MG Allergies Allergies Allergies Coded Allergies Type Severity Reaction Last Updated Verified No Known Drug Allergies 02/28/16 No ROS Review of System CONSTITUTIONAL: No fever or chills EYES: No recent changes SKIN: No rash or itching CARDIOVASCULAR: No chest pain, syncope, palpitations, or edema RESPIRATORY: No SOB or cough GASTROINTESTINAL: No nausea, vomiting or abdominal pain NEUROLOGICAL: Some weakness in general but no specifically focal signs ENDOCRINE: No cold or heat intolerance GENITOURINARY: No urgency or frequency of urination MUSCULOSKELETAL: No back pain or joint pain LYMPHATICS: No enlarged lymph nodes PSYCHIATRIC: She does have anxiety at times Physical Exam Physical Exam GEN.: No apparent distress. Alert and oriented at present time HEENT: Head is normocephalic, atraumatic NECK: Supple. LUNGS: Clear to auscultation. HEART: Irregular, S1, S2 present was click of a prostatic valve. Peripheral pulses intact ABDOMEN: Soft, nontender. Positive bowel sounds. EXTREMITIES: Without any cyanosis. NEUROLOGIC: Normal speech, normal tone PSYCHIATRIC: Normal affect, normal mood. SKIN: No ulcerations Vitals Vitals Vital Signs Date Time Temp Pulse Resp B/P (MAP) Pulse Ox O2 Delivery O2 Flow Rate FiO2 01/06/17 08:54 50 133/58 01/06/17 07:22 97.6 19 96 Room Air 97.6 01/05/17 18:45 98.0 Labs Labs Laboratory Tests Test 01/05/17 18:39 01/05/17 18:58 01/05/17 20:50 01/05/17 23:26 White Blood Count 9.7 x10^3/uL (4.0-11.0) Red Blood Count 3.97 x10^6/uL (3.50-5.40) Hemoglobin 11.8 g/dL (12.0-15.5) Hematocrit 35.9 % (36.0-47.0) Mean Corpuscular Volume 91 fL (79-100) Mean Corpuscular Hemoglobin 30 pg (25-35) Mean Corpuscular Hemoglobin Concent 33 g/dL (31-37) Red Cell Distribution Width 14.6 % (11.5-14.5) Platelet Count 422 x10^3/uL (140-400) Neutrophils (%) (Auto) 82 % (31-73) Lymphocytes (%) (Auto) 7 % (24-48) Monocytes (%) (Auto) 8 % (0-9) Eosinophils (%) (Auto) 2 % (0-3) Basophils (%) (Auto) 1 % (0-3) Neutrophils # (Auto) 8.0 x10^3uL (1.8-7.7) Lymphocytes # (Auto) 0.7 x10^3/uL (1.0-4.8) Monocytes # (Auto) 0.7 x10^3/uL (0.0-1.1) Eosinophils # (Auto) 0.2 x10^3/uL (0.0-0.7) Basophils # (Auto) 0.1 x10^3/uL (0.0-0.2) Sodium Level 131 mmol/L (136-145) Potassium Level 3.9 mmol/L (3.5-5.1) Chloride Level 95 mmol/L (98-107) Carbon Dioxide Level 26 mmol/L (21-32) Anion Gap 10 (6-14) Blood Urea Nitrogen 42 mg/dL (7-20) Creatinine 2.7 mg/dL (0.6-1.0) Estimated GFR (Cockcroft-Gault) 17.3 BUN/Creatinine Ratio 16 (6-20) Glucose Level 155 mg/dL (70-99) Calcium Level 11.1 mg/dL (8.5-10.1) Total Bilirubin 0.5 mg/dL (0.2-1.0) Aspartate Amino Transf (AST/SGOT) 24 U/L (15-37) Alanine Aminotransferase (ALT/SGPT) 22 U/L (14-59) Alkaline Phosphatase 58 U/L (46-116) Troponin I Quantitative 0.029 ng/mL (0.000-0.055) Total Protein 8.6 g/dL (6.4-8.2) Albumin 4.0 g/dL (3.4-5.0) Albumin/Globulin Ratio 0.9 (1.0-1.7) Prothrombin Time 26.5 SEC (11.7-14.0) Prothromb Time International Ratio 2.6 (0.8-1.1) Urine Collection Type Unknown Urine Color Yellow Urine Clarity Clear Urine pH 6.0 Urine Specific [place] 1.010 Urine Protein 100 mg/dL (NEG-TRACE) Urine Glucose (UA) Negative mg/dL (NEG) Urine Ketones (Stick) Negative mg/dL (NEG) Urine Blood Small (NEG) Urine Nitrite Negative (NEG) Urine Bilirubin Negative (NEG) Urine Urobilinogen Dipstick 0.2 mg/dL (0.2 mg/dL) Urine Leukocyte Esterase Trace (NEG) Urine RBC Occ /HPF (0-2) Urine WBC 1-4 /HPF (0-4) Urine Squamous Epithelial Cells Few /LPF Urine Bacteria 0 /HPF (0-FEW) Urine Mucus Slight /LPF Glucose (Fingerstick) 168 mg/dL (70-99) Laboratory Tests Test 11/20/17 18:39 01/05/17 18:58 01/05/17 20:50 01/05/17 23:26 White Blood Count 9.7 x10^3/uL (4.0-11.0) Red Blood Count 3.97 x10^6/uL (3.50-5.40) Hemoglobin 11.8 g/dL (12.0-15.5) Hematocrit 35.9 % (36.0-47.0) Mean Corpuscular Volume 91 fL (79-100) Mean Corpuscular Hemoglobin 30 pg (25-35) Mean Corpuscular Hemoglobin Concent 33 g/dL (31-37) Red Cell Distribution Width 14.6 % (11.5-14.5) Platelet Count 422 x10^3/uL (140-400) Neutrophils (%) (Auto) 82 % (31-73) Lymphocytes (%) (Auto) 7 % (24-48) Monocytes (%) (Auto) 8 % (0-9) Eosinophils (%) (Auto) 2 % (0-3) Basophils (%) (Auto) 1 % (0-3) Neutrophils # (Auto) 8.0 x10^3uL (1.8-7.7) Lymphocytes # (Auto) 0.7 x10^3/uL (1.0-4.8) Monocytes # (Auto) 0.7 x10^3/uL (0.0-1.1) Eosinophils # (Auto) 0.2 x10^3/uL (0.0-0.7) Basophils # (Auto) 0.1 x10^3/uL (0.0-0.2) Sodium Level 131 mmol/L (136-145) Potassium Level 3.9 mmol/L (3.5-5.1) Chloride Level 95 mmol/L (98-107) Carbon Dioxide Level 26 mmol/L (21-32) Anion Gap 10 (6-14) Blood Urea Nitrogen 42 mg/dL (7-20) Creatinine 2.7 mg/dL (0.6-1.0) Estimated GFR (Cockcroft-Gault) 17.3 BUN/Creatinine Ratio 16 (6-20) Glucose Level 155 mg/dL (70-99) Calcium Level 11.1 mg/dL (8.5-10.1) Total Bilirubin 0.5 mg/dL (0.2-1.0) Aspartate Amino Transf (AST/SGOT) 24 U/L (15-37) Alanine Aminotransferase (ALT/SGPT) 22 U/L (14-59) Alkaline Phosphatase 58 U/L (46-116) Troponin I Quantitative 0.029 ng/mL (0.000-0.055) Total Protein 8.6 g/dL (6.4-8.2) Albumin 4.0 g/dL (3.4-5.0) Albumin/Globulin Ratio 0.9 (1.0-1.7) Prothrombin Time 26.5 SEC (11.7-14.0) Prothromb Time International Ratio 2.6 (0.8-1.1) Urine Collection Type Unknown Urine Color Yellow Urine Clarity Clear Urine pH 6.0 Urine Specific [place] 1.010 Urine Protein 100 mg/dL (NEG-TRACE) Urine Glucose (UA) Negative mg/dL (NEG) Urine Ketones (Stick) Negative mg/dL (NEG) Urine Blood Small (NEG) Urine Nitrite Negative (NEG) Urine Bilirubin Negative (NEG) Urine Urobilinogen Dipstick 0.2 mg/dL (0.2 mg/dL) Urine Leukocyte Esterase Trace (NEG) Urine RBC Occ /HPF (0-2) Urine WBC 1-4 /HPF (0-4) Urine Squamous Epithelial Cells Few /LPF Urine Bacteria 0 /HPF (0-FEW) Urine Mucus Slight /LPF Glucose (Fingerstick) 168 mg/dL (70-99) VTE Prophylaxis Ordered VTE Prophylaxis Devices: Yes VTE Pharmacological Prophylaxi: Contraindicated Assessment/Plan Assessment/Plan 1-change in mental status for a short period of time that has resolved completely and the patient was a high risk for CVA, her CT is negative will obtain MRI and carotid Doppler ultrasound ask neurology to see, consider hypoglycemia as a cause for her symptoms since she is diabetic 2-previous history of breast cancer 3-history of aortic valve replacement 4-history of atrial fibrillation 5-diabetes mellitus type 2 insulin requiring 6-HLD 7-HTN 8-CKD IV AJ JOHN MD Jan 06, 2017 09:46
[2017-01-06 10:36] VITALS: BP 141/60
--- NOTE | 2017-01-06 12:35 | RAD ---
Exam : Carotid Duplex with Grayscale Ultrasound and Spectral and Color Doppler Analysis: Clinical Indications: Carotid stenosis. Comparison study: None available. PQRS Compliance Statement - Stenosis calculations for CT, MR and conventional angiography are based upon measurement of the distal ICA diameter in accordance with the NASCET methodology. Stenosis calculations for carotid ultrasound studies are derived from validated velocity criteria which are known to correlate with the NASCET methodology. Findings: The common, internal and external carotid arteries were examined by grayscale, color and spectral Doppler ultrasound. Diffuse atherosclerotic vascular disease is noted. The distal left ICA is not well visualized. The patient's heart rate appears to be irregular. Correlate with arrhythmia. Flow in both vertebral arteries was antegrade and normal. The following are the velocities and ratios in the carotid arteries on both sides: RIGHT ICA PV: 83cm/sec RIGHT CCA PV: 76cm/sec RIGHT ICA ED: 12cm/sec RIGHT IC/CCPV: Less than 1.5 RIGHT VERTEBRAL: antegrade flow RIGHT % STENOSIS: [Less than 50%] LEFT ICA PV: 84cm/sec LEFT CCA PV: 113cm/sec LEFT ICA ED: 19cm/sec LEFT IC/CCPV: Less than 1 LEFT VERTEBRAL: antegrade flow LEFT % STENOSIS: [Less than 50%] <50% ICA Stenosis: PSV < 125cm/s (EDV < 40cm/s; SVR < 2.0) 50-69% ICA Stenosis: PSV < 125-229cm/s (EDV 40-99cm/s; SVR 2.0-3.9) >70% ICA Stenosis: PSV > 230cm/s (EDV >100cm/s; SVR >4.0) Impression: 1. Mild diffuse atherosclerotic vascular disease with less than 50% stenosis of the bilateral internal carotid arteries by ultrasound criterion. 2. Irregular heart rate. Correlate with clinical evidence of arrhythmia.
[2017-01-06] MEDS ORDERED: DEXTROSE 50% 25 GM / 50ML DISP.SYRIN. IV PRN (12:45)
[2017-01-06 14:49] VITALS: BP 114/61
[2017-01-06] MEDS ORDERED: WARFARIN 5 MG TABLET. PO SCH (16:00)
[2017-01-06] MEDS ORDERED: INSULIN ASPART 300 UNITS/3 ML INSULN.PEN SQ SCH ×2 (17:00→17:30)
--- NOTE | 2017-01-06 17:09 | PDOC2 ---
NEUROLOGY CONSULT Date of Admission Date of Admission DATE: 01/06/17 TIME: 16:56 Reason for Consult Reason for Consult: IMPRESSION: Confusion on 01/05/17. Aphasia on 01/05/17. CVA syndrome. HTN HLD CAD Aortic stenosis. COPD DM. AFib? RECOMMENDATIONS/PLAN: She has been treated with Coumadin. Continue Stating HS. Brain MRI w/o contrast. Carotid A US + Doppler performed. Lab: see orders. Discussed with her and son at bedside. HISTORY OF THE PRESENT ILLNESS: 71-y-old female patient with above medical and cardiac diseases developed symptoms of mental status changes, confusion, aphasia lasted for about 3 hours on 01/05/17. Per her son, she had difficulties on word findings. No motor or sensory deficits noted by her family that time. Past Medical History Cardiovascular: CAD, HTN, Aortic stenosis. Pulmonary: COPD CENTRAL NERVOUS SYSTEM: CVA GI: Inflam bowel disease Heme/Onc: Anemia NOS, Cancer Psych: Anxiety Infectious disease: No pertinent hx Renal/: Chronic renal insuff Endocrine: Diabetes Past Surgical History Cholecystectomy, Mastectomy, Tonsillectomy, Colon Resection. Family History Diabetes, Hypertension, Other Social History ALCOHOL: none Drugs: None Lives at home. ALLERGY: Reviewed. MEDICATIONS: Refer to MAR REVIEW OF SYSTEMS: Constitutional: No malnutrition, weight loss, cachexia. Head: No traumatic brain or head injury. Skin: No edema, or rash. Ear: No infection. Eyes: No vision loss or color blindness. Nose: No bleeding or purulent discharges. Hearing: No hearing decrease. Neck: No injury. Breast: No history of cancer, masses,or discharges. Cardiac: Arrhythmia, CAD, HTN, HLD. Pulmonary: COPD. GI: No GI ulcer, GI bleeding. Urinary/genital: UTI. Endocrinologic: Diabetes Mellitus. Skeletomuscular: No muscular atrophy, deformity. Neurological: see HP. Psychiatric: Denies drug use/abuse. Otherwise, not -vtsqt review of systems. PHYSICAL EXAMINATION: General appearance is in subacute distress. HEENT: Normocephalic and nontraumatic. Eyes, nose, ears, and throat are unremarkable. Neck is supple. No lymphadenopathy. No bruits are heard over the carotid artery. No crepitus. Cardiovascular: S1, S2, seemed irregular rate and rhythm. Pulmonary: Clear to auscultation bilaterally. Abdomen: Bowel sounds are positive. Abdomen is soft, nontender, and nondistended. Extremities: No rash, lesions, or edema. No restriction of range of motion NEUROLOGICAL EXAMINATION: Alert Not fully oriented to time, but knows place and person. PERRL. EOMI. CN: no focal findings. Muscle tone: within normal. Muscle strength: 5- DTR: 2 Plantar reflex: Flexor response bilaterally Gait: At baseline normal. Sensory exam: no abnormal findings. No cerebellar signs elicited. F-T-N test fine. Current Medications Current Medications Current Medications Aspirin (Sara Aspirin) 325 mg 1X ONCE PO Last administered on 01/05/17 20: 15; Start 01/05/17 at 20:15; Stop 01/05/17 at 20:16; Status DC Allopurinol (Zyloprim) 300 mg DAILY PO ; Start 01/06/17 at 09:00; Status UNV Amlodipine Besylate (Norvasc) 5 mg DAILY PO Last administered on 01/06/17 08: 51; Start 01/06/17 at 09:00 Aspirin (Children'S Aspirin) 81 mg DAILY PO Last administered on 01/06/17 08: 51; Start 01/06/17 at 09:00 Digoxin (Lanoxin) 125 mcg DAILY PO ; Start 01/06/17 at 09:00 Ferrous Sulfate 300 mg BIDWMEALS PO Last administered on 01/06/17 08:50; Start 01/06/17 at 08:00 Furosemide (Lasix) 40 mg DAILY PO Last administered on 01/06/17 08:53; Start 01/06/17 at 09:00 Insulin Aspart (NovoLOG) 14 units BIDAC SQ Last administered on 01/06/17 13: 06; Start 01/06/17 at 07:30 Pantoprazole Sodium (Protonix) 40 mg BIDAC PO Last administered on 01/06/17 08:51; Start 01/06/17 at 07:30 Sotalol HCl (Betapace) 40 mg BID PO ; Start 01/06/17 at 09:00; Stop 01/06/17 at 09:00; Status DC Warfarin Sodium (Coumadin) 5 mg DAILY16 PO ; Start 01/06/17 at 16:00 Zolpidem Tartrate (Ambien) 5 mg PRN QHS PRN PO INSOMNIA Last administered on 22:38; Start 01/05/17 at 22:15 Atorvastatin Calcium (Lipitor) 40 mg HS PO ; Start 01/06/17 at 21:00 Insulin Detemir (Levemir) 25 units QHS SQ Last administered on 01/05/17 23:28 ; Start 01/05/17 at 23:00 Losartan Potassium (Cozaar) 100 mg DAILY PO Last administered on 01/06/17 08: 53; Start 01/06/17 at 09:00 Fish Oil (Fish Oil) 1,000 mg DAILY PO Last administered on 01/06/17 08:51; Start 01/06/17 at 09:00 Potassium Chloride (Klor-Con) 10 meq DAILY PO Last administered on 01/06/17 08:50; Start 01/06/17 at 09:00 Magnesium Oxide (Magnesium Oxide) 400 mg BID PO Last administered on 08:51; Start 01/06/17 at 09:00 Sotalol HCl (Betapace) 40 mg BID PO Last administered on 01/05/17 22:39; Start 01/05/17 at 22:30 Warfarin Sodium (Coumadin Per Physician) 1 each PRN DAILY PRN MC SEE COMMENTS Last administered on 01/06/17 10:11; Start 01/06/17 at 16:00 Allopurinol (Zyloprim) 200 mg DAILY PO Last administered on 01/06/17 08:50; Start 01/06/17 at 09:00 Insulin Aspart (NovoLOG) 0-5 UNITS TIDWMEALS SQ ; Start 01/06/17 at 17:00 Dextrose (Dextrose 50%-Water Syringe) 12.5 gm PRN Q15MIN PRN IV SEE COMMENTS; Start 01/06/17 at 12:45 Active Scripts Active Klor-Con 10 (Potassium Chloride) 10 Meq Tablet.er 1 Tab PO DAILY Pantoprazole Sodium 40 Mg Tablet.dr 40 Mg PO BIDAC 30 Days Digoxin 125 Mcg Tablet 125 Mcg PO DAILY 30 Days Ferrous Sulfate 300 Mg/5 Ml Liquid 300 Mg PO BIDWMEALS 30 Days [place] Solostar (Insulin Glargine,Hum.rec.anlog) 300 Unit/1 Ml Insuln.pen 25 Unit SQ QHS 90 Days Losartan Potassium 100 Mg Tablet 100 Mg PO DAILY Coumadin (Warfarin Sodium) 5 Mg Tablet 1 Tab PO DAILY Novolin R (Insulin Regular, Human) 100 Unit/1 Ml Vial 10 Unit SQ BIDAC 90 Days Magnesium (Magnesium Oxide) 400 Mg Capsule 1 Cap PO BID Fish Oil 1,000 Mg Softgel ([place]-3 Fatty Acids/Fish Oil) 1 Each Capsule 1 Each PO DAILY 90 Days Allopurinol 300 Mg Tablet 1 Tab PO DAILY 90 Days Reported Sotalol (Sotalol Hcl) 80 Mg Tablet 40 Mg PO BID Digoxin 125 Mcg Tablet 1 Tab PO DAILY Ambien (Zolpidem Tartrate) 5 Mg Tablet 5 Mg PO HS PRN Aspirin 81 Mg Tab.chew 81 Mg PO Amlodipine Besylate 5 Mg Tablet 5 Mg PO DAILY Atorvastatin Calcium 80 Mg Tablet 40 Mg PO DAILY Lasix (Furosemide) 40 Mg Tablet 40 Mg PO DAILY Allergies Allergies: Coded Allergies: No Known Drug Allergies (Unverified , 02/28/16) Vitals VITALS Vital Signs Date Time Temp Pulse Resp B/P (MAP) Pulse Ox O2 Delivery O2 Flow Rate FiO2 01/06/17 14:49 98.6 72 18 114/61 (78) 100 Room Air 98.6 01/06/17 08:00 98.0 Labs Labs Laboratory Tests Test 01/05/17 18:39 01/05/17 18:58 01/05/17 20:50 01/05/17 23:26 White Blood Count 9.7 x10^3/uL (4.0-11.0) Red Blood Count 3.97 x10^6/uL (3.50-5.40) Hemoglobin 11.8 g/dL (12.0-15.5) Hematocrit 35.9 % (36.0-47.0) Mean Corpuscular Volume 91 fL (79-100) Mean Corpuscular Hemoglobin 30 pg (25-35) Mean Corpuscular Hemoglobin Concent 33 g/dL (31-37) Red Cell Distribution Width 14.6 % (11.5-14.5) Platelet Count 422 x10^3/uL (140-400) Neutrophils (%) (Auto) 82 % (31-73) Lymphocytes (%) (Auto) 7 % (24-48) Monocytes (%) (Auto) 8 % (0-9) Eosinophils (%) (Auto) 2 % (0-3) Basophils (%) (Auto) 1 % (0-3) Neutrophils # (Auto) 8.0 x10^3uL (1.8-7.7) Lymphocytes # (Auto) 0.7 x10^3/uL (1.0-4.8) Monocytes # (Auto) 0.7 x10^3/uL (0.0-1.1) Eosinophils # (Auto) 0.2 x10^3/uL (0.0-0.7) Basophils # (Auto) 0.1 x10^3/uL (0.0-0.2) Sodium Level 131 mmol/L (136-145) Potassium Level 3.9 mmol/L (3.5-5.1) Chloride Level 95 mmol/L (98-107) Carbon Dioxide Level 26 mmol/L (21-32) Anion Gap 10 (6-14) Blood Urea Nitrogen 42 mg/dL (7-20) Creatinine 2.7 mg/dL (0.6-1.0) Estimated GFR (Cockcroft-Gault) 17.3 BUN/Creatinine Ratio 16 (6-20) Glucose Level 155 mg/dL (70-99) Calcium Level 11.1 mg/dL (8.5-10.1) Total Bilirubin 0.5 mg/dL (0.2-1.0) Aspartate Amino Transf (AST/SGOT) 24 U/L (15-37) Alanine Aminotransferase (ALT/SGPT) 22 U/L (14-59) Alkaline Phosphatase 58 U/L (46-116) Troponin I Quantitative 0.029 ng/mL (0.000-0.055) Total Protein 8.6 g/dL (6.4-8.2) Albumin 4.0 g/dL (3.4-5.0) Albumin/Globulin Ratio 0.9 (1.0-1.7) Prothrombin Time 26.5 SEC (11.7-14.0) Prothromb Time International Ratio 2.6 (0.8-1.1) Urine Collection Type Unknown Urine Color Yellow Urine Clarity Clear Urine pH 6.0 Urine Specific [place] 1.010 Urine Protein 100 mg/dL (NEG-TRACE) Urine Glucose (UA) Negative mg/dL (NEG) Urine Ketones (Stick) Negative mg/dL (NEG) Urine Blood Small (NEG) Urine Nitrite Negative (NEG) Urine Bilirubin Negative (NEG) Urine Urobilinogen Dipstick 0.2 mg/dL (0.2 mg/dL) Urine Leukocyte Esterase Trace (NEG) Urine RBC Occ /HPF (0-2) Urine WBC 1-4 /HPF (0-4) Urine Squamous Epithelial Cells Few /LPF Urine Bacteria 0 /HPF (0-FEW) Urine Mucus Slight /LPF Glucose (Fingerstick) 168 mg/dL (70-99) Test 01/06/17 11:13 01/06/17 16:20 Vitamin B12 Level 590 pg/mL (247-911) 25-Hydroxy Vitamin D Total 45.5 ng/mL (30-100) Thyroid Stimulating Hormone (TSH) 1.555 uIU/mL (0.358-3.74) Glucose (Fingerstick) 67 mg/dL (70-99) Laboratory Tests Test 01/05/17 18:39 01/05/17 18:58 01/05/17 20:50 01/05/17 23:26 White Blood Count 9.7 x10^3/uL (4.0-11.0) Red Blood Count 3.97 x10^6/uL (3.50-5.40) Hemoglobin 11.8 g/dL (12.0-15.5) Hematocrit 35.9 % (36.0-47.0) Mean Corpuscular Volume 91 fL (79-100) Mean Corpuscular Hemoglobin 30 pg (25-35) Mean Corpuscular Hemoglobin Concent 33 g/dL (31-37) Red Cell Distribution Width 14.6 % (11.5-14.5) Platelet Count 422 x10^3/uL (140-400) Neutrophils (%) (Auto) 82 % (31-73) Lymphocytes (%) (Auto) 7 % (24-48) Monocytes (%) (Auto) 8 % (0-9) Eosinophils (%) (Auto) 2 % (0-3) Basophils (%) (Auto) 1 % (0-3) Neutrophils # (Auto) 8.0 x10^3uL (1.8-7.7) Lymphocytes # (Auto) 0.7 x10^3/uL (1.0-4.8) Monocytes # (Auto) 0.7 x10^3/uL (0.0-1.1) Eosinophils # (Auto) 0.2 x10^3/uL (0.0-0.7) Basophils # (Auto) 0.1 x10^3/uL (0.0-0.2) Sodium Level 131 mmol/L (136-145) Potassium Level 3.9 mmol/L (3.5-5.1) Chloride Level 95 mmol/L (98-107) Carbon Dioxide Level 26 mmol/L (21-32) Anion Gap 10 (6-14) Blood Urea Nitrogen 42 mg/dL (7-20) Creatinine 2.7 mg/dL (0.6-1.0) Estimated GFR (Cockcroft-Gault) 17.3 BUN/Creatinine Ratio 16 (6-20) Glucose Level 155 mg/dL (70-99) Calcium Level 11.1 mg/dL (8.5-10.1) Total Bilirubin 0.5 mg/dL (0.2-1.0) Aspartate Amino Transf (AST/SGOT) 24 U/L (15-37) Alanine Aminotransferase (ALT/SGPT) 22 U/L (14-59) Alkaline Phosphatase 58 U/L (46-116) Troponin I Quantitative 0.029 ng/mL (0.000-0.055) Total Protein 8.6 g/dL (6.4-8.2) Albumin 4.0 g/dL (3.4-5.0) Albumin/Globulin Ratio 0.9 (1.0-1.7) Prothrombin Time 26.5 SEC (11.7-14.0) Prothromb Time International Ratio 2.6 (0.8-1.1) Urine Collection Type Unknown Urine Color Yellow Urine Clarity Clear Urine pH 6.0 Urine Specific [place] 1.010 Urine Protein 100 mg/dL (NEG-TRACE) Urine Glucose (UA) Negative mg/dL (NEG) Urine Ketones (Stick) Negative mg/dL (NEG) Urine Blood Small (NEG) Urine Nitrite Negative (NEG) Urine Bilirubin Negative (NEG) Urine Urobilinogen Dipstick 0.2 mg/dL (0.2 mg/dL) Urine Leukocyte Esterase Trace (NEG) Urine RBC Occ /HPF (0-2) Urine WBC 1-4 /HPF (0-4) Urine Squamous Epithelial Cells Few /LPF Urine Bacteria 0 /HPF (0-FEW) Urine Mucus Slight /LPF Glucose (Fingerstick) 168 mg/dL (70-99) Test 01/06/17:13 01/06/17 16:20 Vitamin B12 Level 590 pg/mL (247-911) 25-Hydroxy Vitamin D Total 45.5 ng/mL (30-100) Thyroid Stimulating Hormone (TSH) 1.555 uIU/mL (0.358-3.74) Glucose (Fingerstick) 67 mg/dL (70-99) TIA KAUR MD Jan 06, 2017 17:09
--- NOTE | 2017-01-06 17:13 | RAD ---
EXAM: Brain MRI without contrast. HISTORY: Aphasia. TECHNIQUE: Multiplanar, multisequence magnetic resonance imaging of the brain was performed without contrast. COMPARISON: Head CT dated 01/05/2017. FINDINGS: There is no restricted diffusion to suggest acute or subacute infarction. There are multiple scattered foci of susceptibility effect within the cerebral and cerebellar hemispheres due to chronic microhemorrhage. There is a chronic lacunar infarct with peripheral hemosiderin deposition due to superimposed chronic hemorrhage within the left putamen and adjacent left periventricular white matter. There is additional smaller chronic lacunar infarct within the right caudate nucleus. There are foci of encephalomalacia within the superior medial and mid lateral right cerebellar hemisphere and inferior posterior left cerebellar hemisphere, likely due to chronic infarction. There are scattered focal areas of T2/FLAIR hyperintensity within the cerebral white matter, a nonspecific finding likely due to chronic small vessel disease. There is mild cerebral atrophy. There is severe left frontal, ethmoid and maxillary sinus mucosal thickening. There is evidence of prior lens surgery. The mastoid air cells are clear. There are normal flow voids within the cerebral vessels. IMPRESSION: 1. No acute intracranial finding. 2. Scattered focal areas of signal change within the cerebral white matter, a nonspecific finding likely due to chronic small vessel disease. 3. Chronic lacunar infarct with associated chronic microhemorrhage within the left putamen and adjacent periventricular white matter. There are also chronic infarcts within the right caudate nucleus and right greater than left cerebellar hemispheres. 4. Left paranasal sinus disease. Electronically signed by: Key Landaverde MD (01/06/2017 5:10 PM) [id number]
[2017-01-06] MEDS ORDERED: INSU100V11 SQ (17:14)
--- NOTE | 2017-01-06 17:25 | PDOC3 ---
Discharge Summary* Date of Admission: Jan 05, 2017 Date of Discharge: Jan 06, 2017 Admitting Diagnosis Problems Medical Problems: (1) CVA (cerebral vascular accident) Status: Acute Problems: Final Diagnosis 1-change in mental status for a short period of time that has resolved completely and the patient was a high risk for CVA, her CT is negative will obtain MRI and carotid Doppler ultrasound ask neurology to see, consider hypoglycemia as a cause for her symptoms since she is diabetic 2-previous history of breast cancer 3-history of aortic valve replacement 4-history of atrial fibrillation 5-diabetes mellitus type 2 insulin requiring 6-HLD 7-HTN 8-CKD IV 9-hyponatremia 10-hypercalcemia will check parathyroid hormone as outpatient Problems Medical Problems: (1) CVA (cerebral vascular accident) Status: Acute CONSULTS Neurology Procedures CT scan had, carotid Doppler ultrasound, MRI brain Brief Hospital Course Ms. Burgos is a 71 old [sex] who presented with [ ] Disposition/Orders: D/C to Home CONDITION AT DISCHARGE: Improved Diet: Cardiac, Consistent Carbohydrate Scheduled Allopurinol (Allopurinol), 1 TAB PO DAILY Amlodipine Besylate (Amlodipine Besylate), 5 MG PO DAILY, (Reported) Atorvastatin Calcium (Atorvastatin Calcium), 40 MG PO DAILY, (Reported) Digoxin (Digoxin), 125 MCG PO DAILY Digoxin (Digoxin), 1 TAB PO DAILY, (Reported) Ferrous Sulfate (Ferrous Sulfate), 300 MG PO BIDWMEALS Furosemide (Lasix), 40 MG PO DAILY, (Reported) Insulin Glargine,Hum.rec.anlog (Tojusten Watts), 25 UNIT SQ QHS Insulin Regular, Human (Novolin R), 10 UNIT SQ BIDAC Losartan Potassium (Losartan Potassium), 100 MG PO DAILY Magnesium Oxide (Magnesium), 1 CAP PO BID Mcbee-3 Fatty Acids/Fish Oil (Fish Oil 1,000 Mg Softgel), 1 EACH PO DAILY Pantoprazole Sodium (Pantoprazole Sodium), 40 MG PO BIDAC Potassium Chloride (Klor-Con 10), 1 TAB PO DAILY Sotalol Hcl (Sotalol), 40 MG PO BID, (Reported) Warfarin Sodium (Coumadin), 1 TAB PO DAILY Scheduled PRN Zolpidem Tartrate (Ambien), 5 MG PO HS PRN for INSOMNIA, (Reported) Miscellaneous Medications Aspirin (Aspirin), 81 MG PO, (Reported) FOLLOW UP APPOINTMENT: [address] John, decrease pre-meal insulin to 7 units before meals meals Time Spent Total time spent with patient [] minutes for coordination of care, counseling, and education. AJ JOHN MD Jan 06, 2017 17:25
[2017-01-06] MEDS ORDERED: ATORVASTATIN CALCIUM 40 MG TABLET. PO SCH (21:00)
--- NOTE | 2017-01-07 18:33 | EEG ---
DATE OF SERVICE: 01/06/2017 ELECTROENCEPHALOGRAM NUMBER: [id number]. OBJECTIVE: This is a 71-year-old female patient with history of mental status changes and confusional episodes. EEG was requested to evaluate her cerebral activity. METHODS: Twenty electrodes were applied according to the international 10-20 electrode placement system. EKG monitoring, hyperventilation, intermittent photic stimulation, monopolar and bipolar montages are routinely utilized. The record was obtained on a digital system with video monitoring. FINDINGS: 1. Background: The patient was recorded in the awake, drowsy and sleep states. The overall background activity showed 10-20 microvolts. A posterior dominant rhythm of 7-8 Hz is observed with superimposed slowing in the theta frequency. 2. Abnormalities: No specific epileptiform discharge or electrographic seizure is seen. The superimposed slowing in the theta frequency is less than 50% of time. 3. Activation: Hyperventilation was performed with good efforts and normal response. Intermittent photic stimulation was performed with photic driving. IMPRESSION: This electroencephalogram falls into the abnormal category of the study for the awake, drowsy, and sleep states. The posterior dominant rhythm of 7-8 Hz is mildly slow for age. There is a superimposed slowing in the theta frequency but less than 50% of time. No lateralizing, specific epileptiform discharge or electrographic seizure is seen. This pattern of electroencephalogram may suggest mild encephalopathy. TIA KAUR MD DR: Shira JOB#: [id number] / [id number] [facility]
[2017-01-15] MEDS ORDERED: LOSA1TAB22 PO (18:09)
[2017-01-15] MEDS ORDERED: INSU300I SQ (18:09)
[2017-01-15] MEDS ORDERED: PANT40TA3 PO (18:09)
[2017-01-15] MEDS ORDERED: LEXAPRO10 MG PO (19:07)
[2017-01-19] MEDS ORDERED: SPIR25TA PO (10:22)
[2017-01-19] MEDS ORDERED: WARF4TAB68 PO (10:22)
[2017-01-19] MEDS ORDERED: DONE5TAB56 PO (10:22)
[2017-01-19] MEDS ORDERED: OLAN5TAB9 PO (14:19)
[2017-01-19] MEDS ORDERED: OLAN2.5T11 PO (14:23)
== END 2017-01-06 18:16 | disposition home or self-care (01) | DRG 637 ==
LOC: ER 18:11 → 6 SOUTH 20:10
PROVIDERS: ADMIT Internal Medicine; ATTEND Internal Medicine
DX: E11.649 Type 2 diabetes mellitus with hypoglycemia without coma (principal); G93.41 Metabolic encephalopathy; N18.4 Chronic kidney disease, stage 4 (severe); I48.91 Unspecified atrial fibrillation; E83.52 Hypercalcemia; R47.01 Aphasia; R13.10 Dysphagia, unspecified; E11.22 Type 2 diabetes mellitus with diabetic chronic kidney disease; E87.1 Hypo-osmolality and hyponatremia; J44.9 Chronic obstructive pulmonary disease, unspecified; I12.9 Hypertensive chronic kidney disease with stage 1 through stage 4 chronic kidney disease, or unspecified chronic kidney disease; E78.5 Hyperlipidemia, unspecified; F41.9 Anxiety disorder, unspecified; G47.00 Insomnia, unspecified; I25.10 Atherosclerotic heart disease of native coronary artery without angina pectoris; Z86.73 Personal history of transient ischemic attack (TIA), and cerebral infarction without residual deficits; Z87.11 Personal history of peptic ulcer disease; Z95.2 Presence of prosthetic heart valve; Z90.11 Acquired absence of right breast and nipple; Z83.3 Family history of diabetes mellitus; Z82.49 Family history of ischemic heart disease and other diseases of the circulatory system; Z90.49 Acquired absence of other specified parts of digestive tract; Z85.3 Personal history of malignant neoplasm of breast
CPT/HCPCS: 36415; 70450; 70551; 80053; 81001; 82306; 82607; 82962; 84443; 84484; 85025; 85610; 87086; 93005; 93880; 95816; J1815

== ENCOUNTER 2017-03-21 19:31 | Inpatient (IN) | payer BC ==
[2017-03-21 20:14] LABS: INR 1.7 (0.8-1.1); PROTHROMBIN TIME PATIENT 18.6 SEC (11.7-14.0)
[2017-03-21 20:26] LABS: BASO # 0.1 x10^3/uL (0.0-0.2); BASO % 1 % (0-3); EOS % 0 % (0-3); HEMATOCRIT 40.5 % (36.0-47.0); HEMOGLOBIN 13.2 g/dL (12.0-15.5); LYMPH # 0.6 x10^3/uL (1.0-4.8); LYMPH % 5 % (24-48); MEAN CORPUSCULAR HEMOGLOBIN 29 pg (25-35); MEAN CORPUSCULAR HGB CONC 33 g/dL (31-37); MEAN CORPUSCULAR VOLUME 90 fL (79-100); MONO # 0.5 x10^3/uL (0.0-1.1); MONO % 4 % (0-9); NEUT # 12.2 x10^3uL (1.8-7.7); NEUT % 90 % (31-73); PLATELET COUNT 281 x10^3/uL (140-400); RED BLOOD COUNT 4.53 x10^6/uL (3.50-5.40); RED CELL DISTRIBUTION WIDTH 15.9 % (11.5-14.5); WHITE BLOOD COUNT 13.5 x10^3/uL (4.0-11.0)
[2017-03-21 20:30] LABS: TROPONINI < 0.017 ng/mL (0.000-0.055)
[2017-03-21 20:30] LABS: ADD MAN DIFF? YES
[2017-03-21 20:36] LABS: BILIRUBIN,URINE NEGATIVE (NEG); CLARITY,URINE CLEAR; COLOR,URINE YELLOW; GLUCOSE,URINE 250 mg/dL (NEG); NITRITE,URINE NEGATIVE (NEG); PROTEIN,URINE >=300 mg/dL (NEG-TRACE); UROBILINOGEN,URINE 0.2 mg/dL (0.2 mg/dL)
[2017-03-21 20:44] LABS: ANION GAP 10 (6-14); BLOOD UREA NITROGEN 41 mg/dL (7-20); BUN/CREATININE RATIO 14 (6-20); CALCIUM 10.6 mg/dL (8.5-10.1); CARBON DIOXIDE 23 mmol/L (21-32); CHLORIDE 104 mmol/L (98-107); CREATININE 2.9 mg/dL (0.6-1.0); GFR 15.9; GLUCOSE 150 mg/dL (70-99); POTASSIUM 5.4 mmol/L (3.5-5.1); SODIUM 137 mmol/L (136-145)
[2017-03-21 20:45] LABS: AMPHETAMINE/METHAMPHETAMINE NEG (NEG); BARBITURATES NEG (NEG); BENZODIAZEPINES NEG (NEG); CANNABINOIDS NEG (NEG); COCAINE NEG (NEG); ETHANOL, URINE NEG (NEG); METHADONE NEG (NEG); OPIATES NEG (NEG); PHENCYCLIDINE NEG (NEG)
[2017-03-21 20:47] LABS: AMORPHOUS SEDIMENT,UR PRESENT /HPF; BACTERIA,URINE 0 /HPF (0-FEW); HYALINE CASTS, URINE MODERATE /HPF; WBC,URINE RARE /HPF (0-4)
[2017-03-21 20:52] LABS: ALBUMIN 3.5 g/dL (3.4-5.0); ALBUMIN/GLOBULIN RATIO 0.8 (1.0-1.7); ALK PHOS 51 U/L (46-116); ALT (SGPT) 30 U/L (14-59); AST (SGOT) 23 U/L (15-37); DIG 1.6 ng/mL (0.9-2.0); MAGNESIUM 2.3 mg/dL (1.8-2.4); TOTAL BILIRUBIN 0.3 mg/dL (0.2-1.0); TOTAL PROTEIN 7.8 g/dL (6.4-8.2)
[2017-03-21] MEDS: IV NORMAL SALINE 1000ML BAG 1,000 ML IV (21:00)
[2017-03-21 21:36] LABS: % BANDS 2 % (0-9); % BASOS 2 % (0-3); % LYMPHS 5 % (24-48); % MONOS 4 % (0-10); % SEGS 87 % (35-66); ANISOCYTOSIS SLIGHT; OVALOCYTES MOD; PLT ESTIMATE ADEQUATE (ADEQUATE)
[2017-03-21 21:37] LABS: SCHISTOCYTES OCC
[2017-03-21] MEDS: FUROSEMIDE 20 MG/2 ML VIAL. IVP (22:57)
[2017-03-22] MEDS: ANTI-COAG MONITOR BY PHARMACY. MC (01:40)
[2017-03-22 06:44] LABS: ALBUMIN 3.1 g/dL (3.4-5.0); ALBUMIN/GLOBULIN RATIO 0.8 (1.0-1.7); ALK PHOS 50 U/L (46-116); ALT (SGPT) 27 U/L (14-59); ANION GAP 13 (6-14); AST (SGOT) 22 U/L (15-37); BLOOD UREA NITROGEN 39 mg/dL (7-20); BUN/CREATININE RATIO 13 (6-20); CALCIUM 10.7 mg/dL (8.5-10.1); CARBON DIOXIDE 22 mmol/L (21-32); CHLORIDE 107 mmol/L (98-107); CREATININE 2.9 mg/dL (0.6-1.0); GFR 15.9; GLUCOSE 105 mg/dL (70-99); POTASSIUM 4.4 mmol/L (3.5-5.1); SODIUM 142 mmol/L (136-145); TOTAL BILIRUBIN 0.4 mg/dL (0.2-1.0); TOTAL PROTEIN 6.9 g/dL (6.4-8.2)
[2017-03-22 08:27] LABS: POC GLUCOSE 106 mg/dL (70-99)
[2017-03-22 11:21] LABS: POC GLUCOSE 237 mg/dL (70-99)
[2017-03-22] MEDS: PANTOPRAZOLE 40 MG TABLET.DR. PO (11:56)
[2017-03-22] MEDS: SPIRONOLACTONE 25 MG TABLET PO (11:57)
[2017-03-22] MEDS: ASPIRIN CHEWABLE 81 MG TABLET. PO (11:58)
[2017-03-22] MEDS: SOTALOL 80 MG TABLET. PO ×2 (11:58→20:34)
[2017-03-22] MEDS: amLODIPine BESYLATE 5 MG TABLET PO (11:59)
[2017-03-22] MEDS: INSULIN ASPART 300 UNITS/3 ML INSULN.PEN SQ ×2 (12:03→16:30)
[2017-03-22 13:44] LABS: INFLUENZA A PATIENT NEGATIVE (NEGATIVE); INFLUENZA B PATIENT NEGATIVE (NEGATIVE); OBC FLU VALID
[2017-03-22 16:54] LABS: POC GLUCOSE 131 mg/dL (70-99)
[2017-03-22] MEDS: WARFARIN 4 MG TABLET. PO (17:45)
[2017-03-22] MEDS: FERROUS SULFATE ORAL 300 MG/5 ML SOLUTION. PO (17:46)
[2017-03-22] MEDS: DONEPEZIL HCL 10 MG TABLET. PO (20:33)
[2017-03-22] MEDS: ATORVASTATIN CALCIUM 40 MG TABLET. PO (20:33)
[2017-03-22 20:43] LABS: POC GLUCOSE 170 mg/dL (70-99)
[2017-03-22 23:08] LABS: MRSA BY PCR Negative (Negative)
[2017-03-23 02:08] LABS: CALCIUM PTH 10.1 mg/dL (8.7-10.3); CREATININE PTH 2.89 mg/dL (0.57-1.00); PHOSPHORUS PTH 3.3 mg/dL (2.5-4.5); PTH INTACT 108 pg/mL (15-65); eGFR AFRICAN-AMER 18 (>59); eGFR NON AFRICAN-AMER 15 (>59)
[2017-03-23 07:23] LABS: HEMATOCRIT 41.3 % (36.0-47.0); HEMOGLOBIN 13.3 g/dL (12.0-15.5); MEAN CORPUSCULAR HEMOGLOBIN 30 pg (25-35); MEAN CORPUSCULAR HGB CONC 32 g/dL (31-37); MEAN CORPUSCULAR VOLUME 92 fL (79-100); PLATELET COUNT 266 x10^3/uL (140-400); RED BLOOD COUNT 4.49 x10^6/uL (3.50-5.40); WHITE BLOOD COUNT 11.8 x10^3/uL (4.0-11.0)
[2017-03-23 07:24] LABS: INR 1.5 (0.8-1.1); PROTHROMBIN TIME PATIENT 17.4 SEC (11.7-14.0)
[2017-03-23] MEDS: INSULIN ASPART 300 UNITS/3 ML INSULN.PEN SQ ×3 (07:30→16:30)
[2017-03-23 08:16] LABS: POC GLUCOSE 141 mg/dL (70-99)
[2017-03-23 10:55] LABS: ALBUMIN 3.2 g/dL (3.4-5.0); ALBUMIN/GLOBULIN RATIO 0.7 (1.0-1.7); ALK PHOS 51 U/L (46-116); ALT (SGPT) 28 U/L (14-59); ANION GAP 10 (6-14); AST (SGOT) 25 U/L (15-37); BLOOD UREA NITROGEN 37 mg/dL (7-20); BUN/CREATININE RATIO 13 (6-20); CALCIUM 10.3 mg/dL (8.5-10.1); CARBON DIOXIDE 24 mmol/L (21-32); CHLORIDE 109 mmol/L (98-107); CREATININE 2.8 mg/dL (0.6-1.0); GFR 16.5; GLUCOSE 158 mg/dL (70-99); POTASSIUM 4.6 mmol/L (3.5-5.1); SODIUM 143 mmol/L (136-145); TOTAL BILIRUBIN 0.4 mg/dL (0.2-1.0); TOTAL PROTEIN 7.6 g/dL (6.4-8.2)
[2017-03-23] MEDS: ASPIRIN CHEWABLE 81 MG TABLET. PO (11:00)
[2017-03-23] MEDS: amLODIPine BESYLATE 5 MG TABLET PO (11:00)
[2017-03-23] MEDS: PANTOPRAZOLE 40 MG TABLET.DR. PO (11:00)
[2017-03-23] MEDS: SPIRONOLACTONE 25 MG TABLET PO (11:00)
[2017-03-23] MEDS: SOTALOL 80 MG TABLET. PO ×2 (11:01→20:00)
[2017-03-23] MEDS: FERROUS SULFATE ORAL 300 MG/5 ML SOLUTION. PO ×2 (11:01→16:45)
[2017-03-23 11:14] LABS: THYROID STIM HORMONE (TSH) 1.513 uIU/mL (0.358-3.74)
[2017-03-23 11:14] LABS: FREE T4 1.01 ng/dL (0.76-1.46)
[2017-03-23 11:46] LABS: POC GLUCOSE 172 mg/dL (70-99)
[2017-03-23 12:24] LABS: SEDIMENTATION RATE 40 (0-25)
[2017-03-23] MEDS: OLANZapine 5 MG TABLET PO ×2 (12:32→20:00)
[2017-03-23] MEDS: MAGNESIUM OXIDE 400 MG TABLET PO ×2 (12:32→19:59)
[2017-03-23] MEDS: WARFARIN 4 MG TABLET. PO (16:45)
[2017-03-23 17:02] LABS: POC GLUCOSE 139 mg/dL (70-99)
[2017-03-23] MEDS: ANTI-COAG MONITOR BY PHARMACY. MC (18:05)
[2017-03-23 19:59] LABS: POC GLUCOSE 223 mg/dL (70-99)
[2017-03-23] MEDS: ATORVASTATIN CALCIUM 40 MG TABLET. PO (20:00)
[2017-03-23] MEDS: DONEPEZIL HCL 10 MG TABLET. PO (20:00)
[2017-03-23 22:13] LABS: HEP B SURFACE ABDY Non Reactive (.)
[2017-03-24 04:45] LABS: HEMATOCRIT 37.9 % (36.0-47.0); HEMOGLOBIN 12.6 g/dL (12.0-15.5); MEAN CORPUSCULAR HEMOGLOBIN 30 pg (25-35); MEAN CORPUSCULAR HGB CONC 33 g/dL (31-37); MEAN CORPUSCULAR VOLUME 89 fL (79-100); PLATELET COUNT 270 x10^3/uL (140-400); RED BLOOD COUNT 4.24 x10^6/uL (3.50-5.40); WHITE BLOOD COUNT 9.9 x10^3/uL (4.0-11.0)
[2017-03-24 04:53] LABS: INR 1.6 (0.8-1.1)
[2017-03-24 05:33] LABS: ALBUMIN 2.7 g/dL (3.4-5.0); ALBUMIN/GLOBULIN RATIO 0.7 (1.0-1.7); ALK PHOS 50 U/L (46-116); ALT (SGPT) 23 U/L (14-59); ANION GAP 11 (6-14); AST (SGOT) 19 U/L (15-37); BLOOD UREA NITROGEN 45 mg/dL (7-20); BUN/CREATININE RATIO 15 (6-20); CALCIUM 10.1 mg/dL (8.5-10.1); CARBON DIOXIDE 24 mmol/L (21-32); CHLORIDE 107 mmol/L (98-107); GFR 15.3; GLUCOSE 107 mg/dL (70-99); SODIUM 142 mmol/L (136-145); TOTAL BILIRUBIN 0.2 mg/dL (0.2-1.0); TOTAL PROTEIN 6.4 g/dL (6.4-8.2)
[2017-03-24] MEDS: INSULIN ASPART 300 UNITS/3 ML INSULN.PEN SQ ×3 (07:30→16:30)
[2017-03-24 07:52] LABS: POC GLUCOSE 109 mg/dL (70-99)
[2017-03-24] MEDS: FERROUS SULFATE ORAL 300 MG/5 ML SOLUTION. PO ×2 (09:13→17:05)
[2017-03-24] MEDS: PANTOPRAZOLE 40 MG TABLET.DR. PO (09:14)
[2017-03-24] MEDS: MAGNESIUM OXIDE 400 MG TABLET PO ×2 (09:14→20:57)
[2017-03-24] MEDS: ASPIRIN CHEWABLE 81 MG TABLET. PO (09:15)
[2017-03-24] MEDS: SOTALOL 80 MG TABLET. PO ×2 (09:15→20:58)
[2017-03-24] MEDS: SPIRONOLACTONE 25 MG TABLET PO (09:16)
[2017-03-24] MEDS: OLANZapine 5 MG TABLET PO ×2 (09:16→20:58)
[2017-03-24] MEDS: amLODIPine BESYLATE 5 MG TABLET PO (09:16)
[2017-03-24 12:10] LABS: POC GLUCOSE 134 mg/dL (70-99)
[2017-03-24 16:17] LABS: KAPPA FREE 80.8 mg/L (3.3-19.4); KAPPA LAMBDA RATIO 1.52 (0.26-1.65)
[2017-03-24 16:35] LABS: POC GLUCOSE 106 mg/dL (70-99)
[2017-03-24] MEDS: WARFARIN 5 MG TABLET. PO (17:05)
[2017-03-24 20:11] LABS: TOTAL SERUM CREATININE 2.84 mg/dL (0.57-1.00); TOTAL URINE CREATININE 101.6 mg/dL (Not Estab.); eGFR AFRICAN-AMER 18 (>59); eGFR NON AFRICAN-AMER 16 (>59)
[2017-03-24 20:43] LABS: POC GLUCOSE 148 mg/dL (70-99)
[2017-03-24] MEDS: ATORVASTATIN CALCIUM 40 MG TABLET. PO (20:57)
[2017-03-24] MEDS: DONEPEZIL HCL 10 MG TABLET. PO (20:57)
[2017-03-24 23:10] LABS: UR PROTEIN 1615.1 mg/dL (Not Estab.)
[2017-03-25 05:57] LABS: HEMATOCRIT 38.4 % (36.0-47.0); HEMOGLOBIN 12.6 g/dL (12.0-15.5); MEAN CORPUSCULAR HEMOGLOBIN 29 pg (25-35); MEAN CORPUSCULAR HGB CONC 33 g/dL (31-37); MEAN CORPUSCULAR VOLUME 89 fL (79-100); PLATELET COUNT 249 x10^3/uL (140-400); RED BLOOD COUNT 4.32 x10^6/uL (3.50-5.40); RED CELL DISTRIBUTION WIDTH 15.8 % (11.5-14.5); WHITE BLOOD COUNT 10.1 x10^3/uL (4.0-11.0)
[2017-03-25 06:04] LABS: INR 1.9 (0.8-1.1); PROTHROMBIN TIME PATIENT 20.6 SEC (11.7-14.0)
[2017-03-25 06:29] LABS: ALBUMIN 2.7 g/dL (3.4-5.0); ALBUMIN/GLOBULIN RATIO 0.7 (1.0-1.7); ALK PHOS 47 U/L (46-116); ALT (SGPT) 24 U/L (14-59); ANION GAP 10 (6-14); AST (SGOT) 17 U/L (15-37); BLOOD UREA NITROGEN 54 mg/dL (7-20); BUN/CREATININE RATIO 16 (6-20); CALCIUM 9.8 mg/dL (8.5-10.1); CARBON DIOXIDE 25 mmol/L (21-32); CHLORIDE 106 mmol/L (98-107); CREATININE 3.3 mg/dL (0.6-1.0); GFR 13.7; GLUCOSE 117 mg/dL (70-99); POTASSIUM 4.4 mmol/L (3.5-5.1); SODIUM 141 mmol/L (136-145); TOTAL BILIRUBIN 0.3 mg/dL (0.2-1.0); TOTAL PROTEIN 6.4 g/dL (6.4-8.2)
[2017-03-25 07:28] LABS: POC GLUCOSE 106 mg/dL (70-99)
[2017-03-25] MEDS ORDERED: SIMETHICONE/SOD BICARB/CITRIC ACID PACKET. PO (09:00)
[2017-03-25] MEDS ORDERED: INSULIN DETEMIR 300 UNITS/3 ML INSULN.PEN. SQ (09:00)
[2017-03-25 09:54] LABS: SEDIMENTATION RATE 35 (0-25)
[2017-03-25] MEDS: BARIUM SULFATE 340 GM SUSPENSION. PO (10:07)
[2017-03-25] MEDS: BARIUM SULFATE 60% 355 ML SUSP PO (10:07)
[2017-03-25] MEDS: PANTOPRAZOLE 40 MG TABLET.DR. PO (10:51)
[2017-03-25] MEDS: SOTALOL 80 MG TABLET. PO ×2 (10:52→21:57)
[2017-03-25] MEDS: SPIRONOLACTONE 25 MG TABLET PO (10:53)
[2017-03-25] MEDS: ASPIRIN CHEWABLE 81 MG TABLET. PO (10:53)
[2017-03-25] MEDS: MAGNESIUM OXIDE 400 MG TABLET PO ×2 (10:55→21:56)
[2017-03-25] MEDS: amLODIPine BESYLATE 5 MG TABLET PO (10:56)
[2017-03-25 11:06] LABS: POC GLUCOSE 133 mg/dL (70-99)
[2017-03-25 11:07] LABS: CREAT CLEAR 24 22 mL/min (88-128); CREATININE UR 24HR 914 mg/24 hr (800-1800)
[2017-03-25 11:27] LABS: PROTEIN 24 HR UR 14536 mg/24 hr (30-150)
[2017-03-25 12:18] LABS: ALBUM 3.4 g/dL (2.9-4.4); ALPHA 1 0.3 g/dL (0.0-0.4); ALPHA 2 0.8 g/dL (0.4-1.0); BETA 1.2 g/dL (0.7-1.3); GAMMA 1.1 g/dL (0.4-1.8); M-SPIKE Not Observed g/dL (Not Observed); PROTEIN TOTAL 6.8 g/dL (6.0-8.5)
[2017-03-25] MEDS: WARFARIN 5 MG TABLET. PO (16:25)
[2017-03-25 17:32] LABS: POC GLUCOSE 178 mg/dL (70-99)
[2017-03-25 20:34] LABS: POC GLUCOSE 132 mg/dL (70-99)
[2017-03-25] MEDS: ATORVASTATIN CALCIUM 40 MG TABLET. PO (21:56)
[2017-03-25] MEDS: OLANZapine 5 MG TABLET PO (21:56)
[2017-03-25] MEDS: DONEPEZIL HCL 10 MG TABLET. PO (21:57)
[2017-03-25] MEDS: INSULIN DETEMIR 300 UNITS/3 ML INSULN.PEN. SQ (22:00)
[2017-03-26 04:39] LABS: HEMATOCRIT 33.5 % (36.0-47.0); HEMOGLOBIN 11.3 g/dL (12.0-15.5); MEAN CORPUSCULAR HEMOGLOBIN 30 pg (25-35); MEAN CORPUSCULAR HGB CONC 34 g/dL (31-37); MEAN CORPUSCULAR VOLUME 89 fL (79-100); PLATELET COUNT 254 x10^3/uL (140-400); RED BLOOD COUNT 3.75 x10^6/uL (3.50-5.40); RED CELL DISTRIBUTION WIDTH 16.4 % (11.5-14.5); WHITE BLOOD COUNT 9.5 x10^3/uL (4.0-11.0)
[2017-03-26 05:14] LABS: ALBUMIN 2.5 g/dL (3.4-5.0); ALBUMIN/GLOBULIN RATIO 0.7 (1.0-1.7); ALK PHOS 44 U/L (46-116); ALT (SGPT) 21 U/L (14-59); ANION GAP 11 (6-14); AST (SGOT) 15 U/L (15-37); BLOOD UREA NITROGEN 56 mg/dL (7-20); BUN/CREATININE RATIO 17 (6-20); CALCIUM 9.5 mg/dL (8.5-10.1); CARBON DIOXIDE 24 mmol/L (21-32); CHLORIDE 106 mmol/L (98-107); CREATININE 3.3 mg/dL (0.6-1.0); GFR 13.7; GLUCOSE 107 mg/dL (70-99); POTASSIUM 4.4 mmol/L (3.5-5.1); SODIUM 141 mmol/L (136-145); TOTAL BILIRUBIN 0.3 mg/dL (0.2-1.0); TOTAL PROTEIN 5.9 g/dL (6.4-8.2)
[2017-03-26 05:57] LABS: INR 1.9 (0.8-1.1); PROTHROMBIN TIME PATIENT 20.9 SEC (11.7-14.0)
[2017-03-26] MEDS: PANTOPRAZOLE 40 MG TABLET.DR. PO ×2 (07:36→20:45)
[2017-03-26 07:45] LABS: POC GLUCOSE 113 mg/dL (70-99)
[2017-03-26] MEDS: MAGNESIUM OXIDE 400 MG TABLET PO ×2 (09:00→20:45)
[2017-03-26 09:20] LABS: IMMUNOGLOBULIN A 522 mg/dL (64-422); IMMUNOGLOBULIN G 963 mg/dL (700-1600); IMMUNOGLOBULIN M 86 mg/dL (26-217)
[2017-03-26] MEDS: SPIRONOLACTONE 25 MG TABLET PO (09:22)
[2017-03-26] MEDS: SOTALOL 80 MG TABLET. PO ×2 (09:25→20:50)
[2017-03-26] MEDS: ASPIRIN CHEWABLE 81 MG TABLET. PO (09:26)
[2017-03-26] MEDS: amLODIPine BESYLATE 5 MG TABLET PO (09:26)
[2017-03-26] MEDS ORDERED: BARIUM SULFATE 40% (APPLE) 148 GM PWD. PO (10:15)
[2017-03-26 11:39] LABS: POC GLUCOSE 159 mg/dL (70-99)
[2017-03-26] MEDS: BARIUM SULFATE 40% (APPLE) 148 GM PWD. PO (13:30)
[2017-03-26] MEDS: WARFARIN 5 MG TABLET. PO (16:39)
[2017-03-26] MEDS: ATORVASTATIN CALCIUM 40 MG TABLET. PO (20:45)
[2017-03-26] MEDS: DONEPEZIL HCL 10 MG TABLET. PO (20:45)
[2017-03-26] MEDS: OLANZapine 5 MG TABLET PO (20:47)
[2017-03-26] MEDS: INSULIN DETEMIR 300 UNITS/3 ML INSULN.PEN. SQ (20:57)
[2017-03-26 21:02] LABS: POC GLUCOSE 136 mg/dL (70-99)
[2017-03-27 07:24] LABS: ANION GAP 9 (6-14); BLOOD UREA NITROGEN 63 mg/dL (7-20); CALCIUM 9.1 mg/dL (8.5-10.1); CARBON DIOXIDE 24 mmol/L (21-32); CHLORIDE 103 mmol/L (98-107); CREATININE 3.8 mg/dL (0.6-1.0); GFR 11.6; GLUCOSE 115 mg/dL (70-99); POTASSIUM 4.8 mmol/L (3.5-5.1); SODIUM 136 mmol/L (136-145)
[2017-03-27 07:54] LABS: POC GLUCOSE 109 mg/dL (70-99)
[2017-03-27 08:30] LABS: PROTHROMBIN TIME PATIENT 21.1 SEC (11.7-14.0)
[2017-03-27] MEDS: ASPIRIN CHEWABLE 81 MG TABLET. PO (09:01)
[2017-03-27] MEDS: MAGNESIUM OXIDE 400 MG TABLET PO (09:01)
[2017-03-27] MEDS: SOTALOL 80 MG TABLET. PO (09:02)
[2017-03-27] MEDS: SPIRONOLACTONE 25 MG TABLET PO (09:03)
[2017-03-27] MEDS: amLODIPine BESYLATE 5 MG TABLET PO (09:03)
[2017-03-27 11:24] LABS: ALBUMIN UR 47.3 % (.); ALPHA 1 UR 7.1 % (.); ALPHA 2 UR 8.4 % (.); BETA UR 17.1 % (.); GAMMA UR 20.1 % (.); M-SPIKE, % 2.3 % (Not Observed); PROTEIN UR 1613.4 mg/dL (Not Estab.)
[2017-03-27 11:27] LABS: POC GLUCOSE 114 mg/dL (70-99)
[2017-03-27 12:48] LABS: BILIRUBIN,URINE NEGATIVE (NEG); CLARITY,URINE CLEAR; COLOR,URINE YELLOW; GLUCOSE,URINE 100 mg/dL (NEG); NITRITE,URINE NEGATIVE (NEG); PROTEIN,URINE >=300 mg/dL (NEG-TRACE); UROBILINOGEN,URINE 0.2 mg/dL (0.2 mg/dL)
[2017-03-27 12:56] LABS: BACTERIA,URINE 0 /HPF (0-FEW); HYALINE CASTS, URINE FEW /HPF; SQUAMOUS EPITHELIAL CELL,UR MOD /LPF; YEAST,URINE PRESENT /HPF
[2017-03-27 18:12] LABS: PTH-RELATED PEPTIDE <1.1 pmol/L (.)
[2017-03-30 18:11] LABS: ANA INTERP Positive (.)
== END 2017-03-27 13:37 | disposition home or self-care (01) | DRG 682 ==
LOC: ER 19:31 → 5 NORTH 03-23 15:02
DX: N17.9 Acute kidney failure, unspecified (principal); G93.41 Metabolic encephalopathy; E11.22 Type 2 diabetes mellitus with diabetic chronic kidney disease; G62.9 Polyneuropathy, unspecified; E83.52 Hypercalcemia; K51.90 Ulcerative colitis, unspecified, without complications; G30.9 Alzheimer's disease, unspecified; F02.80 Dementia in other diseases classified elsewhere, unspecified severity, without behavioral disturbance, psychotic disturbance, mood disturbance, and anxiety; E04.2 Nontoxic multinodular goiter; E78.5 Hyperlipidemia, unspecified; E86.0 Dehydration; F32.9 Major depressive disorder, single episode, unspecified; F41.9 Anxiety disorder, unspecified; I12.9 Hypertensive chronic kidney disease with stage 1 through stage 4 chronic kidney disease, or unspecified chronic kidney disease; I25.10 Atherosclerotic heart disease of native coronary artery without angina pectoris; I25.2 Old myocardial infarction; I35.0 Nonrheumatic aortic (valve) stenosis; J32.0 Chronic maxillary sinusitis; J44.9 Chronic obstructive pulmonary disease, unspecified; K21.0 Gastro-esophageal reflux disease with esophagitis; M10.9 Gout, unspecified; M81.0 Age-related osteoporosis without current pathological fracture; N18.4 Chronic kidney disease, stage 4 (severe); N28.1 Cyst of kidney, acquired; R13.12 Dysphagia, oropharyngeal phase; Z79.01 Long term (current) use of anticoagulants; Z79.4 Long term (current) use of insulin; Z79.82 Long term (current) use of aspirin; Z82.49 Family history of ischemic heart disease and other diseases of the circulatory system; Z83.3 Family history of diabetes mellitus; Z85.3 Personal history of malignant neoplasm of breast; Z86.73 Personal history of transient ischemic attack (TIA), and cerebral infarction without residual deficits; Z87.891 Personal history of nicotine dependence; Z90.49 Acquired absence of other specified parts of digestive tract; Z92.21 Personal history of antineoplastic chemotherapy; Z95.2 Presence of prosthetic heart valve; Z90.11 Acquired absence of right breast and nipple
CPT/HCPCS: 36415; 51701; 70450; 74220; 74230; 76536; 76770; 78070; 80048; 80053; 80162; 80307; 81001; 82575; 82962; 83520; 83735; 83970; 84156; 84165; 84166; 84439; 84443; 84484; 85007; 85025; 85027; 85610; 85651; 86038; 86141; 86334; 86704; 86706; 87086; 87641; 87804; 87804-59; 92526-GN; 92611-GN; 96374; 97161-GP; 99285; 99285-25; A9500; J1650; J1815; J2060; J7030

== ENCOUNTER → 2017-05-22 | Outpatient (CLI) | payer BC | END | disposition home or self-care (01) | LOC: KCIC DEXA 12:44 | DX: Z13.820 Encounter for screening for osteoporosis (principal); M81.0 Age-related osteoporosis without current pathological fracture; Z78.0 Asymptomatic menopausal state | CPT/HCPCS: 77080 ==

== ENCOUNTER 2017-06-10 08:58 | Day surgery (SDC) | payer BC ==
[~2017-06-10 08:58] MED LIST changes: -ALEN70TA5 PO; -ALLO300T PO; -AMLO5TAB2 PO; -ASPI-482 PO; -ASPI-630 PO; -ATOR40TA59 PO; -ATOR80TA72 PO; -DIGO125T PO; -ENOX80DI3 SQ; -FERR300L PO; -FURO-68 PO; +HYDROmorphone 2 MG/ML VIAL IV; -INSU100V11 SQ; -INSU300I SQ; +IV RINGERS,LACTATED 1000ML 1,000 ML IV; +LIDOCAINE 1% PF 2 ML VIAL. ID; +LIDOCAINE 2% PF Vial for OR 5 ML VIAL.; -LOSA100T6 PO; -LOSA1TAB22 PO; -MAGN400C PO; +MORPHINE SULFATE 4 MG/ML DISP.SYRIN. IV; -OMEG1CAP27 PO; -PANT40TA5 PO; +PAPAVERINE 60 MG/2 ML VIAL FOR OR ONLY.; -POTA10TA5 PO; +PROCHLORPERAZINE 10 MG/2 ML VIAL. IV; +PROPOFOL 20 ML IV; -SOTA160T PO; -SOTA80TA48 PO; +SURGICEL FIBRILLAR 1X2 EACH.; -WARF-78 PO; -ZOLP5TAB PO; +fentaNYL PF VIAL 100 MCG/2 ML VIAL IV
[2017-06-10] MEDS ORDERED: IV NORMAL SALINE 1000ML BAG 1,000 ML IV (09:15)
[2017-06-10] MEDS ORDERED: LIDOCAINE 1% PF 30 ML VIAL. (09:46)
[2017-06-10 09:55] LABS: ADD MAN DIFF? NO
[2017-06-10 10:00] LABS: BASO # 0.1 x10^3/uL (0.0-0.2); BASO % 1 % (0-3); EOS # 0.3 x10^3/uL (0.0-0.7); EOS % 4 % (0-3); HEMATOCRIT 40.9 % (36.0-47.0); HEMOGLOBIN 13.6 g/dL (12.0-15.5); LYMPH # 1.2 x10^3/uL (1.0-4.8); LYMPH % 14 % (24-48); MEAN CORPUSCULAR HEMOGLOBIN 31 pg (25-35); MEAN CORPUSCULAR HGB CONC 33 g/dL (31-37); MEAN CORPUSCULAR VOLUME 92 fL (79-100); MONO # 1.2 x10^3/uL (0.0-1.1); MONO % 14 % (0-9); NEUT # 5.9 x10^3uL (1.8-7.7); NEUT % 68 % (31-73); PLATELET COUNT 248 x10^3/uL (140-400); RED BLOOD COUNT 4.43 x10^6/uL (3.50-5.40); WHITE BLOOD COUNT 8.7 x10^3/uL (4.0-11.0)
[2017-06-10 10:16] LABS: INR 1.2 (0.8-1.1); PARTIAL THROMBOPLASTIN TIME 29 SEC (24-38); PROTHROMBIN TIME PATIENT 14.2 SEC (11.7-14.0)
[2017-06-10] MEDS ORDERED: GLYCOPYRROLATE 1 MG/5 ML VIAL. (10:18)
[2017-06-10] MEDS: LIDOCAINE 1% 20 ML VIAL. ×2 (10:29→11:00)
[2017-06-10] MEDS: HEPARIN SODIUM 5,000 UNIT in IV NORMAL SALINE 500ML BAG 500 ML IRR (10:29)
[2017-06-10] MEDS ORDERED: PROPOFOL 20 ML IV (10:48)
[2017-06-10] MEDS ORDERED: HEPARIN for IV BOLUS 10,000 UNIT/10 ML VIAL. (11:03)
[2017-06-10] MEDS: SURGICEL FIBRILLAR 1X2 EACH. (11:26)
[2017-06-10 12:23] LABS: POC GLUCOSE 107 mg/dL (70-99)
[2017-06-10] MEDS ORDERED: PROTAMINE 50 MG/5 ML VIAL. IV (13:42)
== END 2017-06-10 14:04 | disposition home or self-care (01) ==
LOC: SURG 08:58
DX: I12.0 Hypertensive chronic kidney disease with stage 5 chronic kidney disease or end stage renal disease (principal); N18.6 End stage renal disease; Z95.2 Presence of prosthetic heart valve; I48.2 Chronic atrial fibrillation; E11.22 Type 2 diabetes mellitus with diabetic chronic kidney disease; Z86.73 Personal history of transient ischemic attack (TIA), and cerebral infarction without residual deficits; Z79.01 Long term (current) use of anticoagulants; Z79.82 Long term (current) use of aspirin; Z87.891 Personal history of nicotine dependence
CPT/HCPCS: 36415; 82962; 85025; 85610; 85730; C1768; J0690; J1644; J2440; J2704; J3490; J7040

== ENCOUNTER 2017-06-22 08:50 | Observation (INO) | payer BC ==
[2017-06-22] MEDS ORDERED: BACITRACIN 50,000 UNIT in IV NORMAL SALINE 250ML 250 ML IRR (09:54)
[2017-06-22 10:34] LABS: HEMOGLOBIN 11.1 g/dL (13.0-17.5); MEAN CORPUSCULAR HEMOGLOBIN 31 pg (25-35); MEAN CORPUSCULAR HGB CONC 34 g/dL (31-37); MEAN CORPUSCULAR VOLUME 93 fL (79-100); PLATELET COUNT 332 x10^3/uL (140-400); RED BLOOD COUNT 3.56 x10^6/uL (4.30-5.70); RED CELL DISTRIBUTION WIDTH 13.3 % (11.5-14.5); WHITE BLOOD COUNT 7.6 x10^3/uL (4.0-11.0)
[2017-06-22 10:44] LABS: INR 1.5 (0.8-1.1); PARTIAL THROMBOPLASTIN TIME 51 SEC (24-38); PROTHROMBIN TIME PATIENT 17.1 SEC (11.7-14.0)
[2017-06-22 11:04] LABS: ANION GAP 10 (6-14); BLOOD UREA NITROGEN 45 mg/dL (8-26); CALCIUM 9.9 mg/dL (8.5-10.1); CARBON DIOXIDE 26 mmol/L (21-32); CHLORIDE 107 mmol/L (98-107); CREATININE 3.3 mg/dL (0.7-1.3); GFR 18.4; GLUCOSE 121 mg/dL (70-99); SODIUM 143 mmol/L (136-145)
[2017-06-22] MEDS: fentaNYL PF VIAL 250 MCG/5 ML VIAL IV (11:45)
[2017-06-22] MEDS: MIDAZOLAM HCL/PF 5 MG/5 ML VIAL. IV (11:45)
[2017-06-22] MEDS: LIDOCAINE 2%/EPI 1:100,000 20 ML VIAL. IJ (11:45)
[2017-06-22] MEDS: BACITRACIN 50,000 UNIT in IV NORMAL SALINE 250ML 250 ML IRR (12:00)
[2017-06-22] MEDS ORDERED: ONDANSETRON PF 4 MG/2 ML VIAL. IV (13:00)
[2017-06-22] MEDS ORDERED: NO ANTICOAGULANT THERAPY. MC (13:00)
[2017-06-22] MEDS: DIGOXIN 125 MCG TABLET. PO (14:00)
[2017-06-22] MEDS: SOTALOL 80 MG TABLET. PO ×2 (14:03→21:17)
[2017-06-22] MEDS: amLODIPine BESYLATE 5 MG TABLET PO (14:03)
[2017-06-22] MEDS: PANTOPRAZOLE 40 MG TABLET.DR. PO (14:03)
[2017-06-22] MEDS: OMEGA-3 FATTY ACIDS/FISH OIL 1,000 MG CAPSULE. PO (14:03)
[2017-06-22] MEDS: ASPIRIN CHEWABLE 81 MG TABLET. PO (14:03)
[2017-06-22] MEDS: SPIRONOLACTONE 25 MG TABLET PO (14:03)
[2017-06-22] MEDS: LABETALOL 20 MG/4 ML DISP.SYRIN. IVP ×2 (17:11→18:35)
[2017-06-22 21:14] LABS: MRSA BY PCR Negative (Negative)
[2017-06-22 21:15] LABS: POC GLUCOSE 146 mg/dL (70-99)
[2017-06-22] MEDS: MAGNESIUM OXIDE 400 MG TABLET PO (21:17)
[2017-06-22] MEDS: ATORVASTATIN CALCIUM 40 MG TABLET. PO (21:17)
[2017-06-22] MEDS: DONEPEZIL HCL 10 MG TABLET. PO (21:17)
[2017-06-22] MEDS: OLANZapine 2.5 MG TABLET PO (21:22)
[2017-06-22] MEDS: INSULIN GLARGINE 300 UNITS/3 ML INSULN.PEN. SQ (21:22)
[2017-06-22] MEDS: oxyCODONE/APAP 5/325 1 TAB TABLET PO (23:02)
[2017-06-23] MEDS ORDERED: ceFAZolin SODIUM 1 GM in IV DEXTROSE 5% 50 ML IV (06:00)
[2017-06-23] MEDS: PANTOPRAZOLE 40 MG TABLET.DR. PO (08:43)
[2017-06-23] MEDS: OMEGA-3 FATTY ACIDS/FISH OIL 1,000 MG CAPSULE. PO (08:43)
[2017-06-23] MEDS: SPIRONOLACTONE 25 MG TABLET PO (08:44)
[2017-06-23] MEDS: amLODIPine BESYLATE 5 MG TABLET PO (08:44)
[2017-06-23] MEDS: MAGNESIUM OXIDE 400 MG TABLET PO (08:44)
[2017-06-23] MEDS: ASPIRIN CHEWABLE 81 MG TABLET. PO (08:45)
[2017-06-23] MEDS: SOTALOL 80 MG TABLET. PO (08:45)
[2017-06-23] MEDS: DIGOXIN 125 MCG TABLET. PO (09:00)
[2017-06-23 11:44] LABS: POC GLUCOSE 203 mg/dL (70-99)
[2017-06-23] MEDS ORDERED: traMADol 50 MG TABLET PO (14:45)
[2017-06-23] MEDS ORDERED: ONDANSETRON PF 4 MG/2 ML VIAL. IV (14:45)
[2017-06-23] MEDS ORDERED: MORPHINE SULFATE 4 MG/ML DISP.SYRIN. IV (14:45)
[2017-06-23] MEDS ORDERED: hydrALAZINE 20 MG/ML VIAL. IVP (14:45)
[2017-06-23] MEDS ORDERED: ACETAMINOPHEN 325 MG TABLET. PO (14:45)
[2017-06-23] MEDS ORDERED: DOCUSATE SODIUM 100 MG CAPSULE. PO (14:45)
[2017-06-23] MEDS: WARFARIN 10 MG TABLET. PO (18:01)
[2017-06-24 02:20] LABS: HEMOGLOBIN A1C 6.3 % (4.8-5.6)
== END 2017-06-23 18:27 | disposition home or self-care (01) ==
LOC: 2 SOUTH 08:50
DX: I49.5 Sick sinus syndrome (principal); I12.9 Hypertensive chronic kidney disease with stage 1 through stage 4 chronic kidney disease, or unspecified chronic kidney disease; I16.0 Hypertensive urgency; I48.2 Chronic atrial fibrillation; E11.22 Type 2 diabetes mellitus with diabetic chronic kidney disease; J44.9 Chronic obstructive pulmonary disease, unspecified; I25.10 Atherosclerotic heart disease of native coronary artery without angina pectoris; N18.4 Chronic kidney disease, stage 4 (severe); R55 Syncope and collapse; I35.0 Nonrheumatic aortic (valve) stenosis; Z86.73 Personal history of transient ischemic attack (TIA), and cerebral infarction without residual deficits; Z82.49 Family history of ischemic heart disease and other diseases of the circulatory system; Z83.3 Family history of diabetes mellitus; Z95.2 Presence of prosthetic heart valve; Z95.0 Presence of cardiac pacemaker
CPT/HCPCS: 33207; 36415; 71045; 71046; 80048; 82962; 83036; 85027; 85610; 85730; 87641; 93005; 96365; 96366; 96372; 96375; 96376; 99152; 99153; C1786; C1898; G0378; G0379; J0690; J1815; J2250; J3010; J3490; J7050

== ENCOUNTER → 2017-09-09 | Outpatient (CLI) | payer BC ==
[2017-09-09 11:38] LABS: ALBUMIN 3.6 g/dL (3.4-5.0); ANION GAP 8 (6-14); BLOOD UREA NITROGEN 35 mg/dL (8-26); CALCIUM 10.3 mg/dL (8.5-10.1); CARBON DIOXIDE 28 mmol/L (21-32); CHLORIDE 105 mmol/L (98-107); CREATININE 3.3 mg/dL (0.7-1.3); GFR 18.4; GLUCOSE 128 mg/dL (70-99); PHOSPHORUS 3.6 mg/dL (2.6-4.7); POTASSIUM 4.8 mmol/L (3.5-5.1); SODIUM 141 mmol/L (136-145)
[2017-09-09 13:30] LABS: HEPATITIS B SURFACE AG Nonreactive (Nonreactive)
[2017-09-09 13:56] LABS: HEPATITIS C AB Nonreactive (Nonreactive)
[2017-09-09 13:57] LABS: HEPATITIS B CORE AB(IGM) Nonreactive (Nonreactive)
[2017-09-09 13:59] LABS: HEPATITIS A AB(IGM) Nonreactive (Nonreactive)
== END | disposition home or self-care (01) ==
LOC: RAD 10:31
DX: I13.2 Hypertensive heart and chronic kidney disease with heart failure and with stage 5 chronic kidney disease, or end stage renal disease (principal); E11.22 Type 2 diabetes mellitus with diabetic chronic kidney disease; I50.43 Acute on chronic combined systolic (congestive) and diastolic (congestive) heart failure; N18.4 Chronic kidney disease, stage 4 (severe); D63.1 Anemia in chronic kidney disease; E87.6 Hypokalemia; E86.1 Hypovolemia; E03.9 Hypothyroidism, unspecified; K21.9 Gastro-esophageal reflux disease without esophagitis; I25.10 Atherosclerotic heart disease of native coronary artery without angina pectoris; Z85.3 Personal history of malignant neoplasm of breast; Z87.891 Personal history of nicotine dependence
CPT/HCPCS: 36415; 71046; 80069; 86705; 86709; 86803; 87340

== ENCOUNTER 2017-10-13 18:42 | Emergency (ER) | payer BC ==
[~2017-10-13] VITALS: Ht 172.7 cm; Wt 64.4 kg
[~2017-10-13 18:42] MED LIST changes: +ALEN70TA5 PO; +ALLO300T PO; +AMLO10TA2 PO; +AMLO5TAB2 PO; +ASPI-482 PO; +ASPI-630 PO; +ATOR40TA59 PO; +ATOR80TA72 PO; +DIGO125T PO; +DONE10TA7 PO; +DONE5TAB56 PO; +ENOX80DI3 SQ; +FERR300L PO; +FURO-68 PO; -HYDROmorphone 2 MG/ML VIAL IV; +INSU100V11 SQ; +INSU300I SQ; -IV RINGERS,LACTATED 1000ML 1,000 ML IV; +LEXAPRO10 MG PO; -LIDOCAINE 1% PF 2 ML VIAL. ID; -LIDOCAINE 2% PF Vial for OR 5 ML VIAL.; +LOSA100T6 PO; +LOSA1TAB22 PO; +MAGN400C PO; -MORPHINE SULFATE 4 MG/ML DISP.SYRIN. IV; +OLAN2.5T11 PO; +OLAN5TAB9 PO; +OMEG1CAP27 PO; +PANT40TA3 PO; +PANT40TA5 PO; -PAPAVERINE 60 MG/2 ML VIAL FOR OR ONLY.; +POTA10TA12 PO; -PROCHLORPERAZINE 10 MG/2 ML VIAL. IV; -PROPOFOL 20 ML IV; +SOTA160T PO; +SOTA80TA48 PO; +SPIR25TA PO; -SURGICEL FIBRILLAR 1X2 EACH.; +WARF-78 PO; +WARF4TAB68 PO; +ZOLP5TAB PO; -fentaNYL PF VIAL 100 MCG/2 ML VIAL IV
[2017-10-13] MEDS: SODIUM PHOSPHATES 19/7GM 133 ML ENEMA. PR ONE ×2 (19:25→20:00)
[2017-10-13 21:45] VITALS: BP 140/66
--- NOTE | 2017-10-13 21:51 | PHYS DOC ---
Past Medical History Past Medical History: CAD, CVA, Dementia, Diabetes-Type II, High Cholesterol, Hypertension, Renal Disease, Other Additional Past Medical Histor: ULCER COLITIS, AORTIC VALVE PROLAPSE, insomnia , PARKINSON Past Surgical History: Cholecystectomy, Tonsillectomy, Other Additional Past Surgical Histo: RIGHT BREAST MASTECTOMY,COLON RESECTION,AORTIC VALVE REPLACEMENT Alcohol Use: None Drug Use: None Adult General Chief Complaint Chief Complaint: OTHER COMPLAINTS HPI HPI Patient is a 72 year old female who presents with rectal complaints. The patient endorses a weeklong history of difficulty with defecation. She does have chronic constipation. She states she has not had a bowel movement in the last 5-7 days. Earlier today she was on the stool attempting to defecate when she felt that her, open "buttonhole fell out." The patient immediately came to the emergency department. She currently does not complain of abdominal pain. She has not had no fever or chills. No urinary symptoms. She does currently have the sensation that there is something protruding from her anus. Review of Systems Review of Systems Constitutional: Denies fever Eyes: Denies change in visual acuity HENT: Denies nasal congestion or sore throat Respiratory: Denies cough Cardiovascular: No additional information GI: Denies abdominal pain : Denies dysuria or hematuria Musculoskeletal: Denies back pain Integument: Denies rash Neurologic: Denies headache Endocrine: Denies polyuria All other systems were reviewed and found to be within normal limits, except as documented in this note. Current Medications Current Medications Current Medications Medications (Trade) Dose Ordered Sig/[facility] Start Time Stop Time Status Last Admin Dose Admin Sodium Monofluorophosphate (Fleet Adult) 133 ml 1X ONCE 10/13/17 20:00 10/13/17 20:01 DC 10/13/17 20:00 133 ML Allergies Allergies Allergies Coded Allergies Type Severity Reaction Last Updated Verified No Known Medication Allergies Allergy Unknown 06/10/17 Yes Physical Exam Physical Exam Constitutional: Well developed, well nourished, no distress HENT: Normocephalic, atraumatic, bilateral external ears normal, oropharynx moist Neck: Normal range of motion Lungs & Thorax: Bilateral breath normal Abdomen: Bowel sounds normal, soft, no tenderness Skin: Warm, dry, no erythema, no rash Back: No tenderness, no CVA tenderness Extremities: No edema Neurologic: Alert and oriented X 3 Psychologic: Affect normal Current Patient Data Vital Signs Vital Signs Date Time Temp Pulse Resp B/P (MAP) Pulse Ox O2 Delivery O2 Flow Rate FiO2 10/13/17 19:25 60 16 146/63 (90) 97 Room Air 10/13/17 19:00 97.5 97.5 EKG EKG [] Radiology/Procedures Radiology/Procedures [] Course & Med Decision Making Course & Med Decision Making Pertinent Labs and Imaging studies reviewed. (See chart for details) The patient was evaluated immediately on arrival to her room. She was complaining that she felt like something was hanging out of her rectum. An accompanied rectal exam was completed. There was no prolapse found or hemorrhoids. A digital rectal examination was completed and revealed an excessively large amount of very firm stool in the rectal vault. Orders are placed for enema. 21:50: In the emergency department, the patient was given 2 fleets enemas with only mild results. Nursing staff did manually disimpact a very large amount of stool from the patient's rectum. Following that, the patient was given a milk of molasses enema, about 400 mils. She did have ongoing bowel movements following the second enema. Plan is for discharge home. The patient is placed on a bowel regimen. She is advised she can take a bottle of magnesium citrate when she gets home or tomorrow morning. She is advised to follow-up with her primary care doctor or return to the ER for any new or worsening symptoms. Dragon Disclaimer Dragon Disclaimer This electronic medical record was generated, in whole or in part, using a voice recognition dictation system. Departure Departure Referrals: MARGI JARAMILLO MD (PCP) NAYELY MARRERO DO Oct 13, 2017 21:51
[2017-10-13] MEDS ORDERED: POLY17PO29 PO (21:54)
[2017-10-13] MEDS ORDERED: MAGN296S9 PO (21:54)
[2017-10-13] MEDS ORDERED: DOCU100C28 PO (21:54)
== END 2017-10-13 22:13 | disposition home or self-care (01) ==
LOC: ER 18:42
DX: K59.09 Other constipation (principal); R10.9 Unspecified abdominal pain; E78.00 Pure hypercholesterolemia, unspecified; I10 Essential (primary) hypertension; E11.9 Type 2 diabetes mellitus without complications; I25.10 Atherosclerotic heart disease of native coronary artery without angina pectoris; Z86.73 Personal history of transient ischemic attack (TIA), and cerebral infarction without residual deficits; N28.9 Disorder of kidney and ureter, unspecified; F03.90 Unspecified dementia, unspecified severity, without behavioral disturbance, psychotic disturbance, mood disturbance, and anxiety; Z90.49 Acquired absence of other specified parts of digestive tract
CPT/HCPCS: 99284

== ENCOUNTER 2018-07-06 20:02 | Emergency (ER) | payer BC ==
[~2018-07-06] VITALS: Ht 172.7 cm; Wt 59.0 kg
[~2018-07-06 20:02] MED LIST changes: +ALEN35TA6 PO; -ALEN70TA5 PO; +ALEN70TA6 PO; -AMLO10TA2 PO; +AMLO10TA8 PO; +AMLO5TAB10 PO; -AMLO5TAB2 PO; +DOCU100C28 PO; +LOSA100T14 PO; -LOSA100T6 PO; +MAGN296S9 PO; +POLY17PO29 PO; +WARF3TAB50 PO
--- NOTE | 2018-07-06 20:32 | PHYS DOC ---
Past Medical History Past Medical History: CAD, CVA, Dementia, Diabetes-Type II, High Cholesterol, Hypertension, Renal Disease, Other Additional Past Medical Histor: ULCER COLITIS, AORTIC VALVE PROLAPSE, insomnia, PARKINSON (BRODY HOPE APRN) Past Surgical History: Cholecystectomy, Tonsillectomy, Other Additional Past Surgical Histo: RIGHT BREAST MASTECTOMY,COLON RESECTION,AORTIC VALVE REPLACEMENT (BRODY HOPE APRN) Smoking: Quit Greater Than 1 Year Alcohol Use: None Drug Use: None (BRODY HOPE APRN) Adult General Chief Complaint Chief Complaint: CONTISPATION HPI HPI Patient is a 73 year old female who presents with constipation that is lasted for a week. Patient has associated symptoms of low amounts of urine output. She states she had some urine output this morning but that was the last time. Rates her pain 0 out of 10. Denies any other symptoms. Has tried MiraLAX before arrival. (BRODY HOPE APRN) Review of Systems Review of Systems Constitutional: Denies fever or chills [] Eyes: Denies change in visual acuity, redness, or eye pain [] HENT: Denies nasal congestion or sore throat [] Respiratory: Denies cough or shortness of breath [] Cardiovascular: No additional information not addressed in HPI [] GI: Denies abdominal pain, nausea, vomiting, bloody stools or diarrhea. Reports Constipation. : Denies dysuria or hematuria. Complains of low urine output. Musculoskeletal: Denies back pain or joint pain [] Integument: Denies rash or skin lesions [] Neurologic: Denies headache, focal weakness or sensory changes [] Endocrine: Denies polyuria or polydipsia [] Complete systems were reviewed and found to be within normal limits, except as documented in this note. (BRODY HOPE APRN) Current Medications Current Medications Current Medications Medications (Trade) Dose Ordered Sig/Semaj Start Time Stop Time Status Last Admin Dose Admin Ceftriaxone Sodium (Rocephin) 1 gm 1X ONCE 07/06/18 22:00 07/06/18 22:01 DC 07/06/18 22:06 1 GM Magnesium Citrate (Citroma) 296 ml 1X ONCE 07/06/18 22:00 07/06/18 22:01 DC 07/06/18 22:09 296 ML (NOHEMY TOBAR MD) Allergies Allergies Allergies Coded Allergies Type Severity Reaction Last Updated Verified No Known Medication Allergies Allergy Unknown 06/10/17 Yes (NOHEMY TOBAR MD) Physical Exam Physical Exam Constitutional: Well developed, well nourished, no acute distress, non-toxic appearance. [] HENT: Normocephalic, atraumatic, bilateral external ears normal, oropharynx moist, no oral exudates, nose normal. [] Eyes: PERRLA, EOMI, conjunctiva normal, no discharge. [] Neck: Normal range of motion, no tenderness, supple, no stridor. [] Cardiovascular:Heart rate regular rhythm, no murmur. Lungs & Thorax: Bilateral breath sounds clear to auscultation [] Abdomen: Bowel sounds normal, soft, no tenderness, no masses, no pulsatile masses. [] Skin: Warm, dry, no erythema, no rash. [] Back: No tenderness, no CVA tenderness. [] Extremities: No tenderness, no cyanosis, no clubbing, ROM intact, no edema. [] Neurologic: Alert and oriented X 3, normal motor function, normal sensory function, no focal deficits noted. [] Psychologic: Affect normal, judgement normal, mood normal. [] (BRODY HOPE APRN) Current Patient Data Vital Signs Vital Signs Date Time Temp Pulse Resp B/P (MAP) Pulse Ox O2 Delivery O2 Flow Rate FiO2 07/06/18 22:00 60 22 159/79 (105) 96 Room Air 07/06/18 20:23 97.8 97.8 (NOHEMY TOBAR MD) Lab Values Laboratory Tests Test 07/06/18 20:43 07/06/18 21:05 07/06/18 21:15 White Blood Count 7.9 x10^3/uL (4.0-11.0) Red Blood Count 4.12 x10^6/uL (3.50-5.40) Hemoglobin 12.7 g/dL (12.0-15.5) Hematocrit 38.8 % (36.0-47.0) Mean Corpuscular Volume 94 fL (79-100) Mean Corpuscular Hemoglobin 31 pg (25-35) Mean Corpuscular Hemoglobin Concent 33 g/dL (31-37) Red Cell Distribution Width 14.6 % (11.5-14.5) H Platelet Count 311 x10^3/uL (140-400) Neutrophils (%) (Auto) 70 % (31-73) Lymphocytes (%) (Auto) 11 % (24-48) L Monocytes (%) (Auto) 13 % (0-9) H Eosinophils (%) (Auto) 4 % (0-3) H Basophils (%) (Auto) 2 % (0-3) Neutrophils # (Auto) 5.5 x10^3uL (1.8-7.7) Lymphocytes # (Auto) 0.9 x10^3/uL (1.0-4.8) L Monocytes # (Auto) 1.0 x10^3/uL (0.0-1.1) Eosinophils # (Auto) 0.3 x10^3/uL (0.0-0.7) Basophils # (Auto) 0.1 x10^3/uL (0.0-0.2) Sodium Level 141 mmol/L (136-145) Potassium Level 4.3 mmol/L (3.5-5.1) Chloride Level 105 mmol/L (98-107) Carbon Dioxide Level 24 mmol/L (21-32) Anion Gap 12 (6-14) Blood Urea Nitrogen 34 mg/dL (7-20) H Creatinine 2.3 mg/dL (0.6-1.0) H Estimated GFR (Cockcroft-Gault) 20.7 BUN/Creatinine Ratio 15 (6-20) Glucose Level 147 mg/dL (70-99) H Calcium Level 9.3 mg/dL (8.5-10.1) Total Bilirubin 0.3 mg/dL (0.2-1.0) Aspartate Amino Transferase (AST) 23 U/L (15-37) Alanine Aminotransferase (ALT) 28 U/L (14-59) Alkaline Phosphatase 101 U/L (46-116) Total Protein 7.1 g/dL (6.4-8.2) Albumin 3.7 g/dL (3.4-5.0) Albumin/Globulin Ratio 1.1 (1.0-1.7) Urine Collection Type U cath Urine Color Yellow Urine Clarity Clear Urine pH 5.0 Urine Specific Stonewall 1.015 Urine Protein >=300 mg/dL (NEG-TRACE) Urine Glucose (UA) Negative mg/dL (NEG) Urine Ketones (Stick) Negative mg/dL (NEG) Urine Blood Moderate (NEG) Urine Nitrite Negative (NEG) Urine Bilirubin Small (NEG) Urine Urobilinogen Dipstick 0.2 mg/dL (0.2 mg/dL) Urine Leukocyte Esterase Moderate (NEG) Urine RBC 11-20 /HPF (0-2) Urine WBC 5-10 /HPF (0-4) Urine Squamous Epithelial Cells Few /LPF Urine Amorphous Sediment Present /HPF Urine Bacteria Few /HPF (0-FEW) Urine Mucus Slight /LPF Laboratory Tests 07/06/18 20:43 Laboratory Tests 07/06/18 21:05 (NOHEMY TOBAR MD) Lab Values Laboratory Tests Test 07/06/18 20:43 07/06/18 21:05 07/06/18 21:15 White Blood Count 7.9 x10^3/uL (4.0-11.0) Red Blood Count 4.12 x10^6/uL (3.50-5.40) Hemoglobin 12.7 g/dL (12.0-15.5) Hematocrit 38.8 % (36.0-47.0) Mean Corpuscular Volume 94 fL (79-100) Mean Corpuscular Hemoglobin 31 pg (25-35) Mean Corpuscular Hemoglobin Concent 33 g/dL (31-37) Red Cell Distribution Width 14.6 % (11.5-14.5) H Platelet Count 311 x10^3/uL (140-400) Neutrophils (%) (Auto) 70 % (31-73) Lymphocytes (%) (Auto) 11 % (24-48) L Monocytes (%) (Auto) 13 % (0-9) H Eosinophils (%) (Auto) 4 % (0-3) H Basophils (%) (Auto) 2 % (0-3) Neutrophils # (Auto) 5.5 x10^3uL (1.8-7.7) Lymphocytes # (Auto) 0.9 x10^3/uL (1.0-4.8) L Monocytes # (Auto) 1.0 x10^3/uL (0.0-1.1) Eosinophils # (Auto) 0.3 x10^3/uL (0.0-0.7) Basophils # (Auto) 0.1 x10^3/uL (0.0-0.2) Sodium Level 141 mmol/L (136-145) Potassium Level 4.3 mmol/L (3.5-5.1) Chloride Level 105 mmol/L (98-107) Carbon Dioxide Level 24 mmol/L (21-32) Anion Gap 12 (6-14) Blood Urea Nitrogen 34 mg/dL (7-20) H Creatinine 2.3 mg/dL (0.6-1.0) H Estimated GFR (Cockcroft-Gault) 20.7 BUN/Creatinine Ratio 15 (6-20) Glucose Level 147 mg/dL (70-99) H Calcium Level 9.3 mg/dL (8.5-10.1) Total Bilirubin 0.3 mg/dL (0.2-1.0) Aspartate Amino Transferase (AST) 23 U/L (15-37) Alanine Aminotransferase (ALT) 28 U/L (14-59) Alkaline Phosphatase 101 U/L (46-116) Total Protein 7.1 g/dL (6.4-8.2) Albumin 3.7 g/dL (3.4-5.0) Albumin/Globulin Ratio 1.1 (1.0-1.7) Urine Collection Type U cath Urine Color Yellow Urine Clarity Clear Urine pH 5.0 Urine Specific Stonewall 1.015 Urine Protein >=300 mg/dL (NEG-TRACE) Urine Glucose (UA) Negative mg/dL (NEG) Urine Ketones (Stick) Negative mg/dL (NEG) Urine Blood Moderate (NEG) Urine Nitrite Negative (NEG) Urine Bilirubin Small (NEG) Urine Urobilinogen Dipstick 0.2 mg/dL (0.2 mg/dL) Urine Leukocyte Esterase Moderate (NEG) Urine RBC 11-20 /HPF (0-2) Urine WBC 5-10 /HPF (0-4) Urine Squamous Epithelial Cells Few /LPF Urine Amorphous Sediment Present /HPF Urine Bacteria Few /HPF (0-FEW) Urine Mucus Slight /LPF Laboratory Tests 07/06/18 20:43 Laboratory Tests 07/06/18 21:05 (BRODY HOPE APRN) EKG EKG [] (BRODY HOPE APRN) Radiology/Procedures Radiology/Procedures Preliminary x-ray by Dr. Tobar Patient appears to be full of stool. [] (BRODY HOPE APRN) Course & Med Decision Making Course & Med Decision Making Pertinent Labs and Imaging studies reviewed. (See chart for details) Will obtain ua, labs, xray to evaluate patients constipation. Patient has UTI. Will order Rocephin and send home on Keflex. Performed rectal exam and was able to partially deimpact the patient. Will also order mag citrate for patient. (BRODY HOPE APRN) Course & Med Decision Making Staff Physician Addendum: I was working in the ER during the course of this patient's visit. I was available for consultation as needed, but I was not directly involved in the care of this patient. (NOHEMY TOBAR MD) Dragon Disclaimer Dragon Disclaimer This electronic medical record was generated, in whole or in part, using a voice recognition dictation system. (BRODY HOPE APRN) Departure Departure Impression: Primary Impression: Constipation Additional Impression: Urinary tract infection Disposition: HOME, SELF-CARE Condition: STABLE Referrals: MARGI JARAMILLO MD (PCP) Patient Instructions: Constipation, Adult, Urinary Tract Infection Additional Instructions: Please follow up with primary care provider. Take antibiotics as directed. Take laxatives as directed. Scripts Lactulose (LACTULOSE) 20 Gm/30 Ml Solution 20 GM PO BID PRN for CONSTIPATION for 7 Days, MISC stop taking if you develop diarrhea. Prov: BRODY HOPE APRN 07/06/18 Cephalexin (KEFLEX) 500 Mg Capsule 1 CAP PO BID for 7 Days, #14 CAP Prov: BRODY HOPE APRN 07/06/18 Problem Qualifiers Primary Impression: Constipation Constipation type: unspecified constipation type Qualified Codes: K59.00 - Constipation, unspecified Additional Impression: Urinary tract infection Urinary tract infection type: acute cystitis Hematuria presence: without hematuria Qualified Codes: N30.00 - Acute cystitis without hematuria BRODY HOPE APRN July 06, 2018 20:32 NOHEMY TOBAR MD July 07, 2018 05:27
[2018-07-06 20:53] LABS: BASO # 0.1 x10^3/uL (0.0-0.2); BASO % 2 % (0-3); EOS # 0.3 x10^3/uL (0.0-0.7); EOS % 4 % (0-3); HEMATOCRIT 38.8 % (36.0-47.0); HEMOGLOBIN 12.7 g/dL (12.0-15.5); LYMPH # 0.9 x10^3/uL (1.0-4.8); LYMPH % 11 % (24-48); MEAN CORPUSCULAR HEMOGLOBIN 31 pg (25-35); MEAN CORPUSCULAR HGB CONC 33 g/dL (31-37); MEAN CORPUSCULAR VOLUME 94 fL (79-100); MONO % 13 % (0-9); NEUT # 5.5 x10^3uL (1.8-7.7); NEUT % 70 % (31-73); PLATELET COUNT 311 x10^3/uL (140-400); RED BLOOD COUNT 4.12 x10^6/uL (3.50-5.40); RED CELL DISTRIBUTION WIDTH 14.6 % (11.5-14.5); WHITE BLOOD COUNT 7.9 x10^3/uL (4.0-11.0)
[2018-07-06 21:22] LABS: CALCIUM 9.3 mg/dL (8.5-10.1); CREATININE 2.3 mg/dL (0.6-1.0); GFR 20.7; POTASSIUM 4.3 mmol/L (3.5-5.1)
[2018-07-06 21:25] LABS: BILIRUBIN,URINE SMALL (NEG); CLARITY,URINE CLEAR; COLOR,URINE YELLOW; NITRITE,URINE NEGATIVE (NEG); PROTEIN,URINE >=300 mg/dL (NEG-TRACE); UROBILINOGEN,URINE 0.2 mg/dL (0.2 mg/dL)
[2018-07-06 21:27] LABS: ALBUMIN 3.7 g/dL (3.4-5.0); ALBUMIN/GLOBULIN RATIO 1.1 (1.0-1.7); TOTAL BILIRUBIN 0.3 mg/dL (0.2-1.0); TOTAL PROTEIN 7.1 g/dL (6.4-8.2)
[2018-07-06 21:31] LABS: SQUAMOUS EPITHELIAL CELL,UR FEW /LPF
[2018-07-06 21:32] LABS: AMORPHOUS SEDIMENT,UR PRESENT /HPF; BACTERIA,URINE FEW /HPF (0-FEW)
[2018-07-06] MEDS ORDERED: LACT20SO PO (21:59)
[2018-07-06] MEDS ORDERED: CEPH-264 PO (21:59)
[2018-07-06 22:00] VITALS: BP 159/79
[2018-07-06] MEDS ORDERED: MAGNESIUM CITRATE 296 ML SOLUTION. PO ONE (22:00)
[2018-07-06] MEDS ORDERED: cefTRIAXone IV Push 1 GM VIAL. IVP ONE (22:00)
--- NOTE | 2018-07-06 22:42 | RAD ---
Upright and supine AP views abdomen 07/06/2018 CLINICAL INDICATION: Constipation. COMPARISON: None. FINDINGS: Moderate retained rectal stool. No gaseous dilated small large bowel loops. No pneumoperitoneum. Prior median sternotomy. Right chest wall cardiac conduction device with single lead partially visualized. IMPRESSION: 1. No radiographic evidence of bowel obstruction. 2. Moderate rectal stool which may contribute to constipation. Electronically signed by: Tommy Branham MD (07/06/2018 10:39 PM) [id number]
== END 2018-07-06 22:16 | disposition home or self-care (01) ==
LOC: ER 20:02
DX: K59.00 Constipation, unspecified (principal); N30.00 Acute cystitis without hematuria; E11.9 Type 2 diabetes mellitus without complications; E78.00 Pure hypercholesterolemia, unspecified; I10 Essential (primary) hypertension; I25.10 Atherosclerotic heart disease of native coronary artery without angina pectoris; Z86.73 Personal history of transient ischemic attack (TIA), and cerebral infarction without residual deficits; Z90.49 Acquired absence of other specified parts of digestive tract; Z90.89 Acquired absence of other organs; Z90.11 Acquired absence of right breast and nipple; Z87.891 Personal history of nicotine dependence
CPT/HCPCS: 36415; 74021; 80053; 81001; 85025; 96374; 99285; J0696

== ENCOUNTER 2018-08-13 20:02 | Observation (INO) | payer BC ==
[~2018-08-13] VITALS: Ht 175.3 cm; Wt 59.9 kg
[~2018-08-13 20:02] MED LIST changes: +CEPH-264 PO; +LACT20SO PO; -PANT40TA3 PO; -PANT40TA5 PO; +PANT40TA77 PO
[2018-08-13 20:32] LABS: BASO # 0.1 x10^3/uL (0.0-0.2); BASO % 1 % (0-3); EOS # 0.3 x10^3/uL (0.0-0.7); EOS % 3 % (0-3); HEMATOCRIT 36.6 % (36.0-47.0); HEMOGLOBIN 12.4 g/dL (12.0-15.5); LYMPH # 0.8 x10^3/uL (1.0-4.8); LYMPH % 9 % (24-48); MEAN CORPUSCULAR HEMOGLOBIN 32 pg (25-35); MEAN CORPUSCULAR HGB CONC 34 g/dL (31-37); MEAN CORPUSCULAR VOLUME 93 fL (79-100); MONO % 12 % (0-9); NEUT # 6.5 x10^3uL (1.8-7.7); NEUT % 75 % (31-73); PLATELET COUNT 248 x10^3/uL (140-400); RED BLOOD COUNT 3.93 x10^6/uL (3.50-5.40); RED CELL DISTRIBUTION WIDTH 14.1 % (11.5-14.5); WHITE BLOOD COUNT 8.7 x10^3/uL (4.0-11.0)
--- NOTE | 2018-08-13 20:41 | RAD ---
CT head without contrast TECHNIQUE: [address] imaging skull base to vertex. HISTORY: Code stroke, altered mental status. COMPARISON: CT head December 28, 2017. FINDINGS: Chronic left basal ganglia infarct stable. Mild enlarged subarachnoid spaces overlying the frontal lobes are stable. No intracranial hemorrhage, mass or hydrocephalus. Calcified plaque intracranial arteries. Opacification left maxillary sinus fluid and mucosal thickening, stable. Orbits, mastoids and bones are unremarkable. IMPRESSION: No acute intracranial CT abnormality. Chronic left basal ganglia lacunar infarct, stable. Mucosal thickening and fluid left maxillary sinus similar to the prior exam could represent chronic or recurrent sinusitis. Critical results called to Dr. De at 8:38 pm, August 13, 2018 Exposure: One or more of the following individualized dose reduction techniques were utilized for this examination: 1. Automated exposure control 2. Adjustment of the mA and/or kV according to patient size 3. Use of iterative reconstruction technique Electronically signed by: Ej Davila MD (08/13/2018 8:38 PM) [facility]
[2018-08-13 20:42] LABS: PROTHROMBIN TIME PATIENT 22.8 SEC (11.7-14.0)
[2018-08-13 20:46] LABS: CREATININE 2.4 mg/dL (0.6-1.0); GFR 19.7; POTASSIUM 4.1 mmol/L (3.5-5.1)
[2018-08-13 20:50] LABS: DIG 2.3 ng/mL (0.9-2.0)
[2018-08-13 20:52] LABS: TOTAL BILIRUBIN 0.3 mg/dL (0.2-1.0); TOTAL PROTEIN 7.6 g/dL (6.4-8.2)
[2018-08-13 21:05] LABS: ALBUMIN 3.7 g/dL (3.4-5.0); ALBUMIN/GLOBULIN RATIO 0.9 (1.0-1.7)
[2018-08-13 21:49] LABS: BILIRUBIN,URINE MODERATE (NEG); CLARITY,URINE CLOUDY; COLOR,URINE AMBER; NITRITE,URINE NEGATIVE (NEG); PROTEIN,URINE >=300 mg/dL (NEG-TRACE)
[2018-08-13 21:55] LABS: AMORPHOUS SEDIMENT,UR PRESENT /HPF; BACTERIA,URINE FEW /HPF (0-FEW)
--- NOTE | 2018-08-13 21:58 | RAD ---
AP chest x-ray COMPARISON: Chest x-ray November 23, 2017. HISTORY: Altered mental status. FINDINGS: Single lead cardiac pacemaker. Median sternotomy presumably for coronary bypass. Cardiomegaly stable. Aortic arch calcified plaque. Superior left lung apex is outside the [id number]. Pulmonary vascular congestion. There is mild pulmonary interstitial reticulation likely mild edema. No point opacities. No pleural effusions or pneumothorax. IMPRESSION: Probable mild imaging changes of congestive heart failure with cardiomegaly, pulmonary vascular congestion and mild pulmonary interstitial edema. Electronically signed by: Ej Davila MD (08/13/2018 9:55 PM) [facility]
[2018-08-13] MEDS ORDERED: DEXTROSE 50% 25 GM / 50ML DISP.SYRIN. IV PRN (22:45)
--- NOTE | 2018-08-14 00:15 | NUR ---
The patient, GASTON PATTERSON, 73 y/o, F admitted by MARGI JARAMILLO MD, was given written information regarding hospital policies, unit procedures and contact persons. Medications, history and admission completed. Valuables were checked and patient has on wedding ring and birthstone ring on the other hand. Patient's stated her purse, wallet and other personal belongings are at home. RN will continue to monitor
[2018-08-14 00:31] VITALS: BP 117/58
[2018-08-14] MEDS ORDERED: WARF4TAB64 PO (02:11)
[2018-08-14] MEDS ORDERED: DIGO125T PO ×2 (02:11→10:51)
[2018-08-14] MEDS ORDERED: ASPI-630 PO (02:11)
[2018-08-14] MEDS ORDERED: SOTA80TA48 PO (02:11)
[2018-08-14] MEDS ORDERED: AMLO-268 PO (02:11)
[2018-08-14] MEDS ORDERED: SACU1TAB PO (02:11)
[2018-08-14] MEDS ORDERED: DONE10TA7 PO (02:11)
[2018-08-14] MEDS ORDERED: PANT20TA2 PO (02:11)
[2018-08-14] MEDS ORDERED: OLAN5TAB9 PO (02:12)
[2018-08-14] MEDS ORDERED: ALEN35TA6 PO (02:12)
[2018-08-14] MEDS ORDERED: INSU300I SQ (02:12)
[2018-08-14 03:00] VITALS: BP 118/56
--- NOTE | 2018-08-14 04:28 | PHYS DOC ---
Past Medical History Past Medical History: CAD, CVA, Dementia, Diabetes-Type II, High Cholesterol, Hypertension, Renal Disease, Other Additional Past Medical Histor: ULCER COLITIS, MITRAL VALVE REPLACEMENT X 2 , insomnia, PARKINSON Past Surgical History: Cholecystectomy, Pacemaker, Tonsillectomy, Other Additional Past Surgical Histo: MITRAL VALVE SURGERY, RIGHT MASTECTOMY, COLON RESECTION, DIALYSIS SHUNT RUE Additional Information: QUIT SMOKING IN Alcohol Use: None Drug Use: None Adult General Chief Complaint Chief Complaint: ALTERED MENTAL STATUS HPI HPI Patient is a 73 year old [f__sex] who presents with [] Review of Systems Review of Systems Constitutional: Denies fever or chills [] Eyes: Denies change in visual acuity, redness, or eye pain [] HENT: Denies nasal congestion or sore throat [] Respiratory: Denies cough or shortness of breath [] Cardiovascular: No additional information not addressed in HPI [] GI: Denies abdominal pain, nausea, vomiting, bloody stools or diarrhea [] : Denies dysuria or hematuria [] Musculoskeletal: Denies back pain or joint pain [] Integument: Denies rash or skin lesions [] Neurologic: Denies headache, focal weakness or sensory changes [] Endocrine: Denies polyuria or polydipsia [] All other systems were reviewed and found to be within normal limits, except as documented in this note. Current Medications Current Medications Current Medications Medications (Trade) Dose Ordered Sig/Semaj Start Time Stop Time Status Last Admin Dose Admin Dextrose (Dextrose 50%-Water Syringe) 12.5 gm PRN Q15MIN PRN 08/13/18 22:45 Allergies Allergies Allergies Coded Allergies Type Severity Reaction Last Updated Verified No Known Medication Allergies Allergy Unknown 06/10/17 Yes Physical Exam Physical Exam Constitutional: Well developed, well nourished, no acute distress, non-toxic appearance. [] HENT: Normocephalic, atraumatic, bilateral external ears normal, oropharynx moist, no oral exudates, nose normal. [] Eyes: PERRLA, EOMI, conjunctiva normal, no discharge. [] Neck: Normal range of motion, no tenderness, supple, no stridor. [] Cardiovascular:Heart rate regular rhythm, no murmur [] Lungs & Thorax: Bilateral breath sounds clear to auscultation [] Abdomen: Bowel sounds normal, soft, no tenderness, no masses, no pulsatile masses. [] Skin: Warm, dry, no erythema, no rash. [] Back: No tenderness, no CVA tenderness. [] Extremities: No tenderness, no cyanosis, no clubbing, ROM intact, no edema. [] Neurologic: Alert and oriented X 3, normal motor function, normal sensory function, no focal deficits noted. [] Psychologic: Affect normal, judgement normal, mood normal. [] Current Patient Data Vital Signs Vital Signs Date Time Temp Pulse Resp B/P (MAP) Pulse Ox O2 Delivery O2 Flow Rate FiO2 08/13/18 23:10 60 18 98 08/13/18 20:15 97.8 133/61 (85) Room Air 97.8 Lab Values Laboratory Tests Test 08/13/18 20:15 08/13/18 20:23 08/13/18 21:40 Glucose (Fingerstick) 203 mg/dL (70-99) H White Blood Count 8.7 x10^3/uL (4.0-11.0) Red Blood Count 3.93 x10^6/uL (3.50-5.40) Hemoglobin 12.4 g/dL (12.0-15.5) Hematocrit 36.6 % (36.0-47.0) Mean Corpuscular Volume 93 fL (79-100) Mean Corpuscular Hemoglobin 32 pg (25-35) Mean Corpuscular Hemoglobin Concent 34 g/dL (31-37) Red Cell Distribution Width 14.1 % (11.5-14.5) Platelet Count 248 x10^3/uL (140-400) Neutrophils (%) (Auto) 75 % (31-73) H Lymphocytes (%) (Auto) 9 % (24-48) L Monocytes (%) (Auto) 12 % (0-9) H Eosinophils (%) (Auto) 3 % (0-3) Basophils (%) (Auto) 1 % (0-3) Neutrophils # (Auto) 6.5 x10^3uL (1.8-7.7) Lymphocytes # (Auto) 0.8 x10^3/uL (1.0-4.8) L Monocytes # (Auto) 1.0 x10^3/uL (0.0-1.1) Eosinophils # (Auto) 0.3 x10^3/uL (0.0-0.7) Basophils # (Auto) 0.1 x10^3/uL (0.0-0.2) Prothrombin Time 22.8 SEC (11.7-14.0) H Prothrombin Time INR 2.0 (0.8-1.1) H PTT 56 SEC (24-38) H Sodium Level 131 mmol/L (136-145) L Potassium Level 4.1 mmol/L (3.5-5.1) Chloride Level 99 mmol/L (98-107) Carbon Dioxide Level 21 mmol/L (21-32) Anion Gap 11 (6-14) Blood Urea Nitrogen 22 mg/dL (7-20) H Creatinine 2.4 mg/dL (0.6-1.0) H Estimated GFR (Cockcroft-Gault) 19.7 BUN/Creatinine Ratio 9 (6-20) Glucose Level 232 mg/dL (70-99) H Lactic Acid Level 1.4 mmol/L (0.4-2.0) Calcium Level 9.0 mg/dL (8.5-10.1) Total Bilirubin 0.3 mg/dL (0.2-1.0) Aspartate Amino Transferase (AST) 15 U/L (15-37) Alanine Aminotransferase (ALT) 22 U/L (14-59) Alkaline Phosphatase 83 U/L (46-116) Ammonia 24 mcmol/L (11-34) Troponin I Quantitative < 0.017 ng/mL (0.000-0.055) Total Protein 7.6 g/dL (6.4-8.2) Albumin 3.7 g/dL (3.4-5.0) Albumin/Globulin Ratio 0.9 (1.0-1.7) L Digoxin Level 2.3 ng/mL (0.9-2.0) H Digoxin Last Dose Date Unk Digoxin Last Dose Time Unk Urine Collection Type U cath Urine Color Juliann Urine Clarity Cloudy Urine pH 5.0 Urine Specific Julian 1.020 Urine Protein >=300 mg/dL (NEG-TRACE) Urine Glucose (UA) 100 mg/dL (NEG) Urine Ketones (Stick) Trace mg/dL (NEG) Urine Blood Trace (NEG) Urine Nitrite Negative (NEG) Urine Bilirubin Moderate (NEG) Urine Urobilinogen Dipstick 1.0 mg/dL (0.2 mg/dL) Urine Leukocyte Esterase Small (NEG) Urine RBC 1-2 /HPF (0-2) Urine WBC 5-10 /HPF (0-4) Urine Squamous Epithelial Cells None /LPF Urine Amorphous Sediment Present /HPF Urine Bacteria Few /HPF (0-FEW) Laboratory Tests 08/13/18 20:23 Laboratory Tests 08/13/18 20:23 EKG EKG 08/13/18 at 2020: Paced rhythm at 60 bmp. Compared to prior EKG per [facility] from 12/28/17 without significant change. Radiology/Procedures Radiology/Procedures [] Course & Med Decision Making Course & Med Decision Making Pertinent Labs and Imaging studies reviewed. (See chart for details) [] Dragon Disclaimer Dragon Disclaimer This electronic medical record was generated, in whole or in part, using a voice recognition dictation system. Departure Departure Referrals: MARGI JARAMILLO MD (PCP) BRODY ALEXANDER DO Aug 14, 2018 04:28
[2018-08-14 07:00] VITALS: BP 106/50
[2018-08-14] MEDS ORDERED: INSULIN LISPRO 300 UNITS/3 ML INSULN.PEN. SQ SCH (08:00)
--- NOTE | 2018-08-14 09:53 | EKG ---
[facility] [address] [place] [address] Test Date: 2018-08-13 Test Time: 20:20:12 Pat Name: GASTON PATTERSON Department: Room: Gender: F Statistics Manager: : 1945 Requested By: BRODY ALEXANDER Order Number: [id number] Reading MD: Measurements Intervals Roland Rate: 60 P: ME: QRS: -51 QRSD: 138 T: 123 QT: 432 QTc: 436 Interpretive Statements IRREGULAR RHYTHM, NO P-WAVE FOUND ABNORMAL LEFT AXIS DEVIATION NON SPECIFIC INTRAVENTRICULAR BLOCK QRS(T) CONTOUR ABNORMALITY CONSISTENT WITH ANTERIOR INFARCT POSSIBLY RECENT CONSISTENT WITH INFERIOR INFARCT POSSIBLY RECENT ABNORMAL ECG RI6.01 No previous ECG available for comparison
--- NOTE | 2018-08-14 10:42 | PDOC ---
PROGRESS NOTES Subjective Subjective Patient without complaint, wants to go home. Objective Objective Vital Signs Date Time Temp Pulse Resp B/P (MAP) Pulse Ox O2 Delivery O2 Flow Rate FiO2 08/14/18 08:00 Room Air 08/14/18 07:00 98.1 60 18 106/50 (68) 95 98.1 Intake and Output 08/14/18 06:59 Intake Total 0 ml Balance 0 ml Intake Oral 0 ml Physical Exam Abdomen: Normal bowel sounds, Soft, No tenderness Heart: Regular rate, Other (II/ systolic murmur) Extremities: No edema General: Alert, Oriented X3, No acute distress, Other (at baseline mental status) Lungs: Clear to auscultation Neuro: Normal speech Plan Plan of Care 1. Possible TIA - patient had brief episode of confusion and difficulty in speaking last evening. Resolved in ER and has not recurred. CT head without acute findings. Already anticoagulated. At baseline mental status, home today. 2. possible UTI - urine with 5-10 WBC's and no squamous cells. Culture pending, will discharge on Keflex. 3. CHF - recently started on Entresto when Echo showed EF of 25%. CXR at admission showed possible CHF but patient without symptoms and chest clear on exam. Continue medication per Cardiology. 4. chronic afib - remains mainly paced. INR good on her usual Coumadin, continue. Dig level a little high, will decreased dose to QOD. 5. ESRD - stable, contiue dialysis as scheduled. Patient missed one tx earlier this week as she was having problems with her shunt but this was treated. 6. DM2 - controlled, continue Toujeo. 7. memory loss - patient is at baseline, continue supportive care. administers her medications and does a very good job of this. Comment Review of Relevant I have reviewed the following items corinne (where applicable) has been applied. Labs Laboratory Tests Test 08/13/18 20:15 08/13/18 20:23 08/13/18 21:40 08/14/18 02:00 Glucose (Fingerstick) 203 mg/dL (70-99) White Blood Count 8.7 x10^3/uL (4.0-11.0) Red Blood Count 3.93 x10^6/uL (3.50-5.40) Hemoglobin 12.4 g/dL (12.0-15.5) Hematocrit 36.6 % (36.0-47.0) Mean Corpuscular Volume 93 fL (79-100) Mean Corpuscular Hemoglobin 32 pg (25-35) Mean Corpuscular Hemoglobin Concent 34 g/dL (31-37) Red Cell Distribution Width 14.1 % (11.5-14.5) Platelet Count 248 x10^3/uL (140-400) Neutrophils (%) (Auto) 75 % (31-73) Lymphocytes (%) (Auto) 9 % (24-48) Monocytes (%) (Auto) 12 % (0-9) Eosinophils (%) (Auto) 3 % (0-3) Basophils (%) (Auto) 1 % (0-3) Neutrophils # (Auto) 6.5 x10^3uL (1.8-7.7) Lymphocytes # (Auto) 0.8 x10^3/uL (1.0-4.8) Monocytes # (Auto) 1.0 x10^3/uL (0.0-1.1) Eosinophils # (Auto) 0.3 x10^3/uL (0.0-0.7) Basophils # (Auto) 0.1 x10^3/uL (0.0-0.2) Prothrombin Time 22.8 SEC (11.7-14.0) Prothromb Time International Ratio 2.0 (0.8-1.1) Activated Partial Thromboplast Time 56 SEC (24-38) Sodium Level 131 mmol/L (136-145) Potassium Level 4.1 mmol/L (3.5-5.1) Chloride Level 99 mmol/L (98-107) Carbon Dioxide Level 21 mmol/L (21-32) Anion Gap 11 (6-14) Blood Urea Nitrogen 22 mg/dL (7-20) Creatinine 2.4 mg/dL (0.6-1.0) Estimated GFR (Cockcroft-Gault) 19.7 BUN/Creatinine Ratio 9 (6-20) Glucose Level 232 mg/dL (70-99) Lactic Acid Level 1.4 mmol/L (0.4-2.0) Calcium Level 9.0 mg/dL (8.5-10.1) Total Bilirubin 0.3 mg/dL (0.2-1.0) Aspartate Amino Transf (AST/SGOT) 15 U/L (15-37) Alanine Aminotransferase (ALT/SGPT) 22 U/L (14-59) Alkaline Phosphatase 83 U/L (46-116) Ammonia 24 mcmol/L (11-34) Troponin I Quantitative < 0.017 ng/mL (0.000-0.055) 0.030 ng/mL (0.000-0.055) Total Protein 7.6 g/dL (6.4-8.2) Albumin 3.7 g/dL (3.4-5.0) Albumin/Globulin Ratio 0.9 (1.0-1.7) Digoxin Level 2.3 ng/mL (0.9-2.0) Digoxin Last Dose Date Unk Digoxin Last Dose Time Unk Urine Collection Type U cath Urine Color Juliann Urine Clarity Cloudy Urine pH 5.0 Urine Specific Tatamy 1.020 Urine Protein >=300 mg/dL (NEG-TRACE) Urine Glucose (UA) 100 mg/dL (NEG) Urine Ketones (Stick) Trace mg/dL (NEG) Urine Blood Trace (NEG) Urine Nitrite Negative (NEG) Urine Bilirubin Moderate (NEG) Urine Urobilinogen Dipstick 1.0 mg/dL (0.2 mg/dL) Urine Leukocyte Esterase Small (NEG) Urine RBC 1-2 /HPF (0-2) Urine WBC 5-10 /HPF (0-4) Urine Squamous Epithelial Cells None /LPF Urine Amorphous Sediment Present /HPF Urine Bacteria Few /HPF (0-FEW) Test 08/14/18 04:30 08/14/18 08:11 Troponin I Quantitative 0.027 ng/mL (0.000-0.055) Glucose (Fingerstick) 103 mg/dL (70-99) Laboratory Tests Test 08/13/18 20:15 08/13/18 20:23 08/13/18 21:40 08/14/18 02:00 Glucose (Fingerstick) 203 mg/dL (70-99) White Blood Count 8.7 x10^3/uL (4.0-11.0) Red Blood Count 3.93 x10^6/uL (3.50-5.40) Hemoglobin 12.4 g/dL (12.0-15.5) Hematocrit 36.6 % (36.0-47.0) Mean Corpuscular Volume 93 fL (79-100) Mean Corpuscular Hemoglobin 32 pg (25-35) Mean Corpuscular Hemoglobin Concent 34 g/dL (31-37) Red Cell Distribution Width 14.1 % (11.5-14.5) Platelet Count 248 x10^3/uL (140-400) Neutrophils (%) (Auto) 75 % (31-73) Lymphocytes (%) (Auto) 9 % (24-48) Monocytes (%) (Auto) 12 % (0-9) Eosinophils (%) (Auto) 3 % (0-3) Basophils (%) (Auto) 1 % (0-3) Neutrophils # (Auto) 6.5 x10^3uL (1.8-7.7) Lymphocytes # (Auto) 0.8 x10^3/uL (1.0-4.8) Monocytes # (Auto) 1.0 x10^3/uL (0.0-1.1) Eosinophils # (Auto) 0.3 x10^3/uL (0.0-0.7) Basophils # (Auto) 0.1 x10^3/uL (0.0-0.2) Prothrombin Time 22.8 SEC (11.7-14.0) Prothromb Time International Ratio 2.0 (0.8-1.1) Activated Partial Thromboplast Time 56 SEC (24-38) Sodium Level 131 mmol/L (136-145) Potassium Level 4.1 mmol/L (3.5-5.1) Chloride Level 99 mmol/L (98-107) Carbon Dioxide Level 21 mmol/L (21-32) Anion Gap 11 (6-14) Blood Urea Nitrogen 22 mg/dL (7-20) Creatinine 2.4 mg/dL (0.6-1.0) Estimated GFR (Cockcroft-Gault) 19.7 BUN/Creatinine Ratio 9 (6-20) Glucose Level 232 mg/dL (70-99) Lactic Acid Level 1.4 mmol/L (0.4-2.0) Calcium Level 9.0 mg/dL (8.5-10.1) Total Bilirubin 0.3 mg/dL (0.2-1.0) Aspartate Amino Transf (AST/SGOT) 15 U/L (15-37) Alanine Aminotransferase (ALT/SGPT) 22 U/L (14-59) Alkaline Phosphatase 83 U/L (46-116) Ammonia 24 mcmol/L (11-34) Troponin I Quantitative < 0.017 ng/mL (0.000-0.055) 0.030 ng/mL (0.000-0.055) Total Protein 7.6 g/dL (6.4-8.2) Albumin 3.7 g/dL (3.4-5.0) Albumin/Globulin Ratio 0.9 (1.0-1.7) Digoxin Level 2.3 ng/mL (0.9-2.0) Digoxin Last Dose Date Unk Digoxin Last Dose Time Unk Urine Collection Type U cath Urine Color Juliann Urine Clarity Cloudy Urine pH 5.0 Urine Specific Tatamy 1.020 Urine Protein >=300 mg/dL (NEG-TRACE) Urine Glucose (UA) 100 mg/dL (NEG) Urine Ketones (Stick) Trace mg/dL (NEG) Urine Blood Trace (NEG) Urine Nitrite Negative (NEG) Urine Bilirubin Moderate (NEG) Urine Urobilinogen Dipstick 1.0 mg/dL (0.2 mg/dL) Urine Leukocyte Esterase Small (NEG) Urine RBC 1-2 /HPF (0-2) Urine WBC 5-10 /HPF (0-4) Urine Squamous Epithelial Cells None /LPF Urine Amorphous Sediment Present /HPF Urine Bacteria Few /HPF (0-FEW) Test 08/14/18 04:30 08/14/18 08:11 Troponin I Quantitative 0.027 ng/mL (0.000-0.055) Glucose (Fingerstick) 103 mg/dL (70-99) Medications Current Medications Insulin Human Lispro (HumaLOG) 0-5 UNITS TIDWMEALS SQ ; Start 08/14/18 at 08:00 Dextrose (Dextrose 50%-Water Syringe) 12.5 gm PRN Q15MIN PRN IV SEE COMMENTS; Start 08/13/18 at 22:45 Active Scripts Active Reported Alendronate Sodium 35 Mg Tablet 35 Mg PO WEEKLY 7 Days Tojusten Solostar (Insulin Glargine,Hum.rec.anlog) 300 Unit/1 Ml Insuln.pen 5 Unit SQ HS Olanzapine 5 Mg Tablet 2.5 Mg PO HS PRN Donepezil Hcl 10 Mg Tablet 10 Mg PO HS Aspirin 81 Mg Tab.chew 1 Tab PO DAILY Sotalol (Sotalol Hcl) 80 Mg Tablet 40 Mg PO BID Digoxin 125 Mcg Tablet 125 Mcg PO DAILY Warfarin Sodium 4 Mg Tablet 4 Mg PO DAILY Entresto 24 mg-26 mg Tablet (Sacubitril/Valsartan) 1 Each Tablet 1 Each PO BID Amlodipine Besylate 10 Mg Tablet 10 Mg PO DAILY Atorvastatin Calcium 40 Mg Tablet 1 Tab PO QHS Protonix (Pantoprazole Sodium) 40 Mg Tablet.dr 40 Mg PO DAILY Vitals/I & O Vital Sign - Last 24 Hours 08/13/18 08/13/18 08/13/18 08/13/18 20:15 20:18 20:40 21:10 Temp 97.8 97.8 Pulse 60 59 60 Resp 18 18 18 18 B/P (MAP) 133/61 (85) Pulse Ox 98 98 97 98 O2 Delivery Room Air 08/13/18 08/13/18 08/13/18 08/13/18 21:40 22:10 22:40 23:10 Pulse 60 60 58 60 Resp 20 20 20 18 Pulse Ox 97 98 98 98 08/13/18 08/14/18 08/14/18 08/14/18 23:40 00:15 00:31 03:00 Temp 97.8 98.2 97.8 98.2 Pulse 60 60 60 Resp 18 22 21 B/P (MAP) 117/58 (77) 118/56 (76) Pulse Ox 97 98 97 O2 Delivery Room Air Room Air Room Air 08/14/18 08/14/18 07:00 08:00 Temp 98.1 98.1 Pulse 60 Resp 18 B/P (MAP) 106/50 (68) Pulse Ox 95 O2 Delivery Room Air Room Air Intake and Output 08/13/18 08/13/18 08/14/18 14:59 22:59 06:59 Intake Total 0 ml Balance 0 ml MARGI JARAMILLO MD Aug 14, 2018 10:42
[2018-08-14] MEDS ORDERED: CEPH-264 PO (10:51)
[2018-08-14 11:00] VITALS: BP 108/30
[2018-08-14] MEDS ORDERED: amLODIPine BESYLATE 10 MG TABLET PO SCH (11:00)
[2018-08-14] MEDS ORDERED: PANTOPRAZOLE 40 MG TABLET.DR. PO SCH (11:00)
[2018-08-14] MEDS ORDERED: DIGOXIN 125 MCG TABLET. PO SCH (11:00)
[2018-08-14] MEDS ORDERED: SOTALOL 80 MG TABLET. PO SCH (11:00)
[2018-08-14] MEDS ORDERED: ASPIRIN CHEWABLE 81 MG TABLET. PO SCH (11:00)
[2018-08-14] MEDS ORDERED: OLANZapine 2.5 MG TABLET PO PRN (11:00)
[2018-08-14] MEDS ORDERED: SACUBITRIL/VALSARTAN 24/26MG TABLET. PO SCH (11:00)
--- NOTE | 2018-08-14 11:36 | NUR ---
Discharge Note: GASTON PATTERSON Discharge instructions and discharge home medications reviewed with Spouse and a copy given. All questions have been answered and understanding verbalized. The following instructions and handouts were given: AMS, UTI Discontinued lines and drains: Peripheral IV intact. Patient discharged to Home or Self Care with Spouse via Wheelchair
--- NOTE | 2018-08-14 12:00 | SSS ---
ADMIT DATE: 08/14/2018 A 23-HOUR SUMMARY This is a combined history and physical and discharge summary. CHIEF COMPLAINT: Difficulty speaking. HISTORY OF PRESENT ILLNESS: The patient is a 73-year-old female with a known history of mild memory loss, who was brought to the Emergency Room by her with the above complaint. He reported the abrupt onset of some apparent confusion at home on the evening of admission. The patient had gone outdoors without shoes on, which was unusual for her. He brought her back in the house and began to speak to her. She was unable to answer simple questions, even including what her name was or what his name was and just answered "I don't know". Her grew concerned that this could be the sign of a stroke and he brought her to the Emergency Room. Initial evaluation there included a CT of the head, which was without acute findings and she was admitted for observation. PAST MEDICAL HISTORY: Mild memory loss; congestive heart failure with cardiomyopathy; chronic atrial fibrillation; diabetes mellitus type 2; end-stage renal disease, on dialysis; pulmonary hypertension; breast cancer; osteoporosis, history of mitral valve replacement and gout. PAST SURGICAL HISTORY: Mitral valve replacement x 2, 1991, 1981; right breast lobectomy, 2000; cholecystectomy; colectomy for colitis and pacemaker placement, 07/03. ALLERGIES: The patient has no known drug allergies. HOME MEDICATIONS: Alendronate 35 mg weekly, amlodipine 10 mg daily, aspirin 81 mg daily, atorvastatin 40 mg daily, digoxin 0.125 mg daily, donepezil 10 mg daily, Lantus insulin 5 units at bedtime, olanzapine 2.5 mg at bedtime, pantoprazole 40 mg daily, sotalol 40 mg b.i.d., Coumadin 4 mg daily and Entresto one b.i.d. This had just been started earlier this week by Dr. Silver. FAMILY HISTORY: Noncontributory. SOCIAL HISTORY: The patient is and lives at home with her , who provides her care there. She has a long smoking history, but quit smoking cigarettes many years ago. She does not drink alcohol to excess. REVIEW OF SYSTEMS: The patient has not had fever or chills. She has not complained of cough or shortness of breath. She has not had chest pain or palpitations. She denies abdominal pain, nausea, vomiting or problems with her bowels. She missed one dialysis treatment earlier this week as she was having some problems with her shunt, but this was treated and she has resumed her usual dialysis schedule. Her blood sugars have been good with her usual medication. She denies dysuria or increased urinary frequency. She does still produce some urine. PHYSICAL EXAMINATION: GENERAL: The patient is alert and oriented to person and place, time is not tested. She is sitting up in a chair, in no acute distress. HEENT: PERRL, EOMI, sclerae clear. Oropharynx, mucous membranes moist. NECK: Supple, without lymphadenopathy. CHEST: Clear to auscultation. CARDIOVASCULAR: Regular rhythm. 2/6 holosystolic murmur. ABDOMEN: Soft, nontender. Normoactive bowel sounds are present. EXTREMITIES: Bilateral lower extremities are without edema. NEUROLOGIC: Her speech is normal and she is able to answer questions appropriately. HOSPITAL COURSE: The patient was admitted and placed on telemetry, where she has remained mainly in a paced rhythm. Her vital signs have been stable and her agreed that she is at her baseline mental status and they are comfortable with her returning home today. Lab at admission had an INR of 2.0. Her digoxin level was elevated at 2.3. Her last dose of digoxin had been first thing yesterday morning. Her digoxin dose will therefore be decreased and this was discussed with her . Urinalysis does show 5-10 wbc's with no squamous epithelial cells. A culture has been ordered. We will start the patient on Keflex and her is advised to call our office next week for the final culture results. FINAL DIAGNOSES: 1. Transient ischemic attack. 2. Possible urinary tract infection. 3. Congestive heart failure with cardiomyopathy. 4. Chronic atrial fibrillation. 5. End-stage renal disease, on dialysis. 6. Diabetes mellitus type 2. 7. Memory loss. DISCHARGE MEDICATIONS: Remain the same as at admission, except that digoxin is decreased to every other day. She will also be discharged with a prescription for Keflex 500 mg 2 p.o. b.i.d. x 7 days, then discontinue. FOLLOWUP: Followup is with Dr. Prieto as needed. is to call our office Thursday morning for final urine culture results. MARGI PRIETO MD DR: BEKAH/chelsea JOB#: [id number] / [id number] CONRAD
[2018-08-14] MEDS ORDERED: WARFARIN 4 MG TABLET. PO SCH (16:00)
[2018-08-14] MEDS ORDERED: ATORVASTATIN CALCIUM 40 MG TABLET. PO SCH (21:00)
[2018-08-14] MEDS ORDERED: INSULIN GLARGINE 300 UNITS/3 ML INSULN.PEN. SQ SCH (21:00)
== END 2018-08-14 11:35 | disposition home or self-care (01) ==
LOC: ER 20:02 → 2 SOUTH 23:12
PROVIDERS: ADMIT Family Medicine; ATTEND Family Medicine
DX: R41.82 Altered mental status, unspecified (principal); G45.9 Transient cerebral ischemic attack, unspecified; I25.10 Atherosclerotic heart disease of native coronary artery without angina pectoris; Z86.73 Personal history of transient ischemic attack (TIA), and cerebral infarction without residual deficits; E78.00 Pure hypercholesterolemia, unspecified; F03.90 Unspecified dementia, unspecified severity, without behavioral disturbance, psychotic disturbance, mood disturbance, and anxiety; Z87.891 Personal history of nicotine dependence; I48.2 Chronic atrial fibrillation; I11.9 Hypertensive heart disease without heart failure; I43 Cardiomyopathy in diseases classified elsewhere; I27.20 Pulmonary hypertension, unspecified; M81.0 Age-related osteoporosis without current pathological fracture; Z85.3 Personal history of malignant neoplasm of breast; Z90.11 Acquired absence of right breast and nipple; Z95.0 Presence of cardiac pacemaker; Z95.2 Presence of prosthetic heart valve; Z99.2 Dependence on renal dialysis; E11.22 Type 2 diabetes mellitus with diabetic chronic kidney disease; I13.2 Hypertensive heart and chronic kidney disease with heart failure and with stage 5 chronic kidney disease, or end stage renal disease; I50.9 Heart failure, unspecified; N18.6 End stage renal disease; G20 Parkinson's disease; R41.3 Other amnesia
CPT/HCPCS: 36415; 70450; 71045; 80053; 80162; 81001; 82140; 82962; 83605; 84484; 85025; 85610; 85730; 87086; 93005; 99284; G0378; J1815; G0379

== ENCOUNTER → 2018-11-02 | Outpatient (CLI) | payer BC ==
[~2018-11-02] MED LIST changes: +AMLO-268 PO; +PANT20TA2 PO; +SACU1TAB PO; +WARF4TAB64 PO
--- NOTE | 2018-11-02 13:57 | CARD ---
MR#: [id number] Date of Study: 11/02/2018 Ordering Physician: KETTY CORREA, Referring Physician: KETTY CORREA, Tech: Tianna Adhikari THANH APPROVED REPORT EXAM: Two-dimensional and M-mode echocardiogram with Doppler and color Doppler. Other Information Quality : AverageHR: 60bpm Rhythm : NSR INDICATION MV replacement Surgery/Intervention Status/Post Mitral Valve Replacement: 2D DIMENSIONS RVDd3.0 (2.9-3.5cm)Left Atrium(2D)3.4 (1.6-4.0cm) IVSd1.7 (0.7-1.1cm)Aortic Root(2D)3.2 (2.0-3.7cm) LVDd5.2 (3.9-5.9cm)LVOT Diameter2.0 (1.8-2.4cm) PWd1.1 (0.7-1.1cm)LVDs4.4 (2.5-4.0cm) FS (%) 16.2 %SV44.3 ml LVEF(%)30.0 (>50%) Aortic Valve AoV Peak Robert.273.6cm/sAoV VTI49.6cm AO Peak GR.29.9mmHgLVOT Peak Robert.71.2cm/s AO Mean GR.15mmHgAVA (VTI)0.90cm2 AI P 1/2 Ymvv500cu Mitral Valve MV E Iqjbcujh861.7cm/sMV E Peak Gr.18mmHg MV DECEL [id number] A Cbfhrtwu65.6cm/s MV E Mean Gr.6mmHgE/A Ratio5.0 Pulmonary Valve PV Peak Xjasdwup718.1cm/s Tricuspid Valve TR P. Oavmlhna897sq/sRAP DWYINFIG9nlOq TR Peak Gr.78fwNxJXAB43pgDa LEFT VENTRICLE The left ventricle is normal size. There is moderate asymmetric left ventricular hypertrophy. The lef t ventricular systolic function is moderately to severely impaired. The Ejection Fraction is 25-30%. There is global hypokinesis of the left ventricle. RIGHT VENTRICLE The right ventricle is normal size. There is normal right ventricular wall thickness. The right ventr icular systolic function is normal. ATRIA The left atrium size is normal. The right atrium size is normal. The interatrial septum is intact wit h no evidence for an atrial septal defect or patent foramen ovale as noted on 2-D or Doppler imaging. AORTIC VALVE The aortic valve is moderately calcified. The aortic valve is probably trileaflet. Doppler and Color Flow revealed mild aortic regurgitation. There is mild to moderate valvular aortic stenosis. Maximum pressure gradient of 30 mmHg and mean pressure gradient of 15 mmHg. MITRAL VALVE History of MV replacement. There is no evidence of mitral valve prolapse. History of mitral valve rep lacement. Calculated mitral valve area is 0.9cm2 with maximum pressure gradient of 18 mmHg and mean p ressure gradient of 6 mmHg. Doppler and Color-flow revealed trace to mild mitral regurgitation. Prost hetic mitral valve appears well seated. TRICUSPID VALVE The tricuspid valve is normal in structure and function. Doppler and Color Flow revealed trace tricus pid regurgitation. The PA pressure was estimated at 30 mmHg. There is no tricuspid valve prolapse or vegetation. There is no tricuspid valve stenosis. PULMONIC VALVE The pulmonic valve is not well visualized. GREAT VESSELS The aortic root is normal in size. The ascending aorta is normal in size. The IVC is normal in size a nd collapses >50% with inspiration. PERICARDIAL EFFUSION There is no evidence of significant pericardial effusion. Critical Notification Critical Value: No <Conclusion> The left ventricular systolic function is moderately to severely impaired. The Ejection Fraction is 25-30%. There is mild to moderate valvular aortic stenosis. Mild aortic regurgitation. Prosthetic mitral valve appears well seated and functioning well. Mean pressure gradient 6 mmHg. Trace tricuspid regurgitation. The PA pressure was estimated at 30 mmHg. There is no evidence of significant pericardial effusion. Signed by : Duane Hanley, Electronically Approved : 11/02/2018 13:57:09
== END | disposition home or self-care (01) ==
LOC: ECHO 12:30
PROVIDERS: ATTEND Internal Medicine Cardiovascular Disease
DX: I08.0 Rheumatic disorders of both mitral and aortic valves (principal); I42.9 Cardiomyopathy, unspecified; Z95.2 Presence of prosthetic heart valve
CPT/HCPCS: 93306

== ENCOUNTER 2018-11-26 20:27 | Emergency (ER) | payer BC ==
[~2018-11-26] VITALS: Ht 175.3 cm; Wt 55.3 kg
[~2018-11-26 20:27] MED LIST changes: +ALEN35TA11 PO; -ALEN35TA6 PO
[2018-11-26 21:17] LABS: BASO % 1 % (0-3); EOS # 0.2 x10^3/uL (0.0-0.7); EOS % 3 % (0-3); HEMATOCRIT 33.3 % (36.0-47.0); HEMOGLOBIN 11.2 g/dL (12.0-15.5); LYMPH # 0.6 x10^3/uL (1.0-4.8); LYMPH % 9 % (24-48); MEAN CORPUSCULAR HEMOGLOBIN 31 pg (25-35); MEAN CORPUSCULAR HGB CONC 34 g/dL (31-37); MEAN CORPUSCULAR VOLUME 93 fL (79-100); MONO # 0.8 x10^3/uL (0.0-1.1); MONO % 13 % (0-9); NEUT # 4.7 x10^3/uL (1.8-7.7); NEUT % 75 % (31-73); PLATELET COUNT 255 x10^3/uL (140-400); RED BLOOD COUNT 3.59 x10^6/uL (3.50-5.40); RED CELL DISTRIBUTION WIDTH 14.1 % (11.5-14.5); WHITE BLOOD COUNT 6.3 x10^3/uL (4.0-11.0)
[2018-11-26 21:25] LABS: PROTHROMBIN TIME PATIENT 28.3 SEC (11.7-14.0)
[2018-11-26 21:28] LABS: CALCIUM 9.4 mg/dL (8.5-10.1); GFR 24.3; POTASSIUM 3.4 mmol/L (3.5-5.1)
--- NOTE | 2018-11-26 21:32 | RAD ---
PORTABLE CHEST 1V History: Chest pain Comparison: August 13, 2018 Findings: Mild interstitial thickening. No focal consolidation. No pleural effusion. Unchanged heart size. Right-sided ICD. Prior median sternotomy. No pneumothorax. Vascular stent projecting over the left upper extremity. Postop changes right axilla. Prominent bilateral kaz. Impression: 1. Mild interstitial thickening, may relate to chronic interstitial changes, similar compared to prior. 2. Prominent bilateral kaz, may relate to enlarged pulmonary vasculature, unchanged. Electronically signed by: Pierce Roth DO (11/26/2018 9:29 PM) [id number]
[2018-11-26 21:35] LABS: ALBUMIN 3.5 g/dL (3.4-5.0); MAGNESIUM 1.6 mg/dL (1.8-2.4); TOTAL BILIRUBIN 0.3 mg/dL (0.2-1.0); TOTAL PROTEIN 6.9 g/dL (6.4-8.2)
--- NOTE | 2018-11-26 22:23 | PHYS DOC ---
Past Medical History Past Medical History: CAD, CVA, Dementia, Diabetes-Type II, High Cholesterol, Hypertension, Renal Disease, Other Additional Past Medical Histor: ULCER COLITIS, MITRAL VALVE REPLACEMENT X 2 , insomnia, PARKINSON Past Surgical History: Cholecystectomy, Pacemaker, Tonsillectomy, Other Additional Past Surgical Histo: MITRAL VALVE SURGERY, RIGHT MASTECTOMY, COLON RESECTION, DIALYSIS SHUNT RUE Alcohol Use: None Drug Use: None Adult General Chief Complaint Chief Complaint: CHEST PAIN [facility] HPI Patient is a 73-year-old female who presents with report of chest pain that had started a couple of days ago. Patient had reported to ER nurse that pain was a 5 out of 10; however, upon my evaluation of patient patient states that she is chest pain-free at this time. She denies any nausea, vomiting or diaphoresis. She indicates that during the pain there appeared to be no alleviating or exacerbating factors. She described the pain as a dull ache. Currently patient is completely asymptomatic.[] Review of Systems Review of Systems Constitutional: Denies fever or chills [] Respiratory: Denies cough or shortness of breath [] Cardiovascular: No additional information not addressed in HPI [] GI: Denies abdominal pain, nausea, vomiting or diarrhea [] Integument: Denies rash or skin lesions [] Neurologic: Denies headache, focal weakness or sensory changes [] All other systems were reviewed and found to be within normal limits, except as documented in this note. Allergies Allergies Allergies Coded Allergies Type Severity Reaction Last Updated Verified No Known Medication Allergies Allergy Unknown 06/10/17 Yes Physical Exam Physical Exam Constitutional: Well developed, well nourished, no acute distress, non-toxic appearance. [] HENT: Normocephalic, atraumatic, bilateral external ears normal, oropharynx moist, no oral exudates, nose normal. [] Eyes: PERRLA, EOMI, conjunctiva normal, no discharge. [] Neck: Normal range of motion, no tenderness, supple, no stridor. [] Cardiovascular: Regular rate and rhythm[] Lungs & Thorax: Bilateral breath sounds clear to auscultation [] Abdomen: Bowel sounds normal, soft, no tenderness. [] Skin: Warm, dry, no erythema, no rash. [] Extremities: No tenderness, no cyanosis, no clubbing, ROM intact, no edema. [] Neurologic: Awake and alert, no focal deficits noted. [] Current Patient Data Vital Signs Vital Signs Date Time Temp Pulse Resp B/P (MAP) Pulse Ox O2 Delivery O2 Flow Rate FiO2 11/26/18 23:00 60 23 123/59 (80) 99 Room Air 11/26/18 20:30 97.1 97.1 Lab Values Laboratory Tests Test 11/26/18 21:05 White Blood Count 6.3 x10^3/uL (4.0-11.0) Red Blood Count 3.59 x10^6/uL (3.50-5.40) Hemoglobin 11.2 g/dL (12.0-15.5) L Hematocrit 33.3 % (36.0-47.0) L Mean Corpuscular Volume 93 fL (79-100) Mean Corpuscular Hemoglobin 31 pg (25-35) Mean Corpuscular Hemoglobin Concent 34 g/dL (31-37) Red Cell Distribution Width 14.1 % (11.5-14.5) Platelet Count 255 x10^3/uL (140-400) Neutrophils (%) (Auto) 75 % (31-73) H Lymphocytes (%) (Auto) 9 % (24-48) L Monocytes (%) (Auto) 13 % (0-9) H Eosinophils (%) (Auto) 3 % (0-3) Basophils (%) (Auto) 1 % (0-3) Neutrophils # (Auto) 4.7 x10^3/uL (1.8-7.7) Lymphocytes # (Auto) 0.6 x10^3/uL (1.0-4.8) L Monocytes # (Auto) 0.8 x10^3/uL (0.0-1.1) Eosinophils # (Auto) 0.2 x10^3/uL (0.0-0.7) Basophils # (Auto) 0.0 x10^3/uL (0.0-0.2) Prothrombin Time 28.3 SEC (11.7-14.0) H Prothrombin Time INR 2.7 (0.8-1.1) H Sodium Level 140 mmol/L (136-145) Potassium Level 3.4 mmol/L (3.5-5.1) L Chloride Level 102 mmol/L (98-107) Carbon Dioxide Level 30 mmol/L (21-32) Anion Gap 8 (6-14) Blood Urea Nitrogen 11 mg/dL (7-20) Creatinine 2.0 mg/dL (0.6-1.0) H Estimated GFR (Cockcroft-Gault) 24.3 BUN/Creatinine Ratio 6 (6-20) Glucose Level 195 mg/dL (70-99) H Calcium Level 9.4 mg/dL (8.5-10.1) Magnesium Level 1.6 mg/dL (1.8-2.4) L Total Bilirubin 0.3 mg/dL (0.2-1.0) Aspartate Amino Transferase (AST) 13 U/L (15-37) L Alanine Aminotransferase (ALT) 18 U/L (14-59) Alkaline Phosphatase 85 U/L (46-116) Troponin I Quantitative 0.026 ng/mL (0.000-0.055) RU-Tqf-[id number]-Type Natriuretic Peptide 4096 pg/mL (0-449) H Total Protein 6.9 g/dL (6.4-8.2) Albumin 3.5 g/dL (3.4-5.0) Albumin/Globulin Ratio 1.0 (1.0-1.7) Lipase 557 U/L (73-393) H Laboratory Tests 11/26/18 21:05 Laboratory Tests 11/26/18 21:05 EKG EKG [] Radiology/Procedures Radiology/Procedures [] Impressions: EKG demonstrates a ventricular paced rhythm with rate of 60. Course & Med Decision Making Course & Med Decision Making Pertinent Labs and Imaging studies reviewed. (See chart for details) Patient moved to room upon arrival was evaluated by your medical staff after which an IV was established and blood work was drawn. Workup is returned fairly stable. I did discuss with patient and family about admission into this facility for further observation and further testing of the heart. Patient is noted to be therapeutic on her Coumadin. Patient adamant that she wants to be discharged home. She has been chest pain-free since arrival. agrees to bring patient back to emergency room should pain return. Patient will be discharged home. Dragon Disclaimer Dragon Disclaimer This electronic medical record was generated, in whole or in part, using a voice recognition dictation system. Departure Departure Impression: Primary Impression: Chest pain Disposition: HOME, SELF-CARE Condition: STABLE Referrals: MARGI JARAMILLO MD (PCP) Patient Instructions: Chest Pain (Nonspecific) Additional Instructions: Call to schedule appointment with her primary care provider first thing Thursday morning. Return to the emergency room if you have recurrence of chest pain. Problem Qualifiers Primary Impression: Chest pain Chest pain type: unspecified Qualified Codes: R07.9 - Chest pain, unspecified LIDIA JARVIS Jr. DO Nov 26, 2018 22:23
[2018-11-26 23:00] VITALS: BP 123/59
--- NOTE | 2018-11-28 11:43 | EKG ---
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
== END 2018-11-26 23:02 | disposition home or self-care (01) ==
LOC: ER 20:27
DX: R07.89 Other chest pain (principal); E78.00 Pure hypercholesterolemia, unspecified; I10 Essential (primary) hypertension; E11.9 Type 2 diabetes mellitus without complications; Z86.73 Personal history of transient ischemic attack (TIA), and cerebral infarction without residual deficits; Z90.49 Acquired absence of other specified parts of digestive tract; Z95.0 Presence of cardiac pacemaker; Z90.89 Acquired absence of other organs; Z90.11 Acquired absence of right breast and nipple
CPT/HCPCS: 36415; 71045; 80053; 83690; 83735; 83880; 84484; 85025; 85610; 93005; 99285-25

== ENCOUNTER 2019-08-08 03:32 | Emergency (ER) | payer BC ==
[~2019-08-08] VITALS: Ht 175.3 cm; Wt 59.1 kg
[~2019-08-08 03:32] MED LIST changes: -DIGO125T PO; +DIGO125T3 PO; +MAGN296S68 PO; -MAGN296S9 PO; -WARF-78 PO; +WARF5TAB2 PO
[2019-08-08] MEDS ORDERED: NEOMY/BACITR/POLYMYXIN OINT PACKET. TP ONE (04:15)
[2019-08-08 04:21] LABS: BASO % 0 % (0-3); EOS # 0.2 x10^3/uL (0.0-0.7); EOS % 3 % (0-3); HEMATOCRIT 32.2 % (36.0-47.0); LYMPH # 0.7 x10^3/uL (1.0-4.8); LYMPH % 9 % (24-48); MEAN CORPUSCULAR HEMOGLOBIN 32 pg (25-35); MEAN CORPUSCULAR HGB CONC 34 g/dL (31-37); MEAN CORPUSCULAR VOLUME 93 fL (79-100); MONO # 0.9 x10^3/uL (0.0-1.1); MONO % 13 % (0-9); NEUT # 5.3 x10^3/uL (1.8-7.7); NEUT % 75 % (31-73); PLATELET COUNT 232 x10^3/uL (140-400); RED BLOOD COUNT 3.46 x10^6/uL (3.50-5.40); RED CELL DISTRIBUTION WIDTH 15.3 % (11.5-14.5); WHITE BLOOD COUNT 7.1 x10^3/uL (4.0-11.0)
[2019-08-08 04:30] LABS: PROTHROMBIN TIME PATIENT 25.8 SEC (11.7-14.0)
[2019-08-08] MEDS ORDERED: DIPH,PERTUSS(ACELL),TET VAC/PF 0.5 ML SYRINGE. VAX IM ONE (04:30)
[2019-08-08] MEDS ORDERED: LIDOCAINE 1%/EPI 1:100,000 20 ML VIAL. INJ ONE (04:30)
[2019-08-08] MEDS ORDERED: IV NORMAL SALINE 1000ML BAG 1,000 ML IV ONE (04:30)
--- NOTE | 2019-08-08 04:32 | PHYS DOC ---
Past Medical History Past Medical History: Diabetes-Type II, High Cholesterol, Heart Disease, Hypertension Additional Past Medical Histor: ULCER COLITIS, MITRAL VALVE REPLACEMENT X 2 , insomnia, PARKINSON Past Surgical History: No Surgical History Additional Past Surgical Histo: MITRAL VALVE SURGERY, RIGHT MASTECTOMY, COLON RESECTION, DIALYSIS SHUNT RUE Smoking Status: Never Smoker Alcohol Use: None Drug Use: None General Adult EDM: Chief Complaint: MULTIPLE TRAUMA/FALL HPI: HPI: Patient is a 74 year old [f__sex] who presents with [] Review of Systems: Review of Systems: Constitutional: Denies fever or chills Eyes: Denies redness or eye pain HENT: Denies nasal congestion or sore throat Respiratory: Denies cough or shortness of breath Cardiovascular: Denies chest pain or palpitations GI: Denies abdominal pain, nausea, or vomiting : Denies dysuria or hematuria Musculoskeletal: Denies back pain or joint pain Integument: Denies rash or skin lesions Neurologic: Denies headache, focal weakness or sensory changes Complete systems were reviewed and found to be within normal limits, except as documented in this note. Current Medications: Current Medications Medications (Trade) Dose Ordered Sig/Semaj Start Time Stop Time Status Last Admin Dose Admin Diphtheria/ Tetanus/Acell Pertussis (ADACEL TDap SYRINGE) 0.5 ml ONCE ONCE 08/08/19 04:30 08/08/19 04:31 DC Lidocaine/ Epinephrine (LIDOCAINE 1%-EPI 1:100,000 Multi-Dose) 20 ml 1X ONCE 08/08/19 04:30 08/08/19 04:31 DC Neomycin/ Polymyxin/ Bacitracin (Triple Antibiotic Ointment) 1 pkt 1X ONCE 08/08/19 04:15 08/08/19 04:16 DC Sodium Chloride 1,000 ml @ 1,000 mls/hr 1X ONCE 08/08/19 04:30 08/08/19 05:29 Allergies: Allergies: Allergies Coded Allergies Type Severity Reaction Last Updated Verified No Known Medication Allergies Allergy Unknown 06/10/17 Yes Physical Exam: PE: Constitutional: Well developed, well nourished, no acute distress, non-toxic appearance HENT: Normocephalic, atraumatic, oropharynx moist Eyes: PERRL, EOMI, conjunctiva normal, no discharge Neck: Normal range of motion, no tenderness, supple Cardiovascular: Heart rate normal, regular rhythm Lungs & Thorax: Bilateral breath sounds clear to auscultation, no wheezing Abdomen: Soft, no tenderness Skin: Warm, dry, no erythema, no rash Back: No tenderness, no CVA tenderness Extremities: No tenderness, ROM intact, no edema Neurologic: Alert and oriented X 3, normal motor function, normal sensory function, no focal deficits noted Psychologic: Affect normal, judgment normal Current Patient Data: Labs: Laboratory Tests Test 08/08/19 04:10 White Blood Count 7.1 x10^3/uL (4.0-11.0) Red Blood Count 3.46 x10^6/uL (3.50-5.40) L Hemoglobin 11.0 g/dL (12.0-15.5) L Hematocrit 32.2 % (36.0-47.0) L Mean Corpuscular Volume 93 fL (79-100) Mean Corpuscular Hemoglobin 32 pg (25-35) Mean Corpuscular Hemoglobin Concent 34 g/dL (31-37) Red Cell Distribution Width 15.3 % (11.5-14.5) H Platelet Count 232 x10^3/uL (140-400) Neutrophils (%) (Auto) 75 % (31-73) H Lymphocytes (%) (Auto) 9 % (24-48) L Monocytes (%) (Auto) 13 % (0-9) H Eosinophils (%) (Auto) 3 % (0-3) Basophils (%) (Auto) 0 % (0-3) Neutrophils # (Auto) 5.3 x10^3/uL (1.8-7.7) Lymphocytes # (Auto) 0.7 x10^3/uL (1.0-4.8) L Monocytes # (Auto) 0.9 x10^3/uL (0.0-1.1) Eosinophils # (Auto) 0.2 x10^3/uL (0.0-0.7) Basophils # (Auto) 0.0 x10^3/uL (0.0-0.2) Laboratory Tests 08/08/19 04:10 Vital Signs: Vital Signs Date Time Temp Pulse Resp B/P (MAP) Pulse Ox O2 Delivery O2 Flow Rate FiO2 08/08/19 03:36 97.8 60 18 144/61 (88) 100 Room Air 97.8 EKG: EKG: @0352 Paced at 68bpm Radiology/Procedures: Radiology/Procedures: PROCEDURE: CT HEAD AND CERVICAL SPINE WO Examination: CT head and cervical spine without contrast CT HEAD INDICATION: Reason: pain, head trauma / Spl. Instructions: / History: COMPARISON: 08/13/2018 Exposure: One or more of the following individualized dose reduction techniques were utilized for this examination: 1. Automated exposure control 2. Adjustment of the mA and/or kV according to patient size 3. Use of iterative reconstruction technique TECHNIQUE: 5 mm contiguous axial images were obtained from the skull base to the vertex in both bone and soft tissue algorithm. FINDINGS: Mild bilateral periventricular white matter hypodensities likely chronic small vessel ischemic disease. Small laceration identified in the left forehead region. No evidence of acute intracranial hemorrhage. No extra-axial fluid collections. No mass effect or midline shift. Ventricular size is appropriate. Basal cisterns are patent. No fractures identified.Hylton-white differentiation is preserved.Globes and orbits are within normal limits. Complete opacification of the left maxillary sinus. IMPRESSION: No acute intracranial findings. CT CERVICAL SPINE INDICATION: Reason: pain, head trauma / Spl. Instructions: / History: COMPARISON: None Available. Technique: 2.5 mm contiguous axial images were obtained from the skull base through the cervicothoracic junction in both bone and soft tissue algorithm. Additional sagittal and coronal reconstructions were also performed. FINDINGS: Vertebral body height and alignment are maintained. Cervical lordosis is preserved. The lateral masses of C1 are aligned upon C2. No fractures identified. The bony canal is patent throughout. Moderate degenerative changes cervical spine most at C5-C6 vertebral level. The paraspinous soft tissues are unremarkable. Visualized intracranial contents are unremarkable. Mild emphysematous changes apical lungs. Small subcentimeter hypodense nodule identified in the right and left lobes of thyroid gland. IMPRESSION: 1. No acute fracture cervical spine. Correlate clinically. 2. Moderate degenerative changes cervical spine most at C5-C6 vertebral level. 3. Small subcentimeter hypodense nodules in the right and left lobes of thyroid gland. Recommend follow-up ultrasound thyroid. Electronically signed by: Morris Posey MD (08/08/2019 4:44 AM) [id number] Course & Med Decision Making: Course & Med Decision Making Pertinent Labs and Imaging studies reviewed. (See chart for details) [] Dragon Disclaimer: Dragon Disclaimer: This electronic medical record was generated, in whole or in part, using a voice recognition dictation system. Laceration/Wound Repair Laceration/Wound Repair : Wound Location: face Wound's Depth, Shape: flap Wound Length (cm): 6 Wound Explored: no foreign body removed Irrigated w/ Saline (ccs): 120 Anesthesia: Lidocaine w/ Epi (1%) Volume Anesthetic (ccs): 5 Wound Debrided: moderate Wound Repaired With: sutures Suture Size/Type: 6:0, nylon Number of Sutures: 13 Sterile Dressing Applied?: Yes Progress Verbal consent obtained. Time out performed. Hand hygiene utilized. Wound cleaned with ChloraPrep. Anesthesia obtained via a 25-gauge hypodermic needle with (5) mL's of lidocaine 1% with epinephrine. Copious irrigation performed. Wound well approximated with 6-0 Nylon x 13 simple interrupted sutures. Patient tolerated procedure well and without difficulty. Empiric antibiotic ointment applied prior to sterile dressing. Departure Departure Impression: Primary Impression: Fall Qualified Codes: W19.XXXA - Unspecified fall, initial encounter Additional Impressions: Facial laceration Qualified Codes: S01.81XA - Laceration without foreign body of other part of head, initial encounter Thyroid nodule Disposition: HOME, SELF-CARE Admitting Physician: HIMS Condition: STABLE Referrals: MARGI JARAMILLO MD (PCP) Patient Instructions: Facial Laceration, [id number], Incidental Abnormal Radiological Finding, Laceration Care, Adult, [id number] Additional Instructions: Do not soak your wound. You may shower. Clean wound daily with soap and water. Change dressing 2 times daily. Use over the counter antibiotic ointment with each dressing change. Sutures need to be removed in 5 days. Present to your family doctor or local urgent care for removal. You may also present to the ED but it will be an additional visit/charge. After suture removal you may use Vitamin E ointment to soften the wound and prevent scarring. BRODY ALEXANDER DO Aug 08, 2019 04:32
[2019-08-08 04:39] LABS: CALCIUM 8.9 mg/dL (8.5-10.1); CREATININE 2.8 mg/dL (0.6-1.0); GFR 16.4; POTASSIUM 4.7 mmol/L (3.5-5.1)
[2019-08-08 04:46] LABS: ALBUMIN 3.3 g/dL (3.4-5.0); ALBUMIN/GLOBULIN RATIO 1.1 (1.0-1.7); MAGNESIUM 1.5 mg/dL (1.8-2.4); TOTAL BILIRUBIN 0.6 mg/dL (0.2-1.0); TOTAL PROTEIN 6.4 g/dL (6.4-8.2)
--- NOTE | 2019-08-08 04:46 | RAD ---
Examination: CT head and cervical spine without contrast CT HEAD INDICATION: Reason: pain, head trauma / Spl. Instructions: / History: COMPARISON: 08/13/2018 Exposure: One or more of the following individualized dose reduction techniques were utilized for this examination: 1. Automated exposure control 2. Adjustment of the mA and/or kV according to patient size 3. Use of iterative reconstruction technique TECHNIQUE: 5 mm contiguous axial images were obtained from the skull base to the vertex in both bone and soft tissue algorithm. FINDINGS: Mild bilateral periventricular white matter hypodensities likely chronic small vessel ischemic disease. Small laceration identified in the left forehead region. No evidence of acute intracranial hemorrhage. No extra-axial fluid collections. No mass effect or midline shift. Ventricular size is appropriate. Basal cisterns are patent. No fractures identified.Hylton-white differentiation is preserved.Globes and orbits are within normal limits. Complete opacification of the left maxillary sinus. IMPRESSION: No acute intracranial findings. CT CERVICAL SPINE INDICATION: Reason: pain, head trauma / Spl. Instructions: / History: COMPARISON: None Available. Technique: 2.5 mm contiguous axial images were obtained from the skull base through the cervicothoracic junction in both bone and soft tissue algorithm. Additional sagittal and coronal reconstructions were also performed. FINDINGS: Vertebral body height and alignment are maintained. Cervical lordosis is preserved. The lateral masses of C1 are aligned upon C2. No fractures identified. The bony canal is patent throughout. Moderate degenerative changes cervical spine most at C5-C6 vertebral level. The paraspinous soft tissues are unremarkable. Visualized intracranial contents are unremarkable. Mild emphysematous changes apical lungs. Small subcentimeter hypodense nodule identified in the right and left lobes of thyroid gland. IMPRESSION: 1. No acute fracture cervical spine. Correlate clinically. 2. Moderate degenerative changes cervical spine most at C5-C6 vertebral level. 3. Small subcentimeter hypodense nodules in the right and left lobes of thyroid gland. Recommend follow-up ultrasound thyroid. Electronically signed by: Morris Posey MD (08/08/2019 4:44 AM) [id number]
[2019-08-08 04:53] LABS: CREATINE KINASE 43 U/L (26-192)
--- NOTE | 2019-08-08 06:19 | EKG ---
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
[2019-08-08 06:55] VITALS: BP 152/68
[2019-08-08 08:08] LABS: DIG 3.3 ng/mL (0.9-2.0)
== END 2019-08-08 07:53 | disposition home or self-care (01) ==
LOC: ER 03:32
DX: S01.81XA Laceration without foreign body of other part of head, initial encounter (principal); E04.1 Nontoxic single thyroid nodule; I11.9 Hypertensive heart disease without heart failure; E78.00 Pure hypercholesterolemia, unspecified; E11.9 Type 2 diabetes mellitus without complications; G20 Parkinson's disease; W18.39XA Other fall on same level, initial encounter; Y93.89 Activity, other specified; Y92.89 Other specified places as the place of occurrence of the external cause; Y99.8 Other external cause status
CPT/HCPCS: 12014; 36415; 70450; 72125; 80053; 80162; 82553; 83735; 84484; 85025; 85610; 85730; 90471; 90715; 93005; 99285; J3490; J7030